=== PATIENT | male | born 1980 | race Caucasian/White ===

== ENCOUNTER 2019-04-12 12:13 | Outpatient (CLI) | payer MEDICARE, MEDICAID, SELFPAY ==
--- NOTE | 2019-04-12 12:32 | ECG_ITS ---
NAME OF STUDY: DOBUTAMINE STRESS ECHOCARDIOGRAM INDICATION: Chest Pain, PROCEDURE: At the baseline, the blood pressure was 123/88 with a heart rate of 100. The electrocardiogram showed normal sinus rhythm with a normal ST-T's. The dobutamine was infused over a period of 14 minutes and 15 seconds. The maximum heart rate obtained was 162 -89 % of the maximum predicted heart rate). The blood pressure at that time was 160/70 mmHg. The patient did not have any chest pain or any significant electrocardiogram changes with the dobutamine infusion. Occasional PVCs were noted with the peak dobutamine infusion. the physical examination remained unchanged. No arrhythmias were seen on the monitor. During the recovery phase, the patient did not have any specific symptoms. The blood pressure at the end of the recovery phase was 127/91 with a heart rate of 113 per minute. The echocardiographic pictures were taken at the baseline, low-dose and peak infusion rate. CONCLUSION: 1. Normal EKG response to dobutamine infusion 2. No dobutamine induced chest pain. Occasional PVCs were noted at the peak infusion 3. Echocardiographic pictures were taken at the baseline, as low dose and peak infusion rate. 4. Please see separate report for the echocardiographic response to dobutamine infusion Electronically Signed On 04-12-2019 19:52:10 HANDBOOK WRITER by Melissa Bansal M.D. [id number]
[2019-04-12 12:33] VITALS: BMI 26.9
--- NOTE | 2019-04-12 12:33 | USCV_ITS ---
Khris Kaba Age: 38 Gender: M : 1980 Exam Date: 04/12/2019 13:00 Ordering Phys: Melissa Bansal MD ([email or web address]) Technologist: Aleksey Villalta Exam Location: [facility] – [place] Indication: Chest pain Rhythm: Sinus Patient History: Depression, Chronic Back pain, Cervical spine fusion, HLD, Family HX CAD, Smokingne Cardiac Medications: none Medications in past 24 hours: none Contrast: Total Dose (mL): Stress Results Protocol: Pharmacologic Peak Dose (???g/kg/min): 40 Duration (min:sec): 14:15 Atropine:(mg) 0.5 Target HR: 155 Double Product: 98284 Resting HR: 99 Resting BP: 123 / 89 Peak HR: 162 Peak BP: 164 / 95 Max Predicted HR: 182 89 % Max Predicted HR Stress Summary: The hemodynamic response to stress was normal. BP Response: Normal Reason for Termination: The patients target heart rate was achieved Cardiac Symptoms: None ECG Analysis Resting EKG: Please see separate report Stress EKG: Please see separate report Arrhythmia: Please see separate report MEASUREMENTS (Male/Female) Normal Values FINDINGS The patient echocardiogram revealed normal LV size but there are no gross wall motion normalities. Normal ejection fraction. Normal aortic root size. No pericardial effusion. With a low and the peak dobutamine fusion, there was no significant wall motion normalities. During the recovery phase, there was no new changes. The study is of suboptimal quality because of the somewhat compromised ultrasonic window CONCLUSIONS Possibly normal echocardiographic response to dobutamine infusion. No dobutamine induced chest pain or cardiac arrhythmia. No significant coronary ischemia, based on the above findings For the EKG response to dobutamine infusion, please see separate report Dr Melissa Bansal MD [facility] (Electronically Signed) Final Date: 12 April 2019 19:18 S
[2019-04-12] MEDS: DOBUTtamine 200 MG in sodium chloride 0.9% 34 ML 13 MG IV (13:25)
[2019-04-12] MEDS: atropine 0.1 mg/mL Syr 10 mL 0.5 MG IVP (13:30)
[2019-04-12 13:57] VITALS: BP 123/85; PULSE 103
[2019-04-12] MEDS: sodium chloride 0.9% 250 mL Bag IV (14:04)
== END 2019-04-12 12:14 | disposition home or self-care (01) ==
PROVIDERS: Family Provider Internal Medicine; PCP Internal Medicine; Visit Provider Internal Medicine Cardiovascular Disease
DX: R07.89 Other chest pain (principal)
CPT/HCPCS: 93017; 93350; J0461; J1250; J7050

== ENCOUNTER 2019-05-12 08:31 | Outpatient (CLI) | payer MEDICARE, MEDICAID, SELFPAY ==
--- NOTE | 2019-05-12 | US_ITS ---
WS: [id number] Gallbladder ultrasound, 05/12/2019 Clinical Data: RUQ ABDOMINAL PAIN Comparison: None. Findings: The gallbladder shows no sludge or stone. The wall measures 1.7 mm with no pericholecystic fluid. The common bile duct is 3.6 mm and there are no intrahepatic ductal abnormalities. Liver shows no cysts, masses or dilated intrahepatic ducts. The liver is enlarged and dense measuring in greatest diameter 19.35 cm. There is fatty infiltration. The pancreas is not obscured by overlying bowel gas and no cyst, pseudocyst, or evidence of pancreati tis is noted. Right kidney measures 10.3 cm and no cyst, masses or hydronephrosis can be seen. The aorta and inferior vena cava show no vascular abnormalities. US/US abdomen limited [id number] Impression: 1. Negative gallbladder. 2. Enlarged liver with fatty infiltration
== END 2019-05-12 08:32 | disposition home or self-care (01) ==
LOC: RADOUTREAD 11:24
PROVIDERS: Family Provider Internal Medicine; PCP Internal Medicine; Visit Provider Internal Medicine
DX: Z76.89 Persons encountering health services in other specified circumstances (principal)

== ENCOUNTER → 2019-11-28 10:49 | Outpatient (BNVA) | payer MEDICARE, MEDICAID, SELFPAY | PROVIDERS: Family Provider Internal Medicine; PCP Internal Medicine; Referring Provider Internal Medicine; Visit Provider Specialist | DX: G60.0 Hereditary motor and sensory neuropathy (principal); F17.210 Nicotine dependence, cigarettes, uncomplicated | CPT/HCPCS: 95908 ==

== ENCOUNTER → 2019-12-23 08:12 | Outpatient (BNVA) | payer MEDICARE, MEDICAID, SELFPAY | PROVIDERS: Family Provider Internal Medicine; PCP Internal Medicine; Referring Provider Internal Medicine; Visit Provider Specialist | DX: G60.0 Hereditary motor and sensory neuropathy (principal); F17.210 Nicotine dependence, cigarettes, uncomplicated | CPT/HCPCS: 95860; 99203 ==

== ENCOUNTER → 2020-04-11 10:36 | Outpatient (BNVA) | payer MEDICARE, MEDICAID, SELFPAY | PROVIDERS: PCP Internal Medicine; Visit Provider Podiatrist Foot & Ankle Surgery | DX: M79.671 Pain in right foot (principal); M79.672 Pain in left foot; M77.52 Other enthesopathy of left foot and ankle | CPT/HCPCS: 73630 ==

== ENCOUNTER 2021-01-29 13:15 | Observation (INO) | payer MEDICARE, MEDICAID, SELFPAY ==
--- NOTE | 2021-01-29 13:18 | ECG_ITS ---
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 Measurements Intervals [place] Rate: 101 P: 5 MO: 358 QRS: 74 QRSD: 90 T: 35 QT: 343 QTc: 445 Interpretive Statements Sinus tachycardia No previous ECG available for comparison Electronically Signed On 01-29-2021 23:24:49 CDT by Javan Adams M.D. [id number]
--- NOTE | 2021-01-29 13:18 | XR_ITS ---
WS: [id number] Exam: XR chest 1V portable [id number] Date/Time of Exam: 01/29/2021 1:28 PM Reason For Exam: dyspnea/cough Comparison 09/29/2018. The lungs are fully inflated and clear. Normal cardiomediastinal silhouette. Neurostimulator electrod es are seen in the mid thoracic spine. Monitoring leads superimpose the chest. Bony structures are in tact. XR/XR chest 1V portable [id number] IMPRESSION: 1. No acute cardiopulmonary finding.
--- NOTE | 2021-01-29 13:26 | ED_ITS ---
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 He states he has had this off and on for a number of years is getting more more intense. It is worse with exertion and improves with rest but sometimes takes several hours he is previously had dobutamine and sestamibi stress test both of which evidently were negative. He was seen by Dr. Mcfadden today who is still concerned about his description of the symptoms and wanted him evaluated further in the emergency room. MD complaint: chest pain and chest heaviness Onset (ago): month(s) Timing of current episode: episodic Prior episodes: Yes Onset: during rest and during exertion Pain location: substernal Pain radiation: left arm Severity: mild Quality: tightness, aching and heaviness Relieving factors: nothing Exacerbating factors: nothing Associated symptoms: Reports diaphoresis, dyspnea, nausea and palpitations; Deny abdominal pain, fever(s), leg edema, sense of impending doom, syncope or vomiting Treatment prior to arrival: none Review of Systems Const: Reports: diaphoresis; Denies: fever(s) ENMT: Denies: throat pain, ear or mastoid pain, nasal discharge or nasal congestion Card: Reports: palpitations; Denies: syncope Resp: Reports: dyspnea GI: Reports: nausea; Denies: abdominal pain or vomiting : Denies: flank pain, dysuria, urinary frequency or urinary urgency Skin/Breast: Denies: rash or pruritus [facility] ED PFSH: Medical History (Updated 02/08/21 @ 13:32 by Srinivasa Zepeda DO) Acquired bilateral foot drop Nobrxjx-Wavjs-Cpwxo atrophy Depression Hyperlipidemia Lumbar radiculopathy Obstructive sleep apnea Precordial chest pain Spinal cord stimulator status Surgical History H/O arthroscopic knee surgery H/O vasectomy Hx of appendectomy Family History Other CAD (coronary artery disease) Cancer Stroke Denies family history of Anesthesia complication Bleeding disorder Social History (Reviewed 02/08/21 @ 13:31 by PEDRO Le Smoking and tobacco status: current every day smoker Alcohol intake: never Physical Exam Const: COMMON NORMALS: average body habitus, patient oriented x3 and alert GENERAL APPEARANCE: cooperative, comfortable, well kempt and well developed NUTRITIONAL APPEARANCE: obese ORIENTATION/CONSCIOUSNESS: Yes awake, Yes oriented to person and Yes oriented to place HENMT: COMMON NORMALS: normocephalic, atraumatic and EAC's normal HEAD & SCALP: normocephalic and atraumatic EXTERNAL AUDITORY CANAL: EAC's normal Neck/C-Spine: COMMON NORMALS: no meningeal signs Resp: COMMON NORMALS: normal respiratory effort, No retractions, No use of accessory muscles and clear to auscultation bilaterally AUSCULTATION: clear to auscultation bilaterally Cardio: COMMON NORMALS: regular rate and regular rhythm RATE: regular rate RHYTHM: regular rhythm HEART SOUNDS: no murmurs GI: COMMON NORMALS: Normal to inspection, nondistended, normoactive bowel sounds present, Soft to palpation and No hepatosplenomegaly present PALPATION: Yes Soft to palpation and Yes No hepatosplenomegaly present : COMMON NORMALS: Yes no CVA tenderness BLADDER/KIDNEY EXAM: Yes no CVA tenderness Back/Pelvis: COMMON NORMALS: no CVA tenderness LUMBAR SPINE/LOWER BACK: Yes normal to inspection Extremity: COMMON NORMALS: no clubbing, cyanosis or edema, no calf tenderness and no pedal edema Neuro: COMMON NORMALS: patient oriented x3 SENSORIUM/ORIENTATION: Yes alert, Yes oriented to person and Yes oriented to place MENINGEAL SIGNS: Yes no meningeal signs Psych: APPEARANCE: Yes well kempt Skin: COMMON NORMALS: no rashes or lesions noted and turgor normal GENERAL SKIN EXAM: no rashes or lesions noted and turgor normal Course Vital Signs: Vital signs: Vital Signs Temperature 99.0 F 01/29/21 13:28 Pulse Rate 71 01/29/21 19:46 Respiratory Rate 18 01/29/21 19:46 Blood Pressure 127/87 01/29/21 19:46 Pulse Oximetry 98 01/29/21 19:46 MDM - Chest Pain MDM Narrative: Medical decision making narrative: 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 He had multiple work-up for this in the past. Cardiology is concerned because of his relatively classic presentation for coronary chest pain. He has not previously had an angiogram. He has had multiple normal stress test Dr. Shepard wishes to go ahead and proceed with angiogram. Patient is amenable to this and will place on observation primary physician will be Dr. Adams orders written. Lab Data: Labs: Lab Results 01/29/21 01/29/21 01/29/21 13:40 13:40 13:40 WBC 9.1 10^3/uL 10^3/ uL (4.0-10.0) RBC 4.91 10^6/uL 10^6 /uL (4.1-5.3) Hgb 15.3 g/dL g/dL (11.7-16.6) Hct 45.7 % % (42.0-52.0) MCV 93.1 fl fl (80-94) MCH 31.2 pg pg (28.0-34.0) MCHC 33.5 g/dL g/dL (30.0-36.0) RDW 12.9 % % (12.1-15.1) Plt Count 319 10^3/cmm 10^3 /cmm (130-400) MPV 9.7 fL fL (7.4-10.4) Neut % (Auto) 61.3 % % Lymph % (Auto) 28.7 % % Sanborn % (Auto) 5.0 % % Eos % (Auto) 3.9 % % Baso % (Auto) 0.7 % % Neut # (Auto) 5.58 10^3/uL 10^3 /uL (1.8-7.7) Lymph # (Auto) 2.6 10^3/uL 10^3/ uL (0.8-4.8) Sanborn # (Auto) 0.5 10^3/uL 10^3/ uL (0.2-0.9) Eos # (Auto) 0.4 10^3/uL 10^3/ uL (0.0-0.8) Baso # (Auto) 0.1 10^3/uL 10^3/ uL (0.0-0.1) Nucleated RBC % (a uto) 0 % % Nucleated RBCs # 0.0 /100WBC /100W BC Sodium 137 mmol/L mmol/L (136-145) Potassium 3.8 mmol/L mmol/L (3.5-5.1) Chloride 99 mmol/L mmol/L (98-107) Carbon Dioxide 27 mmol/L mmol/L (22-29) Anion Gap 14.8 (5-19) BUN 11 mg/dL mg/dL (6-20) Creatinine 0.9 mg/dL mg/dL (0.7-1.2) GFR Calculation 93.5 mL/min mL/mi n (90-130) Glucose 92 mg/dL mg/dL (65-115) Calculated Osmolal ity 283 mOsm/kg L mOs m/kg (285-295) Calcium 9.3 mg/dL mg/dL (8.5-10.5) Total Bilirubin 0.3 mg/dL mg/dL (0.15-1.2) AST 13 U/L U/L (0-40) ALT 18 U/L U/L (0-41) Alkaline Phosphata se 122 IU/L IU/L (40-130) Creatine Kinase 125 U/L U/L (39-308) Troponin T Baselin e 9 ng/L ng/L (0-15) Total Protein 7.2 g/dL g/dL (6.6-8.7) Albumin 4.5 g/dL g/dL (3.5-5.2) Globulin 2.7 g/dL g/dL (1.3-4.6) Urine Color Urine Appearance Urine pH Ur Specific Gravit y Urine Protein Urine Glucose (UA) Urine Ketones Urine Blood Urine Nitrate Urine Bilirubin Urine Urobilinogen Ur Leukocyte Arelis ase 01/29/21 14:09 WBC RBC Hgb Hct MCV MCH MCHC RDW Plt Count MPV Neut % (Auto) Lymph % (Auto) Sanborn % (Auto) Eos % (Auto) Baso % (Auto) Neut # (Auto) Lymph # (Auto) Sanborn # (Auto) Eos # (Auto) Baso # (Auto) Nucleated RBC % (a uto) Nucleated RBCs # Sodium Potassium Chloride Carbon Dioxide Anion Gap BUN Creatinine GFR Calculation Glucose Calculated Osmolal ity Calcium Total Bilirubin AST ALT Alkaline Phosphata se Creatine Kinase Troponin T Baselin e Total Protein Albumin Globulin Urine Color Yellow (Yellow) Urine Appearance Clear (CLEAR) Urine pH 6.5 (5-7) Ur Specific Gravit y 1.010 (1.005-1.030) Urine Protein Neg (Negative) Urine Glucose (UA) Norm (Normal) Urine Ketones Negative (Negative) Urine Blood Neg (Negative) Urine Nitrate Negative (Negative) Urine Bilirubin Neg (Negative) Urine Urobilinogen Norm mg/dL mg/dL (Negative) Ur Leukocyte Arelis ase Negative (Negative) Discharge Plan Discharge Patient Disposition: Admitted As Inpatient Admit Provider: Javan Adams Clinical Impression: Stable angina, Chest pain Coding Level of Care Code ED Photographic Process Worker for Latoya Garland
[2021-01-29 13:28] VITALS: BP 116/90; PULSE 101; RESP 18; TEMP 37.2; O2SAT 97; BMI 22.3
[2021-01-29 13:47] LABS: Basophils # 0.1 10^3/uL (0.0-0.1); Basophils % 0.7 %; Eosinophils # 0.4 10^3/uL (0.0-0.8); Eosinophils % 3.9 %; Hematocrit 45.7 % (42.0-52.0); Hemoglobin 15.3 g/dL (11.7-16.6); Lymphocytes # 2.6 10^3/uL (0.8-4.8); Lymphocytes % 28.7 %; Mean Corpuscular HGB Conc 33.5 g/dL (30.0-36.0); Mean Corpuscular Hemoglobin 31.2 pg (28.0-34.0); Mean Corpuscular Volume 93.1 fl (80-94); Mean Platelet Volume 9.7 fL (7.4-10.4); Monocytes # 0.5 10^3/uL (0.2-0.9); Neutrophils # 5.58 10^3/uL (1.8-7.7); Neutrophils % 61.3 %; Nucleated Red Blood Cells % 0 %; Platelet Count 319 10^3/cmm (130-400); Red Blood Count 4.91 10^6/uL (4.1-5.3); Red Cell Distribution Width 12.9 % (12.1-15.1); White Blood Count 9.1 10^3/uL (4.0-10.0)
--- NOTE | 2021-01-29 13:54 | PC.PHAR ---
pt states he takes care of his own medications-pt states he no longer takes lipitor ext med history shows last filled on 07/19/20 30d/s
[2021-01-29 14:07] LABS: Alanine Aminotransferase 18 U/L (0-41); Albumin Level 4.5 g/dL (3.5-5.2); Alkaline Phosphatase 122 IU/L (40-130); Anion Gap 14.8 (5-19); Aspartate Amino Transferase 13 U/L (0-40); Blood Urea Nitrogen 11 mg/dL (6-20); Calcium 9.3 mg/dL (8.5-10.5); Carbon Dioxide 27 mmol/L (22-29); Chloride 99 mmol/L (98-107); Creatine Phosphokinase 125 U/L (39-308); Globulin 2.7 g/dL (1.3-4.6); Glomerular Filtration Rate 93.5 mL/min (90-130); Glucose 92 mg/dL (65-115); Osmolality Calculated 283 mOsm/kg (285-295); Potassium 3.8 mmol/L (3.5-5.1); Sodium 137 mmol/L (136-145); Total Bilirubin 0.3 mg/dL (0.15-1.2); Total Protein 7.2 g/dL (6.6-8.7)
[2021-01-29 14:09] LABS: Troponin(5th) Baseline 9 ng/L (0-15)
[2021-01-29 14:21] LABS: Add Urine Microscopic? NO; Charge for UA Resulting for Rev
[2021-01-29 14:41] LABS: Bilirubin Urine Neg (Negative); Blood Urine Neg (Negative); Glucose Urine UA Norm (Normal); Ketones Urine Negative (Negative); Leukocyte Esterase Urine Negative (Negative); Nitrate Urine Negative (Negative); Protein Urine Neg (Negative); Urine Appearance Clear (CLEAR); Urine Color Yellow (Yellow); Urobilinogen Urine Norm (Negative); pH Urine 6.5 (5-7)
--- NOTE | 2021-01-29 15:18 | ECG_ITS ---
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 Measurements Intervals [place] Rate: 81 P: -89 IA: 358 QRS: 60 QRSD: 99 T: 53 QT: 404 QTc: 470 Interpretive Statements SINUS rhythm Compared to ECG 01/29/2021 13:20:57 No significant changes Electronically Signed On 01-29-2021 23:28:44 CDT by Javan Adams M.D. [email or web address] community hospitalElements Behavioral Healthgood [email or web address] hospitaljobandtalent/store/OM/[id number]
[2021-01-29 16:42] VITALS: BP 109/79; PULSE 76; RESP 18; O2SAT 95
[2021-01-29 16:54] LABS: Troponin 5 2HR 7.27 ng/L (0-15)
[2021-01-29 17:00] LABS: Troponin 5 2HR Delta -1.73 ABS# (0-10)
[2021-01-29 17:43] VITALS: BP 127/87; PULSE 71; RESP 18; O2SAT 98
--- NOTE | 2021-01-29 18:36 | PC.NURSE ---
Pt expressed that he will not be staying tonight, unless he has the left heart cath done tonight. Dr. Adams spoke with him and told him the procedure wouldn't be able to be done until tomorrow morning. 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 He wished to just go home so he could smoke a joint to relieve his pain. Patient was aware of the risks of leaving against medical advice and excepted those and continued to leave. Pt IV was removed and AMA paperwork was completed.
--- NOTE | 2021-01-29 18:55 | PM.HP ---
Providers/Chief Complaint Admitting Physician: Javan Adams M.D Primary Care Provider: Leighton Bhardwaj DO Chief Complaint: CP History of Present Illness (Please refer to office note from today for H and P). I saw patient in the office today with the diagnosis of unstable angina. His EKG was normal. Initial troponins were negative. Plan was to perform coronary angiogram tomorrow. However patient was upset that why the angiogram is not being done tonight. I explained to him that he is stable and there is no evidence of an RI, we will proceed with angiogram in the morning. However he did not want to stay in the hospital. I had a detailed discussion with him regarding risks of leaving the hospital at this time including possible or RI. He had good understanding of the risks. His was at the bedside as well. I again told patient that if had recurrence of chest pain to come to ER. He does not want to get any further workup as inpatient. He left AGAINST MEDICAL ADVICE. Medications/Allergies Home Medications Medication Instructions Recorded Confirmed Last Taken Type duloxetine 60 mg capsule,delayed 60 mg PO BEDTIME 05/16/19 01/29/21 01/28/21 History release pantoprazole 40 mg tablet,delayed 40 mg PO BEDTIME 05/16/19 01/29/21 01/28/21 History release zolpidem 10 mg tablet 10 mg PO BEDTIME tab 05/16/19 01/29/21 01/28/21 History Articulating AFO #2 ea 04/11/20 01/29/21 Unknown Rx albuterol sulfate 2 puff INHALATION Q4H PRN 01/29/21 01/29/21 Unknown History carisoprodol 350 mg PO TID PRN 01/29/21 01/29/21 Unknown History citalopram 20 mg PO BEDTIME 01/29/21 01/29/21 01/28/21 History duloxetine 30 mg PO BEDTIME 01/29/21 01/29/21 01/28/21 History ibuprofen 600 mg PO Q4H PRN 01/29/21 01/29/21 Unknown History tamsulosin 0.4 mg PO BEDTIME 01/29/21 01/29/21 01/28/21 History Allergies Allergy/AdvReac Type Severity Reaction Status Date / Time No Known Allergies Allergy Verified 01/29/21 13:54 PFSH Acute PFSH: Medical History Acquired bilateral foot drop Spsqayu-Omvdm-Qrbpz atrophy Depression Hyperlipidemia Lumbar radiculopathy Obstructive sleep apnea Precordial chest pain Spinal cord stimulator status Surgical History H/O arthroscopic knee surgery H/O vasectomy Hx of appendectomy Family History Other CAD (coronary artery disease) Cancer Stroke Denies family history of Anesthesia complication Bleeding disorder Social History Smoking and tobacco status: current every day smoker Alcohol intake: never Vitals/I&O/Wt Last Vital Signs Temp 99.0 F 01/29/21 13:28 Pulse 71 01/29/21 17:43 Resp 18 01/29/21 17:43 BP 127/87 01/29/21 17:43 Pulse Ox 98 01/29/21 17:43 Weight last 48 hrs Weight 169 lb Data : 01/29/21 13:40 01/29/21 13:40 Attestations Medical Necessity Statement*: Care not expected to cross 2 midnight. Patient left against medical advice. Coding Level of Care Code Acute Social Service Agency Director for Latoya Garland
[2021-01-29 19:46] VITALS: BP 127/87; PULSE 71; RESP 18; O2SAT 98
--- NOTE | 2021-02-04 14:53 | PC.RESP ---
SMOKING CESSATION INFORMATION SENT TO PATIENT.
== END 2021-01-29 18:36 | disposition home or self-care (01) ==
LOC: ER 13:56 → CSU 16:43
PROVIDERS: Admitting Provider Internal Medicine; Emergency Provider Family Medicine; PCP Internal Medicine; Visit Provider Internal Medicine
DX: R07.9 Chest pain, unspecified (principal); I20.0 Unstable angina; Z53.29 Procedure and treatment not carried out because of patient's decision for other reasons; I10 Essential (primary) hypertension; E78.5 Hyperlipidemia, unspecified; F17.200 Nicotine dependence, unspecified, uncomplicated
CPT/HCPCS: 36415; 71045; 80053; 81003; 82550; 84484; 85025; 93005; 99285; G0378

== ENCOUNTER 2021-01-30 17:13 | Emergency (ER) | payer MEDICARE, MEDICAID, SELFPAY ==
[2021-01-30 17:46] VITALS: BP 136/84; PULSE 139; RESP 18; TEMP 37.4; O2SAT 97; BMI 22.9
--- NOTE | 2021-01-30 18:41 | CTR_ITS ---
PROCEDURE INFORMATION: Exam: CT Head Without Contrast Exam date and time: 01/30/2021 6:41 PM Age: 40 years old Clinical indication: Pain; Other: Nausea; Headache; Additional info: POLK TECHNIQUE: Imaging protocol: Computed tomography of the head without contrast. Sagittal and coronal reformatted images were created and reviewed. Radiation optimization: All CT scans at this facility use at least one of these dose optimization techniques: automated exposure control; mA and/or kV adjustment per patient size (includes targeted exams where dose is matched to clinical indication); or iterative reconstruction. COMPARISON: CT head wo con* [id number] 06/04/2018 8:00 PM RADIATION DOSE METRICS: Total DLP (mGy-cm): 809.9 FINDINGS: Brain: No acute intracranial hemorrhage. No acute infarct. No intra-axial or extra-axial masses. Stein-white matter differentiation is preserved. No cerebral edema. No extra-axial fluid collections. No midline shift. No evidence for Chiari 1 malformation. Cerebral ventricles: No hydrocephalus. Paranasal sinuses: Mild mucoperiosteal thickening in the visualized frontal and ethmoid sinuses. Mastoid air cells: Visualized mastoid air cells are clear. Orbital cavity: No acute abnormality in the visualized orbits. Bones/joints: No acute fracture. Soft tissues: No acute abnormality of the extracranial soft tissues. CT/CT head wo con* [id number] IMPRESSION: 1. No acute abnormality of the brain. 2. Mild mucoperiosteal thickening in the visualized frontal and ethmoid sinuses. Radiation Dose CTDIVOL = (mGy): DLP = 809.9 (mGy-cm)
--- NOTE | 2021-01-30 18:41 | XRR_ITS ---
PROCEDURE INFORMATION: Exam: XR Chest Exam date and time: 01/30/2021 6:41 PM Age: 40 years old Clinical indication: Chest wall pain; Additional info: Cp TECHNIQUE: Imaging protocol: XR of the chest. Views: 1 view. COMPARISON: CR XR chest 1V portable [id number] 01/29/2021 1:31 PM FINDINGS: Tubes, catheters and devices: Spinal cord stimulator is stable in position with the paddle at the T7 and T8 vertebral levels. Lungs: Lungs are clear bilaterally. Pleural spaces: No pleural effusion. No pneumothorax. Heart/Mediastinum: The cardiac silhouette and mediastinal contours are unremarkable. Bones/joints: Unremarkable for age. XR/XR chest 1V portable [id number] IMPRESSION: 1. No acute cardiopulmonary process. 2. Incidental/nonacute findings are listed in the report. Radiation Dose CTDIVOL = (mGy): DLP = (mGy-cm)
--- NOTE | 2021-01-30 18:41 | ECG_ITS ---
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 Measurements Intervals [place] Rate: 94 P: 11 MS: 104 QRS: 60 QRSD: 91 T: 63 QT: 375 QTc: 470 Interpretive Statements SINUS RHYTHM WITH SHORT MS INTERVAL NONSPECIFIC T-WAVE ABNORMALITY Compared to ECG 01/29/2021 17:18:10 Short MS interval now present T-wave abnormality now present Electronically Signed On 01-31-2021 1:25:42 CDT by Melissa Bansal M.D. [email or web address] [email or web address].[email or web address]/store/[id number]
--- NOTE | 2021-01-30 18:53 | W.ED.GENADLT ---
HPI - General Adult General: Chief complaint: General Medical Stated complaint: SWELLING IN R EYE/NUMBNESS Time Seen by Provider: 01/30/21 18:33 Source: patient Mode of arrival: ambulatory Limitations: no limitations History of Present Illness: HPI narrative: 40-year-old male states that he has been having multiple complaints of the last few weeks. States has been having right-sided headache with a felt like swelling in his right eye. Denies any change in vision denies any weakness or any focal deficits. States he has been having some chest pain left side of his chest. He saw service center supervisor Dr. Shepard yesterday he also had a stress test earlier this year. Denies any worsening improving factors. Associated symptoms: Reports chest pain and headache(s); Deny dyspnea, nausea, rash or vomiting Review of Systems Const: Denies: fever(s), chills, body aches or change in appetite Eyes: Denies: blurry vision or eye discomfort ENMT: Denies: throat pain or dental pain Card: Reports: chest pain Resp: Denies: dyspnea GI: Denies: abdominal pain, nausea, vomiting or diarrhea : Denies: dysuria Musc: Denies: neck pain or back pain Skin/Breast: Denies: rash Neuro: Reports: headache(s) Psych: Denies: depression Louie/Lymph: Denies: easy bruising All/Imm: Denies: urticaria PFSH ED PFSH: Medical History (Updated 01/30/21 @ 20:25 by Darlin Tripathi MD) Acquired bilateral foot drop Axmrvdm-Pyppo-Cbope atrophy Depression Hyperlipidemia Lumbar radiculopathy Obstructive sleep apnea Precordial chest pain Spinal cord stimulator status Surgical History H/O arthroscopic knee surgery H/O vasectomy Hx of appendectomy Family History Other CAD (coronary artery disease) Cancer Stroke Denies family history of Anesthesia complication Bleeding disorder Social History Smoking and tobacco status: current every day smoker Alcohol intake: never Physical Exam Const: COMMON NORMALS: no acute distress, patient oriented x3, healthy appearing and alert HENMT: COMMON NORMALS: normocephalic and atraumatic HEAD & SCALP: normocephalic and atraumatic Eye: COMMON NORMALS: Equal, round and reactive pupils present and EOMs intact bilaterally PUPIL: Yes Equal, round and reactive pupils present Neck/C-Spine: COMMON NORMALS: full ROM and supple Chest: COMMONS NORMALS: normal inspection of the chest and normal palpation of entire chest wall Resp: COMMON NORMALS: normal respiratory effort, No retractions, No use of accessory muscles and clear to auscultation bilaterally AUSCULTATION: clear to auscultation bilaterally Cardio: COMMON NORMALS: regular rate, regular rhythm and No murmurs present (Cardio) RATE: regular rate RHYTHM: regular rhythm GI: COMMON NORMALS: Normal to inspection, nondistended, normoactive bowel sounds present, Soft to palpation, non-tender and no masses PALPATION: Yes Soft to palpation Extremity: COMMON NORMALS: normal to inspection and full ROM Neuro: COMMON NORMALS: patient oriented x3, moves all extremities and no focal motor deficits SENSORIUM/ORIENTATION: Yes alert CRANIAL NERVES: Yes CN normal except as noted COORDINATION/BALANCE: [id number] test normal SPEECH: speech normal GAIT: Yes Normal gait present COORDINATION: [id number] test normal Psych: COMMON NORMALS: mental status grossly normal, Normal thought process present and cooperative THOUGHT PROCESS: Normal thought process present Skin: COMMON NORMALS: no rashes or lesions noted and no wounds GENERAL SKIN EXAM: no rashes or lesions noted Course Vital Signs: Vital signs: Vital Signs Temperature 99.4 F 01/30/21 17:46 Pulse Rate 103 H 01/30/21 20:36 Respiratory Rate 18 01/30/21 20:36 Blood Pressure 111/71 01/30/21 20:36 Pulse Oximetry 97 01/30/21 20:36 MDM - General Adult MDM Narrative: Medical decision making narrative: Patient presents for chest pains atypical in nature. Patient has had pain for weeks and his troponin here is negative EKG is normal. Is a headache that since resolved as well as head CT here is normal. He is stable for discharge he is to follow-up with PCP and return if worsening he understands agrees to plan. He has no signs of acute coronary syndrome or pulmonary embolism. Lab Data: Labs: Lab Results 01/30/21 01/30/21 01/30/21 18:50 18:50 18:50 WBC 11.1 10^3/uL H 10 ^3/uL (4.0-10.0) RBC 5.09 10^6/uL 10^6 /uL (4.1-5.3) Hgb 16.2 g/dL g/dL (11.7-16.6) Hct 46.4 % % (42.0-52.0) MCV 91.2 fl fl (80-94) MCH 31.8 pg pg (28.0-34.0) MCHC 34.9 g/dL g/dL (30.0-36.0) RDW 12.7 % % (12.1-15.1) Plt Count 347 10^3/cmm 10^3 /cmm (130-400) MPV 9.7 fL fL (7.4-10.4) Neut % (Auto) 65.4 % % Lymph % (Auto) 26.0 % % [place] % (Auto) 5.2 % % Eos % (Auto) 2.5 % % Baso % (Auto) 0.5 % % Neut # (Auto) 7.24 10^3/uL 10^3 /uL (1.8-7.7) Lymph # (Auto) 2.9 10^3/uL 10^3/ uL (0.8-4.8) [place] # (Auto) 0.6 10^3/uL 10^3/ uL (0.2-0.9) Eos # (Auto) 0.3 10^3/uL 10^3/ uL (0.0-0.8) Baso # (Auto) 0.1 10^3/uL 10^3/ uL (0.0-0.1) Nucleated RBC % (a uto) 0 % % Nucleated RBCs # 0.0 /100WBC /100W BC Sodium 133 mmol/L L mmol /L (136-145) Potassium 3.7 mmol/L mmol/L (3.5-5.1) Chloride 95 mmol/L L mmol/ L (98-107) Carbon Dioxide 25 mmol/L mmol/L (22-29) Anion Gap 16.7 (5-19) BUN 11 mg/dL mg/dL (6-20) Creatinine 0.8 mg/dL mg/dL (0.7-1.2) GFR Calculation 107.1 mL/min mL/m in (90-130) Glucose 97 mg/dL mg/dL (65-115) Calculated Osmolal ity 275 mOsm/kg L mOs m/kg (285-295) Calcium 9.4 mg/dL mg/dL (8.5-10.5) Total Bilirubin 0.3 mg/dL mg/dL (0.15-1.2) AST 12 U/L U/L (0-40) ALT 17 U/L U/L (0-41) Alkaline Phosphata se 127 IU/L IU/L (40-130) Troponin T Baselin e 9 ng/L ng/L (0-15) Total Protein 7.7 g/dL g/dL (6.6-8.7) Albumin 4.4 g/dL g/dL (3.5-5.2) Globulin 3.3 g/dL g/dL (1.3-4.6) Imaging Data^: CT Head: Attestation: I personally reviewed and interpreted this imaging study as follows: Radiologist's impression: [id number] [address] [address] Scan Report Signed Patient: Khris Kaba Unit #: [id number] : 1980 Age/Sex: 40 / M ADM Date: 01/30/21 Loc: ER Room/Bed: Attending Dr: Ordering Provider/Ordering MD: Darlin Tripathi MD Date of Service: 01/30/21 Procedure(s): CT head wo con* [id number] Accession Number(s): [id number] Report Number: [id number] PROCEDURE INFORMATION: Exam: CT Head Without Contrast Exam date and time: 01/30/2021 6:41 PM Age: 40 years old Clinical indication: Pain; Other: Nausea; Headache; Additional info: POLK TECHNIQUE: Imaging protocol: Computed tomography of the head without contrast. Sagittal and coronal reformatted images were created and reviewed. Radiation optimization: All CT scans at this facility use at least one of these dose optimization techniques: automated exposure control; mA and/or kV adjustment per patient size (includes targeted exams where dose is matched to clinical indication); or iterative reconstruction. COMPARISON: CT head wo con* [id number] 06/04/2018 8:00 PM RADIATION DOSE METRICS: Total DLP (mGy-cm): 809.9 FINDINGS: Brain: No acute intracranial hemorrhage. No acute infarct. No intra-axial or extra-axial masses. Stein-white matter differentiation is preserved. No cerebral edema. No extra-axial fluid collections. No midline shift. No evidence for Chiari 1 malformation. Cerebral ventricles: No hydrocephalus. Paranasal sinuses: Mild mucoperiosteal thickening in the visualized frontal and ethmoid sinuses. Mastoid air cells: Visualized mastoid air cells are clear. Orbital cavity: No acute abnormality in the visualized orbits. Bones/joints: No acute fracture. Soft tissues: No acute abnormality of the extracranial soft tissues. CT/CT head wo con* [id number] IMPRESSION: 1. No acute abnormality of the brain. 2. Mild mucoperiosteal thickening in the visualized frontal and ethmoid sinuses. Radiation Dose CTDIVOL = (mGy): DLP = 809.9 (mGy-cm) Dictated By: Melanie Corona MD Signed By: Melanie Corona MD Signed Date/Time: 01/30/211923 DD/ 40 CXR: Attestation: I personally reviewed and interpreted this imaging study as follows: My impression: no acute abnormality EKG Data^: EKG 1: Attestation: I personally reviewed and interpreted this EKG as follows: EKG interpretation date: 01/30/21 EKG interpretation time: 19:48 Interpretation: nsr hr [address] or t wave abnormalities qrs 91 qtc 427 Computer generated interpretation: Chest X-Ray 01/30/21 18:41 IMPRESSION: 1. No acute cardiopulmonary process. 2. Incidental/nonacute findings are listed in the report. Radiation Dose CTDIVOL = (mGy): DLP = (mGy-cm) Head CT 01/30/21 18:41 IMPRESSION: 1. No acute abnormality of the brain. 2. Mild mucoperiosteal thickening in the visualized frontal and ethmoid sinuses. Radiation Dose CTDIVOL = (mGy): DLP = 809.9 (mGy-cm) Discharge Plan Discharge Patient Disposition: Home Clinical Impression: Chest pain, Headache Condition: Stable Prescriptions: No Action zolpidem 10 mg tablet 10 mg PO BEDTIME RF: 0 pantoprazole 40 mg tablet,delayed release (DR/EC) 40 mg PO BEDTIME RF: 0 duloxetine [Cymbalta] 60 mg capsule,delayed release(DR/EC) 60 mg PO BEDTIME RF: 0 (DME) Articulating AFO See Rx Instructions .ROUTE .MEDSUPPLY Qty: 2 RF: 0 carisoprodol 350 mg tablet 350 mg PO TID PRN (Reason: Muscle Spasm) RF: 0 citalopram 20 mg tablet 20 mg PO BEDTIME RF: 0 tamsulosin 0.4 mg capsule 0.4 mg PO BEDTIME RF: 0 ibuprofen 200 mg Tablet 600 mg PO Q4H PRN (Reason: Pain) RF: 0 albuterol sulfate 90 mcg/actuation Hfa Aerosol Inhaler 2 puff INHALATION Q4H PRN (Reason: Shortness Of Breath) RF: 0 duloxetine 30 mg capsule,delayed release(DR/EC) 30 mg PO BEDTIME RF: 0 Discharge Orders: Discharge ED (Routine); Ordered 01/30/21 Ordered By: Darlin Tripathi Referrals: Leighton Bhardwaj DO [Primary Care Provider] - 1-3 days Discharge Diet: Advance as tolerated Discharge Activity: Resume usual activity Patient Instructions: Chest Pain (ED) Coding Level of Care Code ED [employer] 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
[2021-01-30 18:56] LABS: Basophils # 0.1 10^3/uL (0.0-0.1); Basophils % 0.5 %; Eosinophils # 0.3 10^3/uL (0.0-0.8); Eosinophils % 2.5 %; Hematocrit 46.4 % (42.0-52.0); Hemoglobin 16.2 g/dL (11.7-16.6); Lymphocytes # 2.9 10^3/uL (0.8-4.8); Mean Corpuscular HGB Conc 34.9 g/dL (30.0-36.0); Mean Corpuscular Hemoglobin 31.8 pg (28.0-34.0); Mean Corpuscular Volume 91.2 fl (80-94); Mean Platelet Volume 9.7 fL (7.4-10.4); Monocytes # 0.6 10^3/uL (0.2-0.9); Monocytes % 5.2 %; Neutrophils # 7.24 10^3/uL (1.8-7.7); Neutrophils % 65.4 %; Nucleated Red Blood Cells % 0 %; Platelet Count 347 10^3/cmm (130-400); Red Blood Count 5.09 10^6/uL (4.1-5.3); Red Cell Distribution Width 12.7 % (12.1-15.1); White Blood Count 11.1 10^3/uL (4.0-10.0)
[2021-01-30 19:18] LABS: Troponin(5th) Baseline 9 ng/L (0-15)
[2021-01-30] MEDS: diphenhydrAMINE 50 mg/mL SDV 1mL IVP (19:20)
[2021-01-30] MEDS: sodium chloride 0.9% 1,000 ML 999 ML IV (19:20)
[2021-01-30] MEDS: metoclopramide 5 mg/mL SDV 2 mL 10 MG IVP (19:22)
[2021-01-30 19:30] VITALS: BP 111/82; PULSE 96; RESP 18; O2SAT 95
[2021-01-30 20:06] LABS: Alanine Aminotransferase 17 U/L (0-41); Albumin Level 4.4 g/dL (3.5-5.2); Alkaline Phosphatase 127 IU/L (40-130); Anion Gap 16.7 (5-19); Aspartate Amino Transferase 12 U/L (0-40); Blood Urea Nitrogen 11 mg/dL (6-20); Calcium 9.4 mg/dL (8.5-10.5); Carbon Dioxide 25 mmol/L (22-29); Chloride 95 mmol/L (98-107); Globulin 3.3 g/dL (1.3-4.6); Glomerular Filtration Rate 107.1 mL/min (90-130); Glucose 97 mg/dL (65-115); Osmolality Calculated 275 mOsm/kg (285-295); Potassium 3.7 mmol/L (3.5-5.1); Sodium 133 mmol/L (136-145); Total Bilirubin 0.3 mg/dL (0.15-1.2); Total Protein 7.7 g/dL (6.6-8.7)
[2021-01-30 20:36] VITALS: BP 111/71; PULSE 103; RESP 18; O2SAT 97
== END 2021-01-30 20:36 | disposition home or self-care (01) ==
PROVIDERS: Emergency Provider Emergency Medicine; PCP Internal Medicine
DX: R07.89 Other chest pain (principal); R51.9 Headache, unspecified; E78.5 Hyperlipidemia, unspecified
CPT/HCPCS: 70450; 71045; 80053; 84484; 85025; 93005; 96361; 96374; 96375; 99284; J1200; J2765; J7030

== ENCOUNTER → 2021-02-13 10:00 | Outpatient (BNVA) | payer MEDICARE, MEDICAID, SELFPAY | PROVIDERS: PCP Internal Medicine; Referring Provider Internal Medicine; Visit Provider Internal Medicine | DX: Z01.818 Encounter for other preprocedural examination (principal); R07.9 Chest pain, unspecified; Z20.822 Contact with and (suspected) exposure to COVID-19 | CPT/HCPCS: 80048; 85025; 85610; 87635 ==

== ENCOUNTER 2021-02-19 05:42 | Outpatient (CLI) | payer MEDICARE, MEDICAID, SELFPAY ==
[2021-02-19] VITALS (13 sets, daily range): BP systolic 99–113; BP diastolic 66–79; PULSE 66–89; RESP 13–17; TEMP 36.3; O2SAT 92–97; BMI 22.9
--- NOTE | 2021-02-19 06:00 | XACV_ITS ---
Ht: 183 cm Wt: 77 kg BSA: 1.97 m2 Gender: Male : 1980 Any Known Allergies: No known allergies Exam Priority: Routine Procedure(s): Procedure Description: Diagnostic procedure Procedure Description: Left Heart Catheterization Procedure Description: Left ventriculography Procedure Description: Coronary Angiography Diagnostic Cath Status: Elective Diagnostic Findings * Circumflex has mild luminal irregularities. It gives rise to a large sized OM branch that is free of significant disease. * Left Main: luminal irregularities, ostially has 20% stenosis, KRISTAL: 3 flow. * Mid Left Anterior Descending: mild 40% stenosis, KRISTAL: 3 flow. 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 It gives rise to a medium sized diagonal artery that has diffuse disease in it. * Right Coronary Artery has no disease. * Coronary angiography shows right dominance. Conclusions 1. Non obstructive coronary artery disease. 2. Normal left ventricular systolic function. Ejection fraction of 60%. Recommendations * Aggressive risk factor modification. * Outpatient cardiology follow up in 4 weeks. Diagnostic RX Recommendation: medical therapy and/or counseling Anticoagulation: Heparin Ventriculography Ejection Fraction: 60.0 % Pressures Phase:Rest AO : 114 / 77 ( 93 ) @ 6:01:00 AM 115 / 77 ( 92 ) @ 6:01:00 AM LV : 126 / -10 / 14 @ 6:00:00 AM 130 / -1 / 22 @ 6:01:00 AM 129 / -1 / 22 @ 6:01:00 AM Valves Phase:DefaultPhase AV : 14.0 @ 8:05:53 AM AV Mean Gradient: 20.0 @ 8:05:53 AM Clinical Evaluation EBL: 5mL-10mL Procedural Details Procedure Consent Obtained. Pre-Procedure Time Out. Identified patient by full name and date of as verbalized by the patient/guarantor. Does the consent match the physician's order: Yes. Accurate & Complete Informed Consent: Yes. Inpatient/Outpatient History & Physical on Chart: Yes. If H&P is completed, is and addenduem needed: No; If yes, is the addendum complete: N/A. Visualize and Verify Site with Patient/Guarantor: N/A. Relevant Radiology Images available: Yes. Pre-op teaching completed and patient verbalized understanding. The risks, benefits, and alternatives of sedation and/or procedure were discussed by physician. The patient agrees to continue. Procedure started. [facility] Clinical Fraility Score: 3: Managing Well. Orientation And Mobility Instructor Indications: Worsening Angina. Chest Pain Symptom Assessment: Typical Angina Symptoms. Correct patient, site and procedure confirmed by cath team. Current diagnosis: Chest Pain. PERRLA. Strong, equal hand tariff clerk bilaterally. Lungs clear x 5 lobes. IV Site on Arrival: 20 gauge in the left anticubital. IV Fluids: 0.9% NaCl at KVO. 0 mL infused prior to laboratory phlebotomist. Pre Procedural Pulses: bilateral dorsalis pedis was Doppled. Pre Procedural Pulses: right posterior tibial was Doppled. Pre Procedural Pulses: left posterior tibial was 2+. Pre Procedural Pulses: bilateral radial was 2+. Oxygen started at 2liters/min via nasal canula. right groin was prepped with chloroprep then draped in the usual sterile fashion. right radial was prepped with chloroprep then draped in the usual sterile fashion. Physician notified. Baseline sample Acquired. HR: 63 BPM. Physician arrived. Physician scrubbed in. Immediate Pre-Procedure Time Out. Correct Patient: Yes; Correct Procedure: Yes; Correct Site: Yes; Correct Patient Position: Yes; Correct Supplies: Yes; Dried Flammable Prep: Yes; Blood Products Available: N/A;. Lidocaine 1% infiltrated to the right radial. Arterial access obtained. A 5 bolivian TIG catheter in over wire. Multiple views taken of left coronary artery. Catheter redirected to the RCA. Multiple views taken of right coronary artery. Catheter removed over the exchange wire. EDP Sample taken: LV 126/-11,14; HR: 79 BPM; SpO2: 97%. LV gram performed in GARCIA @ 10 mL/second for a total of 30 mL. EDP Sample taken: LV 130/-2,22; HR: 75 BPM; SpO2: 97%. Pullback taken: LV 129/-2,22; AO 114/77(93); Mean: 20mmHg, Peak to Peak: 14mmHg, SEP: 7sec/min; HR: 76 BPM; SpO2: 97%. Catheter removed over the exchange wire. A TR Band was successful obtaining hemostatsis at the Right Radial artery insertion site. Post Procedure: Pulses reassessed and unchanged. PERRLA. Strong, equal hand tariff clerk bilaterally. No VTE prophylaxis required. Medication's Wasted: Other = Versed 1 mg. Medication's Wasted: Other = Fentanyl 50 mg. Medication's Wasted: Heparin = 1000 units. Medication's Wasted: Lidocaine 1% = 18 mL. Medication's Wasted: Nitro = 49.8 mcg. Total IV fluids: 167 mL. Contrast type used: Visipaque 320 mgI/mL, 500 mL bottle. Complications: None. Estimated blood loss: 5mL-10mL. Procedure completed. Patient transferred by stretcher to CPRU. Vital chart was stopped. Access Site Site: Right Radial artery Sheath Size: 6 Fr Hemostasis Method: TR Band Hemostasis Success: Successful Procedure Medications Start: 7:40 AM Stop: 7:40 AM Medication: Versed Amount: 1 mg Route: I.V. Start: 7:40 AM Stop: 7:40 AM Medication: Fentanyl Amount: 50 mcg Route: I.V. Start: 7:45 AM Stop: 7:45 AM Medication: Versed Amount: 1 mg Route: I.V. Start: 7:45 AM Stop: 7:45 AM Medication: Fentanyl Amount: 50 mcg Route: I.V. Start: 7:49 AM Stop: 7:49 AM Medication: Nitrogylcerin Amount: 200 mcg Route: I.A. Start: 7:49 AM Stop: 7:49 AM Medication: Versed Amount: 1 mg Route: I.V. Start: 7:49 AM Stop: 7:49 AM Medication: Fentanyl Amount: 50 mcg Route: I.V. Start: 7:51 AM Stop: 7:51 AM Medication: Heparin Amount: 5000 units Route: I.V. Start: 7:55 AM Stop: 7:55 AM Medication: 0.9% Saline Amount: 250 ml Route: I.V. bolus I, the attending physician, have reviewed and verified all procedure medications. Yes, all medications given per verbal order History/Risk Factors Hypertension: Yes Dyslipidemia: Yes Peripheral Arterial Disease (PAD): No Myocardial Infarction (OR): No Obesity: No Renal Disease: No Prior Interventions PCI: No CABG: No Valve Surgery: No Report Signatures Finalized by Javan Adams MD on 02/19/2021 08:22 AM
[2021-02-19] MEDS: diphenhydrAMINE 50 mg Capsule PO (06:50)
--- NOTE | 2021-02-19 07:40 | W.PM.OPSUD ---
Surgery/Procedure H&P Update DATE OF PROCEDURE: February 19, 2021 DATE H&P PERFORMED: 01/29/21 H&P UPDATE INFORMATION: I have reviewed H&P completed within last 30 days, I have examined patient prior to procedure and No changes to prior documentation PREOP DIAGNOSIS: Worsening angina PRIMARY INDICATION FOR PROCEDURE: Worsening angina PLANNED PROCEDURE: Operation Date: 02/19/21 07:00 Proposed Procedures p Cardiac Catheterization(Left) - Javan Adams M.D Possible percutaneous coronary intervention PATIENT REASSESSED PRIOR TO SEDATION, WITH NO CHANGE NOTED: Yes PHYSICAL EXAM: alert, oriented x 3 and clear to auscultation bilaterally AIRWAY EVAL/ANESTHESIA PLAN: ASA III, Monitored Anesthesia, Local Anesthesia, Risks, benefits & alternatives of sedation and/or procedure discussed and Patient agrees to continue as planned
--- NOTE | 2021-02-19 08:34 | PC.NURSE ---
recovery received pt from clinical laboratory director post diagnostic heart cath. pt has tr band on right wrist with palpable pulse distal present. pt alert and oriented x3 but drowsy. pt educated on restrictions of right wrist and will be educated throughout recovery. pt placed on monitor for vitals and will be monitored per protocol. plan to dc after 3 hrs recovery.
== END 2021-02-19 11:00 | disposition home or self-care (01) ==
PROVIDERS: PCP Internal Medicine; Visit Provider Internal Medicine
DX: I25.10 Atherosclerotic heart disease of native coronary artery without angina pectoris (principal); I10 Essential (primary) hypertension; G47.33 Obstructive sleep apnea (adult) (pediatric); E78.2 Mixed hyperlipidemia
CPT/HCPCS: 93452; C1769; C1887; C1894; J1644; J2250; J3010; J3490; J7030; Q0163; Q9967

== ENCOUNTER → 2021-02-26 09:10 | Outpatient (BNVA) | payer MEDICARE, MEDICAID, SELFPAY | PROVIDERS: PCP Internal Medicine; Visit Provider Nurse Practitioner Family | DX: I25.118 Atherosclerotic heart disease of native coronary artery with other forms of angina pectoris (principal) | CPT/HCPCS: 80048 ==

== ENCOUNTER 2021-05-07 09:31 | Emergency (ER) | payer MEDICARE, MEDICAID, SELFPAY ==
[2021-05-07 09:52] VITALS: BP 107/71; PULSE 107; RESP 15; TEMP 36.5; O2SAT 100; BMI 22.4
[2021-05-07 09:57] VITALS: BP 124/71; PULSE 91; RESP 16; O2SAT 94
--- NOTE | 2021-05-07 10:15 | CT_ITS ---
WS: [id number] CT CERVICAL TRAUMA TECHNIQUE: Noncontrast CT of the cervical spine with coronal and sagittal reformatted images. CLINICAL INFORMATION: fall trauma COMPARISON: DLP: 637.[address] scans at [facility] use at least one of these dose optimization techniques: automated e xposure control; mA and/or kV adjustment per patient size (includes targeted exams where dose is matc hed to clinical indication); or iterative reconstruction. FINDINGS: Straightening of the normal cervical lordosis. Prior postoperative changes ACDF C5-6 with subsidence along the interbody fusion graft. Interbody bony fusion C6-7. Normal craniocervical junction. Normal C1-C2 articulation. Dens is normal in appearance. Normal occip ital condyles. Normal C1 ring. No evidence of acute fracture or dislocation. Normal prevertebral soft tissues. Mastoids air cells are well aerated. CT/CT cervical spin wo con* [id number] IMPRESSION: 1. No evidence of acute fracture or dislocation. 2. Prior postoperative changes are stable in appearance since October 20, 2018
--- NOTE | 2021-05-07 10:15 | ED_ITS ---
HPI - Fall General: Chief Complaint: Fall Stated Complaint: Falling alot, hit head and shoulder Time Seen by Provider: 05/07/21 10:02 History of Present Illness: 40-year-old male presents to the emergency room with complaints of falls. 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 He has no over the last several months he is having significant increase in falls he also has difficulty holding onto objects he is dropped classes cups pitchers etc. He has AFOs for his lower extremities that he wears occasionally does notice he has less trouble when he wears them. When he fell today he hit his left shoulder and his head is a question of loss of con sciousness. He is not on any anticoagulants. He previously has had a cervical fixation. He had seen neurosurgeon here locally we had talked about repeating another procedure for stenosis but it was never completed. 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) Location of injury - extremities: Left: shoulder Severity: mild Quality: aching Associated symptoms-after fall: Reports difficulty walking (Secondary to chronic medical issue) and weakness; Denies abdominal pain, chest pain, confusion, headache(s), hematuria, lightheadedness, neck pain, numbness, short of breath or vertigo Review of Systems Const: Denies: fever(s), chills, body aches, change in appetite, fatigue or malaise ENMT: Denies: throat pain, ear or mastoid pain, nasal discharge or nasal congestion Card: Denies: chest pain or lightheadedness Resp: Denies: dyspnea, productive cough or non-productive cough GI: Denies: abdominal pain : Denies: hematuria Musc: Denies: neck pain Skin/Breast: Denies: rash or pruritus Neuro: Reports: difficulty walking (Secondary to chronic medical issue); Denies: headache(s), vertigo or confusion [facility] ED PFSH: Medical History Acquired bilateral foot drop Atherosclerosis of coronary artery Zikrlcl-Kwooh-Ktqda atrophy Coronary-myocardial bridge Depression Hyperlipidemia Lumbar radiculopathy Obstructive sleep apnea Precordial chest pain Spinal cord stimulator status Surgical History H/O arthroscopic knee surgery H/O vasectomy Hx of appendectomy Family History Other CAD (coronary artery disease) Cancer Stroke Denies family history of Anesthesia complication Bleeding disorder Social History Alcohol intake: never Physical Exam Const: COMMON NORMALS: no acute distress GENERAL APPEARANCE: cooperative and comfortable ORIENTATION/CONSCIOUSNESS: Yes awake, Yes oriented to person, Yes oriented to place and Yes oriented to time HENMT: COMMON NORMALS: normocephalic, atraumatic and hearing grossly normal bilaterally HEAD & SCALP: normocephalic and atraumatic Neck/C-Spine: COMMON NORMALS: no JVD Resp: COMMON NORMALS: normal respiratory effort, No retractions, No use of accessory muscles and clear to auscultation bilaterally AUSCULTATION: clear to auscultation bilaterally Cardio: COMMON NORMALS: no JVD, regular rate, regular rhythm and No murmurs present (Cardio) RATE: regular rate RHYTHM: regular rhythm GI: COMMON NORMALS: Soft to palpation and No hepatosplenomegaly present AUSCULTATION: Yes normoactive bowel sounds PALPATION: Yes Soft to palpation, No Tenderness to palpation present (GI), No Guarding due to palpation present (GI) and Yes No hepatosplenomegaly present Extremity: COMMON NORMALS: normal to inspection, capillary refill normal, no clubbing, cyanosis or edema, no calf tenderness and no pedal edema OTHER: Contractures of the upper extremities bilaterally with muscle atrophy in the forearms. Similar in the lower extremities lower legs bilaterally have significant muscle atrophy. This is all chronic related to his CMT Neuro: SENSORIUM/ORIENTATION: Yes oriented to person, Yes oriented to place and Yes oriented to time Skin: COMMON NORMALS: no rashes or lesions noted GENERAL SKIN EXAM: no elisha hes or lesions noted Course Vital Signs: Vital signs: Vital Signs Temperature 97.9 F 05/07/21 12:37 Pulse Rate 92 05/07/21 12:37 Respiratory Rate 16 05/07/21 12:37 Blood Pressure 115/80 02/01/22 12:37 Pulse Oximetry 97 05/07/21 12:37 MDM - Fall Medical Decision Making Patient's issues are chronic. Unfortunately they seem to be progressing. CT of his head and neck is unremarkable x-ray of the shoulder is negative. Think we can go ahead and discharge the patient home we will going to have him follow-up with Dr. Rich for further evaluation. Because of his pain stimulator MRI is not an immediate option. I did briefly discuss with Dr. Rich they may need to remove the pain stimulator but he is willing to see the patient initially to see if there is anything he can do to help improve. Advised patient to return as needed. Medical Records I reviewed the patient's medical records. Lab Data I reviewed the patient's lab results. : 05/07/21 10:50 05/07/21 10:50 Radiology Impressions Cervical Spine CT 05/07/21 10:15 IMPRESSION: 1. No evidence of acute fracture or dislocation. 2. Prior postoperative changes are stable in appearance since October 20, [address] 05/07/21 10:16 IMPRESSION: 1. No evidence of intracranial hemorrhage or mass effect. 2. Mild paranasal sinusitis. 3. No acute intracranial findings. Ribs w/Chest X-Ray 05/07/21 10:29 IMPRESSION: No focal left rib abnormality identified. Shoulder X-Ray 05/07/21 10:29 IMPRESSION: No acute abnormality. Laboratory Results WBC 8.6 10^3/uL (4.0-10.0) 05/07/21 10:50 RBC 4.44 10^6/uL (4.1-5.3) 05/07/21 10:50 Hgb 13.8 g/dL (11.7-16.6) 05/07/21 10:50 Hct 41.2 % (42.0-52.0) L 05/07/21 10:50 MCV 92.8 fl (80-94) 05/07/21 10:50 MCH 31.1 pg (28.0-34.0) 05/07/21 10:50 MCHC 33.5 g/dL (30.0-36.0) 05/07/21 10:50 RDW 13.2 % (12.1-15.1) 05/07/21 10:50 Plt Count 274 10^3/cmm (130-400) 05/07/21 10:50 MPV 10.5 fL (7.4-10.4) H 05/07/21 10:50 Neut % (Auto) 61.8 % 05/07/21 10:50 Lymph % (Auto) 30.1 % 05/07/21 10:50 [place] % (Auto) 5.3 % 05/07/21 10:50 Eos % (Auto) 2.2 % 05/07/21 10:50 Baso % (Auto) 0.4 % 05/07/21 10:50 Neut # (Auto) 5.29 10^3/uL (1.8-7.7) 05/07/21 10:50 Lymph # (Auto) 2.6 10^3/uL (0.8-4.8) 05/07/21 10:50 [place] # (Auto) 0.5 10^3/uL (0.2-0.9) 05/07/21 10:50 Eos # (Auto) 0.2 10^3/uL (0.0-0.8) 05/07/21 10:50 Baso # (Auto) 0.0 10^3/uL (0.0-0.1) 05/07/21 10:50 Nucleated RBC % (auto) 0 % 05/07/21 10:50 Nucleated RBCs # 0.0 /100WBC 05/07/21 10:50 Sodium 140 mmol/L (136-145) 05/07/21 10:50 Potassium 3.9 mmol/L (3.5-5.1) 05/07/21 10:50 Chloride 102 mmol/L (98-107) 05/07/21 10:50 Carbon Dioxide 24 mmol/L (22-29) 05/07/21 10:50 Anion Gap 17.9 (5-19) 05/07/21 10:50 BUN 5 mg/dL (6-20) L 05/07/21 10:50 Creatinine 0.7 mg/dL (0.7-1.2) 05/07/21 10:50 GFR Calculation 124.9 mL/min (90-130) 05/07/21 10:50 Glucose 84 mg/dL (65-115) 05/07/21 10:50 Calculated Osmolality 286 mOsm/kg (285-295) 05/07/21 10:50 Calcium 9.3 mg/dL (8.5-10.5) 05/07/21 10:50 Total Bilirubin 0.2 mg/dL (0.15-1.2) 05/07/21 10:50 AST 12 U/L (0-40) 05/07/21 10:50 ALT 9 U/L (0-41) 05/07/21 10:50 Alkaline Phosphatase 102 IU/L (40-130) 05/07/21 10:50 Total Protein 6.5 g/dL (6.6-8.7) L 05/07/21 10:50 Albumin 3.9 g/dL (3.5-5.2) 05/07/21 10:50 Globulin 2.6 g/dL (1.3-4.6) 05/07/21 10:50 Other Data I personally reviewed and interpreted the following: Discharge Plan Discharge Patient Disposition: Home Clinical Impression: Fall, Charcot Amrita Tooth muscular atrophy Condition: Stable Prescriptions: No Action zolpidem 10 mg tablet 10 mg PO BEDTIME 0RF pantoprazole 40 mg tablet,delayed release (DR/EC) 40 mg PO BEDTIME 0RF duloxetine [Cymbalta] 60 mg capsule,delayed release(DR/EC) 60 mg PO BEDTIME 0RF Rx Instructions: takes with 30mgto =90mg (DME) Articulating AFO See Rx Instructions .ROUTE .MEDSUPPLY Qty: 2 0RF Rx Instructions: As directed metoprolol tartrate 25 mg tablet 12.5 mg PO BID Qty: 30 1RF carisoprodol 350 mg tablet 350 mg PO TID PRN (Reason: Muscle Spasm) 0RF citalopram 20 mg tablet 20 mg PO BEDTIME 0RF tamsulosin 0.4 mg capsule 0.4 mg PO BEDTIME 0RF ibuprofen 200 mg Tablet 600 mg PO Q4H PRN (Reason: Pain) 0RF albuterol sulfate 90 mcg/actuation Hfa Aerosol Inhaler 2 puff INHALATION Q4H PRN (Reason: Shortness Of Breath) 0RF duloxetine 30 mg capsule,delayed release(DR/EC) 30 mg PO BEDTIME 0RF Rx Instructions: takes with 60mg to =90mg Discharge Orders: Discharge ED (Routine); Ordered 05/07/21 Ordered By: Srinivasa Zepeda Referrals: Leighton Bhardwaj DO [Primary Care Provider] - Discharge Diet: Usual diet Discharge Activity: Limit activity as instructed Patient Instructions: Opioid Safety Activity Restrictions/Additional Instructions: Up with your primary care doctor within the next 1 to 2 weeks. manager field will make arrangements for you to see Dr. Rich. Coding Level of Care Code ED Inventory Control Analyst for Latoya Garland
--- NOTE | 2021-05-07 10:16 | CT_ITS ---
WS: [id number] CT HEAD TECHNIQUE: Noncontrast CT of the head obtained from the skullbase to the vertex. CLINICAL INFORMATION: fall LOC COMPARISON: January 30, 2021 DLP: 834.[address] scans at [facility] use at least one of these dose optimization techniques: automated e xposure control; mA and/or kV adjustment per patient size (includes targeted exams where dose is matc hed to clinical indication); or iterative reconstruction. FINDINGS: No evidence of intracranial hemorrhage or mass effect. Ventricular system and basal cisterns are anderson nt. No extra-axial fluid collections. No evidence of mass or mass effect. Normal schaffer-white different iation. Partial opacification paranasal sinuses with fluid and mucosal thickening compatible with sinusitis.F rontal sinuses and ethmoid air cells. Mastoid air cells are well aerated. CT/CT head wo con* [id number] IMPRESSION: 1. No evidence of intracranial hemorrhage or mass effect. 2. Mild paranasal sinusitis. 3. No acute intracranial findings.
--- NOTE | 2021-05-07 10:29 | XR_ITS ---
WS: [id number] XR ribs BI mn 4V w CXR1V [id number] REASON FOR EXAM: pain FINDINGS: No fracture or focal bone lesion of the left ribs. No abnormality of the left lung or pleura. No soft tissue abnormality. Dorsal: Stimulator present in the midline at T9. XR/XR ribs BI mn 4V w CXR1V [id number] IMPRESSION: No focal left rib abnormality identified.
--- NOTE | 2021-05-07 10:29 | XR_ITS ---
WS: [id number] XR shoulder LT min 2V* [id number] REASON FOR EXAM: pain FINDINGS: There is mild narrowing of the acromioclavicular joint space with marginal osteophytes and some defor mity of the articular acromion suggesting previous injury. No definite acute fracture or dislocation. Glenohumeral joint is intact. No fracture or dislocation. Left shoulder appears unchanged compared to 04/03/2020. XR/XR shoulder LT min 2V* [id number] IMPRESSION: No acute abnormality.
[2021-05-07 11:11] LABS: Basophils % 0.4 %; Eosinophils # 0.2 10^3/uL (0.0-0.8); Eosinophils % 2.2 %; Hematocrit 41.2 % (42.0-52.0); Hemoglobin 13.8 g/dL (11.7-16.6); Lymphocytes # 2.6 10^3/uL (0.8-4.8); Lymphocytes % 30.1 %; Mean Corpuscular HGB Conc 33.5 g/dL (30.0-36.0); Mean Corpuscular Hemoglobin 31.1 pg (28.0-34.0); Mean Corpuscular Volume 92.8 fl (80-94); Mean Platelet Volume 10.5 fL (7.4-10.4); Monocytes # 0.5 10^3/uL (0.2-0.9); Monocytes % 5.3 %; Neutrophils # 5.29 10^3/uL (1.8-7.7); Neutrophils % 61.8 %; Nucleated Red Blood Cells % 0 %; Platelet Count 274 10^3/cmm (130-400); Red Blood Count 4.44 10^6/uL (4.1-5.3); Red Cell Distribution Width 13.2 % (12.1-15.1); White Blood Count 8.6 10^3/uL (4.0-10.0)
[2021-05-07 11:35] LABS: Alanine Aminotransferase 9 U/L (0-41); Albumin Level 3.9 g/dL (3.5-5.2); Alkaline Phosphatase 102 IU/L (40-130); Blood Urea Nitrogen 5 mg/dL (6-20); Calcium 9.3 mg/dL (8.5-10.5); Carbon Dioxide 24 mmol/L (22-29); Chloride 102 mmol/L (98-107); Creatinine Clr Calc Pharmacy 151.7802; Globulin 2.6 g/dL (1.3-4.6); Glomerular Filtration Rate 124.9 mL/min (90-130); Glucose 84 mg/dL (65-115); Osmolality Calculated 286 mOsm/kg (285-295); Sodium 140 mmol/L (136-145); Total Bilirubin 0.2 mg/dL (0.15-1.2); Total Protein 6.5 g/dL (6.6-8.7)
[2021-05-07 11:36] LABS: Anion Gap 17.9 (5-19); Aspartate Amino Transferase 12 U/L (0-40); Potassium 3.9 mmol/L (3.5-5.1)
[2021-05-07 12:37] VITALS: BP 115/80; PULSE 92; RESP 16; TEMP 36.6; O2SAT 97
--- NOTE | 2021-05-08 08:56 | DCPLANNER ---
Addendum entered by Devi Bullard 05/31/21 11:20: Patient had a follow up appointment scheduled for 05.14.21 with ortho - patient did attend appointment. Addendum entered by Devi Bullard 05/10/21 12:29: Patient had a follow up appointment scheduled for Friday, May 14, 2021 at 2:[address] Rich. Clinic will call patient with appointment information. Original Note: regional manager had message to schedule a follow up appointment for patient with ortho. regional manager called the ortho clinic, spoke with Qian, gave clinic patients information. regional manager was told that patients information would be printed and reviewed. Clinic will call patient with appointment information.
== END 2021-05-07 12:49 | disposition home or self-care (01) ==
PROVIDERS: Emergency Provider Family Medicine; PCP Internal Medicine
DX: G60.0 Hereditary motor and sensory neuropathy (principal); W19.XXXA Unspecified fall, initial encounter; I25.10 Atherosclerotic heart disease of native coronary artery without angina pectoris; E78.5 Hyperlipidemia, unspecified
CPT/HCPCS: 70450; 71111; 72125; 73030; 80053; 85025; 99283

== ENCOUNTER → 2021-05-14 14:46 | Outpatient (BNVA) | payer MEDICARE, MEDICAID, SELFPAY | PROVIDERS: PCP Internal Medicine; Visit Provider Orthopaedic Surgery | DX: G60.0 Hereditary motor and sensory neuropathy (principal); M47.897 Other spondylosis, lumbosacral region | CPT/HCPCS: 72050; 72072; 72110 ==

== ENCOUNTER 2021-06-05 12:09 | Emergency (ER) | payer MEDICARE, MEDICAID, SELFPAY ==
[2021-06-05 12:10] VITALS: BP 137/95; PULSE 109; RESP 18; O2SAT 93
--- NOTE | 2021-06-05 12:20 | ED_ITS ---
Documented by User: SANDY Dunham 06/05/21 14:21 HPI - Fall General: Chief Complaint: Fall Stated Complaint: fall/ neck/back pain Time Seen by Provider: 06/05/21 12:13 Source: patient and family Mode of arrival: wheelchair Limitations: no limitations History of Present Illness: Patient is a 40-year-old male with a history of Xuxlqqk-Oblaq-Kmzzq here for evaluation following a fall. Patient tells me he slipped and fell getting out of the shower/bathtub earlier today. Patient states following the fall he is having neck and back pain. Patient reports falls seem to be becoming more and more frequently. He states he does have a cane, walker, and AFOs that he uses for ambulation. Patient was recently seen here in the ED approximately a month ago and referred to Dr. Rich. Patient has a history of a cervical ACDF. Patient states Dr. Rich has ordered CT cervical and lumbar myelograms but patient states he has not heard from scheduling to get these exams completed. MD complaint: fall Onset (ago): hour(s) Fall from: standing Fall witnessed: no Place fall occurred: home Loss of consciousness: None Prolonged down time: no Symptoms prior to fall: none Associated symptoms-after fall: Reports difficulty walking (chronic) and neck pain (acute on chronic); Denies abdominal pain, chest pain or headache(s) Review of Systems Const: Denies: fever(s), chills, body aches, fatigue or malaise Card: Denies: chest pain Resp: Denies: dyspnea GI: Denies: abdominal pain Musc: Reports: neck pain (acute on chronic) and back pain (acute on chronic ); Denies: joint swelling or joint redness Neuro: Reports: weakness in extremities (chronic), sensory changes (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), difficulty walking (chronic) and frequent falls; Denies: headache(s) PFS ED PFSH: Medical History Acquired bilateral foot drop Atherosclerosis of coronary artery Edusbqu-Amxsk-Hircl atrophy Coronary-myocardial bridge Depression Hyperlipidemia Lumbar radiculopathy Obstructive sleep apnea Precordial chest pain Spinal cord stimulator status Surgical History H/O arthroscopic knee surgery H/O vasectomy Hx of appendectomy Family History Other CAD (coronary artery disease) Cancer Stroke Denies family history of Anesthesia complication Bleeding disorder Social History Smoking and tobacco status: current every day smoker (1 pk per day ) Alcohol intake: never Physical Exam Const: COMMON NORMALS: no acute distress, patient oriented x3, no limitations and alert ORIENTATION/CONSCIOUSNESS: Yes awake, Yes oriented to person, Yes oriented to place and Yes oriented to time HENMT: COMMON NORMALS: normocephalic and atraumatic HEAD & SCALP: normal to inspection, normocephalic and atraumatic FACE & SINUS: normal facial exam TEETH & GINGIVA: Yes edentulous Neck/C-Spine: CERVICAL SPINE: Yes Cervical spine tenderness (mid c spine) and No step off deformity OTHER: pt in c collar during my exam; ROM not tested Chest: COMMONS NORMALS: normal inspection of the chest and normal palpation of entire chest wall Resp: COMMON NORMALS: normal respiratory effort and clear to auscultation bilaterally AUSCULTATION: clear to auscultation bilaterally Cardio: COMMON NORMALS: regular rate and regular rhythm RATE: regular rate RHYTHM: regular rhythm Back/Pelvis: THORACIC SPINE/UPPER BACK: Yes thoracic spinal tenderness (mild mid to lower T spine tenderness) and No paraspinal muscle spasm LUMBAR SPINE/LOWER BACK: Yes lumbar spinal tenderness (lower L spine into sa edilma/coccyx; spinal stimulator to L lateral) and No paraspinal muscle spasm PELVIS: Yes buttocks normal Extremity: NARRATIVE EXTREMITY EXAM: pt has chronic contractures and significant atrophy to bilateral UE/LEs GENERAL: Yes normal exam except as noted Neuro: COMMON NORMALS: patient oriented x3, moves all extremities and no focal motor deficits SENSORIUM/ORIENTATION: Yes alert, Yes oriented to person, Yes oriented to place and Yes oriented to time OTHER: chronic bilateral LE neuropathy Skin: COMMON NORMALS: no rashes or lesions noted GENERAL SKIN EXAM: no rashes or lesions noted TRAUMA: no lacerations or abrasions Course Vital Signs: Vital signs: Vital Signs Pulse Rate 109 H 06/05/21 12:10 Respiratory Rate 18 06/05/21 12:10 Blood Pressure 137/95 06/05/21 12:10 Pulse Oximetry 93 06/05/21 12:10 MDM - Fall Medical Decision Making I was able to talk to Jennifer from case management as well as have our laborer ammunition assembly speak to Dr. Rich's office. It seems the CT scans have been ordered but are currently pending from patient's insurance. His insurance company stated they are currently peer reviewing the order as they question the medical necessity of it. Patient is not a candidate for MRI as he currently has a spinal stimulator. At this time I do not see any indication for emergent imaging/obtaining the myelograms from an ED standpoint. He has no new focal neurologic complaints or concern for cord compression. I was able to order CT cervical imaging as well as XRs of his thoracic, lumbar, sacrum/coccyx to rule out acute injury in regards to his recent fall earlier today. A lot of patient's progressive weakness certainly could be secondary to his CMT. He seems convinced that surgeries to his cervical and lumbar spine are going to fix all of his issues. I have offered to send patient home with a wheelchair to help with getting around his home however patient tells me his home is not very wheelchair accessible. I recommended he uses walker and AFOs at all time to have his assist him with transferring and ambulation. Patient seems very frustrated that these images are not getting completed in the ED today and that he is not getting emergent surgery. Patient ultimately decides he wants to go home stating he will go to a different hospital and get these done today. Lab Data Radiology Impressions Cervical Spine CT 06/05/21 12:21 IMPRESSION: No evidence of acute fracture or dislocation. Lumbar Spine X-Ray 06/05/21 12:21 Impression: 1. Degenerative disc narrowing at L4-L5 and L5-S1 with anterior osteophytes. 2. 0.3 cm subluxation of L4 on L5. Sacrum and Coccyx X-Ray 06/05/21 12:21 Impression: Negative sacrum and coccyx. Thoracic Spine X-Ray 06/05/21 12:21 Impression: Negative for thoracic spine compression fracture. Discharge Plan Discharge Patient Disposition: Home Clinical Impression: Uatehwl-Dqjcf-Agwfm atrophy, Fall Condition: Stable Prescriptions: No Action zolpidem 10 mg tablet 10 mg PO BEDTIME 0RF pantoprazole 40 mg tablet,delayed release (DR/EC) 40 mg PO BEDTIME 0RF duloxetine [Cymbalta] 60 mg capsule,delayed release(DR/EC) 60 mg PO BEDTIME 0RF Rx Instructions: takes with 30mgto =90mg (DME) Articulating AFO See Rx Instructions .ROUTE .MEDSUPPLY Qty: 2 0RF Rx Instructions: As directed carisoprodol 350 mg tablet 350 mg PO TID PRN (Reason: Muscle Spasm) 0RF citalopram 20 mg tablet 20 mg PO BEDTIME 0RF tamsulosin 0.4 mg capsule 0.4 mg PO BEDTIME 0RF ibuprofen 200 mg Tablet 600 mg PO Q4H PRN (Reason: Pain) 0RF albuterol sulfate 90 mcg/actuation Hfa Aerosol Inhaler 2 puff INHALATION Q4H PRN (Reason: Shortness Of Breath) 0RF duloxetine 30 mg capsule,delayed release(DR/EC) 30 mg PO BEDTIME 0RF Rx Instructions: takes with 60mg to =90mg Discharge Orders: Discharge ED (Routine); Ordered 06/05/21 Ordered By: Shadia Franz Referrals: Leighton Bhardwaj DO [Primary Care Provider] - Coding Level of Care Code ED Staff Nurse Midwife for Chg Fwd Exam Comprehensive Documented by User: Amari Drummond MD 06/15/21 21:33 HPI - Fall General: Chief Complaint: Fall Stated Complaint: fall/ neck/back pain Time Seen by Provider: 06/05/21 12:13 PFSH ED PFSH: Medical History Acquired bilateral foot drop Atherosclerosis of coronary artery Ggeryin-Tbtbh-Iwaev atrophy Coronary-myocardial bridge Depression Hyperlipidemia Lumbar radiculopathy Obstructive sleep apnea Precordial chest pain Spinal cord stimulator status Surgical History H/O arthroscopic knee surgery H/O vasectomy Hx of appendectomy Family History Other CAD (coronary artery disease) Cancer Stroke Denies family history of Anesthesia complication Bleeding disorder Social History Smoking and tobacco status: current every day smoker (1 pk per day ) Alcohol intake: never Course Vital Signs: Vital signs: Vital Signs Pulse Rate 109 H 06/05/21 12:10 Respiratory Rate 18 06/05/21 12:10 Blood Pressure 137/95 06/05/21 12:10 Pulse Oximetry 93 06/05/21 12:10 MDM - Fall Medical Decision Making I was able to talk to Jennifer from case management as well as have our laborer ammunition assembly speak to Dr. Rich's office. It seems the CT scans have been ordered but are currently pending from patient's insurance. His insurance company stated they are currently peer reviewing the order as they question the medical necessity of it. Patient is not a candidate for MRI as he currently has a spinal stimulator. At this time I do not see any indication for emergent imaging/obtaining the myelograms from an ED standpoint. He has no new focal neurologic complaints or concern for cord compression. I was able to order CT cervical imaging as well as XRs of his thoracic, lumbar, sacrum/coccyx to rule out acute injury in regards to his recent fall earlier today. A lot of patient's progressive weakness certainly could be secondary to his CMT. He seems convinced that surgeries to his cervical and lumbar spine are going to fix all of his issues. I have offered to send patient home with a wheelchair to help with getting around his home however patient tells me his home is not very wheelchair accessible. I recommended he uses walker and AFOs at all time to have his assist him with transferring and ambulation. Patient seems very frustrated that these images are not getting completed in the ED today and that he is not getting emergent surgery. Patient ultimately decides he wants to go home stating he will go to a different hospital and get these done today. I have reviewed this documentation by SANDY Dunham. I did discuss the patient at time of care. Very challenging situation however based on discussion and description of symptoms I do not feel that CT myelogram while in the emergency department is warranted. He certainly does require further imaging as ordered by Dr. Rich in the outpatient setting. Amari Drummond MD Emergency Medicine Lab Data Radiology Impressions Cervical Spine CT 06/05/21 12:21 IMPRESSION: No evidence of acute fracture or dislocation. Lumbar Spine X-Ray 06/05/21 12:21 Impression: 1. Degenerative disc narrowing at L4-L5 and L5-S1 with anterior osteophytes. 2. 0.3 cm subluxation of L4 on L5. Sacrum and Coccyx X-Ray 06/05/21 12:21 Impression: Negative sacrum and coccyx. Thoracic Spine X-Ray 06/05/21 12:21 Impression: Negative for thoracic spine compression fracture. Discharge Plan Discharge Patient Disposition: Home Clinical Impression: Ddcgcld-Jpjuq-Sjzuk atrophy, Fall Condition: Stable Prescriptions: No Action zolpidem 10 mg tablet 10 mg PO BEDTIME 0RF pantoprazole 40 mg tablet,delayed release (DR/EC) 40 mg PO BEDTIME 0RF duloxetine [Cymbalta] 60 mg capsule,delayed release(DR/EC) 60 mg PO BEDTIME 0RF Rx Instructions: takes with 30mgto =90mg (DME) Articulating AFO See Rx Instructions .ROUTE .MEDSUPPLY Qty: 2 0RF Rx Instructions: As directed carisoprodol 350 mg tablet 350 mg PO TID PRN (Reason: Muscle Spasm) 0RF citalopram 20 mg tablet 20 mg PO BEDTIME 0RF tamsulosin 0.4 mg capsule 0.4 mg PO BEDTIME 0RF ibuprofen 200 mg Tablet 600 mg PO Q4H PRN (Reason: Pain) 0RF albuterol sulfate 90 mcg/actuation Hfa Aerosol Inhaler 2 puff INHALATION Q4H PRN (Reason: Shortness Of Breath) 0RF duloxetine 30 mg capsule,delayed release(DR/EC) 30 mg PO BEDTIME 0RF Rx Instructions: takes with 60mg to =90mg Discharge Orders: Discharge ED (Routine); Ordered 06/05/21 Ordered By: Shadia Franz Referrals: Leighton Bhardwaj DO [Primary Care Provider] - Coding Level of Care Code ED Staff Nurse Midwife for Chg Fwd Exam Comprehensive
--- NOTE | 2021-06-05 12:21 | XR_ITS ---
WS: [id number] Thoracic spine, 3 views, 06/05/2021 Clinical Data: fall, trauma Comparison: Thoracic spine, 05/14/2021. Findings: No compression fractures are seen. The disc heights are normal. There are epidural stimulator leads which end at T7-T8 level. There is an anterior cervical disc fusi on. Minimal anterior osteophytes are present from T7 through T12. XR/XR thoracic spine 3V* 12500 Impression: Negative for thoracic spine compression fracture.
--- NOTE | 2021-06-05 12:21 | XR_ITS ---
WS: [id number] Lumbar spine, 3 views, 06/05/2021 Clinical Data: fall, trauma Comparison: Lumbar spine, 05/14/2021. Findings: No compression fractures are seen. There is degenerative disc narrowing at L4-L5 and L5-S1 with minim al anterior osteophytes. There is a 0.3 cm subluxation of L4 on L5.. The transverse processes and SI joints are normal. A pacemaker generator is seen in the subcutaneous tissue of the back. XR/XR lumbar spine 2-3V* [id number] Impression: 1. Degenerative disc narrowing at L4-L5 and L5-S1 with anterior osteophytes. 2. 0.3 cm subluxation of L4 on L5.
--- NOTE | 2021-06-05 12:21 | CT_ITS ---
WS: [id number] CT CERVICAL TRAUMA TECHNIQUE: Noncontrast CT of the cervical spine with coronal and sagittal reformatted images. CLINICAL INFORMATION: fall, injury COMPARISON: May 07, 2021 DLP: 643.[address] scans at [facility] use at least one of these dose optimization techniques: automated e xposure control; mA and/or kV adjustment per patient size (includes targeted exams where dose is matc hed to clinical indication); or iterative reconstruction. FINDINGS: Straightening of the normal cervical lordosis. Prior postoperative changes ACDF C5-C6 with prior inte rbody bony fusion C6-C7. Hardware appears intact. Mild subsidence along the C5-C6 interbody fusion gr aft. Solid appearing interbody bony fusion at C6-C7. Normal craniocervical junction. Normal C1-C2 art iculation. Dens is normal in appearance. Normal occipital condyles. No high-grade spinal canal narrow ing. Normal C1 ring. No evidence of acute fracture or dislocation. Mastoid air cells are well aerated. Normal posterior nasopharynx. Normal parapharyngeal fat. CT/CT cervical spin wo con* [id number] IMPRESSION: No evidence of acute fracture or dislocation.
--- NOTE | 2021-06-05 12:21 | XR_ITS ---
WS: [id number] Sacrum and coccyx, 3 views, 06/05/2021 Clinical Data: fall, trauma Comparison: None. Findings: No fractures or dislocations are seen. The SI joints and pubic symphysis are unremarkable. No bone de struction or erosion is seen. A pacemaker generator is overlying the left side of the back. XR/XR sacrum coccyx min 2V [id number] Impression: Negative sacrum and coccyx.
== END 2021-06-05 14:01 | disposition home or self-care (01) ==
PROVIDERS: Emergency Provider Physician Assistant; PCP Internal Medicine
DX: G60.0 Hereditary motor and sensory neuropathy (principal); I25.10 Atherosclerotic heart disease of native coronary artery without angina pectoris; E78.5 Hyperlipidemia, unspecified; F17.210 Nicotine dependence, cigarettes, uncomplicated; W18.2XXA Fall in (into) shower or empty bathtub, initial encounter
CPT/HCPCS: 72072; 72100; 72125; 72220; 99282

== ENCOUNTER 2022-01-05 11:08 | Emergency (ER) | payer MEDICARE, MEDICAID, SELFPAY ==
[2022-01-05 11:19] VITALS: BP 111/74; PULSE 121; RESP 21; TEMP 36.7; O2SAT 96; BMI 23.0
--- NOTE | 2022-01-05 11:22 | XRR_ITS ---
PROCEDURE INFORMATION: Exam: XR Chest Exam date and time: 01/05/2022 11:51 AM Age: 41 years old Clinical indication: Cough TECHNIQUE: Imaging protocol: Radiologic exam of the chest. Views: 1 view. COMPARISON: CR XR ribs BI mn 4V w CXR1V [id number] 05/07/2021 11:00 AM FINDINGS: Tubes, catheters and devices: There are stimulator leads and electrodes along the thoracic spine similar to the prior study. Lungs: Unremarkable. No consolidation. Pleural spaces: Unremarkable. No pleural effusion. No pneumothorax. Heart/Mediastinum: Unremarkable. No cardiomegaly. Bones/joints: Unremarkable. XR/XR chest 1V portable [id number] IMPRESSION: No evidence for acute cardiopulmonary disease.
--- NOTE | 2022-01-05 11:28 | W.ED.GENADLT ---
HPI - General Adult General: Chief complaint: General Medical Stated complaint: SOB, congestion Time Seen by Provider: 01/05/22 11:17 Source: patient Mode of arrival: ambulatory Limitations: no limitations History of Present Illness: 41-year-old male who states that over the last week he has had nasal congestion, sinus pressure fevers and slight cough. He states he is having a lot of sinus pain and nasal discharge he denies any dyspnea he is in no distress here. He is afebrile here denies any vomiting or diarrhea. Associated symptoms: Deny chest pain, dyspnea, headache(s), nausea, rash or vomiting Review of Systems Const: Reports: fever(s) and chills Eyes: Denies: blurry vision or eye discomfort ENMT: Reports: nasal discharge and nasal congestion Card: Denies: chest pain Resp: Denies: dyspnea GI: Denies: abdominal pain, nausea, vomiting or diarrhea : Denies: dysuria Musc: Denies: neck pain or back pain Skin/Breast: Denies: rash Neuro: Denies: headache(s) Psych: Denies: depression Louie/Lymph: Denies: easy bruising All/Imm: Denies: urticaria PFSH ED PFSH: Medical History Acquired bilateral foot drop Atherosclerosis of coronary artery Fkysjul-Dgmur-Auvxk atrophy Coronary-myocardial bridge Depression Hyperlipidemia Lumbar radiculopathy Obstructive sleep apnea Precordial chest pain Spinal cord stimulator status Surgical History H/O arthroscopic knee surgery H/O vasectomy Hx of appendectomy Family History Other CAD (coronary artery disease) Cancer Stroke Denies family history of Anesthesia complication Bleeding disorder Social History Smoking and tobacco status: current every day smoker (1 pk per day ) Alcohol intake: never Physical Exam Const: COMMON NORMALS: no acute distress, patient oriented x3 and healthy appearing HENMT: COMMON NORMALS: normocephalic and atraumatic HEAD & SCALP: normocephalic and atraumatic Eye: COMMON NORMALS: Equal, round and reactive pupils present and EOMs intact bilaterally PUPIL: Yes Equal, round and reactive pupils present Neck/C-Spine: COMMON NORMALS: full ROM and supple Chest: COMMONS NORMALS: normal inspection of the chest and normal palpation of entire chest wall Resp: COMMON NORMALS: normal respiratory effort, No retractions, No use of accessory muscles and clear to auscultation bilaterally AUSCULTATION: clear to auscultation bilaterally Cardio: COMMON NORMALS: regular rate, regular rhythm and No murmurs present (Cardio) RATE: regular rate RHYTHM: regular rhythm GI: COMMON NORMALS: Normal to inspection, nondistended, normoactive bowel sounds present, Soft to palpation, non-tender and no masses PALPATION: Yes Soft to palpation Extremity: COMMON NORMALS: normal to inspection and full ROM Neuro: COMMON NORMALS: patient oriented x3, moves all extremities and no focal motor deficits Psych: COMMON NORMALS: mental status grossly normal, Normal thought process present and cooperative THOUGHT PROCESS: Normal thought process present Skin: COMMON NORMALS: no rashes or lesions noted and no wounds GENERAL SKIN EXAM: no rashes or lesions noted Course Vital Signs: Vital signs: Vital Signs Temperature 97.6 F 01/05/22 12:08 Pulse Rate 103 H 01/05/22 12:08 Respiratory Rate 15 01/05/22 12:08 Blood Pressure 137/79 01/05/22 12:08 Pulse Oximetry 95 01/05/22 12:08 Oxygen Delivery Me thod 01/05/22 12:[address] [facility] - General Adult Medical Decision Making Patient presents here with sinus pain congestion along with discharge likely sinusitis he is otherwise well-appearing here his heart rates improved after IV fluids no signs of pneumonia or pulmonary embolism we will start him on Augmentin he is to follow-up with PCP and return if worsening he understands agrees to plan Lab Data : 01/05/22 10:12 01/05/22 10:12 Radiology Impressions Chest X-Ray 01/05/22 11:22 IMPRESSION: No evidence for acute cardiopulmonary disease. Laboratory Results WBC 11.0 10^3/uL (4.0-10.0) H 01/05/22 10:12 RBC 4.95 10^6/uL (4.1-5.3) 01/05/22 10:12 Hgb 15.7 g/dL (11.7-16.6) 01/05/22 10:12 Hct 45.4 % (42.0-52.0) 01/05/22 10:12 MCV 91.7 fl (80-94) 01/05/22 10:12 MCH 31.7 pg (28.0-34.0) 01/05/22 10:12 MCHC 34.6 g/dL (30.0-36.0) 01/05/22 10:12 RDW 12.9 % (12.1-15.1) 01/05/22 10:12 Plt Count 281 10^3/cmm (130-400) 01/05/22 10:12 MPV 10.0 fL (7.4-10.4) 01/05/22 10:12 Neut % (Auto) 80.2 % 01/05/22 10:12 Lymph % (Auto) 13.4 % 01/05/22 10:12 [place] % (Auto) 5.7 % 01/05/22 10:12 Eos % (Auto) 0.1 % 01/05/22 10:12 Baso % (Auto) 0.3 % 01/05/22 10:12 Neut # (Auto) 8.82 10^3/uL (1.8-7.7) H 01/05/22 10:12 Lymph # (Auto) 1.5 10^3/uL (0.8-4.8) 01/05/22 10:12 [place] # (Auto) 0.6 10^3/uL (0.2-0.9) 01/05/22 10:12 Eos # (Auto) 0.0 10^3/uL (0.0-0.8) 01/05/22 10:12 Baso # (Auto) 0.0 10^3/uL (0.0-0.1) 01/05/22 10:12 Nucleated RBC % (auto) 0 % 01/05/22 10:12 Nucleated RBCs # 0.0 /100WBC 01/05/22 10:12 Sodium 133 mmol/L (136-145) L 01/05/22 10:12 Potassium 3.5 mmol/L (3.5-5.1) 01/05/22 10:12 Chloride 93 mmol/L (98-107) L 01/05/22 10:12 Carbon Dioxide 24 mmol/L (22-29) 01/05/22 10:12 Anion Gap 19.5 (5-19) H 01/05/22 10:12 BUN 7 mg/dL (6-20) 01/05/22 10:12 Creatinine 1.1 mg/dL (0.7-1.2) 01/05/22 10:12 GFR Calculation 73.8 mL/min (90-130) L 01/05/22 10:12 Glucose 91 mg/dL (65-115) 01/05/22 10:12 Calculated Osmolality 274 mOsm/kg (285-295) L 01/05/22 10:12 Calcium 9.5 mg/dL (8.5-10.5) 01/05/22 10:12 Total Bilirubin 0.5 mg/dL (0.15-1.2) 01/05/22 10:12 AST 14 U/L (0-40) 01/05/22 10:12 ALT 14 U/L (0-41) 01/05/22 10:12 Alkaline Phosphatase 103 U/L (40-130) 01/05/22 10:12 Total Protein 7.7 g/dL (6.6-8.7) 01/05/22 10:12 Albumin 4.2 g/dL (3.5-5.2) 01/05/22 10:12 Globulin 3.5 g/dL (1.3-4.6) 01/05/22 10:12 SARS-CoV-2 Ag (Rapid) Negative (Negative) 01/05/22 11:30 Discharge Plan Discharge Patient Disposition: Home Clinical Impression: Sinusitis Condition: Stable Prescriptions: New Augmentin 500-125 mg tablet 1 tab PO BID Qty: 14 0RF No Action zolpidem 10 mg tablet 10 mg PO BEDTIME pantoprazole 40 mg tablet,delayed release (DR/EC) 40 mg PO BEDTIME duloxetine [Cymbalta] 60 mg capsule,delayed release(DR/EC) 60 mg PO BEDTIME Rx Instructions: takes with 30mgto =90mg (DME) Articulating AFO See Rx Instructions .ROUTE .MEDSUPPLY Qty: 2 0RF Rx Instructions: As directed carisoprodol 350 mg tablet 350 mg PO TID PRN (Reason: Muscle Spasm) citalopram 20 mg tablet 20 mg PO BEDTIME tamsulosin 0.4 mg capsule 0.4 mg PO BEDTIME ibuprofen 200 mg Tablet 600 mg PO Q4H PRN (Reason: Pain) albuterol sulfate 90 mcg/actuation Hfa Aerosol Inhaler 2 puff INHALATION Q4H PRN (Reason: Shortness Of Breath) duloxetine 30 mg capsule,delayed release(DR/EC) 30 mg PO BEDTIME Rx Instructions: takes with 60mg to =90mg Discharge Orders: Discharge ED (Routine); Ordered 01/05/22 Ordered By: Darlin Tripathi Referrals: Leighton Bhardwaj DO [Primary Care Provider] - 1-3 days Discharge Diet: Advance as tolerated Discharge Activity: Resume usual activity Patient Instructions: Sinusitis (ED) Coding Level of Care Code ED Automotive Sales Associate for Latoya Fwd Exam Comprehensive
--- NOTE | 2022-01-05 11:53 | ECG_ITS ---
[facility] Test Date: 2022-01-05 Pat Name: Khris Kaba Department: Room: Gender: Male Federal Law Clerk: : 1980 Requested By: Darlin Tripathi Order Number: [id number] Muriel MD: Javan Adams M.D. Measurements Intervals [place] Rate: 120 P: 34 NH: 125 QRS: 74 QRSD: 89 T: 67 QT: 312 QTc: 442 Interpretive Statements SINUS TACHYCARDIA Compared to ECG 01/30/2021 19:48:48 Sinus rhythm no longer present Short NH interval no longer present T-wave abnormality no longer present Electronically Signed On 01-05-2022 22:00:32 CDT by Javan Adams M.D. [id number]
[2022-01-05 11:54] LABS: SARS Covid-2 Antigen Negative (Negative)
[2022-01-05] MEDS: lactated ringers 1,000 ML 999 ML IV (12:07)
[2022-01-05 12:08] VITALS: BP 137/79; PULSE 103; RESP 15; TEMP 36.4; O2SAT 95
[2022-01-05 12:14] LABS: Basophils % 0.3 %; Eosinophils % 0.1 %; Hematocrit 45.4 % (42.0-52.0); Hemoglobin 15.7 g/dL (11.7-16.6); Lymphocytes # 1.5 10^3/uL (0.8-4.8); Lymphocytes % 13.4 %; Mean Corpuscular HGB Conc 34.6 g/dL (30.0-36.0); Mean Corpuscular Hemoglobin 31.7 pg (28.0-34.0); Mean Corpuscular Volume 91.7 fl (80-94); Monocytes # 0.6 10^3/uL (0.2-0.9); Monocytes % 5.7 %; Neutrophils # 8.82 10^3/uL (1.8-7.7); Neutrophils % 80.2 %; Nucleated Red Blood Cells % 0 %; Platelet Count 281 10^3/cmm (130-400); Red Blood Count 4.95 10^6/uL (4.1-5.3); Red Cell Distribution Width 12.9 % (12.1-15.1)
[2022-01-05 12:34] LABS: Alanine Aminotransferase 14 U/L (0-41); Albumin Level 4.2 g/dL (3.5-5.2); Alkaline Phosphatase 103 U/L (40-130); Blood Urea Nitrogen 7 mg/dL (6-20); Calcium 9.5 mg/dL (8.5-10.5); Carbon Dioxide 24 mmol/L (22-29); Chloride 93 mmol/L (98-107); Creatinine Clr Calc Pharmacy 96.7555; Globulin 3.5 g/dL (1.3-4.6); Glomerular Filtration Rate 73.8 mL/min (90-130); Glucose 91 mg/dL (65-115); Osmolality Calculated 274 mOsm/kg (285-295); Sodium 133 mmol/L (136-145); Total Bilirubin 0.5 mg/dL (0.15-1.2); Total Protein 7.7 g/dL (6.6-8.7)
[2022-01-05 12:35] LABS: Anion Gap 19.5 (5-19); Aspartate Amino Transferase 14 U/L (0-40); Potassium 3.5 mmol/L (3.5-5.1)
== END 2022-01-05 12:49 | disposition home or self-care (01) ==
PROVIDERS: Emergency Provider Emergency Medicine; PCP Internal Medicine
DX: J32.9 Chronic sinusitis, unspecified (principal); Z20.822 Contact with and (suspected) exposure to COVID-19; F17.210 Nicotine dependence, cigarettes, uncomplicated; I25.10 Atherosclerotic heart disease of native coronary artery without angina pectoris; E78.5 Hyperlipidemia, unspecified
CPT/HCPCS: 71045; 80053; 85025; 87426; 93005; 96360; 99285

== ENCOUNTER 2022-01-07 11:31 | Emergency (ER) | payer MEDICARE, MEDICAID, SELFPAY ==
[2022-01-07 11:51] VITALS: BP 109/78; PULSE 115; RESP 16; TEMP 36.1; O2SAT 94
[2022-01-07 12:28] LABS: Basophils % 0.6 %; Eosinophils # 0.1 10^3/uL (0.0-0.8); Eosinophils % 1.1 %; Hematocrit 49.7 % (42.0-52.0); Hemoglobin 17.5 g/dL (11.7-16.6); Lymphocytes # 1.2 10^3/uL (0.8-4.8); Lymphocytes % 18.3 %; Mean Corpuscular HGB Conc 35.2 g/dL (30.0-36.0); Mean Corpuscular Hemoglobin 31.3 pg (28.0-34.0); Mean Corpuscular Volume 88.8 fl (80-94); Mean Platelet Volume 10.1 fL (7.4-10.4); Monocytes # 0.6 10^3/uL (0.2-0.9); Monocytes % 8.6 %; Neutrophils # 4.72 10^3/uL (1.8-7.7); Neutrophils % 70.9 %; Nucleated Red Blood Cells % 0 %; Platelet Count 290 10^3/cmm (130-400); Red Cell Distribution Width 12.6 % (12.1-15.1); White Blood Count 6.7 10^3/uL (4.0-10.0)
--- NOTE | 2022-01-07 12:28 | XRR_ITS ---
PROCEDURE INFORMATION: Exam: XR Chest Exam date and time: 01/07/2022 12:34 PM Age: 41 years old Clinical indication: Cough and fever; Additional info: Cough and fevers TECHNIQUE: Imaging protocol: Radiologic exam of the chest. Views: 1 view. COMPARISON: CR (CHEST, ) 01/05/2022 11:51 AM FINDINGS: Tubes, catheters and devices: Neurostimulator wires project on the thoracic canal. Lungs: There is mild fibrosis in the left base. Otherwise the lungs are clear. Pleural spaces: Unremarkable. No pleural effusion. No pneumothorax. Heart/Mediastinum: Unremarkable. No cardiomegaly. Bones/joints: Unremarkable. XR/XR chest 1V portable [id number] IMPRESSION: No acute abnormality.
[2022-01-07] MEDS: ondansetron 2 mg/ML SDV 2 mL 4 MG IVP (12:37)
[2022-01-07] MEDS: sodium chloride 0.9% 1,000 ML 999 ML IV (12:37)
--- NOTE | 2022-01-07 12:37 | ED_ITS ---
HPI - Nausea/Vomiting/Diarrhea General: Chief complaint: Abdominal Pain Stated complaint: n/v Time Seen by Provider: 01/07/22 11:57 History of Present Illness: Patient is a 41-year-old male comes to the ED with nausea and diarrhea. Patient was seen here in the ED for similar symptoms back on January 05 and he was diagnosed with sinusitis and discharged home on amoxicillin. He states that all of his symptoms started approximately 7 days ago. he has continued to have a lot of diarrhea and states his stool is watery and he has a BM once every hour. He endorses nausea but denies any episodes of emesis. He has been able to keep p.o. fluids and Gatorade down. He describes feeling very weak and fatigued. Endorses fevers, cough, nasal drainage and congestion and body aches. He had a negative COVID test on January 05. Denies any abdominal pain. Associated nausea: Yes Associated symtoms: Reports fatigue and nausea; Denies change in vision, chest pain, dysuria, headache(s) or palpitations Review of Systems Const: Reports: fever(s), chills, body aches and fatigue Eyes: Denies: change in vision or eye discomfort ENMT: Reports: nasal discharge and nasal congestion; Denies: throat pain or odynophagia Card: Denies: chest pain, palpitations, edema, swelling of feet/ankles, dyspnea on exertion or orthopnea Resp: Reports: non-productive cough; Denies: dyspnea or productive cough GI: Reports: nausea, diarrhea and GI cramping (Abdominal cramping before bowel movement); Denies: abdominal pain, vomiting, constipation or hematochezia : Denies: flank pain, difficulty urinating, dysuria or hematuria Musc: Denies: neck pain, back pain or extremity swelling Skin/Breast: Denies: rash or new lesions Neuro: Denies: headache(s), numbness in extremities or weakness in extremities PFSH ED PFSH: Medical History Acquired bilateral foot drop Atherosclerosis of coronary artery Zjzcfyb-Plxii-Kjwxk atrophy Coronary-myocardial bridge Depression Hyperlipidemia Lumbar radiculopathy Obstructive sleep apnea Precordial chest pain Spinal cord stimulator status Surgical History H/O arthroscopic knee surgery H/O vasectomy Hx of appendectomy Family History Other CAD (coronary artery disease) Cancer Stroke Denies family history of Anesthesia complication Bleeding disorder Social History Smoking and tobacco status: current every day smoker (1 pk per day ) Alcohol intake: never Physical Exam Const: COMMON NORMALS: no acute distress, patient oriented x3 and alert GENERAL APPEARANCE: cooperative and comfortable HENMT: COMMON NORMALS: normocephalic HEAD & SCALP: normocephalic MOUTH: Normal oral and palatal mucosa present THROAT: posterior oropharynx normal and uvula midline Neck/C-Spine: COMMON NORMALS: supple GENERAL: Yes normal visual inspection Resp: COMMON NORMALS: normal respiratory effort, No retractions, No use of accessory muscles and clear to auscultation bilaterally AUSCULTATION: clear to auscultation bilaterally Cardio: COMMON NORMALS: regular rate, regular rhythm, S1 normal heart sound present, S2 normal heart sound present, No gallops present (Cardio), No clicks present (Cardio), No murmurs present (Cardio) and Peripheral pulses 2+ th roughout RATE: regular rate RHYTHM: regular rhythm HEART SOUNDS: S1 normal heart sound present and S2 normal heart sound present PERIPHERAL PULSES: Peripheral pulses 2+ throughout GI: COMMON NORMALS: Normal to inspection, nondistended, normoactive bowel sounds present, Soft to palpation, non-tender and no masses PALPATION: Yes Soft to palpation : COMMON NORMALS: Yes no CVA tenderness BLADDER/KIDNEY EXAM: Yes no CVA tenderness Back/Pelvis: COMMON NORMALS: no CVA tenderness Extremity: COMMON NORMALS: normal to inspection Neuro: COMMON NORMALS: patient oriented x3 SENSORIUM/ORIENTATION: Yes alert GAIT: Yes Normal gait present Skin: GENERAL SKIN EXAM: dry skin Course Vital Signs: Vital signs: Vital Signs Temperature 97.0 F L 01/07/22 11:51 Pulse Rate 115 H 01/07/22 11:51 Respiratory Rate 16 01/07/22 11:51 Blood Pressure 109/78 01/07/22 11:51 Pulse Oximetry 94 01/07/22 11:51 Oxygen Delivery Me thod 01/07/22 11:51 MDM - Nausea/Vomiting/Diarrhea Medical Decision Making Patient is a 41-year-old male comes to the ED with nausea and diarrhea. Patient was seen here in the ED for similar symptoms back on January 05 and he was diagnosed with sinusitis and discharged home on amoxicillin. He states that all of his symptoms started approximately 7 days ago. he has continued to have a lot of diarrhea and states his stool is watery and he has a BM once every hour. He endorses nausea but denies any episodes of emesis and abdominal pain. Endorses having some fatigue. Vitals are stable. Exam is benign and patient appears nontoxic and in no acute distress. CBC is unremarkable. His potassium is 3.1 but the rest of his CMP were unremarkable. Chest x-ray shows no acute abno rmality. UA was unremarkable. Patient was given 1 L of IV fluids, nausea meds and p.o. potassium. His symptoms improved and he was stable for discharge home. He was diagnosed with viral syndrome and hypokalemia. Told to follow-up with his PCP within the next couple days for reevaluation and to have his potassium levels rechecked. Return to ED precautions given. Patient understood and agree d with plan. Lab Data I reviewed the patient's lab results. : 01/07/22 12:20 01/07/22 12:20 Radiology Impressions Chest X-Ray 01/07/22 12:28 IMPRESSION: No acute abnormality. Laboratory Results WBC 6.7 10^3/uL (4.0-10.0) 01/07/22 12:20 RBC 5.60 10^6/uL (4.1-5.3) H 01/07/22 12:20 Hgb 17.5 g/dL (11.7-16.6) H 01/07/22 12:20 Hct 49.7 % (42.0-52.0) 01/07/22 12:20 MCV 88.8 fl (80-94) 01/07/22 12:20 MCH 31.3 pg (28.0-34.0) 01/07/22 12:20 MCHC 35.2 g/dL (30.0-36.0) 01/07/22 12:20 RDW 12.6 % (12.1-15.1) 01/07/22 12:20 Plt Count 290 10^3/cmm (130-400) 01/07/22 12:20 MPV 10.1 fL (7.4-10.4) 01/07/22 12:20 Neut % (Auto) 70.9 % 01/07/22 12:20 Lymph % (Auto) 18.3 % 01/07/22 12:20 [place] % (Auto) 8.6 % 01/07/22 12:20 Eos % (Auto) 1.1 % 01/07/22 12:20 Baso % (Auto) 0.6 % 01/07/22 12:20 Neut # (Auto) 4.72 10^3/uL (1.8-7.7) 01/07/22 12:20 Lymph # (Auto) 1.2 10^3/uL (0.8-4.8) 01/07/22 12:20 [place] # (Auto) 0.6 10^3/uL (0.2-0.9) 01/07/22 12:20 Eos # (Auto) 0.1 10^3/uL (0.0-0.8) 01/07/22 12:20 Baso # (Auto) 0.0 10^3/uL (0.0-0.1) 01/07/22 12:20 Nucleated RBC % (auto) 0 % 01/07/22 12: Nucleated RBCs # 0.0 /100WBC 01/07/22 12:20 Sodium 132 mmol/L (136-145) L 01/07/22 12:20 Potassium 3.1 mmol/L (3.5-5.1) L 01/07/22 12:20 Chloride 88 mmol/L (98-107) L 01/07/22 12:20 Carbon Dioxide 29 mmol/L (22-29) 01/07/22 12:20 Anion Gap 18.1 (5-19) 01/07/22 12:20 BUN 8 mg/dL (6-20) 01/07/22 12:20 Creatinine 1.1 mg/dL (0.7-1.2) 01/07/22 12:20 GFR Calculation Not Reportable 01/07/22 12:20 Glucose 182 mg/dL (65-115) H 01/07/22 12:20 Calculated Osmolality 277 mOsm/kg (285-295) L 01/07/22 12:20 Calcium 9.7 mg/dL (8.5-10.5) 01/07/22 12:20 Total Bilirubin 0.5 mg/dL (0.15-1.2) 01/07/22 12:20 AST 24 U/L (0-40) 01/07/22 12:20 ALT 13 U/L (0-41) 01/07/22 12:20 Alkaline Phosphatase 219 U/L (40-130) H 01/07/22 12:20 Total Protein 9.2 g/dL (6.6-8.7) H 01/07/22 12:20 Albumin 4.4 g/dL (3.5-5.2) 01/07/22 12:20 Globulin 4.8 g/dL (1.3-4.6) H 01/07/22 12:20 Lipase 24 U/L (13-60) 01/07/22 12:20 Urine Color Yellow (Yellow) 01/07/22 12:10 Urine Appearance Hazy (CLEAR) A 01/07/22 12:10 Urine pH 6 (5-7) 01/07/22 12:10 Ur Specific [place] 1.010 (1.005-1.030) 01/07/22 12:10 Urine Protein 1+ (Negative) H 01/07/22 12:10 Urine Glucose (UA) Norm (Normal) 01/07/22 12:10 Urine Ketones Negative (Negative) 01/07/22 12:10 Urine Blood 2+ (Negative) H 01/07/22 12:10 Urine Nitrate Negative (Negative) 01/07/22 12:10 Urine Bilirubin Neg (Negative) 01/07/22 12:10 Urine Urobilinogen 1 mg/dL (Negative) H 01/07/22 12:10 Ur Leukocyte Esterase Trace (Negative) H 01/07/22 12:10 Urine RBC 0-4 /hpf (0-2) H 01/07/22 12:10 Urine WBC 5-10 /hpf (0-5) H 01/07/22 12:10 Ur Squamous Epith Cells 0-4 /hpf (0-5) H 01/07/22 12:10 Amorphous Sediment Not Reportable 01/07/22 12:10 Urine Bacteria None /hpf (NONE) 01/07/22 12:10 Hyaline Casts 10-15 /lpf H 01/07/22 12:10 Discharge Plan Discharge Patient Disposition: Home Clinical Impression: Viral syndrome, Hypokalemia Condition: Stable Prescriptions: New ondansetron 4 mg tablet,disintegrating 4 mg PO Q8H PRN (Reason: nausea and vomiting) Qty: 20 0RF No Action zolpidem 10 mg tablet 10 mg PO BEDTIME pantoprazole 40 mg tablet,delayed release (DR/EC) 40 mg PO BEDTIME duloxetine [Cymbalta] 60 mg capsule,delayed release(DR/EC) 60 mg PO BEDTIME Rx Instructions: takes with 30mgto =90mg (DME) Articulating AFO See Rx Instructions .ROUTE .MEDSUPPLY Qty: 2 0RF Rx Instructions: As directed carisoprodol 350 mg tablet 350 mg PO TID PRN (Reason: Muscle Spasm) citalopram 20 mg tablet 20 mg PO BEDTIME tamsulosin 0.4 mg capsule 0.4 mg PO BEDTIME ibuprofen 200 mg Tablet 600 mg PO Q4H PRN (Reason: Pain) albuterol sulfate 90 mcg/actuation Hfa Aerosol Inhaler 2 puff INHALATION Q4H PRN (Reason: Shortness Of Breath) duloxetine 30 mg capsule,delayed release(DR/EC) 30 mg PO BEDTIME Rx Instructions: takes with 60mg to =90mg Augmentin 500-125 mg tablet 1 tab PO BID Qty: 14 0RF Discharge Orders: Discharge ED (Routine); Ordered 01/07/22 Ordered By: Keyur Lainez Referrals: Leighton Bhardwaj, [Primary Care Provider] - Discharge Diet: Regular Discharge Activity: Increase activity as tolerated Patient Instructions: Hypokalemia (ED), Viral Syndrome (ED) Activity Restrictions/Additional Instructions: Follow-up with medical provider as directed in the next 3 to 5 days for reevaluation and you can recheck potassium lab. Make sure to stay hydrated and drink plenty of fluids including fluids with electrolytes. Take medications as prescribed. Return to the ER or your medical provider if condition worsens. Please read and understand discharge instructions. Thank you for choosing [facility] for your healthcare needs today. Please realize this is an emergency room and that we are providing you with a medical screening exam and this may not be complete and all inclusive of all the testing and or work up that you may need to determine your ailment or severity of your illness. It is very important that you follow up as instructed or that you return to the Emergency Department should you have concerns or if your condition changes or worsens in any way. Coding Level of Care Code ED Tape Sewing Machine Operator for Latoya Garland Exam Comprehensive
[2022-01-07 12:51] LABS: Bilirubin Urine Neg (Negative); Blood Urine 2+ (Negative); Glucose Urine UA Norm (Normal); Ketones Urine Negative (Negative); Leukocyte Esterase Urine Trace (Negative); Nitrate Urine Negative (Negative); Protein Urine 1+ (Negative); Urine Appearance Hazy (CLEAR); Urine Color Yellow (Yellow); Urobilinogen Urine 1 mg/dL (Negative); pH Urine 6 (5-7)
[2022-01-07 12:52] LABS: Add Urine Culture? No; Add Urine Microscopic? YES; RBC Urine 0-4 /hpf (0-2); Squamous Epithelial Cell Urine 0-4 /hpf (0-5)
[2022-01-07 13:00] LABS: Albumin Level 4.4 g/dL (3.5-5.2); Anion Gap 18.1 (5-19); Aspartate Amino Transferase 24 U/L (0-40); Blood Urea Nitrogen 8 mg/dL (6-20); Calcium 9.7 mg/dL (8.5-10.5); Carbon Dioxide 29 mmol/L (22-29); Lipase 24 U/L (13-60); Total Bilirubin 0.5 mg/dL (0.15-1.2)
[2022-01-07 13:11] LABS: Alanine Aminotransferase 13 U/L (0-41)
[2022-01-07 13:18] LABS: Alkaline Phosphatase 219 U/L (40-130); Chloride 88 mmol/L (98-107); Globulin 4.8 g/dL (1.3-4.6); Glucose 182 mg/dL (65-115); Osmolality Calculated 277 mOsm/kg (285-295); Potassium 3.1 mmol/L (3.5-5.1); Sodium 132 mmol/L (136-145); Total Protein 9.2 g/dL (6.6-8.7)
[2022-01-07 13:31] LABS: Slide Review Slide Review Perform
[2022-01-07] MEDS: potassium chloride ER 20 mEq Tablet PO (13:54)
== END 2022-01-07 14:33 | disposition home or self-care (01) ==
PROVIDERS: Emergency Provider Physician Assistant; PCP Internal Medicine
DX: B34.9 Viral infection, unspecified (principal); E87.6 Hypokalemia; E78.5 Hyperlipidemia, unspecified; G47.33 Obstructive sleep apnea (adult) (pediatric); I25.10 Atherosclerotic heart disease of native coronary artery without angina pectoris; F17.200 Nicotine dependence, unspecified, uncomplicated
CPT/HCPCS: 71045; 80053; 81001; 83690; 85025; 96361; 96374; 99284; J2405; J7030

== ENCOUNTER 2022-04-08 14:00 | Outpatient (CLI) | payer MEDICARE, MEDICAID, SELFPAY | END 2022-04-08 14:01 | disposition home or self-care (01) | LOC: SLEEP 04-09 08:59 | PROVIDERS: PCP Internal Medicine; Visit Provider Internal Medicine | DX: G47.33 Obstructive sleep apnea (adult) (pediatric) (principal) | CPT/HCPCS: G0399 ==

== ENCOUNTER → 2022-07-30 08:26 | Outpatient (BNVA) | payer MEDICARE, MEDICAID, SELFPAY | PROVIDERS: PCP Internal Medicine; Visit Provider Podiatrist Foot & Ankle Surgery | DX: G60.0 Hereditary motor and sensory neuropathy (principal); M21.371 Foot drop, right foot; M21.372 Foot drop, left foot; M62.561 Muscle wasting and atrophy, not elsewhere classified, right lower leg; M62.562 Muscle wasting and atrophy, not elsewhere classified, left lower leg; M20.31 Hallux varus (acquired), right foot; M20.32 Hallux varus (acquired), left foot; M20.41 Other hammer toe(s) (acquired), right foot; M20.42 Other hammer toe(s) (acquired), left foot | CPT/HCPCS: 99213 ==

== ENCOUNTER 2025-02-07 12:37 | Emergency (ER) | payer MEDICARE, MEDICAID, SELFPAY ==
--- OUTSIDE RECORDS SUMMARY | 2025-02-07 12:55 | XMS_ITS | Patient Health Record ---
Author Organization [employer] Address [address] [place] [address] Care Team Providers Care Shoemaking Cutter Name Role Phone Leighton Bhardwaj Primary Care Provider LANDON Linda Unavailable [phone] Reason For Referral No Information Medications Medication SIG (Take, Route, Frequency, Duration) Notes Start Date End Date Status Ibuprofen 800 MG 1 tab(s) po q 8 hrs prn Oral; Duration: 30 Ibuprofen 800mg Tablet 1 tab(s) po q 8 hrs prn 02/06/2012 Active Problems Problem Type SNOMED Code ICD Code Onset Dates Problem Status W/U Status Risk Notes Problem Frequency of micturition (074510795) Frequency of micturition (R35.0) Active confirmed Problem Low back pain (115875473) Low back pain (724.2) 08/14/19 10 Active confirmed [id number]- Problem Wheezing (68740369) Wheezing (786.07) 07/08/19 09 Problem resolved confirmed [id number] 11- Problem Heartburn (47873889) Heartburn (787.1) 04/16/19 12 Problem resolved confirmed [id number] 11- Problem Dysphagia (93711455) Other dysphagia (787.29) 08/14/19 10 Problem resolved confirmed [id number] 11- Problem Urinary frequency (779461318) Urinary frequency (788.41) 10/29/19 12 Problem resolved confirmed [id number] 11- Problem Ear ache (205929671) Ear ache (388.71) 06/18/19 11 Problem resolved confirmed [id number] 11- Problem Tobacco dependence (28177231) Tobacco dependence (305.1) 12/18/19 10 Problem resolved confirmed [id number] 11- Problem Tobacco abuse (4877906447) Tobacco abuse (305.1) 09/15/19 09 Problem resolved confirmed [id number] 11- Problem Insomnia (904225246) Insomnia (307.41) 08/10/19 09 Problem resolved confirmed [id number] 11- Problem Shoulder pain (72881082) Shoulder pain (719.41) 04/03/20 10 Problem resolved confirmed [id number] 11- Problem Administration of vaccine product containing only Streptococcus pneumoniae antigen (procedure) (20535067) Vaccination against pneumococcal pneumonia (V03.82) 02/06/20 12 Problem resolved confirmed [id number] 11- Problem 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) Other abnormal laboratory result on blood (790.99) 07/20/19 09 Problem resolved confirmed [id number] 11- Problem 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) Bxqlwkl-Gzilg-G ooth disease (356.1) 01/09/20 11 Problem resolved confirmed [id number] 11- Problem Acute upper respiratory infection (85450306) Acute upper respiratory infection (465.8) 07/19/19 10 Problem resolved confirmed [id number] 11- Problem Muscle weakness (15329378) Muscle weakness (729.89) 09/15/19 09 Problem resolved confirmed [id number] 11- Problem Genital warts (122614356) Genital warts (078.11) 07/19/19 10 Problem resolved confirmed [id number] 11- Problem Acute otitis media (0310375) Acute otitis media (382.00) 05/30/19 12 Problem resolved confirmed [id number] 11- Problem Sore throat (404232515) Sore Throat (462) 10/12/19 10 Problem resolved confirmed [id number] 11- Problem Ankle pain (366829949) Ankle pain (719.47) 11/07/19 11 Problem resolved confirmed [id number] 11- Problem Chest pain (06985840) Chest pain (786.59) 04/30/19 12 Problem resolved confirmed [id number] 11- Problem Erectile dysfunction (701339319) Erectile dysfunction (302.72) 07/16/19 12 Problem resolved confirmed [id number] 11- Problem Acute sinusitis (24585481) Acute sinusitis (461.8) 09/09/19 09 Problem resolved confirmed [id number] 11- Problem Neck pain (39514703) Neck pain (723.1) 07/19/19 10 Problem resolved confirmed [id number] 11- Problem Vitamin D deficiency (44676316) Vitamin D deficiency (268.9) 07/20/19 09 Problem resolved confirmed [id number] 11- Problem Generalized anxiety disorder (32892224) Anxiety, generalized (300.02) 09/09/19 09 Problem resolved confirmed [id number] 11- Plan Of Treatment No Information Insurance Providers Payer Name Payer Address Payer Phone Subscriber Number Group Number Insured Name Patient Relationship to Insured Coverage Start Date Coverage End Date [employer] [place] [address] [place], [place] [id number] Khris Kaba Self - patient is the insured Medical (General) History Surgical History Surgery Date(Month/Year) NONE
--- OUTSIDE RECORDS SUMMARY | 2025-02-07 12:56 | XMS_ITS | Encounter Summary ---
Author Organization [facility] Address [address] [place] [address] Care Team Providers Care Dip Brazier Name Role Phone Patricio Rojas MD Primary Care Provider Ghada vailable Encounter Details Date Type Department Care Team (Latest Contact Info) Description 05/13/2002 Outpatient Historical [facility] [address] 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
--- OUTSIDE RECORDS SUMMARY | 2025-02-07 12:56 | XMS_ITS | Patient Health Record ---
Author Organization [facility] Address [address] [place] [address] Care Team Providers Care Tag Writer Name Role Phone Bhardwaj Leighton AMADOR Primary Care Provider UnavailShadia Collins Unavailable [phone] Reason For Referral No Information Medications Medication SIG (Take, Route, Frequency, Duration) Notes Start Date End Date Status Ibuprofen 800 MG Tablet 1 tab(s) po q 8 hrs prn Oral; Duration: 30 Ibuprofen 800mg Tablet 1 tab(s) po q 8 hrs prn 02/06/2012 Active Social History Social History Additional Details Category Social Info Options Details zzMigrated Social History Migrated Social History Advance Directive: Current and Verified Signed on 04/16/2011, withhold IV and tube nutrition, withhold surgery, withhold antibiotics, withhold mechanical ventilator, withhold radiation therapy, withhold dialysis, withhold chemotherapy, withhold CPR Organ Donation: Patient refuses Organ Donation Accepted Portal User: User Name: [email or web address] Initial Password [email or web address] Occupation:Disabled Problems Problem Type SNOMED Code ICD Code Onset Dates Problem Status W/U Status Risk Notes Problem Wheezing (87827312) Wheezing (786.07) 07/08/19 09 Problem resolved confirmed [id number] 11- Problem Heartburn (09035121) Heartburn (787.1) 04/16/19 12 Problem resolved confirmed [id number] 11- Problem Dysphagia (49859344) Other dysphagia (787.29) 08/14/19 10 Problem resolved confirmed [id number] 11- Problem Urinary frequency (732068831) Urinary frequency (788.41) 10/29/19 12 Problem resolved confirmed [id number] 11- Problem Frequency of micturition (041491472) Frequency of micturition (R35.0) Active confirmed Problem Generalized anxiety disorder (74187201) Anxiety, generalized (300.02) 09/09/19 09 Problem resolved confirmed [id number] 11- Problem Low back pain (971639312) Low back pain (724.2) 08/14/19 10 Active confirmed [id number] 11- Problem Neck pain (78913385) Neck pain (723.1) 07/19/19 10 Problem resolved confirmed [id number] 11- Problem Vitamin D deficiency (40129279) Vitamin D deficiency (268.9) 07/20/19 09 Problem resolved confirmed [id number] 11- Problem Muscle weakness (34244334) Muscle weakness (729.89) 09/15/19 09 Problem resolved confirmed [id number] 11- Problem Shoulder pain (37066324) Shoulder pain (719.41) 04/03/20 10 Problem resolved confirmed [id number] 11- Problem 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) Vckfeyj-Gnhkh-F ooth disease (356.1) 01/09/20 11 Problem resolved confirmed [id number] 11- Problem Disorder of hematopoietic system (98664857) Other abnormal laboratory result on blood (790.99) 07/20/19 09 Problem resolved confirmed [id number] 11- Problem Sore throat (141956837) Sore Throat (462) 10/12/19 10 Problem resolved confirmed [id number] 11- Problem Tobacco abuse (0902057877) Tobacco abuse (305.1) 09/15/19 09 Problem resolved confirmed [id number] 11- Problem Tobacco dependence (07576870) Tobacco dependence (305.1) 12/18/19 10 Problem resolved confirmed [id number] 11- Problem Ear ache (512090052) Ear ache (388.71) 06/18/19 11 Problem resolved confirmed [id number] 11- Problem Insomnia (305402705) Insomnia (307.41) 08/10/19 09 Problem resolved confirmed [id number] 11- Problem Acute upper respiratory infection (20370032) Acute upper respiratory infection (465.8) 07/19/19 10 Problem resolved confirmed [id number] 11- Problem Acute otitis media (5983125) Acute otitis media (382.00) 05/30/19 12 Problem resolved confirmed [id number] 11- Problem Acute sinusitis (33488102) Acute sinusitis (461.8) 09/09/19 09 Problem resolved confirmed [id number] 11- Problem Ankle pain (075630126) Ankle pain (719.47) 11/07/19 11 Problem resolved confirmed [id number] 11- Problem Chest pain (08650971) Chest pain (786.59) 04/30/19 12 Problem resolved confirmed [id number] 11- Problem Erectile dysfunction (732720096) Erectile dysfunction (302.72) 07/16/19 12 Problem resolved confirmed [id number] 11- Problem Administration of vaccine product containing only Streptococcus pneumoniae antigen (procedure) (69776840) Vaccination against pneumococcal pneumonia (V03.82) 02/06/20 12 Problem resolved confirmed [id number] 11- Problem Genital warts (514586042) Genital warts (078.11) 07/19/19 10 Problem resolved confirmed [id number] 11- Plan Of Treatment No Information Insurance Providers Payer Name Payer Address Payer Phone Subscriber Number Group Number Insured Name Patient Relationship to Insured Coverage Start Date Coverage End Date [employer] [address] [place] [address] [phone] [id number] Khris Kaba Self - patient is the insured Medical (General) History Surgical History Surgery Date(Month/Year) NONE
--- OUTSIDE RECORDS SUMMARY | 2025-02-07 12:56 | XMS_ITS | Encounter Summary ---
Author Organization 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
--- OUTSIDE RECORDS SUMMARY | 2025-02-07 12:56 | XMS_ITS | Encounter Summary ---
Author Organization [facility] Address [address] 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
--- OUTSIDE RECORDS SUMMARY | 2025-02-07 12:56 | XMS_ITS | Encounter Summary ---
Author Organization [facility] Address [address] 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
--- OUTSIDE RECORDS SUMMARY | 2025-02-07 12:56 | XMS_ITS | Encounter Summary ---
Author Organization [facility] Address [address] [place] [address] Care Team Providers Care Sulfuric Acid Plant Operator Name Role Phone Patricio Rojas MD Primary Care Provider Ghada vailable Encounter Details Date Type Department Care Team (Latest Contact Info) Description 06/04/2001 Outpatient Historical [facility] Thanh Candelaria MD [address] [place] [address] OTHER BACK SYMPTOMS (Primary Dx); Lumbosacral spondylosis; BACKACHE NOS Social History Tobacco Use Types Packs/Day Years Used Date Smoking Tobacco: Never Assessed Sex and Gender Information Value Date Recorded Sex Assigned at Not on file 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
--- OUTSIDE RECORDS SUMMARY | 2025-02-07 12:56 | XMS_ITS | Encounter Summary ---
Author Organization [facility] Address [address] [place] [address] Care Team Providers Care Choke Reamer Name Role Phone Patricio Rojas MD Primary Care Provider Ghada vailable Encounter Details Date Type Department Care Team (Latest Contact Info) Description 04/23/2001 Outpatient Historical [facility] Thanh Candelaria MD [address] [place] [address] Lumbosacral spondylosis (Primary Dx); BACKACHE NOS Social History Tobacco Use Types Packs/Day Years Used Date Smoking Tobacco: Never Assessed Sex and Gender Information Value Date Recorded Sex Assigned at Not on file 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
--- OUTSIDE RECORDS SUMMARY | 2025-02-07 12:56 | XMS_ITS | Encounter Summary ---
Author Organization [facility] Address [address] [place] [address] Care Team Providers Care Digital Content Producer Name Role Phone Patricio Rojas MD Primary Care Provider Ghada vailable Encounter Details Date Type Department Care Team (Latest Contact Info) Description 02/11/2002 Outpatient [facility] [address] 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
--- OUTSIDE RECORDS SUMMARY | 2025-02-07 12:56 | XMS_ITS | Encounter Summary ---
Author Organization [facility] Address [address] [place] [address] Care Team Providers Care Floral Department Specialist Name Role Phone Patricio Rojas MD Primary Care Provider Ghada vailable Encounter Details Date Type Department Care Team (Latest Contact Info) Description 02/11/2002 Outpatient Historical [facility] Chronic Pain [address] [place] [address] Shirley Mccauley, LESLIE [address] [facility] [address] [place] [address] Patricio Rojas MD NO ADDRESS ON FILE MYALGIA AND MYOSITIS NOS (Primary Dx) Social History Tobacco Use Types Packs/Day Years Used Date Smoking Tobacco: Never Assessed Sex and Gender Information Value Date Recorded Sex Assigned at Not on file 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
--- OUTSIDE RECORDS SUMMARY | 2025-02-07 12:56 | XMS_ITS | Encounter Summary ---
Author Organization [facility] Address [address] [place] [address] Care Team Providers Care Bias Binding Cutter Name Role Phone Patricio Rojas MD Primary Care Provider Ghada vailable Encounter Details Date Type Department Care Team (Latest Contact Info) Description 01/06/2002 Outpatient Historical [facility] [address] 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
--- OUTSIDE RECORDS SUMMARY | 2025-02-07 12:56 | XMS_ITS | Encounter Summary ---
Author Organization [facility] Address [address] [place] [address] Care Team Providers Care Automatic Print Developer Name Role Phone Patricio Rojas MD Primary Care Provider Ghada vailable Encounter Details Date Type Department Care Team (Latest Contact Info) Description 07/01/[address] 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
--- OUTSIDE RECORDS SUMMARY | 2025-02-07 12:56 | XMS_ITS | Encounter Summary ---
Author Organization [facility] Address [address] [place] [address] Care Team Providers Care Communications Consultant Name Role Phone Patricio Rojas MD Primary Care Provider Ghada vailable Encounter Details Date Type Department Care Team (Latest Contact Info) Description 07/01/2002 Outpatient Historical [facility] Pain [facility] [address] 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
--- OUTSIDE RECORDS SUMMARY | 2025-02-07 12:56 | XMS_ITS | Encounter Summary ---
Author Organization [facility] Address [address] [place] [address] Care Team Providers Care Equipment Services Associate Name Role Phone Patricio Rojas MD Primary Care Provider Ghada vailable Encounter Details Date Type Department Care Team (Latest Contact Info) Description 05/13/2002 Outpatient Historical [facility] Chronic Pain [address] [place] [address] Shirley Mccauley, LESLIE [address] [facility] [address] [place] [phone] LUMBAGO (Primary Dx) Social History Tobacco Use Types Packs/Day Years Used Date Smoking Tobacco: Never Assessed Sex and Gender Information Value Date Recorded Sex Assigned at Not on file 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
--- OUTSIDE RECORDS SUMMARY | 2025-02-07 12:57 | XMS_ITS | Clinical Summary ---
Author Organization [facility] Address [address] Attn: Epic Prelude ADT [place] [address] Care Team Providers Care Snow Shoveler Name Role Phone Patricio Rojas MD Primary Care Provider Ghada vailable Allergies No known active allergies Medications albuterol HFA 90 mcg inhalerIndicati ons:Shortness of breath Take 2 Puffs by inhalation every 6 hours as needed for Shortness of Breath. 8.5 Gram 5 9 Active DULoxetine (CYMBALTA) 60 mg Capsule, Delayed Release(E.C.) TAKE ONE CAPSULE BY MOUTH DAILY 3 9 Active TOPIRAMATE ORAL Take by mouth. Active tamsulosin (FLOMAX) 0.4 mg capsule Take 0.4 mg by mouth daily. 1 Active ibuprofen-aceta minophen 125-250 mg Tablet Take 1 Tablet by mouth 1 time daily as needed. 1 Active DULoxetine 20 mg capsule, delayed rel sprinkle Take 1 Tablet by mouth daily. 1 Active citalopram (CeleXA) 5 mg Tablet Take 5 mg by mouth daily. 1 Active albuterol sulfate HFA 90 mcg/actuation aerosol inhaler Take 2 Puffs by inhalation every 6 hours as needed. 3 Active omeprazole (PriLOSEC) 20 mg Capsule, Delayed Release(E.C.) Take 20 mg by mouth daily. 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 Immunizations Immunization Administration Dates Next Due Hepatitis A Vaccine 06/19/1998,01/25/1998,1997 Hepatitis B Vaccine 06/19/1998,01/25/1998,1997 Family History Medical History Relation Name Comments Respiratory Disease Maternal Grandmother Cancer Paternal Grandfather Heart Disease Paternal Grandfather Relation Name Status Comments Maternal Grandmother Paternal Grandfather Social History Tobacco Use Types Packs/Day Years Used Date Smoking Tobacco: Every Day Cigarettes Smokeless Tobacco: Never Tobacco Cessation:Ready to Q uit: Not Asked; Counseling Given: Not Answered Alcohol Use Standard Drinks/Week Comments Not Currently 0 (1 standard drink = 0.6 oz pur e alcohol) Sex and Gender Information Value Date Recorded Sex Assigned at Not on file 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 Gender Identity Not on file Sexual Orientation Not on file Last Filed Vital Signs Vital Sign Reading Time Taken Comments Blood Pressure 122/86 08/04/2023 10:04 AM CDT Pulse 101 08/04/2023 10:04 AM CDT Temperature - - Respiratory Rate 18 12/22/2018 9:19 AM CDT Oxygen Saturation 96% 08/04/2023 10:04 AM CDT Inhaled Oxygen Concentration - - Weight 76.2 kg (168 lb) 08/04/2023 10:04 AM CDT Height 182.9 cm (6') 08/04/2023 10:04 AM CDT Body Mass Index 22.78 08/04/2023 10:04 AM CDT Plan of Treatment Health Maintenance Due Date Last Done Comments DTAP/TDAP/TD VACCINES (1 - Tdap) 06/16/1999 HPV VACCINES (1 - 3-dose SCD M series) 06/16/2007 INFLUENZA VACCINE (#1) 2024 HEPATITIS B VACCINES Completed 06/19/1998, 01/25/1998, 12/07/1997 Insurance [place]ICAID [place] Member Subscriber Plan / Payer (Ef fective 2023-Present) Name:Khris Kaba Relation to Subscriber:Self Name:Khris Kaba Payer ID:Not on file Group ID:Not on file Type:Medicaid Address: [address] MEDICARE HMO Care Teams Snow Shoveler Relationship Specialty Start Date End Date Patricio Rojas MD PCP - General 02/11/02
--- OUTSIDE RECORDS SUMMARY | 2025-02-07 12:57 | XMS_ITS | Encounter Summary ---
Author Organization [facility] Address [address] [place] [address] Care Team Providers Care French Folding Machine Operator Name Role Phone Patricio Rojas MD Primary Care Provider Ghada vailable Encounter Details Date Type Department Care Team (Latest Contact Info) Description 02/19/2001 Outpatient Historical [facility] Thanh Candelaria MD [address] [place] [address] Lumbosacral spondylosis (Primary Dx); BACKACHE NOS; Sprain lumbar region Social History Tobacco Use Types Packs/Day Years Used Date Smoking Tobacco: Never Assessed Sex and Gender Information Value Date Recorded Sex Assigned at Not on file 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
--- OUTSIDE RECORDS SUMMARY | 2025-02-07 12:57 | XMS_ITS | Encounter Summary ---
Author Organization [facility] Address [address] 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
--- OUTSIDE RECORDS SUMMARY | 2025-02-07 12:57 | XMS_ITS | Encounter Summary ---
Author Organization [facility] Address [address] [place] [address] Care Team Providers Care Medical Illustrator Name Role Phone Patricio Rojas MD Primary Care Provider Ghada vailable Encounter Details Date Type Department Care Team (Late st Contact Info) Description 09/24/2001 Outpatient [facility] [address] 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
--- OUTSIDE RECORDS SUMMARY | 2025-02-07 12:57 | XMS_ITS | Encounter Summary ---
Author Organization [facility] Address [address] 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
--- OUTSIDE RECORDS SUMMARY | 2025-02-07 12:57 | XMS_ITS | Encounter Summary ---
Author Organization [facility] Address [address] [place] [address] Care Team Providers Care Forensic Investigator Name Role Phone Patricio Rojas MD Primary Care Provider Ghada vailable Encounter Details Date Type Department Care Team (Late st Contact Info) Description 10/18/2001 Outpatient [facility] [address] 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
--- OUTSIDE RECORDS SUMMARY | 2025-02-07 12:57 | XMS_ITS | Clinical Summary ---
Author Organization [facility] Address [address] [place] [address] Care Team Providers Care Furniture Polisher Name Role Phone Patricio Rojas MD Primary Care Provider Ghada vailable Allergies No known active allergies Medications zolpidem (AMBIEN) 10 mg tablet TAKE 1 TABLET BY MOUTH EVERYDAY AT BEDTIME 5 9 Active citalopram (CeleXA) 20 mg tablet 9 Active DULoxetine (CYMBALTA) 60 mg Capsule, Delayed Release(E.C.) TAKE ONE CAPSULE BY MOUTH DAILY 3 9 Active carisoprodol (SOMA) 350 mg tablet TAKE 1/2-1 TABLET BY MOUTH TWICE DAILY NEEDED FOR SPASM 1 9 Active albuterol HFA 90 mcg inhalerIndicati ons:Shortness of breath Take 2 Puffs by inhalation every 6 hours as needed for Shortness of Breath. 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 Shortness of breath 11/09/2018 Immunizations Immunization Administration Dates Next Due Hepatitis A Vaccine 06/19/1998,01/25/1998,1997 Hepatitis B Vaccine 06/19/1998,01/25/1998,1997 Family History Medical History Relation Name Comments Respiratory Disease Maternal Grandmother Cancer Paternal Grandfather Heart Disease Paternal Grandfather Relation Name Status Comments Maternal Grandmother Paternal Grandfather Social History Tobacco Use Types Packs/Day Years Used Date Smoking Tobacco: Every Day Cigarettes 0.5 25 Smokeless Tobacco: Never Tobacco Cessation:Counseling Given: Yes Alcohol Use Standard Drinks/Week Comments Not Currently 0 (1 standard drink = 0.6 oz pur e alcohol) Sex and Gender Information Value Date Recorded Sex Assigned at Not on file Legal Sex Male 4:28 AM OFFSET PLATEMAKER Gender Identity Not on file Sexual Orientation Not on file Last Filed Vital Signs Vital Sign Reading Time Taken Comments Blood Pressure 132/83 03/05/2020 10:11 AM OFFSET PLATEMAKER Pulse 85 03/05/2020 10:11 AM OFFSET PLATEMAKER Temperature - - Respiratory Rate 18 12/22/2018 9:19 AM CDT Oxygen Saturation 98% 01/25/2019 9:31 AM CDT Inhaled Oxygen Concentration - - Weight 88 kg (194 lb) 03/05/2020 10:11 AM OFFSET PLATEMAKER Height 182.9 cm (6') 03/05/2020 10:11 AM OFFSET PLATEMAKER Body Mass Index 26.31 03/05/2020 10:11 AM OFFSET PLATEMAKER Plan of Treatment Health Maintenance Due Date Last Done Comments DTAP/TDAP/TD VACCINES (1 - Tdap) 06/16/1999 HPV VACCINES (1 - 3-dose SCD M series) 06/16/2007 INFLUENZA VACCINE (#1) 2024 HEPATITIS B VACCINES Completed 06/19/1998, 01/25/1998, 12/07/1997 Insurance [employer]UE [employer] AND [employer] MEDICAID [address] [phone] Care Teams Furniture Polisher Relationship Specialty Start Date End Date Patricio Rojas MD NO ADDRESS ON FILE PCP - General 02/11/02
--- OUTSIDE RECORDS SUMMARY | 2025-02-07 12:57 | XMS_ITS | Encounter Summary ---
Author Organization [facility] Address [address] [place] [address] Care Team Providers Care Field Map Technician Name Role Phone Patricio Rojas MD Primary Care Provider Ghada vailable Encounter Details Date Type Department Care Team (Latest Contact Info) Description 01/12/2001 Outpatient Historical [facility] Thanh Candelaria MD [address] [place] [address] Sprain lumbar region (Primary Dx); Backache, unspecified; Lumbosacral spondylosis; Peroneal muscle atrophy Social History Tobacco Use Types Packs/Day Years Used Date Smoking Tobacco: Never Assessed Sex and Gender Information Value Date Recorded Sex Assigned at Not on file 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
[2025-02-07 12:59] VITALS: BP 114/65; PULSE 77; RESP 17; TEMP 36.9; O2SAT 95; BMI 21.7
--- NOTE | 2025-02-07 13:22 | W.ED.WOUNDLC ---
HPI - Wound/Laceration General: Chief Complaint: Wound/Laceration Stated Complaint: R forearm lac Time Seen by Provider: 02/07/25 12:43 Source: patient Mode of arrival: ambulatory Limitations: no limitations History of Present Illness: Patient is a 44-year-old male presents emergency department with laceration right forearm. States that this occurred while he was working on sheet rock he placed his arm in a wall and thinks that he sliced a piece of metal. No active bleeding at this time he has small 1.5 cm laceration to right forearm. His tetanus is not up-to-date. No other symptoms at this time. This is not a work-related injury. Onset (ago): minute(s) Extremity Location: Right: forearm Patient tetanus UTD: No Context: accidental Associated symptoms: Denies chills, fever(s), nausea or vomiting Related Data Home Medications ?Medication ?Instructions ?Recorded ?Confirmed duloxetine 60 mg capsule,delayed 60 mg PO BEDTIME 05/16/19 07/30/22 release (Cymbalta) pantoprazole 40 mg tablet,delayed 40 mg PO BEDTIME 05/16/19 07/30/22 release zolpidem 10 mg tablet 10 mg PO BEDTIME 05/16/19 07/30/22 albuterol sulfate 90 mcg/actuation 2 puff inhalation Q4H PRN 01/29/21 07/30/22 aerosol inhaler Shortness Of Breath carisoprodol 350 mg tablet 350 mg PO TID PRN Muscle Spasm 01/29/21 07/30/22 citalopram 20 mg tablet 20 mg PO BEDTIME 01/29/21 07/30/22 duloxetine 30 mg capsule,delayed 30 mg PO BEDTIME 01/29/21 07/30/22 release ibuprofen 200 mg tablet 600 mg PO Q4H PRN Pain 01/29/21 07/30/22 tamsulosin 0.4 mg capsule 0.4 mg PO BEDTIME 01/29/21 07/30/22 Previous Rx's ?Medication ?Instructions ?Recorded Articulating AFO #2 ea 04/11/20 amoxicillin 500 mg-potassium 1 tab PO BID #14 tabs 01/05/22 clavulanate 125 mg tablet (Augmentin) ondansetron 4 mg disintegrating 4 mg PO Q8H PRN nausea and 10/04/22 tablet vomiting #20 tabs AFO bilaterally with shoes to fit #1 ea 07/30/22 Allergies Allergy/AdvReac Type Severity Reaction Status Date / Time No Known Allergies Allergy Verified 07/30/22 08:31 Review of Systems General: Reports: 10 or more systems reviewed and unremarkable except in HPI and below Const: Denies: fever(s) or chills Card: Denies: chest pain Resp: Denies: dyspnea GI: Denies: abdominal pain, nausea, vomiting or diarrhea Musc: Denies: extremity pain or joint pain Skin/Breast: Reports: new lesions (laceration rt forearm); Denies: rash, skin pain or skin tenderness Neuro: Denies: headache(s) PFSH ED PFSH: Medical History Atherosclerosis of coronary artery Coronary-myocardial bridge Obstructive sleep apnea Precordial chest pain Spinal cord stimulator status Depression Lumbar radiculopathy Hyperlipidemia Acquired bilateral foot drop Trcrpgm-Nqdin-Hxvsv atrophy Surgical History H/O vasectomy Hx of appendectomy H/O arthroscopic knee surgery Family History Other CAD (coronary artery disease) Cancer Stroke Denies family history of Anesthesia complication Bleeding disorder Social History Smoking and tobacco/nicotine status: current every day tobacco/nicotine user (1 pk per day ) Alcohol intake: never Substance/Drug Use: current Physical Exam Const: COMMON NORMALS: no acute distress, average body habitus, patient oriented x3, no limitations, healthy appearing, alert and well nourished HENMT: COMMON NORMALS: normocephalic and atraumatic HEAD & SCALP: normocephalic and atraumatic Extremity: COMMON NORMALS: full ROM and capillary refill normal Neuro: COMMON NORMALS: patient oriented x3 SENSORIUM/ORIENTATION: Yes alert Skin: COMMON NORMALS: turgor normal NARRATIVE SKIN EXAM: Small 1.5 cm linear laceration to right forearm with no active bleeding. No foreign body or contamination. GENERAL SKIN EXAM: turgor normal Procedures Laceration Laceration 1: Site: upper extremity Side (If applicable): right Size (cm): 1.5 Description: linear and clean Depth: simple, single layer Local Anesthetic: lidocaine 2% and with epi Amount of anesthesia used (mL): 1 Pre-repair: wound explored Skin layer closed with: other (prolene) Size (cm): 4-0 Number of sutures: 3 Technique: simple, interrupted Course Vital Signs: Vital signs: Vital Signs Temperature 98.4 F 02/07/25 12:59 Pulse Rate 77 02/07/25 12:59 Respiratory Rate 17 02/07/25 12:59 Blood Pressure 114/65 02/07/25 12:59 Pulse Oximetry 95 02/07/25 12:59 Oxygen Delivery Me thod Room Air 02/07/25 12:59 MDM - Wound/Laceration Medical Decision Making Patient presenting with small laceration to right forearm, cutting a piece of metal while working on building house. This was not a work-related injury however. Tetanus up-to-date, it was updated here in the emergency department. Laceration was repaired and he is told to have the sutures removed in 7 to 10 days. No need for antibiotics due to the clean superficial nature of the wound, and sutures utilized to approximate a tattoo. Discharged in stable condition, signs and symptoms of infection instructed to watch for. No radiology studies performed this visit Discharge Plan Discharge Condition: Stable Prescriptions: No Action zolpidem 10 mg tablet 10 mg PO BEDTIME pantoprazole 40 mg tablet,delayed release (DR/EC) 40 mg PO BEDTIME duloxetine [Cymbalta] 60 mg capsule,delayed release(DR/EC) 60 mg PO BEDTIME Rx Instructions: takes with 30mgto =90mg (DME) Articulating AFO See Rx Instructions .ROUTE .MEDSUPPLY Qty: 2 0RF Rx Instructions: As directed (DME) AFO bilaterally with shoes to fit See Rx Instructions .Route .MEDSUPPLY Qty: 1 0RF Rx Instructions: As directed carisoprodol 350 mg tablet 350 mg PO TID PRN (Reason: Muscle Spasm) citalopram 20 mg tablet 20 mg PO BEDTIME tamsulosin 0.4 mg capsule 0.4 mg PO BEDTIME ibuprofen 200 mg Tablet 600 mg PO Q4H PRN (Reason: Pain) albuterol sulfate 90 mcg/actuation Hfa Aerosol Inhaler 2 puff INHALATION Q4H PRN (Reason: Shortness Of Breath) duloxetine 30 mg capsule,delayed release(DR/EC) 30 mg PO BEDTIME Rx Instructions: takes with 60mg to =90mg Augmentin 500-125 mg tablet 1 tab PO BID Qty: 14 0RF ondansetron 4 mg tablet,disintegrating 4 mg PO Q8H PRN (Reason: nausea and vomiting) Qty: 20 0RF Referrals: Jana Zaman PA [Primary Care Provider, [facility]] Print Language: Upper Sorbian Coding Level of Care Code ED Personal Lines Sales Executive for Latoya Garland
[2025-02-07] MEDS: tetanus-dipt-pertussis 0.5 mL SDV IM (13:41)
[2025-02-07 13:44] VITALS: BP 117/70; PULSE 91; O2SAT 94
== END 2025-02-07 13:47 | disposition home or self-care (01) ==
PROVIDERS: Emergency Provider Physician Assistant; PCP Physician Assistant
DX: S51.811A Laceration without foreign body of right forearm, initial encounter (principal); F17.210 Nicotine dependence, cigarettes, uncomplicated; E78.5 Hyperlipidemia, unspecified; I25.10 Atherosclerotic heart disease of native coronary artery without angina pectoris; W26.8XXA Contact with other sharp object(s), not elsewhere classified, initial encounter
CPT/HCPCS: 12001; 90471; 90715; 99283

== ENCOUNTER 2025-02-11 18:54 | Emergency (ER) | payer MEDICARE, MEDICAID, SELFPAY ==
[2025-02-11 18:59] VITALS: BP 112/57; PULSE 107; RESP 17; TEMP 36.9; O2SAT 97; BMI 21.1
--- OUTSIDE RECORDS SUMMARY | 2025-02-11 18:59 | XMS_ITS | Data Portability ---
Author Organization [facility], J CarlosLJ CarlosJ Carlos, [facility] Address [address] [address] Care Team Providers Care Dry Folder Cloth Name Role Phone JANA PRO Primary Care Provider Assessment No assessment recorded. Plan of Treatment Reminders Order Date Submit Date Provider Last Modified By Organization Details Last Modified Time Details Appointments OFFICE VISIT 20 2024 11:00A M JANA PRO PA-C Not available Not available Not available Lab streptoco ccus group A Ag screen 2024 025 [facility] ([facility]), [address] [place], [address], 02/10/2025 15:35:[address] referral 2023 024 [email or web address] Not available 01/13/2024 12:12:02 Procedures None recorded. Surgeries None recorded. Imaging None recorded. Medication Orders fluticaso ne propionat e 50 mcg/actua tion nasal spray,moises pension 2024 025 [facility]/Pharmacy #[id number], [address] [facility], [facility] [address], [place], [address], 02/10/2025 15:40:25 cetirizin e 10 mg tablet 2024 025 [facility]/Pharmacy #[id number], [address], [facility] [address], [place], [address], 02/10/2025 15:40:26 omeprazol e 20 mg capsule,d elayed release [address]24 [id number], [address], [address], [place], [address], 10/06/2024 15:37:32 oxybutyni n chloride ER 5 mg tablet,ex tended release [address] [id number], [address], [address], [place], [address], 10/06/2024 15:36:42 duloxetin e 30 mg capsule,d elayed release [address] [id number], [address], [address], [place], [address], 06/09/2024 12:56:33 duloxetin e 60 mg capsule,d elayed release [address] [id number], [address], [address], [place], [address], 06/09/2024 12:56:32 Patient TargetsNo targets recorded. 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 Interested in seeing specialist. 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 [email or web address] [facility] [address] [place], [address], 10/11/2024 09:01:35 Result Notes None recorded. Problems Name Problem SNOMED Code Status Onset Date Resolution Date Notes Provider Name and Address Organization Details Recorded Time Anxiety state 656122725 Active 2022 ANXIETY AND DEPRESSION ; Recorded 04/23/2022 8:59AM by Delphine Schmitz RN, Office Visit; Promoted; acuity set as *; ANXIETY AND DEPRESSION ; Recorded 04/03/2020 8:13AM by Jordyn Wallace LPN, Annotation /Addendum; Promoted; acuity set as *; ; Start Date : 04/03/2020 JORDYN mariscal [facility] 5 08:30:22 Gastroesop hageal reflux disease 494716396 Active 2022 GERD (GASTROESO PHAGEAL REFLUX DISEASE); Recorded 04/23/2022 8:59AM by Delphine Schmitz RN, Office Visit; Promoted; acuity set as *; JORDYN mariscal [facility] 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 5 08:30:47 Hyperlipid emia 64163881 Active 2022 HYPERLIPID EMIA; Recorded 04/23/2022 8:59AM by Delphine Schmitz RN, Office Visit; Promoted; acuity set as *; [facility]YN [facility] Carlos 5 08:30:50 Depressive disorder 77845748 Active 2022 DEPRESSION ; Recorded 04/23/2022 8:59AM by Delphine Schmitz RN, Office Visit; Promoted; acuity set as *; [facility] 5 08:30:25 Genuine stress incontinen ce 75457322 Active 2022 URINARY INCONTINEN CE, MALE, STRESS; Recorded 04/23/2022 8:59AM by Delphine Schmitz RN, Office Visit; Promoted; acuity set as *; [facility], OraliaLJ CarlosCJ Carlos 5 08:30:44 Insomnia 351237594 Active 2022 INSOMNIA; Recorded 04/23/2022 8:59AM by Delphine Schmitz RN, Office Visit; Promoted; acuity set as *; INSOMNIA, UNCONTROLL ED; Recorded 04/03/2020 8:13AM by Jordyn Wallace LPN, Annotation /Addendum; Promoted; acuity set as *; ; Start Date : 04/03/2020 [facility] 5 08:30:55 Erectile dysfunctio n 690326710 Active 2022 ERECTILE DYSFUNCTIO N; Recorded 04/23/2022 8:59AM by Delphine Schmitz RN, Office Visit; Promoted; acuity set as *; JORDYN WALLACE [facility] Carlos 5 08:30:29 Problem Notes None recorded. Medical Equipment None Reported. Allergies No known drug allergies Medications Name Sig Start Date Stop Date Status Note LastModified by Organization Details LastModified Time oxcarbaze pine 150 mg tablet TAKE 1 TABLET BY MOUTH TWICE A DAY 10/06 completed Not Available Not Available Not Available albuterol sulfate 2.5 mg/3 mL (0.083 %) solution for nebulizat ion four times daily, as needed 02/10 completed Recorded 04/23/19 23 9:25AM by Leighton Bhardwaj DO, Office Visit; Refill Quantity : 90; Applicat or; Not Available Not Available Not Available cetirizin e 10 mg tablet Take 1 tablet every day by oral route at bedtime. 2024 active Not Available Not Available Not Avai lable citalopra m 20 mg tablet TAKE 1 TABLET BY MOUTH EVERY DAY 06/02 completed Not Available Not Available Not Available tamsulosi n 0.4 mg capsule TAKE 1 CAPSULE BY MOUTH EVERY DAY 06/09 completed Not Available Not Available Not Available pantopraz ole 40 mg tablet,de layed release TAKE 1 TABLET BY MOUTH EVERY DAY 06/09 completed Not Available Not Available Not Available oxybutyni n chloride ER 5 mg tablet,ex tended release 24 hr TAKE 1 TABLET BY MOUTH EVERY DAY FOR 30 DAYS 10/06 completed Not Available Not Available Not Available omeprazol e 20 mg capsule,d elayed release TAKE 1 CAPSULE BY MOUTH EVERY DAY FOR 90 DAYS active Not Available Not Available No t Available zolpidem 10 mg tablet at bedtime 06/02 completed Recorded 02/06/20 22 1:05PM by Leighton Bhardwaj DO, Refill Request; Refill Quantity : 30; Tablet; Not Available Not Available Not Available albuterol sulfate HFA 90 mcg/actua tion aerosol inhaler INHALE 1 PUFF BY MOUTH EVERY 4 HOURS NEEDED FOR COUGH, WHEEZING , OR SHORTNES S OF BREATH 2024 active Not Available Not Available Not Avai lable ondansetr on 4 mg disintegr ating tablet TAKE 1 TABLET BY MOUTH EVERY 8 HOURS NEEDED FOR NAUSEA AND VOMITING 06/02 completed Not Available Not Available Not Available fluticaso ne propionat e 50 mcg/actua tion nasal spray,moises pension [place] 2 sprays every day by intranas al route. 2024 active Not Available Not Available Not Avai lable amoxicill in 500 mg-potass ium clavulana te 125 mg tablet TAKE 1 TABLET BY MOUTH TWICE A DAY 10/20 completed Not Available Not Available Not Available Soma-350 350 mg tablet three times daily, as needed 06/02 completed Recorded 07/04/19 22 9:47AM by Julianne Bryant, Office Visit; Refill Quantity : 90; Tablet; Not Available Not Available Not Available metoprolo l tartrate 25 mg tablet TAKE 1/2 TABLET BY MOUTH TWICE DAILY 06/09 completed Not Available Not Available Not Available duloxetin e 30 mg capsule,d elayed release TAKE 1 CAPSULE BY MOUTH EVERY DAY active Not Available Not Available No t Available duloxetin e 60 mg capsule,d elayed release TAKE 1 CAPSULE BY MOUTH EVERY DAY WITH THE 30MG active Not Available Not Available No t Available solifenac in 5 mg tablet TAKE 1 TABLET BY MOUTH EVERYDAY AT BEDTIME 06/02 completed Not Available Not Available Not Available solifenac in 10 mg tablet 1 TAB BY MOUTH AT BEDTIME, X90 DAYS 06/02 completed Not Available Not Available Not Available sildenafi l as needed 06/02 completed Recorded 03/21/20 20 7:59AM by Dina Neely, Office Visit; Refill Quantity : 60; Tablet; Not Available Not Available Not Available Vitals Date Recorded Body height Body mass index (BMI) Body weight Oxygen saturation Oxygen saturation in Arterial blood by Pulse oximetry Heart rate Respiratory rate Body temperature Systolic And Diastolic Provider Name and Address Organization Details Last Updated DateTime 5 182.88 cm 21.8 kg/m2 81666.3 7 g 97 % 97 % 88 /min 18 /min 97 [degF] 136/70 mm[Hg] JORDYN WALLACE [facility] Carlos 5 12:16:04 Date Recorded Body height Body mass index (BMI) Body weight Body temperature Heart rate Oxygen saturation Oxygen saturation in Arterial blood by Pulse oximetry Systolic And Diastolic Provider Name and Address Organization Details Last Updated DateTime 5 182.88 cm 21.4 kg/m2 04001.5 9 g 97.4 [degF] 78 /min 97 % 97 % 124/78 mm[Hg] Jen Marquez [facility] Carlos 5 15:31:44 Date Recorded Body weight Respiratory rate Heart rate Oxygen saturation Oxygen saturation in Arterial blood by Pulse oximetry Systolic And Diastolic Provider Name and Address Organization Details Last Updated DateTime 4 13564.9 3 g 20 /min 93 /min 97 % 97 % 130/70 mm[Hg] DELPHINE SCHMITZ [facility] 4 11:08:54 Date Recorded Body height Body mass index (BMI) Body weight Body temperature Respiratory rate Oxygen saturation Oxygen saturation in Arterial blood by Pulse oximetry Heart rate Systolic And Diastolic Provider Name and Address Organization Details Last Updated DateTime 5 182.88 cm 22 kg/m2 54830.9 6 g 97.8 [degF] 18 /min 97 % 97 % 76 /min 118/82 mm[Hg] JORDYN RODRIGO [facility] 5 13:47:46 Date Recorded Body height Body mass index (BMI) Body weight Body temperature Oxygen saturation Oxygen saturation in Arterial blood by Pulse oximetry Heart rate Systolic And Diastolic Provider Name and Address Organization Details Last Updated DateTime 5 182.88 cm 22.1 kg/m2 27230.2 6 g 98 [degF] 97 % 97 % 128 /min 132/68 mm[Hg] Yuridia Pisano [facility] 5 15:29:40 Social History Question Answer Notes LastModified by Organizat ion Details LastModified Time Tobacco Smoking Status Former Smoker Jen Jimmy [facility] 10/06/2024 15:38:29 Are You Blind Or Do You Have Difficulty Seeing? No [email or web address] Information not available 06/30/2022 What Is Your Level Of Caffeine Consumption? Occasional [email or web address] Information not available 10/06/2024 Are You Deaf Or Do You Have Serious Difficulty Hearing? No [email or web address] Information not available 06/30/2022 Which Illicit Or Recreational Drugs Have You Used? Marijuana [email or web address] Information not available 10/06/2024 Have You Had Direct Contact, Or Contact During Intimacy, With Monkeypox Rash, Scabs, Or Body Fluids From A Person With Monkeypox? No [email or web address] Information not available 09/10/2022 What Was The Date Of Your Most Recent Tobacco Screening? 02/10/2025 [email or web address] Information not available 02/10/2025 What Is Your Current Pack Years? [email or web address] Information not available 06/09/2024 What Is Your Relationship Status? Unknown [email or web address] Information not available 06/30/2022 At What Age Did You Start Smoking Tobacco? 20 [email or web address] Information not available 06/09/2024 How Much Tobacco Do You Smoke? No [email or web address] Information not available 10/06/2024 Has Tobacco Cessation Counseling Been Provided? No [email or web address] Information not available 06/09/2024 How Many Years Have You Smoked Tobacco? 20 Information not available 06/09/2024 Have You Recently Traveled Abroad? No [email or web address] Information not available 09/10/2022 Do You Have Difficulty Walking Or Climbing Stairs? No [email or web address] Information not available 06/30/2022 Sex: Unknown Functional Status Question Answer Note LastModified by Organizat ion Details LastModified Time Do you use any illicit or recreational drugs? Yes [email or web address] Information not available 10/06/2024 Do you or have you ever used any other forms of tobacco or nicotine? No Information not available 06/09/2024 What is your level of alcohol consumption? None [email or web address] Information not available 06/09/2024 Are you able to walk independently without assistance or assistive devices? YESWOREST [email or web address] Information not available 06/30/2022 Do you have difficulty doing errands alone? No Information not available 06/30/2022 Are you able to care for yourself independently? Yes [email or web address] Information not available 06/30/2022 Do you have difficulty dressing, bathing, grooming, or toileting? No [email or web address] Information not available 06/30/2022 Do you or have you ever used any nicotine-free cigarettes, vape, or chewing tobacco? No Information not available 06/09/2024 Mental Status Question Answer Note LastModified by Organization D etails LastModified Time Do you have difficulty concentrating, remembering or making decisions? No [email or web address] Information no t available 06/30/2022 Family History Nothing Reported. Medical History No medical history recorded. Immunizations Vaccine Type Date Status Note Provider Nam e and Address Organization Details Recorded Time Hep B, adolescent/high risk 8 completed Not Available [facility] 02/10/2025 15:20:59 Hep A, ped/adol, 2 dose 8 completed Not Available [facility] 02/10/2025 15:20:59 Hep A, ped/adol, 2 dose 8 completed Not Available [facility] 02/10/2025 15:20:59 Hep B, unspecified formulation 8 completed Not Available [facility] 02/10/2025 15:20:59 Hep B, unspecified formulation 9 completed Not Available [facility] 02/10/2025 15:20:59 Hep A, ped/adol, 2 dose 9 completed Not Available [facility] 02/10/2025 15:20:59 Tdap 5 completed Not Available [facility] 02/10/2025 15:20:59 Past Encounters Encounter ID Performer Location Encounter Start Date Encounter Closed Date Diagnosis/Indication Diagnosis SNOMED-CT Code Diagnosis ICD10 Code Diagnosis IMO Codes Diagnosis Note [id number] Leighton Bhardwaj DO [facility]) [address] [place], [place] [address] 06/30/2022 14:35:06 06/30/2022 15:16:59 Hearing loss 33904657 H91.93 Increased frequency of urination 557316232 R35.0 [id number] Leighton Bhardwaj DO [facility]) [address] [place] [address] 09/10/2022 11:25:15 09/10/2022 14:52:53 Mclezpa-Dqygb-Gosjm disease, 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 Weight loss 52213719 R63 .4 Hyperglycemia 09907574 R 73.9 [id number] Leighton Bhardwaj DO [facility] ([facility]) [address] [place] [address] 10/21/2023 11:01:10 10/21/2023 12:10:27 Anxiety state 417453424 F41.9 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 being worked up by David berger. Neuropathy 885569719 G62 .9 Mixed anxi ety and depressive disorder 876502534 F41.8 CCA form filled out during today's office visit Gastroesop hageal reflux disease 075965332 K21.9 Hyperlipidemia 13133111 E78.5 Chronic ob structive pulmonary disease 94514037 J44.9 CCA form filled out during today's office visit Adult heal th examination 919936568 Z00.00 [id number] JANA PRO PA-C [facility] ([facility]) [address] [place] [address] 5 10/06/2024 14:41:34 11/01/2024 14:34:59 Pain of elbow region 55224065 M25.521 [id number] xray reviewed. and no fx seen some calcificat ion on the tricep tendonice. rest. stretches. [id number] JANA PRO PA-C [facility] ([facility]) [address] [place], [place] [address] 12/13/2024 13:27:05 01/06/2025 17:52:38 Pain of left shoulder joint 2859023081 5823588 M25.512 563788 good rom. encouraged stretching and strengthen ing. heat. prn tyelonol/i buprofen [id number] LESLIE PINEDA [facility] ([facility]) [address] [place] [address] 5 02/10/2025 15:20:02 02/10/2025 15:47:57 Sore throat 306253188 J02.9 81098 Viral resp iratory infection 218526801 J98.8 B97.89 4511242 May use meds like zyrtec and fluticason e nasal spray as needed for symptoms. Return to clinic with any new or worsening symptoms. Health Concerns Section Related Observation LastModified by Organization Detai ls LastModified Time None Recorded Concern Status LastModified by Organization Details LastModified Time None Recorded Advance Directives Directive None Recorded Payers Insurance Date Sequence Insurance Name Policy Number Policy Waters Covered Member ID Waters Member ID Guarantor Name 02/10/2025 1 [place] - [place]PO) [id number] Khris Kaba [id number] Khris Kaba 02/10/2025 2 [place] Khris Kaba [id number] Khris Kaba 02/10/2025 [place] [facility] Khris Kaba [id number] Khris Kaba Notes Date Note Type Note Provider Name and Address Organization Details Recorded Time 10/21/19 24 text/htm l Care Management - GeneralReported by PatientHPIFor context, patient reportscurrent smoker. For lifestyle changes, patient reportsnot motivated to continue lifestyle changes. For nutrition/dietary compliance, patient reportsnot ready for diet changes. For medication therapy, patient reportscompliant with follow-up visitsandcompliance with oral medication is good.ROS as noted in the HPI Leighton Bhardwaj, DO [address] [place] [address], [phone], [facility], [place] 10/21/2023 11:32:24 06/10/19 25 text/htm l jr heartburn GERD reflux hpiReported by PatientHPIFor quality, patient reportspressurebut reportssqueezing. For severity, patient reportsmoderate. For duration, patient reportspresent 5 or more years. For onset/timing, patient reportsgradual onsetanddaily. For context, patient reportsnon-smoker,no drug/alcohol abuse,no drug alcohol withdrawal, andnot related to food/drink. For alleviating factors, patient reportsproton pump inhibitors. For associated symptoms, patient reportsno frequent coughing,no globus sensation,no hoarseness,no belching/burping,no nausea,no vomiting,no hematemesis,no regurgitation,no shortness of breath,no chest pain,no difficulty swallowing,no pain when swallowing,no black/tarry stools, andno fatigue. IncontinenceReported by PatientHPIFor associated symptoms, patient reportsfrequency,nocturia,stre ss incontinence, andurgencybut reportsno abdominal pain,no back pain,no pelvic pain,no groin pain,no constipation,no diarrhea, andno dysuria. For quality, patient reportsfunctional incontinence,stress incontinence,urgency incontinence, andoverflow incontinence. For severity, patient reportsmoderate. For duration, patient reportsconstant. For timing, patient reportschronic. For aggravating factors, patient reportsexerciseandcoughing or sneezing. establish with Jana/ i Need refills on meds/ I dont think the Tamsulosin works I have to get up several times at night. I go to [facility] to see a muscle dr for my charcot amrita dz. havent seen him yet due to snow JANA PRO PA-C [address] [place], [address], [facility] 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 He would like to discuss getting an injection today. 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 10/30/2024 19:51:18 12/14/19 25 text/htm l Musculoskeletal PainReported by PatientHPIFor quality, patient reportssharp,tingling, anddull. For severity, patient reportsworsening,interferes with sleep, andinterferes with work/school. For associated symptoms, patient reportsweak limbsbut reportsno fever,no tingling, andno incontinence. For location, patient reportsleft shoulder. For duration, patient reportspresent for 1-6 months. For timing, patient reportsconstant,pain at night, andgradual. For alleviating factors, patient reportsrestandchanging position. For aggravating factors, patient reportsmovement/positioningand bending over. For adls affected, patient reportssweeping,mopping,bathin g, anddressing. I have been on the duloxetine a long time and find myself getting more irritable does it need to be changed. JANA PRO PA-C [address] [place], [address], [facility] 01/06/2025 17:32:45 02/11/20 25 text/htm komal DONAHUE as noted in the HPI walk in ptPT has a sore throat for 3 days. Patient also states that he has some postnasal drip, fatigue, chills but no fever. Patient denies any known exposure to illness. LESLIE PINEDA [address] [place], [address], [facility] 02/10/2025 15:41:00
--- OUTSIDE RECORDS SUMMARY | 2025-02-11 19:00 | XMS_ITS | Clinical Summary ---
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
--- OUTSIDE RECORDS SUMMARY | 2025-02-11 19:00 | XMS_ITS | Encounter Summary ---
Author Organization [facility] Address [address] [place] [address] Care Team Providers Care Pricing Strategist Name Role Phone Patricio Rojas MD Primary Care Provider Ghada vailable Encounter Details Date Type Department Care Team (Latest Contact Info) Description 01/12/2001 Outpatient Historical [facility] Thanh Candelaria MD [address] [place] [address] Sprain lumbar region (Primary Dx); Backache, unspecified; Lumbosacral spondylosis; Peroneal muscle atrophy Social History Tobacco Use Types Packs/Day Years Used Date Smoking Tobacco: Never Assessed Sex and Gender Information Value Date Recorded Sex Assigned at Not on file 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
--- OUTSIDE RECORDS SUMMARY | 2025-02-11 19:00 | XMS_ITS | Encounter Summary ---
Author Organization [facility] Address [address] 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
--- OUTSIDE RECORDS SUMMARY | 2025-02-11 19:00 | XMS_ITS | Encounter Summary ---
Author Organization [facility] Address [address] 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
--- OUTSIDE RECORDS SUMMARY | 2025-02-11 19:00 | XMS_ITS | Encounter Summary ---
Author Organization [facility] Address [address] [place] [address] Care Team Providers Care Bee Robber Name Role Phone Patricio Rojas MD Primary Care Provider Ghada vailable Encounter Details Date Type Department Care Team (Latest Contact Info) Description 05/13/2002 Outpatient Historical [facility] Chronic Pain [address] [place] [address] Shirley Mccauley, LESLIE [address] [facility] [address] [place] [phone] LUMBAGO (Primary Dx) Social History Tobacco Use Types Packs/Day Years Used Date Smoking Tobacco: Never Assessed Sex and Gender Information Value Date Recorded Sex Assigned at Not on file Legal Sex Male 4:28 AM ORDERLY Gender Identity Not on file Sexual Orientation Not on file documented as of this encounter Plan of Treatment Not on file documented as of this encounter Visit Diagnoses Diagnosis Lumbago- Primary documented in this encounter Care Teams Bee Robber Relationship Specialty Start Date End Date Patricio Rojas MD NO ADDRESS ON FILE PCP - General 02/11/02 documented as of this encounter
--- OUTSIDE RECORDS SUMMARY | 2025-02-11 19:00 | XMS_ITS | Encounter Summary ---
Author Organization [facility] Address [address] [place] [address] Care Team Providers Care Top Cutter Name Role Phone Patricio Rojas MD Primary Care Provider Ghada vailable Encounter Details Date Type Department Care Team (Latest Contact Info) Description 02/11/2002 Outpatient Historical [facility] Chronic Pain [address] [place] [address] Shirley Mccauley, LESLIE [address] [facility] [address] [place] [address] Patricio Rojas MD NO ADDRESS ON FILE MYALGIA AND MYOSITIS NOS (Primary Dx) Social History Tobacco Use Types Packs/Day Years Used Date Smoking Tobacco: Never Assessed Sex and Gender Information Value Date Recorded Sex Assigned at Not on file 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
--- OUTSIDE RECORDS SUMMARY | 2025-02-11 19:00 | XMS_ITS | Encounter Summary ---
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
--- OUTSIDE RECORDS SUMMARY | 2025-02-11 19:00 | XMS_ITS | Encounter Summary ---
Author Organization [facility] Address [address] [place] [address] Care Team Providers Care Real Estate Director Name Role Phone Patricio Rojas MD Primary Care Provider Ghada vailable Encounter Details Date Type Department Care Team (Latest Contact Info) Description 07/01/2002 Outpatient Historical [facility] [address] 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
--- OUTSIDE RECORDS SUMMARY | 2025-02-11 19:00 | XMS_ITS | Encounter Summary ---
Author Organization [facility] Address [address] [place] [address] Care Team Providers Care Credit Union Examiner Name Role Phone Patricio Rojas MD Primary Care Provider Ghada vailable Encounter Details Date Type Department Care Team (Latest Contact Info) Description 07/01/2002 Outpatient Historical [facility] Chronic Pain [address] [place] [address] Shirley Mccauley, LESLIE [address] [facility] [address] [place] [phone] MYALGIA AND MYOSITIS NOS (Primary Dx) Social History Tobacco Use Types Packs/Day Years Used Date Smoking Tobacco: Never Assessed Sex and Gender Information Value Date Recorded Sex Assigned at Not on file 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
--- OUTSIDE RECORDS SUMMARY | 2025-02-11 19:00 | XMS_ITS | Encounter Summary ---
Author Organization [facility] Address [address] [place] [address] Care Team Providers Care Flowers Salesperson Name Role Phone Patricio Rojas MD Primary Care Provider Ghada vailable Encounter Details Date Type Department Care Team (Latest Contact Info) Description 02/11/2002 Outpatient [facility] [address] 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
--- OUTSIDE RECORDS SUMMARY | 2025-02-11 19:00 | XMS_ITS | Encounter Summary ---
Author Organization [facility] Address [address] [place] [address] Care Team Providers Care Supervisor Engine Repair Name Role Phone Patricio Rojas MD Primary Care Provider Ghada vailable Encounter Details Date Type Department Care Team (Latest Contact Info) Description 02/19/2001 Outpatient Historical [facility] Thanh Candelaria MD [address] [place] [address] Lumbosacral spondylosis (Primary Dx); BACKACHE NOS; Sprain lumbar region Social History Tobacco Use Types Packs/Day Years Used Date Smoking Tobacco: Never Assessed Sex and Gender Information Value Date Recorded Sex Assigned at Not on file 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
--- OUTSIDE RECORDS SUMMARY | 2025-02-11 19:00 | XMS_ITS | Encounter Summary ---
Author Organization [facility] Address [address] [place] [address] Care Team Providers Care Access Assoc Name Role Phone Patricio Rojas MD Primary Care Provider Ghada vailable Encounter Details Date Type Department Care Team (Latest Contact Info) Description 06/04/2001 Outpatient Historical [facility] Thanh Candelaria MD [address] [place] [address] OTHER BACK SYMPTOMS (Primary Dx); Lumbosacral spondylosis; BACKACHE NOS Social History Tobacco Use Types Packs/Day Years Used Date Smoking Tobacco: Never Assessed Sex and Gender Information Value Date Recorded Sex Assigned at Not on file Legal Sex Male 4:28 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
--- OUTSIDE RECORDS SUMMARY | 2025-02-11 19:00 | XMS_ITS | Clinical Summary ---
Author Organization [facility] Address [address] [place] [address] Care Team Providers Care Aircraft Design Engineer Name Role Phone Patricio Rojas MD [...] on file Legal Sex Male 4:28 AM ICT MANAGERS Gender Identity Not on file Sexual Orientation Not on file Last Filed Vital Signs Vital Sign Reading Time Taken Comments Blood Pressure 132/83 03/05/2020 10:11 AM ICT MANAGERS Pulse 85 03/05/2020 10:11 AM ICT MANAGERS Temperature - - Respiratory Rate 18 12/22/2018 9:19 AM CDT Oxygen Saturation 98% 01/25/2019 9:31 AM CDT Inhaled Oxygen Concentration - - Weight 88 kg (194 lb) 03/05/2020 10:11 AM ICT MANAGERS Height 182.9 cm (6') 03/05/2020 10:11 AM ICT MANAGERS Body Mass Index 26.31 03/05/2020 10:11 AM ICT MANAGERS Plan of Treatment Health Maintenance Due Date Last Done Comments DTAP/TDAP/TD VACCINES (1 - Tdap) 06/16/1999 HPV VACCINES (1 - 3-dose SCD M series) 06/16/2007 INFLUENZA VACCINE (#1) 2024 HEPATITIS B VACCINES Completed 06/19/1998, 01/25/1998, 12/07/1997 Insurance BLUE CROSS AND BLUE [facility] [place]ICAID [place] Care Teams Aircraft Design Engineer Relationship Specialty Start Date End Date Patricio Rojas MD NO ADDRESS ON FILE PCP - General 02/11/02
--- OUTSIDE RECORDS SUMMARY | 2025-02-11 19:00 | XMS_ITS | Encounter Summary ---
Author Organization [facility] Address [address] [place] [address] Care Team Providers Care Health Safety Instructor Name Role Phone Patricio Rojas MD Primary Care Provider Ghada vailable Encounter Details Date Type Department Care Team (Late st Contact Info) Description 09/24/2001 Outpatient [facility] [address] 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
--- OUTSIDE RECORDS SUMMARY | 2025-02-11 19:00 | XMS_ITS | Encounter Summary ---
Author Organization [facility] Address [address] [place] [address] Care Team Providers Care Rn Mds Name Role Phone Patricio Rojas MD Primary Care Provider Ghada vailable Encounter Details Date Type Department Care Team (Latest Contact Info) Description 04/23/2001 Outpatient Historical [facility] Thanh Candelaria MD [address] [place] [address] Lumbosacral spondylosis (Primary Dx); BACKACHE NOS Social History Tobacco Use Types Packs/Day Years Used Date Smoking Tobacco: Never Assessed Sex and Gender Information Value Date Recorded Sex Assigned at Not on file 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
--- OUTSIDE RECORDS SUMMARY | 2025-02-11 19:00 | XMS_ITS | Patient Health Record ---
Author Organization [facility] Address [address] [place] [address] Care Team Providers Care Automotive Service Advisor Name Role Phone Bhardwaj Leighton AMADOR Primary Care Provider UnavailShadia Collins Unavailable [phone] Reason For Referral No Information Medications Medication [...] Status Risk Notes Problem Frequency of micturition (188890842) Frequency of micturition (R35.0) Active confirmed Problem Low back pain (121343259) Low back pain (724.2) 08/14/19 10 Active confirmed [id number]- Problem Wheezing (98404295) Wheezing (786.07) 07/08/19 09 Problem resolved confirmed [id number]- Problem Heartburn (53720198) Heartburn (787.1) 04/16/19 12 Problem resolved confirmed [id number]- Problem Dysphagia (30739761) Other dysphagia (787.29) 08/14/19 10 Problem resolved confirmed [id number]- Problem Urinary frequency (691783639) Urinary frequency (788.41) 10/29/19 12 Problem resolved confirmed [id number]- Problem Generalized anxiety disorder (21674068) Anxiety, generalized (300.02) 09/09/19 09 Problem resolved confirmed [id number]- Problem Neck pain (13951584) Neck pain (723.1) 07/19/19 10 Problem resolved confirmed [id number] 11- Problem Vitamin D deficiency (56023993) Vitamin D deficiency (268.9) 07/20/19 09 Problem resolved confirmed [id number] 11- Problem Muscle weakness (36199298) Muscle weakness (729.89) 09/15/19 09 Problem resolved confirmed [id number]- Problem Shoulder pain (60073562) Shoulder pain (719.41) 04/03/20 10 Problem resolved confirmed [id number] 11- Problem 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) 01/09/20 11 Problem resolved confirmed [id number] 11- Problem 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) Other abnormal laboratory result on blood (790.99) 07/20/19 09 Problem resolved confirmed [id number] 11- Problem Sore throat (648374511) Sore Throat (462) 10/12/19 10 Problem resolved confirmed [id number] 11- Problem Tobacco abuse (3919149191) Tobacco abuse (305.1) 09/15/19 09 Problem resolved confirmed [id number] 11- Problem Tobacco dependence (82095522) Tobacco dependence (305.1) 12/18/19 10 Problem resolved confirmed [id number] 11- Problem Ear ache (138483230) Ear ache (388.71) 06/18/19 11 Problem resolved confirmed [id number] 11- Problem Insomnia (929474793) Insomnia (307.41) 08/10/19 09 Problem resolved confirmed [id number] 11- Problem Acute upper respiratory infection (35697226) Acute upper respiratory infection (465.8) 07/19/19 10 Problem resolved confirmed [id number] 11- Problem Acute otitis media (9929348) Acute otitis media (382.00) 05/30/19 12 Problem resolved confirmed [id number] 11- Problem Acute sinusitis (32579697) Acute sinusitis (461.8) 09/09/19 09 Problem resolved confirmed [id number] 11- Problem Ankle pain (528118570) Ankle pain (719.47) 11/07/19 11 Problem resolved confirmed [id number] 11- Problem Chest pain (22700124) Chest pain (786.59) 04/30/19 12 Problem resolved confirmed [id number] 11- Problem Erectile dysfunction (862422148) Erectile dysfunction (302.72) 07/16/19 12 Problem resolved confirmed [id number] 11- Problem Administration of vaccine product containing only Streptococcus pneumoniae antigen (procedure) (14808936) Vaccination against pneumococcal pneumonia (V03.82) 02/06/20 12 Problem resolved confirmed [id number]- Problem Genital warts (910860650) Genital warts (078.11) 07/19/19 10 Problem resolved confirmed [id number] 11- Plan Of Treatment No Information Insurance Providers Payer Name Payer Address Payer Phone Subscriber Number Group Number Insured Name Patient Relationship to Insured Coverage Start Date Coverage End Date [employer] [place] [address] [place] [address] [id number] Khris Kaba Self - patient is the insured Medical (General) History Surgical History Surgery Date(Month/Year) NONE
--- OUTSIDE RECORDS SUMMARY | 2025-02-11 19:00 | XMS_ITS | Continuity of Care Document ---
Author Organization ROMERO De Luna [facility], [place], [facility] ([facility]) Address [address] [place] [address] Care Team Providers Care Trauma Doctor Name Role Phone TRISHA PRO Primary Care Provider [phone] Assessment No assessment recorded. Plan of Treatment Reminders Order Date Submit Date Provider Last Modified By Organization Details Last Modified Time Details Appointments OFFICE VISIT 20 2024 11:00A M TRISHA PRO PA-C Not available Not available Not available Lab streptoco ccus group A Ag screen 2024 025 [facility] ([facility]), [address] [place], [address], 02/10/2025 15:35:53 Referral None recorded. Procedures None recorded. Surgeries None recorded. Imaging None recorded. Medication Orders fluticaso ne propionat e 50 mcg/actua tion nasal spray,moises pension 2024 025 [facility]/Pharmacy #[id number], [address], [address], 02/10/2025 15:40:25 cetirizin e 10 mg tablet 2024 025 [facility]/Pharmacy #[id number], [address], [address], 02/10/2025 15:40:26 Patient TargetsNo targets recorded. Patient InstructionsNo instructions recorded. Reason for Referral None Reported. Results Created Date Observation Date Name Description Value Unit Range Abnormal Flag Note LastModifiedBy Organization Detail LastModifiedTime 02/11/20 25 02/10/2025 strep tococ cus group A Ag scree n Strep negati ve Not Available [facility] ([facility]) [address] [place] [address], [address], 02/10/2025 15:27:46 Result Notes None recorded. Problems Name Problem SNOMED Code Status Onset Date Resolution Date Notes Provider Name and Address Organization Details Recorded Time Anxiety state 148880361 Active 2022 ANXIETY AND DEPRESSION ; Recorded 04/23/2022 8:59AM by Delphine Schmitz RN, Office Visit; Promoted; acuity set as *; ANXIETY AND DEPRESSION ; Recorded 04/03/2020 8:13AM by Jordyn Wallace LPN, Annotation /Addendum; Promoted; acuity set as *; ; Start Date : 04/03/2020 JORDYN mariscal [facility] 5 08:30:22 Gastroesop hageal reflux disease 932058780 Active 2022 GERD (GASTROESO PHAGEAL REFLUX DISEASE); Recorded 04/23/2022 8:59AM by Delphine Schmitz RN, Office Visit; Promoted; acuity set as *; JORDYN mariscal [facility] 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 08:[facility]47 Hyperlipid emia 75879216 Active 2022 HYPERLIPID EMIA; Recorded 04/23/2022 8:59AM by Delphine Schmitz RN, Office Visit; Promoted; acuity set as *; JORDYN WALLACE null, [facility] 5 08:30:50 Depressive disorder 72014500 Active 2022 DEPRESSION ; Recorded 04/23/2022 8:59AM by Delphine Schmitz RN, Office Visit; Promoted; acuity set as *; [facility] 5 08:30:25 Genuine stress incontinen ce 04892835 Active 2022 URINARY INCONTINEN CE, MALE, STRESS; Recorded 04/23/2022 8:59AM by Delphine Schmitz RN, Office Visit; Promoted; acuity set as *; [facility] [place] 5 08:30:44 Insomnia 169661448 Active 2022 INSOMNIA; Recorded 04/23/2022 8:59AM by Delphine Schmitz RN, Office Visit; Promoted; acuity set as *; INSOMNIA, UNCONTROLL ED; Recorded 04/03/2020 8:13AM by Jordyn Wallace LPN, Annotation /Addendum; Promoted; acuity set as *; ; Start Date : 04/03/2020 [facility] 5 08:30:55 Erectile dysfunctio n 751854275 Active 2022 ERECTILE DYSFUNCTIO N; Recorded 04/23/2022 8:59AM by Delphine Schmitz RN, Office Visit; Promoted; acuity set as *; JORDYN mariscal [facility] 5 08:30:29 Problem Notes [...] e 50 mcg/actua tion nasal spray,moises pension Fulda 2 sprays every day by intranas al [...] and Address Organization Details Last Updated DateTime 182.88 cm 22.1 kg/m2 52956.2 6 g 98 [degF] 97 % 97 % 128 /min 132/68 mm[Hg] Yuridia Pisano [facility] 15:29:40 Social History Question Answer Notes LastModified by Organizat ion Details LastModified Time Tobacco Smoking Status Former Smoker Jen mariscal [facility] 10/06/2024 15:38:29 Are You Blind Or Do You Have Difficulty Seeing? No [email or web address] Information not available 06/30/2022 What Is Your Level Of Caffeine Consumption? Occasional [email or web address] Information not available 10/06/2024 Are You Deaf Or Do You Have Serious Difficulty Hearing? No [email or web address] Information not available 06/30/2022 Which Illicit Or Recreational Drugs Have You Used? Marijuana Information not available 10/06/2024 Have You Had Direct Contact, Or Contact During Intimacy, With Monkeypox Rash, Scabs, Or Body Fluids From A Person With Monkeypox? No [email or web address] Information not available 09/10/2022 What Was The Date Of Your Most Recent Tobacco Screening? 02/10/2025 [email or web address] Information not available 02/10/2025 What Is Your Current Pack Years? 20-29packyears [email or web address] Information not available 06/09/2024 What Is Your Relationship Status? Unknown [email or web address] Information not available 06/30/2022 At What Age Did You Start Smoking Tobacco? 20 Information not available 06/09/2024 How Much Tobacco Do You Smoke? No Information not available 10/06/2024 Has Tobacco Cessation Counseling Been Provided? No [email or web address] Information not available 06/09/2024 How Many Years Have You Smoked Tobacco? 20 [email or web address] Information not available 06/09/2024 Have You Recently Traveled Abroad? No [email or web address] Information not available 09/10/2022 Do You Have Difficulty Walking Or Climbing Stairs? No Information not available 06/30/2022 Sex: Unknown Functional Status Question Answer Note LastModified by Organizat ion Details LastModified Time Do you use any illicit or recreational drugs? Yes [email or web address] Information not available 10/06/2024 Do you or have you ever used any other forms of tobacco or nicotine? No [email or web address] Information not available 06/09/2024 What is your level of alcohol consumption? None [email or web address] Information not available 06/09/2024 Are you able to walk independently without assistance or assistive devices? YESWOREST [email or web address] Information not available 06/30/2022 Do you have difficulty doing errands alone? No [email or web address] Information not available 06/30/2022 Are you able to care for yourself independently? Yes [email or web address] Information not available 06/30/2022 Do you have difficulty dressing, bathing, grooming, or toileting? No [email or web address] Information not available 06/30/2022 Do you or have you ever used any nicotine-free cigarettes, vape, or chewing tobacco? No [email or web address] Information not available 06/09/2024 Mental Status Question Answer Note LastModified by Organization D etails LastModified Time Do you have difficulty concentrating, remembering or making decisions? No [email or web address] Information no t available 06/30/2022 Family History Nothing Reported. Medical History No medical history recorded. Immunizations Vaccine Type Date Status Note Provider Nam e and Address Organization Details Recorded Time Hep B, adolescent/high risk 8 completed Not Available [facility] 02/10/2025 15:20:59 Hep A, ped/adol, 2 dose 8 completed Not Available [facility] 02/10/2025 15:20:59 Hep A, ped/adol, 2 dose 8 completed Not Available [facility] 02/10/2025 15:20:59 Hep B, unspecified formulation 8 completed Not Available [facility] 02/10/2025 15:20:59 Hep B, unspecified formulation 9 completed Not Available [facility] 02/10/2025 15:20:59 Hep A, ped/adol, 2 dose 9 completed Not Available [facility] 02/10/2025 15:20:59 Tdap completed Not Available [facility] 02/10/2025 15:20:59 Past Encounters Encounter ID Performer Location Encounter Start Date Encounter Closed Date Diagnosis/Indication Diagnosis SNOMED-CT Code Diagnosis ICD10 Code Diagnosis IMO Codes Diagnosis Note [id number] LESLIE PINEDA [facility] ([facility]) [address] [place] [address] 02/10/2025 15:20:02 02/10/2025 15:47:57 Sore throat 717173921 J02.9 68403 Viral resp iratory infection 907081140 J98.8 B97.89 8354136 May use meds like zyrtec and fluticason e nasal spray as needed for symptoms. Return to clinic with any new or worsening symptoms. Health Concerns Section Related Observation LastModified by Organization Detai ls LastModified Time None Recorded Concern Status LastModified by Organization Details LastModified Time None Recorded Payers Encounter Date Sequence Insurance Name Policy Number Policy Waters Covered Member ID Waters Member ID Guarantor Name 02/10/2025 1 [place]ANT[place] - PPO) [id number] Khris Kaba [id number] Khris Kaba 02/10/2025 2 [place] Khris Kaba [id number] Khris Kaba Notes Date Note Type Note Provider Name and Address Organization Details Recorded Time 02/10/2025 text/html ROS as noted in the HPI walk in ptPT has a sore throat for 3 days. Patient also states that he has some postnasal drip, fatigue, chills but no fever. Patient denies any known exposure to illness. BATSHEVA TODD, LESLIE [address] [place], [address], [facility], [place] 02/10/2025 15:41:00
--- OUTSIDE RECORDS SUMMARY | 2025-02-11 19:00 | XMS_ITS | Encounter Summary ---
Author Organization [facility] Address [address] [place] [address] Care Team Providers Care Hydro Station Operator Name Role Phone Patricio Rojas MD Primary Care Provider Ghada vailable Encounter Details Date Type Department Care Team (Latest Contact Info) Description 01/06/2002 Outpatient Historical [facility] [address] 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
--- OUTSIDE RECORDS SUMMARY | 2025-02-11 19:00 | XMS_ITS | Encounter Summary ---
Author Organization [facility] Address [address] [place] [address] Care Team Providers Care Java Front End Web Developer Name Role Phone Patricio Rojas MD Primary Care Provider Ghada vailable Encounter Details Date Type Department Care Team (Late st Contact Info) Description 10/18/2001 Outpatient [facility] [address] 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
--- OUTSIDE RECORDS SUMMARY | 2025-02-11 19:00 | XMS_ITS | Encounter Summary ---
Author Organization [facility] Address [address] [place] [address] Care Team Providers Care Charge Aide Name Role Phone Patricio Rojas MD Primary Care Provider Ghada vailable Encounter Details Date Type Department Care Team (Latest Contact Info) Description 05/13/2002 Outpatient Historical [facility] [address] 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
--- OUTSIDE RECORDS SUMMARY | 2025-02-11 19:00 | XMS_ITS | Encounter Summary ---
Author Organization [facility] Address [address] 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
--- OUTSIDE RECORDS SUMMARY | 2025-02-11 19:00 | XMS_ITS | Encounter Summary ---
Author Organization [facility] Address [address] 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
--- OUTSIDE RECORDS SUMMARY | 2025-02-11 19:00 | XMS_ITS | Patient Health Record ---
Author Organization [facility] Address [address] [place] [address] Care Team Providers Care Python Java Developer Name Role Phone Leighton Bhardwaj Primary Care Provider LANDON Linda Unavailable [phone] Reason For Referral No Information Medications Medication SIG (Take, Route, Frequency, Duration) Notes Start Date End Date Status Ibuprofen 800 MG 1 tab(s) po q 8 hrs prn Oral; Duration: 30 Ibuprofen 800mg Tablet 1 tab(s) po q 8 hrs prn 02/06/2012 Active Problems Problem Type SNOMED Code ICD Code Onset Dates Problem Status W/U Status Risk Notes Problem Frequency of micturition (691121878) Frequency of micturition (R35.0) Active confirmed Problem Low back pain (264669204) Low back pain (724.2) 08/14/19 10 Active confirmed [id number]- Problem Wheezing (63977859) Wheezing (786.07) 07/08/19 09 Problem resolved confirmed [id number] 11- Problem Heartburn (92193439) Heartburn (787.1) 04/16/19 12 Problem resolved confirmed [id number] 11- Problem Dysphagia (70375971) Other dysphagia (787.29) 08/14/19 10 Problem resolved confirmed [id number] 11- Problem Urinary frequency (302504441) Urinary frequency (788.41) 10/29/19 12 Problem resolved confirmed [id number] 11- Problem Ear ache (353102079) Ear ache (388.71) 06/18/19 11 Problem resolved confirmed [id number] 11- Problem Tobacco dependence (07944769) Tobacco dependence (305.1) 12/18/19 10 Problem resolved confirmed [id number] 11- Problem Tobacco abuse (4611292690) Tobacco abuse (305.1) 09/15/19 09 Problem resolved confirmed [id number] 11- Problem Insomnia (896499849) Insomnia (307.41) 08/10/19 09 Problem resolved confirmed [id number] 11- Problem Shoulder pain (76297241) Shoulder pain (719.41) 04/03/20 10 Problem resolved confirmed [id number] 11- Problem Administration of vaccine product containing only Streptococcus pneumoniae antigen (procedure) (05478322) Vaccination against pneumococcal pneumonia (V03.82) 02/06/20 12 Problem resolved confirmed [id number] 11- Problem 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) Other abnormal laboratory result on blood (790.99) 07/20/19 09 Problem resolved confirmed [id number] 11- Problem Hereditary motor and sensory neuropathy (902993600) Kucwozp-Errjf-C ooth disease (356.1) 01/09/20 11 Problem resolved confirmed [id number] 11- Problem Acute upper respiratory infection (16888358) Acute upper respiratory infection (465.8) 07/19/19 10 Problem resolved confirmed [id number] 11- Problem Muscle weakness (87554325) Muscle weakness (729.89) 09/15/19 09 Problem resolved confirmed [id number] 11- Problem Genital warts (023963490) Genital warts (078.11) 07/19/19 10 Problem resolved confirmed [id number] 11- Problem Acute otitis media (4345571) Acute otitis media (382.00) 05/30/19 12 Problem resolved confirmed [id number] 11- Problem Sore throat (281715432) Sore Throat (462) 10/12/19 10 Problem resolved confirmed [id number] 11- Problem Ankle pain (435197939) Ankle pain (719.47) 11/07/19 11 Problem resolved confirmed [id number] 11- Problem Chest pain (75539934) Chest pain (786.59) 04/30/19 12 Problem resolved confirmed [id number] 11- Problem Erectile dysfunction (852845412) Erectile dysfunction (302.72) 07/16/19 12 Problem resolved confirmed [id number] 11- Problem Acute sinusitis (45982635) Acute sinusitis (461.8) 09/09/19 09 Problem resolved confirmed [id number] 11- Problem Neck pain (34039495) Neck pain (723.1) 07/19/19 10 Problem resolved confirmed [id number] 11- Problem Vitamin D deficiency (50684635) Vitamin D deficiency (268.9) 07/20/19 09 Problem resolved confirmed [id number] 11- Problem Generalized anxiety disorder (24699536) Anxiety, generalized (300.02) 09/09/19 09 Problem resolved confirmed [id number] 11- Plan Of Treatment No Information Insurance Providers Payer Name Payer Address Payer Phone Subscriber Number Group Number Insured Name Patient Relationship to Insured Coverage Start Date Coverage End Date BCBS [place] [address] [place], [place] [id number] Khris Kaba Self - patient is the insured Medical (General) History Surgical History Surgery Date(Month/Year) NONE
== END 2025-02-11 19:47 | disposition left against medical advice (07) ==
PROVIDERS: Emergency Provider Emergency Medicine; PCP Physician Assistant
DX: Z53.21 Procedure and treatment not carried out due to patient leaving prior to being seen by health care provider (principal)

== ENCOUNTER 2025-02-12 06:35 | Emergency (ER) | payer MEDICARE, MEDICAID, SELFPAY ==
--- OUTSIDE RECORDS SUMMARY | 2025-02-12 06:43 | XMS_ITS | Encounter Summary ---
Author Organization [facility] Address [address] 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
--- OUTSIDE RECORDS SUMMARY | 2025-02-12 06:43 | XMS_ITS | Patient Health Record ---
Author Organization [facility] Address [address] [place] [address] Care Team Providers Care Veneer Joiner Name Role Phone Bhardwaj Leighton AMADOR Primary Care Provider UnavailShadia Collins Unavailable [phone] Reason For Referral No Information Medications Medication [...] Status Risk Notes Problem Frequency of micturition (182725170) Frequency of micturition (R35.0) Active confirmed Problem Low back pain (691873259) Low back pain (724.2) 08/14/19 10 Active confirmed [id number] 11- Problem Wheezing (59264763) Wheezing (786.07) 07/08/19 09 Problem resolved confirmed [id number] 11- Problem Heartburn (35077553) Heartburn (787.1) 04/16/19 12 Problem resolved confirmed [id number] 11- Problem Dysphagia (72326257) Other dysphagia (787.29) 08/14/19 10 Problem resolved confirmed [id number] 11- Problem Urinary frequency (203136403) Urinary frequency (788.41) 10/29/19 12 Problem resolved confirmed [id number] 11- Problem Generalized anxiety disorder (75229085) Anxiety, generalized (300.02) 09/09/19 09 Problem resolved confirmed [id number] 11- Problem Neck pain (31354937) Neck pain (723.1) 07/19/19 10 Problem resolved confirmed [id number] 11- Problem Vitamin D deficiency (13281738) Vitamin D deficiency (268.9) 07/20/19 09 Problem resolved confirmed [id number] 11- Problem Muscle weakness (42196661) Muscle weakness (729.89) 09/15/19 09 Problem resolved confirmed [id number] 11- Problem Shoulder pain (55753954) Shoulder pain (719.41) 04/03/20 10 Problem resolved confirmed [id number] 11- Problem Hereditary motor and sensory neuropathy (314789748) Wxjiojp-Ftlpz-J ooth disease (356.1) 01/09/20 11 Problem resolved confirmed [id number] 11- Problem Disorder of hematopoietic system (06701500) Other abnormal laboratory result on blood (790.99) 07/20/19 09 Problem resolved confirmed [id number] 11- Problem Sore throat (352270957) Sore Throat (462) 10/12/19 10 Problem resolved confirmed [id number] 11- Problem Tobacco abuse (2658850227) Tobacco abuse (305.1) 09/15/19 09 Problem resolved confirmed [id number] 11- Problem Tobacco dependence (92325795) Tobacco dependence (305.1) 12/18/19 10 Problem resolved confirmed [id number] 11- Problem Ear ache (364503892) Ear ache (388.71) 06/18/19 11 Problem resolved confirmed [id number] 11- Problem Insomnia (826700306) Insomnia (307.41) 08/10/19 09 Problem resolved confirmed [id number] 11- Problem Acute upper respiratory infection (82985746) Acute upper respiratory infection (465.8) 07/19/19 10 Problem resolved confirmed [id number] 11- Problem Acute otitis media (4300098) Acute otitis media (382.00) 05/30/19 12 Problem resolved confirmed [id number] 11- Problem Acute sinusitis (35269892) Acute sinusitis (461.8) 09/09/19 09 Problem resolved confirmed [id number] 11- Problem Ankle pain (131495868) Ankle pain (719.47) 11/07/19 11 Problem resolved confirmed [id number] 11- Problem Chest pain (96173378) Chest pain (786.59) 04/30/19 12 Problem resolved confirmed [id number] 11- Problem Erectile dysfunction (919060187) Erectile dysfunction (302.72) 07/16/19 12 Problem resolved confirmed [id number] 11- Problem Administration of vaccine product containing only Streptococcus pneumoniae antigen (procedure) (41495038) Vaccination against pneumococcal pneumonia (V03.82) 02/06/20 12 Problem resolved confirmed [id number] 11- Problem Genital warts (715609139) Genital warts (078.11) 07/19/19 10 Problem resolved confirmed [id number] 11- Plan Of Treatment No Information Insurance Providers Payer Name Payer Address Payer Phone Subscriber Number Group Number Insured Name Patient Relationship to Insured Coverage Start Date Coverage End Date [place] [address] [place] [address] [phone] [id number] Khris Kaba Self - patient is the insured Medical (General) History Surgical History Surgery Date(Month/Year) NONE
--- OUTSIDE RECORDS SUMMARY | 2025-02-12 06:43 | XMS_ITS | Encounter Summary ---
Author Organization [facility] Address [address] [place] [address] Care Team Providers Care Apparatus Engineering Technologist Name Role Phone Patricio Rojas MD Primary Care Provider Ghada vailable Encounter Details Date Type Department Care Team (Latest Contact Info) Description 07/01/2002 Outpatient Historical [facility] [address] [place] [phone] Shirley Mccauley FNP [address] 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
--- OUTSIDE RECORDS SUMMARY | 2025-02-12 06:43 | XMS_ITS | Encounter Summary ---
Author Organization [facility] Address [address] [place] [address] Care Team Providers Care French Teacher Name Role Phone Patricio Rojas MD Primary Care Provider Ghada vailable Encounter Details Date Type Department Care Team (Latest Contact Info) Description 02/11/2002 Outpatient Historical [facility] Chronic Pain [address] [place] [address] Shirley Mccauley, LESLIE [address] [facility] [address] [place] [address] Patricio Rojas MD NO ADDRESS ON FILE MYALGIA AND MYOSITIS NOS (Primary Dx) Social History Tobacco Use Types Packs/Day Years Used Date Smoking Tobacco: Never Assessed Sex and Gender Information Value Date Recorded Sex Assigned at Not on file 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
--- OUTSIDE RECORDS SUMMARY | 2025-02-12 06:43 | XMS_ITS | Encounter Summary ---
Author Organization [facility] Address [address] [place] [address] Care Team Providers Care Cloth Booker Name Role Phone Patricio Rojas MD Primary Care Provider Ghada vailable Encounter Details Date Type Department Care Team (Latest Contact Info) Description 04/23/2001 Outpatient Historical [facility] Thanh Candelaria MD [address] [place] [address] Lumbosacral spondylosis (Primary Dx); BACKACHE NOS Social History Tobacco Use Types Packs/Day Years Used Date Smoking Tobacco: Never Assessed Sex and Gender Information Value Date Recorded Sex Assigned at Not on file 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
--- OUTSIDE RECORDS SUMMARY | 2025-02-12 06:43 | XMS_ITS | Encounter Summary ---
Author Organization [facility] Address [address] [place] [address] Care Team Providers Care As400 Operator Name Role Phone Patricio Rojas MD Primary Care Provider Ghada vailable Encounter Details Date Type Department Care Team (Latest Contact Info) Description 07/01/[address] 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
--- OUTSIDE RECORDS SUMMARY | 2025-02-12 06:43 | XMS_ITS | Encounter Summary ---
Author Organization [facility] Address [address] [place] [address] Care Team Providers Care Fire Crew Worker Name Role Phone Patricio Rojas MD Primary Care Provider Gahda vailable Encounter Details Date Type Department Care Team (Latest Contact Info) Description 02/11/2002 Outpatient Historical [facility] [address] 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
--- OUTSIDE RECORDS SUMMARY | 2025-02-12 06:43 | XMS_ITS | Encounter Summary ---
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
--- OUTSIDE RECORDS SUMMARY | 2025-02-12 06:43 | XMS_ITS | Patient Health Record ---
Author Organization [employer] [facility] [employer] [facility] Address [address] [place] [address] Care Team Providers Care Dip Tanker Name Role Phone Leighton Bhardwaj Primary Care Provider LANDON Linda Unavailable [phone] Reason For Referral No Information Medications Medication SIG (Take, Route, Frequency, Duration) Notes Start Date End Date Status Ibuprofen 800 MG 1 tab(s) po q 8 hrs prn Oral; Duration: 30 Ibuprofen 800mg Tablet 1 tab(s) po q 8 hrs prn 02/06/2012 Active Problems Problem Type SNOMED Code ICD Code Onset Dates Problem Status W/U Status Risk Notes Problem Frequency of micturition (305345447) Frequency of micturition (R35.0) Active confirmed Problem Low back pain (309280402) Low back pain (724.2) 08/14/19 10 Active confirmed [id number]- Problem Wheezing (12165458) Wheezing (786.07) 07/08/19 09 Problem resolved confirmed [id number]- Problem Heartburn (57140171) Heartburn (787.1) 04/16/19 12 Problem resolved confirmed [id number]- Problem Dysphagia (45160967) Other dysphagia (787.29) 08/14/19 10 Problem resolved confirmed [id number]- Problem Urinary frequency (237404687) Urinary frequency (788.41) 10/29/19 12 Problem resolved confirmed [id number] 11- Problem Ear ache (707980423) Ear ache (388.71) 06/18/19 11 Problem resolved confirmed [id number]- Problem Tobacco dependence (50300105) Tobacco dependence (305.1) 12/18/19 10 Problem resolved confirmed [id number]- Problem Tobacco abuse (1859223918) Tobacco abuse (305.1) 09/15/19 09 Problem resolved confirmed [id number] 11- Problem Insomnia (757563703) Insomnia (307.41) 08/10/19 09 Problem resolved confirmed [id number] 11- Problem Shoulder pain (98696138) Shoulder pain (719.41) 04/03/20 10 Problem resolved confirmed [id number] 11- Problem Administration of vaccine product containing only Streptococcus pneumoniae antigen (procedure) (23201008) Vaccination against pneumococcal pneumonia (V03.82) 02/06/20 12 Problem resolved confirmed [id number]- Problem 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) Other abnormal laboratory result on blood (790.99) 07/20/19 09 Problem resolved confirmed [id number]- Problem 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) Shkgrcl-Qpcyb-B ooth disease (356.1) 01/09/20 11 Problem resolved confirmed [id number] 11- Problem Acute upper respiratory infection (73036644) Acute upper respiratory infection (465.8) 07/19/19 10 Problem resolved confirmed [id number] 11- Problem Muscle weakness (04683689) Muscle weakness (729.89) 09/15/19 09 Problem resolved confirmed [id number]- Problem Genital warts (060470429) Genital warts (078.11) 07/19/19 10 Problem resolved confirmed [id number] 11- Problem Acute otitis media (1628917) Acute otitis media (382.00) 05/30/19 12 Problem resolved confirmed [id number] 11- Problem Sore throat (860076688) Sore Throat (462) 10/12/19 10 Problem resolved confirmed [id number] 11- Problem Ankle pain (661125069) Ankle pain (719.47) 11/07/19 11 Problem resolved confirmed [id number] 11- Problem Chest pain (02528225) Chest pain (786.59) 04/30/19 12 Problem resolved confirmed [id number] 11- Problem Erectile dysfunction (533875710) Erectile dysfunction (302.72) 07/16/19 12 Problem resolved confirmed [id number] 11- Problem Acute sinusitis (81930723) Acute sinusitis (461.8) 09/09/19 09 Problem resolved confirmed [id number] 11- Problem Neck pain (25414330) Neck pain (723.1) 07/19/19 10 Problem resolved confirmed [id number] 11- Problem Vitamin D deficiency (60230294) Vitamin D deficiency (268.9) 07/20/19 09 Problem resolved confirmed [id number] 11- Problem Generalized anxiety disorder (75007073) Anxiety, generalized (300.02) 09/09/19 09 Problem resolved confirmed [id number] 11- Plan Of Treatment No Information Insurance Providers Payer Name Payer Address Payer Phone Subscriber Number Group Number Insured Name Patient Relationship to Insured Coverage Start Date Coverage End Date BCBS [place] [address] [place], [place] [id number] Khris Kaba Self - patient is the insured Medical (General) History Surgical History Surgery Date(Month/Year) NONE
--- OUTSIDE RECORDS SUMMARY | 2025-02-12 06:43 | XMS_ITS | Encounter Summary ---
Author Organization [facility] Address [address] [place] [address] Care Team Providers Care Gasoline Power Shovel Operator Name Role Phone Patricio Rojas MD Primary Care Provider Ghada vailable Encounter Details Date Type Department Care Team (Latest Contact Info) Description 05/13/2002 Outpatient Historical [facility] [address] 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
--- OUTSIDE RECORDS SUMMARY | 2025-02-12 06:43 | XMS_ITS | Encounter Summary ---
Author Organization [facility] Address [address] [place] [address] Care Team Providers Care Packaging Clerk Name Role Phone Patricio Rojas MD Primary Care Provider Ghada vailable Encounter Details Date Type Department Care Team (Latest Contact Info) Description 05/13/[address] 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
--- OUTSIDE RECORDS SUMMARY | 2025-02-12 06:43 | XMS_ITS | Encounter Summary ---
Author Organization [facility] Address [address] [place] [address] Care Team Providers Care Cuff Setter Name Role Phone Patricio Rojas MD Primary Care Provider Ghada vailable Encounter Details Date Type Department Care Team (Latest Contact Info) Description 01/06/2002 Outpatient Historical [facility] [address] 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
--- OUTSIDE RECORDS SUMMARY | 2025-02-12 06:44 | XMS_ITS | Encounter Summary ---
Author Organization [facility] Address [address] [place] [address] Care Team Providers Care Client Services Manager Name Role Phone Patricio Rojas MD Primary Care Provider Ghada vailable Encounter Details Date Type Department Care Team (Latest Contact Info) Description 02/19/2001 Outpatient Historical [facility] Thanh Candelaria MD [address] [place] [address] Lumbosacral spondylosis (Primary Dx); BACKACHE NOS; Sprain lumbar region Social History Tobacco Use Types Packs/Day Years Used Date Smoking Tobacco: Never Assessed Sex and Gender Information Value Date Recorded Sex Assigned at Not on file 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
--- OUTSIDE RECORDS SUMMARY | 2025-02-12 06:44 | XMS_ITS | Clinical Summary ---
Author Organization [facility] Address [address] [facility] Attn: Epic Prelude ADT [place] [address] Care Team Providers Care Group Rooms Coordinator Name Role Phone Patricio Rojas MD Primary [...] on file Legal Sex Male 6:23 AM FIGURE CLERK Gender Identity Not on file Sexual [...] VACCINES Completed 06/19/1998, 01/25/1998, 12/07/1997 Insurance [place]ICAID [id number] Member Subscriber Plan / Payer (Ef fective 2023-Present) Name:Khris Kaba Relation to Subscriber:Self Name:Khris Kaba Payer ID:Not on file Group ID:Not on file Type:Medicaid Address: [address] MEDICARE HMO Care Teams Group Rooms Coordinator Relationship Specialty Start Date End Date Patricio Rojas MD PCP - General 02/11/02
--- OUTSIDE RECORDS SUMMARY | 2025-02-12 06:44 | XMS_ITS | Encounter Summary ---
Author Organization [facility] Address [address] 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
--- OUTSIDE RECORDS SUMMARY | 2025-02-12 06:44 | XMS_ITS | Encounter Summary ---
Author Organization [facility] Address [address] [place] [address] Care Team Providers Care Train Brakeman Name Role Phone Patricio Rojas MD Primary Care Provider Ghada vailable Encounter Details Date Type Department Care Team (Late st Contact Info) Description 10/18/2001 Outpatient [facility] [address] 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
--- OUTSIDE RECORDS SUMMARY | 2025-02-12 06:44 | XMS_ITS | Clinical Summary ---
Author Organization [facility] Address [address] [place] [address] Care Team Providers Care Steward/Stewardess Night Name Role Phone Patricio Rojas MD Primary [...] on file Legal Sex Male 4:28 AM PRECAST WORKER Gender Identity Not on file Sexual Orientation Not on file Last Filed Vital Signs Vital Sign Reading Time Taken Comments Blood Pressure 132/83 03/05/2020 10:11 AM PRECAST WORKER Pulse 85 03/05/2020 10:11 AM PRECAST WORKER Temperature - - Respiratory Rate 18 12/22/2018 9:19 AM CDT Oxygen Saturation 98% 01/25/2019 9:31 AM CDT Inhaled Oxygen Concentration - - Weight 88 kg (194 lb) 03/05/2020 10:11 AM PRECAST WORKER Height 182.9 cm (6') 03/05/2020 10:11 AM PRECAST WORKER Body Mass Index 26.31 03/05/2020 10:11 AM PRECAST WORKER Plan of Treatment Health Maintenance Due Date Last Done Comments DTAP/TDAP/TD VACCINES (1 - Tdap) 06/16/1999 HPV VACCINES (1 - 3-dose SCD M series) 06/16/2007 INFLUENZA VACCINE (#1) 2024 HEPATITIS B VACCINES Completed 06/19/1998, 01/25/1998, 12/07/1997 Insurance [facility] MEDICAID [place] Care Teams Steward/Stewardess Night Relationship Specialty Start Date End Date Patricio Rojas MD NO ADDRESS ON FILE PCP - General 02/11/02
--- OUTSIDE RECORDS SUMMARY | 2025-02-12 06:44 | XMS_ITS | Encounter Summary ---
Author Organization [facility] Address [address] 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
--- OUTSIDE RECORDS SUMMARY | 2025-02-12 06:44 | XMS_ITS | Encounter Summary ---
Author Organization [facility] Address [address] [place] [address] Care Team Providers Care Laboratory Assistant Name Role Phone Patricio Rojas MD Primary Care Provider Ghada vailable Encounter Details Date Type Department Care Team (Late st Contact Info) Description 09/24/2001 Outpatient [facility] [address] 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
--- OUTSIDE RECORDS SUMMARY | 2025-02-12 06:44 | XMS_ITS | Encounter Summary ---
Author Organization [facility] Address [address] [place] [address] Care Team Providers Care Veterinarian Small Animal Name Role Phone Patricio Rojas MD Primary Care Provider Ghada vailable Encounter Details Date Type Department Care Team (Latest Contact Info) Description 01/12/2001 Outpatient Historical [facility] Thanh Candelaria MD [address] [place] [address] Sprain lumbar region (Primary Dx); Backache, unspecified; Lumbosacral spondylosis; Peroneal muscle atrophy Social History Tobacco Use Types Packs/Day Years Used Date Smoking Tobacco: Never Assessed Sex and Gender Information Value Date Recorded Sex Assigned at Not on file 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 Sex Male 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
--- OUTSIDE RECORDS SUMMARY | 2025-02-12 06:44 | XMS_ITS | Encounter Summary ---
Author Organization [facility] Address [address] 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
--- OUTSIDE RECORDS SUMMARY | 2025-02-12 06:44 | XMS_ITS | Encounter Summary ---
Author Organization [facility] Address [address] [place] [address] Care Team Providers Care Senior Javascript Developer Name Role Phone Patricio Rojas MD Primary Care Provider Ghada vailable Encounter Details Date Type Department Care Team (Latest Contact Info) Description 06/04/2001 Outpatient Historical [facility] Thanh Candelaria MD [address] [place] [address] OTHER BACK SYMPTOMS (Primary Dx); Lumbosacral spondylosis; BACKACHE NOS Social History Tobacco Use Types Packs/Day Years Used Date Smoking Tobacco: Never Assessed Sex and Gender Information Value Date Recorded Sex Assigned at Not on file 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
[2025-02-12 06:47] VITALS: BP 114/80; PULSE 112; RESP 16; TEMP 37.2; O2SAT 98; BMI 21.1
--- NOTE | 2025-02-12 06:54 | XRR_ITS ---
PROCEDURE INFORMATION: Exam: XR Right Ankle Exam date and time: 02/12/2025 6:55 AM Age: 44 years old Clinical indication: Pain; Ankle; Right; Additional info: Trauma TECHNIQUE: Imaging protocol: Radiologic exam of the right ankle. Views: 3 or more views. COMPARISON: [place] [id number] ORTH 04/11/2020 10:42 AM FINDINGS: Bones/joints: Normal. Soft tissues: Normal. XR/XR ankle RT min 3V* [id number] IMPRESSION: No acute findings.
--- NOTE | 2025-02-12 06:54 | W.ED.EXTPRO ---
HPI - Extremity Problem General: Chief complaint: Extremity Injury, Lower Stated complaint: RT leg inj Time Seen by Provider: 02/12/25 06:49 History of Present Illness: 44-year-old male presents emergency room with complaints of right ankle pain. He stood up and felt a pop in his right ankle laterally. No direct trauma or blow no inversion injury he was wearing his orthotic at the time. He has a history of previous cervical spinal cord injury and has significant loss of function of all of his extremities with muscle wasting and contractures. He does wear bilateral jointed orthotics on his lower extremities. He is complaining of pain over the lateral malleolus. No previous ankle fractures or surgeries. Associated symptoms: Deny chest pain, fever(s) or rash Related Data Home Medications ?Medication ?Instructions ?Recorded ?Confirmed duloxetine 60 mg capsule,delayed 60 mg PO BEDTIME 05/16/19 07/30/22 release (Cymbalta) pantoprazole 40 mg tablet,delayed 40 mg PO BEDTIME 05/16/19 07/30/22 release zolpidem 10 mg tablet 10 mg PO BEDTIME 05/16/19 07/30/22 albuterol sulfate 90 mcg/actuation 2 puff inhalation Q4H PRN 01/29/21 07/30/22 aerosol inhaler Shortness Of Breath carisoprodol 350 mg tablet 350 mg PO TID PRN Muscle Spasm 01/29/21 07/30/22 citalopram 20 mg tablet 20 mg PO BEDTIME 01/29/21 07/30/22 duloxetine 30 mg capsule,delayed 30 mg PO BEDTIME 01/29/21 07/30/22 release ibuprofen 200 mg tablet 600 mg PO Q4H PRN Pain 01/29/21 07/30/22 tamsulosin 0.4 mg capsule 0.4 mg PO BEDTIME 01/29/21 07/30/22 Previous Rx's ?Medication ?Instructions ?Recorded Articulating AFO #2 ea 04/11/20 amoxicillin 500 mg-potassium 1 tab PO BID #14 tabs 01/05/22 clavulanate 125 mg tablet (Augmentin) ondansetron 4 mg disintegrating 4 mg PO Q8H PRN nausea and 01/07/22 tablet vomiting #20 tabs AFO bilaterally with shoes to fit #1 ea 07/30/22 Allergies Allergy/AdvReac Type Severity Reaction Status Date / Time No Known Allergies Allergy Verified 02/12/25 06:53 Review of Systems Const: Denies: fever(s) or chills Card: Denies: chest pain Resp: Denies: dyspnea GI: Denies: abdominal pain : Denies: dysuria, urinary frequency or urinary urgency Musc: Reports: other (Cervicals cord injury contractures and muscle atrophy all extremities); Denies: neck pain or back pain Skin/Breast: Denies: rash PFSH ED PFSH: Medical History Atherosclerosis of coronary artery Coronary-myocardial bridge Obstructive sleep apnea Precordial chest pain Spinal cord stimulator status Depression Lumbar radiculopathy Hyperlipidemia Acquired bilateral foot drop Jguvexx-Usacn-Aafln atrophy Surgical History H/O vasectomy Hx of appendectomy H/O arthroscopic knee surgery Family History Other CAD (coronary artery disease) Cancer Stroke Denies family history of Anesthesia complication Bleeding disorder Social History Smoking and tobacco/nicotine status: current every day tobacco/nicotine user (1 pk per day ) Alcohol intake: never Substance/Drug Use: current Physical Exam Const: COMMON NORMALS: no acute distress GENERAL APPEARANCE: cooperative and comfortable ORIENTATION/CONSCIOUSNESS: Yes awake, Yes oriented to person, Yes oriented to place and Yes oriented to time HENMT: COMMON NORMALS: normocephalic, atraumatic and hearing grossly normal bilaterally HEAD & SCALP: normocephalic and atraumatic Resp: COMMON NORMALS: normal respiratory effort, No retractions, No use of accessory muscles and clear to auscultation bilaterally AUSCULTATION: clear to auscultation bilaterally Cardio: COMMON NORMALS: regular rate, regular rhythm and No murmurs present (Cardio) RATE: regular rate RHYTHM: regular rhythm Extremity: OTHER: Muscle atrophy in all extremities contractures of the upper extremities. Profound muscle wasting of the lower extremities bilaterally. Examination of the right ankle there is some redness from skin pressure from the orthotic which taken off shortly after he arrived no obvious deformity dorsalis pedis and posterior tibialis pulses are palpably present. No ecchymosis swelling no skin breakdown ulcerations. Neuro: SENSORIUM/ORIENTATION: Yes oriented to person, Yes oriented to place and Yes oriented to time Skin: COMMON NORMALS: no rashes or lesions noted GENERAL SKIN EXAM: no rashes or lesions noted Course Vital Signs: Vital signs: Vital Signs Temperature 99.0 F 02/12/25 06:47 Pulse Rate 94 02/12/25 08:00 Respiratory Rate 16 02/12/25 06:47 Blood Pressure 109/82 02/12/25 08:00 Pulse Oximetry 99 02/12/25 08:00 Oxygen Delivery Me thod Room Air 02/12/25 06:47 MDM - Extremity (Nontraumatic) Medical Decision Making Patient seen and evaluated x-ray ordered to evaluate for fracture versus sprain. No acute fracture on x-ray. On the lateral there does appear to be a little bit of irregularity at the lateral malleolus but does not appear in any of the other views. I believe he just had some articulation likely due to laxity in the joint due to his severe muscle atrophy. Will discharge patient home can use anti-inflammatories elevate and ice follow-up with podiatry for his continued discomfort Lab Data Radiology Impressions Ankle X-Ray 02/12/25 06:54 IMPRESSION: No acute findings. All radiology interpretation(s) finalized by discharge Discharge Plan Discharge Patient Disposition: Home Clinical Impression: Acute right ankle pain, Sibwcbd-Afbqs-Cxdpc atrophy Condition: Stable Prescriptions: No Action zolpidem 10 mg tablet 10 mg PO BEDTIME pantoprazole 40 mg tablet,delayed release (DR/EC) 40 mg PO BEDTIME duloxetine [Cymbalta] 60 mg capsule,delayed release(DR/EC) 60 mg PO BEDTIME Rx Instructions: takes with 30mgto =90mg (DME) Articulating AFO See Rx Instructions .ROUTE .MEDSUPPLY Qty: 2 0RF Rx Instructions: As directed (DME) AFO bilaterally with shoes to fit See Rx Instructions .Route .MEDSUPPLY Qty: 1 0RF Rx Instructions: As directed carisoprodol 350 mg tablet 350 mg PO TID PRN (Reason: Muscle Spasm) citalopram 20 mg tablet 20 mg PO BEDTIME tamsulosin 0.4 mg capsule 0.4 mg PO BEDTIME ibuprofen 200 mg Tablet 600 mg PO Q4H PRN (Reason: Pain) albuterol sulfate 90 mcg/actuation Hfa Aerosol Inhaler 2 puff INHALATION Q4H PRN (Reason: Shortness Of Breath) duloxetine 30 mg capsule,delayed release(DR/EC) 30 mg PO BEDTIME Rx Instructions: takes with 60mg to =90mg Augmentin 500-125 mg tablet 1 tab PO BID Qty: 14 0RF ondansetron 4 mg tablet,disintegrating 4 mg PO Q8H PRN (Reason: nausea and vomiting) Qty: 20 0RF Discharge Orders: Discharge ED (Routine); Ordered 02/12/25 Ordered By: Srinivasa Zepeda Referrals: Jana Zaman PA [Primary Care Provider, [facility] [employer] Mechanic] Patient Instructions: Opioid Safety, Pain Management, Patient Portal & Arun Instructions Activity Restrictions/Additional Instructions: Thank you for choosing [facility] for your healthcare needs today. It is very important that you follow up as instructed or that you return to the Emergency Department should you have concerns or if your condition changes or worsens in any way. Emergency department visits are focused on emergent conditions, in some cases you may require further evaluation on an outpatient basis. You are seen emergency room with complaint of right ankle pain. X-ray did not show any acute fractures. Follow-up with your primary care doctor as needed (Please note that included in your discharge packet is information concerning opioid safety and pain management. This information is given to all patients were discharged from the ER regardless of their discharge diagnosis or the medicines they usually take or are prescribed.) Print Language: Mohawk Coding Level of Care Code ED Cathode Ray Tube Assembler for Latoya Garland
[2025-02-12] MEDS: HYDROcodone-acetaminophen 5-325 mg Tablet 1 TAB PO (07:55)
[2025-02-12 08:00] VITALS: BP 109/82; PULSE 94; O2SAT 99
== END 2025-02-12 08:00 | disposition home or self-care (01) ==
PROVIDERS: Emergency Provider Family Medicine; PCP Physician Assistant
DX: M25.571 Pain in right ankle and joints of right foot (principal); G60.0 Hereditary motor and sensory neuropathy; F17.210 Nicotine dependence, cigarettes, uncomplicated; I25.10 Atherosclerotic heart disease of native coronary artery without angina pectoris; E78.5 Hyperlipidemia, unspecified
CPT/HCPCS: 73610; 99283; J9999

== ENCOUNTER 2025-02-15 13:13 | Inpatient (IN) | payer MEDICARE, MEDICAID, SELFPAY ==
[2025-02-15] VITALS (9 sets, daily range): BP systolic 124–136; BP diastolic 76–87; PULSE 69–87; RESP 16–20; TEMP 36.4–36.9; O2SAT 95–99; BMI 21.7
--- OUTSIDE RECORDS SUMMARY | 2025-02-15 13:22 | XMS_ITS | Continuity of Care Document ---
Author Organization ROMERO De Luna [facility] Dennis, [place], [facility] ([facility]) Address [address] [place] [address] Care Team Providers Care Wire Frame Dipper Name Role Phone TRISHA PRO Primary Care Provider Assessment No assessment recorded. Plan of Treatment Reminders Order Date Submit Date Provider Last Modified By Organization Details Last Modified Time Details Appointments OFFICE VISIT 2024 09:20A Liliana PRO PA-C Not available Not available Not available Lab CMP, serum or plasma 2024 025 Formerly [facility], [address] [facility], [address], [address], 02/14/2025 15:49:22 CBC 2024 025 Formerly [facility], [address] [facility], [facility] [place], [address], 02/14/2025 15:08:24 uric acid, serum or plasma 2024 025 Formerly [facility], [address] [facility], [facility] 1, [place], [address], 02/15/2025 09:54:02 ESR (erythroc yte sedimenta tion rate), blood 2024 025 [facility]), [address] [place], [address], 02/14/2025 16:13:36 C-reactiv e protein, quantitat myke, serum or plasma 2024 [facility] ([facility]), [address] [place], [address], 02/15/2025 09:54:03 Referral None recorded. Procedures None recorded. Surgeries None recorded. Imaging US, duplex, venous, lower extremity - [address] Rt Leg [address], [address] [place], [address], 02/14/2025 15:06:13 Medication Orders betametha sone acetate and sodium phos 6 mg/mL suspensio n for injection 2024 [email or web address] Not available 02/14/2025 14:02:40 clindamyc in HCl 300 mg capsule 2024 EMILY [id number], [address] [facility], [facility], [place], [address], 02/14/2025 13:12:19 Patient TargetsNo targets recorded. Patient InstructionsNo instructions recorded. Reason for Referral None Reported. Results Created Date Observation Date Name Description Value Unit Range Abnormal Flag Note LastModifiedBy Organization Detail LastModifiedTime 02/11/2002/10/2025 strep tococ cus group A Ag scree n Strep negati ve Not Available [facility] ([facility]) [address] [place], [address], 02/10/2025 15:27:46 02/15/20 25 02/14/2025 CBC WBC 19.6 x10 4.5-10 .5 high Not Available [facility] [address] [facility] [address], [place], [address], 02/14/2025 15:08:24 02/15/20 25 02/14/2025 CBC RBC 4.89 x10 4.30-5 .90 Not Available [facility] [address] [facility] 1, [place], [address], 02/14/2025 15:08:24 02/15/20 25 02/14/2025 CBC HGB 15.3 g/dL 13.5-1 8.0 Not Available [facility] [address] [facility] 1, [place], [address], 02/14/2025 15:08:24 02/15/20 25 02/14/2025 CBC HCT 46.3 % 35.0-6 0.0 Not Available [facility] [address] [facility] 1, [place], [address], 02/14/2025 15:08:24 02/15/20 25 02/14/2025 CBC MCV 94.7 fL 80.0-9 9.9 Not Available [facility] [address] [facility] 1, [place], [address], 02/14/2025 15:08:24 02/15/20 25 02/14/2025 CBC MCH 31.3 pg 27.0-3 2.0 Not Available [facility] [address] [facility] 1, [place], [address], 02/14/2025 15:08:24 02/15/20 25 02/14/2025 CBC MCHC 33.1 g/dL 32.0-3 6.0 Not Available [facility] [address] [facility] 1, [place], [address], 02/14/2025 15:08:24 02/15/20 25 02/14/2025 CBC RDW 12.7 % 11.5-1 4.5 Not Available [facility] [address] [facility] 1, [place], [address], 02/14/2025 15:08:24 02/15/20 25 02/14/2025 CBC plt 399.2 x10 150.0- 451.0 Not Available [facility] [address] [facility] 1, [place], [address], 02/14/2025 15:08:24 02/15/20 25 02/14/2025 CBC lymphocytes % 10.0 % 20.0-5 0.0 low Not Available [facility] [address] [facility] 1, [place], [address], 02/14/2025 15:08:24 02/15/20 25 02/14/2025 CBC granulcytes % 81.1 % 30.0-7 0.0 high Not Available [facility] [address] [facility] 1, [place], [address], 02/14/2025 15:08:24 02/15/20 25 02/14/2025 CBC monocytes % 8.1 % 2.0-16 .0 Not Available [facility] [address] [facility] 1, [place], [address], 02/14/2025 15:08:24 02/15/20 25 02/14/2025 CBC granulcytes# 15.9 x10 Not Carrol ilable [facility] [address] [facility] 1, [place], [address], 02/14/2025 15:08:24 02/15/20 25 02/14/2025 CBC lymphocytes # 2.0 x10 Not Available [facility] [address] [facility] 1, [place], [address], 02/14/2025 15:08:24 02/15/20 25 02/14/2025 CBC monocytes # 1.6 x10 Not Avai lable [facility] [address] [facility] 1, [place], [address], 02/14/2025 15:08:24 02/15/20 25 02/14/2025 CMP (MALE ) glucose 116.0 mg/dL 60.0-9 9.0 high Not Available [facility] [address] [facility], [place], [address], 02/14/2025 15:49:22 02/15/20 25 02/14/2025 CMP (MALE ) BUN (blood urea nitrogen) 21.0 mg/dL 10.0-2 6.0 Not Available [facility] [address] [facility], [place], [address], 02/14/2025 15:49:22 02/15/20 25 02/14/2025 CMP (MALE ) creatinine (serum) 2.3 mg/dL 0.4-1. 5 high Not Available [facility] [address] [facility], [place], [address], 02/14/2025 15:49:22 02/15/20 25 02/14/2025 CMP (MALE ) BUN/creatini ne ratio 9.13 ratio Not Available [facility] [address] [facility], [place], [address], 02/14/2025 15:49:22 02/15/20 25 02/14/2025 CMP (MALE ) eGFR calculated 33.0 Not Available [facility] [address] [facility], [place], [address], 02/14/2025 15:49:22 02/15/20 25 02/14/2025 CMP (MALE ) total protein 9.2 g/dL 6.0-8. 5 high Not Available [facility] [address] [facility], [place], [address], 02/14/2025 15:49:22 02/15/20 25 02/14/2025 CMP (MALE ) total bilirubin 1.2 mg/dL 0.2-1. 3 Not Available [facility] [address] [facility] 1, [place], [address], 02/14/2025 15:49:22 02/15/20 25 02/14/2025 CMP (MALE ) albumin 4.1 g/dL 3.5-5. 5 Not Available [facility] [address] [place] [address] [facility] 1, [place], [address], 02/14/2025 15:49:22 02/15/20 25 02/14/2025 CMP (MALE ) globulin 5.1 calc Not Available [facility] [address] [place] [facility], [place], [address], 02/14/2025 15:49:22 02/15/20 25 02/14/2025 CMP (MALE ) AST (SGOT) 38.0 U/L 0.0-46 .0 Not Available [facility] [address] [place] [facility], [place], [address], 02/14/2025 15:49:22 02/15/20 25 02/14/2025 CMP (MALE ) altv (SGPT) 37.0 U/L 13.0-6 9.0 normal Not Available [facility] [address] [place] [facility], [place], [address], 02/14/2025 15:49:22 02/15/20 25 02/14/2025 CMP (MALE ) A/G ratio 0.8 ratio Not Available [facility] [address] [place] [facility], [place], [address], 02/14/2025 15:49:22 02/15/20 25 02/14/2025 CMP (MALE ) ALP phos 176.0 U/L 30.0-1 40.0 abnormal Not Available [facility] [address] [place] [address] [facility] 1, [place], [address], 02/14/2025 15:49:22 02/15/20 25 02/14/2025 CMP (MALE ) calcium 9.8 mg/dL 8.4-10 .5 Not Available [facility] [address] [facility] 1, [place], [address], 02/14/2025 15:49:22 02/15/20 25 02/14/2025 CMP (MALE ) sodium 134.0 mmol/ L 136.0- 145.0 low Not Available [facility] [address] [facility] 1, [place], [address], 02/14/2025 15:49:22 02/15/20 25 02/14/2025 CMP (MALE ) potassium 3.1 mmol/ L 3.5-5. 1 low Not Available [facility] [address] [facility] 1, [place], [address], 02/14/2025 15:49:22 02/15/20 25 02/14/2025 CMP (MALE ) chloride 89.0 mmol/ L 98.0-1 10.0 abnormal Not Available [facility] [address] [facility] 1, [place], [address], 02/14/2025 15:49:22 02/15/20 25 02/14/2025 CMP (MALE ) C02 32.0 mmol/ L 22.0-3 1.0 high Not Available [facility] [address] [facility] 1, [place], [address], 02/14/2025 15:49:22 02/15/20 25 02/14/2025 CMP (MALE ) anion gap 13.0 calc Not Available [facility] [address] [facility] 1, [place], [address], 02/14/2025 15:49:22 02/15/20 25 02/14/2025 CMP (MALE ) osmolality 280.8 calc Not Available [facility] [address] [facility] 1, [place], [address], 02/14/2025 15:49:22 02/15/20 25 02/14/2025 LIPID PROFI LE (MALE ) cholesterol 207.0 mg/dL 0.0-20 0.0 high Not Available [facility] [address] [facility] 1, [place], [address], 02/14/2025 15:49:24 02/15/20 25 02/14/2025 LIPID PROFI LE (MALE ) trig 229.0 mg/dL 0.0-15 0.0 high Not Available [facility] [address] [facility] 1, [place], [address], 02/14/2025 15:49:24 02/15/20 25 02/14/2025 LIPID PROFI LE (MALE ) HDL - direct 28.0 mg/dL >40.0 low Not Available [facility] [address] [facility] 1, [place], [address], 02/14/2025 15:49:24 02/15/20 25 02/14/2025 LIPID PROFI LE (MALE ) VLDL - direct 45.8 mg/dL Not Available [facility] [address] [facility] 1, [place], [address], 02/14/2025 15:49:24 02/15/20 25 02/14/2025 LIPID PROFI LE (MALE ) LDL - direct 133.2 mg/dL 0.0-13 0.0 high Not Available [facility] [address] [facility], [place], [address], 02/14/2025 15:49:24 02/15/20 25 02/15/2025 URIC ACID uric acid 5.0 mg/dL 4.0-8. 0 normal Thera pecarltoni c targe t for gout patie nts: <6.0 mg/dL Not Available [facility] [address] [place], [address], 02/15/2025 09:54:02 02/15/2002/15/2025 C-JACKI CTIVE PROTE IN C-reactive protein 439.0 mg/L <8.0 high Verif ied by repea t elen sis. Not Available [facility] [address] [place], [address], 02/15/2025 09:54:03 02/15/20 25 02/14/2025 ESR (eryt hrocy te sedim entat ion rate) , blood SedRate [address] [facility] ([facility]) [address] [place] [address], [address], 02/14/2025 12:50:39 Result Notes None recorded. Problems Name Problem SNOMED Code Status Onset Date Resolution Date Notes Provider Name and Address Organization Details Recorded Time Anxiety state 258547579 Active 2022 ANXIETY AND DEPRESSION ; Recorded 04/23/2022 8:59AM by Delphine Schmitz RN, Office Visit; Promoted; acuity set as *; ANXIETY AND DEPRESSION ; Recorded 04/03/2020 8:13AM by Jordyn Wallace LPN, Annotation /Addendum; Promoted; acuity set as *; ; Start Date : 04/03/2020 JORDYN mariscal [facility] 5 08:30:22 Gastroesop hageal reflux disease 167899214 Active 2022 GERD (GASTROESO PHAGEAL REFLUX DISEASE); Recorded 04/23/2022 8:59AM by Delphine Schmitz RN, Office Visit; Promoted; acuity set as *; JORDYN mariscal [facility] 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 08:30:47 Hyperlipid emia 52724075 Active 2022 HYPERLIPID EMIA; Recorded 04/23/2022 8:59AM by Delphine Schmitz RN, Office Visit; Promoted; acuity set as *; [facility] 5 08:30:50 Depressive disorder 30610841 Active 2022 DEPRESSION ; Recorded 04/23/2022 8:59AM by Delphine Schmitz RN, Office Visit; Promoted; acuity set as *; [facility] 5 08:30:25 Genuine stress incontinen ce 20301982 Active 2022 URINARY INCONTINEN CE, MALE, STRESS; Recorded 04/23/2022 8:59AM by Delphine Schmitz RN, Office Visit; Promoted; acuity set as *; [facility] 5 08:30:44 Insomnia 260408697 Active 2022 INSOMNIA; Recorded 04/23/2022 8:59AM by Delphine Schmitz RN, Office Visit; Promoted; acuity set as *; INSOMNIA, UNCONTROLL ED; Recorded 04/03/2020 8:13AM by Jordyn Wallace LPN, Annotation /Addendum; Promoted; acuity set as *; ; Start Date : 04/03/2020 [facility] 5 08:30:55 Erectile dysfunctio n 585232998 Active 2022 ERECTILE DYSFUNCTIO N; Recorded 04/23/2022 8:59AM by Delphine Schmitz RN, Office Visit; Promoted; acuity set as *; JORDYN WALLACE [facility], [facility], [facility] 5 08:30:29 Problem Notes None recorded. Medical Equipment None Reported. Allergies No known drug allergies Medications Name Sig Start Date Stop Date Status Note LastModified by Organization Details LastModified Time oxcarbaze pine 150 mg tablet TAKE 1 TABLET BY MOUTH TWICE A DAY 10/06 completed Not Available Not Available Not Available clindamyc in HCl 300 mg capsule Take 1 capsule every 6 hours by oral route for 7 days. 2024 active Not Available Not Available Not Avai lable albuterol sulfate 2.5 mg/3 mL (0.083 %) solution for nebulizat ion four times daily, as needed 02/10 completed Recorded 04/23/19 23 9:25AM by Leighton Bhardwaj DO, Office Visit; Refill Quantity : 90; Applicat or; Not Available Not Available Not Available cetirizin e 10 mg tablet TAKE 1 TABLET BY MOUTH EVERYDAY AT BEDTIME active Not Available Not Available No t Available betametha sone acetate and sodium phos 6 mg/mL suspensio n for injection Take 6 mg every day by injectio n route for 1 day. 2024 active Not Available Not Available Not [...] 2024 active Not Available Not Available Not Yamila kwan ondansetr on 4 mg disintegr ating tablet TAKE 1 TABLET BY MOUTH EVERY 8 HOURS NEEDED FOR NAUSEA AND VOMITING 06/02 completed Not Available Not Available Not Available fluticaso ne propionat e 50 mcg/actua tion nasal spray,moises pension INSTILL 2 SPRAYS IN EACH NOSTRIL EVERY DAY active Not Available Not Available No t Available amoxicill in 500 mg-potass ium clavulana te [...] and Address Organization Details Last Updated DateTime 11/11/202 5 182.88 cm 22.1 kg/m2 44855.5 6 g 98 % 98 % 100 /min 20 /min 98.6 [degF] 130/70 mm[Hg] JORDYN WALLACE [facility] 12:03:59 Social History Question Answer Notes LastModified by Organizat ion Details LastModified Time Tobacco Smoking Status Former Smoker Jen Marquez [facility] 10/06/2024 15:38:29 Are You Blind Or Do You Have Difficulty Seeing? No Information not available 06/30/2022 What Is Your Level Of Caffeine Consumption? Occasional [email or web address] Information not available 10/06/2024 Are You Deaf Or Do You Have Serious Difficulty Hearing? No [email or web address] Information not available 06/30/2022 Which Illicit Or Recreational Drugs Have You Used? Marijuana [email or web address] Information not available 10/06/2024 Have You Had Direct Contact, Or Contact During Intimacy, With Monkeypox Rash, Scabs, Or Body Fluids From A Person With Monkeypox? No [email or web address] Information not available 09/10/2022 What Was The Date Of Your Most Recent Tobacco Screening? 02/10/2025 [email or web address] Information not available 02/10/2025 What Is Your Current Pack Years? [email or web address] Information not available 06/09/2024 What Is Your Relationship Status? Unknown [email or web address] Information not available 06/30/2022 At What Age Did You Start Smoking Tobacco? 20 Information not available 06/09/2024 How Much Tobacco Do You Smoke? No [email or web address] Information not available 10/06/2024 Has Tobacco Cessation Counseling Been Provided? No [email or web address] Information not available 06/09/2024 How Many Years Have You Smoked Tobacco? 20 [email or web address] Information not available 06/09/2024 Have You Recently Traveled Abroad? No [email or web address] Information not available 09/10/2022 Do You Have Difficulty Walking Or Climbing Stairs? No Information not available 06/30/2022 Sex: Unknown Functional Status Question Answer Note LastModified by Organizat ion Details LastModified Time Do you use any illicit or recreational drugs? Yes [email or web address] Information not available 10/06/2024 Do you or have you ever used any other forms of tobacco or nicotine? No Information not available 06/09/2024 What is your level of alcohol consumption? None Information not available 06/09/2024 Are you able to walk independently without assistance or assistive devices? YESWOREST [email or web address] Information not available 06/30/2022 Do you have difficulty doing errands alone? No [email or web address] Information not available 06/30/2022 Are you able to care for yourself independently? Yes [email or web address] Information not available 06/30/2022 Do you have difficulty dressing, bathing, grooming, or toileting? No [email or web address] Information not available 06/30/2022 Do you or have you ever used any nicotine-free cigarettes, vape, or chewing tobacco? No [email or web address] Information not available 06/09/2024 Mental Status Question Answer Note LastModified by Organization D etails LastModified Time Do you have difficulty concentrating, remembering or making decisions? No [email or web address] Information no t available 06/30/2022 Family History Nothing Reported. Medical History No medical history recorded. Immunizations Vaccine Type Date Status Note Provider Nam e and Address Organization Details Recorded Time Hep B, adolescent/high risk infant 8 completed Not Available [facility] 02/14/2025 14:48:39 Hep A, ped/adol, 2 dose 8 completed Not Available [facility] 02/14/2025 14:48:39 Hep A, ped/adol, 2 dose 8 completed Not Available [facility] 02/14/2025 14:48:39 Hep B, unspecified formulation 8 completed Not Available [facility] 02/14/2025 14:48:39 Hep B, unspecified formulation 9 completed Not Available [facility] 02/14/2025 14:48:39 Hep A, ped/adol, 2 dose 9 completed Not Available [facility] 02/14/2025 14:48:39 Tdap 5 completed Not Available [facility] 02/14/2025 14:48:39 Past Encounters Encounter ID Performer Location Encounter Start Date Encounter Closed Date Diagnosis/Indication Diagnosis SNOMED-CT Code Diagnosis ICD10 Code Diagnosis IMO Codes Diagnosis Note [id number] LESLIE PINEDA [facility] ([facility]) [address] [place] [phone] 02/10/2025 15:20:02 02/10/2025 15:47:57 Sore throat 795715877 J02.9 09555 Viral resp iratory infection 602751719 J98.8 B97.89 [id number] May use meds like zyrtec and fluticason e nasal spray as needed for symptoms. Return to clinic with any new or worsening symptoms. [id number] TRISHA PRO PA-C [facility] ([facility]) [address] [place] [phone] 02/14/2025 11:59:23 02/14/2025 13:15:14 Edema of right lower limb 130281319 R60.0 [id number] suspect DVT acute. need WILFRIDO venous doppler to R/o. Monoarthritis 798110690 M13.10 1790628 fx ruled out at er. Differenti al includes acute DVT, gout, autoimmune monoarthro maricruz, septic joint. Will get u/s today and lab.Beteme thasaone started for gout and will send in antibiotic s.F/u in 2 days to recheck. to ER if pain or redness worsening. [id number] TRISHA PRO PA-C [facility] ([facility]) [address] [place] [phone] 02/14/2025 14:48:08 02/14/2025 15:17:35 Health Concerns Section Related Observation LastModified by Organization Detai ls LastModified Time None Recorded Concern Status LastModified by Organization Details LastModified Time None Recorded Payers Encounter Date Sequence Insurance Name Policy Number Policy Waters Covered Member ID Waters Member ID Guarantor Name 02/14/2025 1 [place]ANT[place] - [place]PO) [id number] Khris Kaba [id number] Khris Kaba 02/14/2025 2 [place] Khris Kaba [id number] Khris Kaba Notes Date Note Type Note Provider Name and Address Organization Details Recorded Time 5 text/htm l Musculoskeletal PainReported by PatientHPIFor location, patient reportspain radiating to the foot rightandpain radiating to the ankle rightbut reportsright ankleandright foot. For quality, patient reportssharp,tingling, anddull. For severity, patient reportsworsening,interferes with sleep, andinterferes with work/school. For associated symptoms, patient reportsweak limbs. For duration, patient reportspresent <1 month. For timing, patient reportsconstantandsudden. For aggravating factors, patient reportsmovement/positioning, bending over, andtwisting. For adls affected, patient reportswalking,sweeping,mopp ing,bathing,dressing, andclimbing stairs.Pt with acute swelling of the R ankle x 2 days. Red, hot, swollen. went to ER and xray was done to r/o fx. No lab done at that time. States it is just throbbing. no hx of gout.He had a URI last week. Still not urinating or pooping normally. er folllw up 02-0725 cut on right arm needs stitch removal and on 11=9-25 for right leg redness and pain x ray showed no break, he wonders about a blood clot TRISHA PRO PA-C [address] [place], [phone], [facility], [place] 02/14/2025 13:13:25
--- OUTSIDE RECORDS SUMMARY | 2025-02-15 13:22 | XMS_ITS | Encounter Summary ---
Author Organization [facility] Address [address] [place] [address] Care Team Providers Care Code Official Name Role Phone Patricio Rojas MD Primary Care Provider Ghada vailable Encounter Details Date Type Department Care Team (Latest Contact Info) Description 02/11/2002 Outpatient Historical [facility] Chronic Pain [address] [place] [address] Shirley Mccauley, LESLIE [address] [facility] [address] [place] [address] Patricio Rojas MD NO ADDRESS ON FILE MYALGIA AND MYOSITIS NOS (Primary Dx) Social History Tobacco Use Types Packs/Day Years Used Date Smoking Tobacco: Never Assessed Sex and Gender Information Value Date Recorded Sex Assigned at Not on file Legal Sex Male 4:28 AM [employer]NA[employer] Gender Identity Not on file Sexual Orientation Not on file documented as of this encounter Plan of Treatment Not on file documented as of this encounter Visit Diagnoses Diagnosis Myalgia and myositis, unspecified- Primary Mylagia and myositis, unspecified documented in this encounter Care Teams Code Official Relationship Specialty Start Date End Date Patricio Rojas MD NO ADDRESS ON FILE PCP - General 02/11/02 documented as of this encounter
--- OUTSIDE RECORDS SUMMARY | 2025-02-15 13:22 | XMS_ITS | Encounter Summary ---
Author Organization [facility] Address [address] [place] [address] Care Team Providers Care Irrigation Pump Installer Name Role Phone Patricio Rojas MD Primary Care Provider Ghada vailable Encounter Details Date Type Department Care Team (Latest Contact Info) Description 01/06/2002 Outpatient Historical [facility] [address] 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
--- OUTSIDE RECORDS SUMMARY | 2025-02-15 13:22 | XMS_ITS | Encounter Summary ---
Author Organization [facility] Address [address] [place] [address] Care Team Providers Care Seasonal Driver Name Role Phone Patricio Rojas MD Primary Care Provider Ghada vailable Encounter Details Date Type Department Care Team (Latest Contact Info) Description 07/01/2002 Outpatient Historical [facility] Chronic Pain [address] [place] [address] Shirley Mccauley, LESLIE [address] [facility] [address] [place] [phone] MYALGIA AND MYOSITIS NOS (Primary Dx) Social History Tobacco Use Types Packs/Day Years Used Date Smoking Tobacco: Never Assessed Sex and Gender Information Value Date Recorded Sex Assigned at Not on file 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
--- OUTSIDE RECORDS SUMMARY | 2025-02-15 13:22 | XMS_ITS | Continuity of Care Document ---
Author Organization ROMERO De Luna [facility], [place], [facility] ([facility]) Address [address] [place] [address] Care Team Providers Care Stave Log Cut Off Saw Operator Name Role Phone TRISHA PRO Primary Care Provider Assessment No assessment recorded. Plan of Treatment Reminders Order Date Submit Date Provider Last Modified By Organization Details Last Modified Time Details Appointments OFFICE VISIT 2024 09:20A Liliana PRO PA-C Not available Not available Not available Lab streptoco ccus group A Ag screen 2024 025 [facility] ([facility]), [address] [place], [address], 02/10/2025 15:35:53 Referral None recorded. Procedures None recorded. Surgeries None recorded. Imaging None recorded. Medication Orders fluticaso ne propionat e 50 mcg/actua tion nasal spray,moises pension 2024 025 [facility]/Pharmacy #[id number], [address], [address], 02/10/2025 15:40:25 cetirizin e 10 mg tablet 2024 025 [facility]/Pharmacy #[id number], [address], [address], 02/10/2025 15:40:26 Patient TargetsNo targets recorded. Patient InstructionsNo instructions recorded. Reason for Referral None Reported. Results Created Date Observation Date Name Description Value Unit Range Abnormal Flag Note LastModifiedBy Organization Detail LastModifiedTime 02/11/20 25 02/10/2025 strep tococ cus group A Ag scree n Strep negati ve Not Available [facility] ([facility]) [address] [place] [address], [phone], 02/10/2025 15:27:46 Result Notes None recorded. Problems Name Problem SNOMED Code Status Onset Date Resolution Date Notes Provider Name and Address Organization Details Recorded Time Anxiety state 318890191 Active 2022 ANXIETY AND DEPRESSION ; Recorded 04/23/2022 8:59AM by Delphine Schmitz RN, Office Visit; Promoted; acuity set as *; ANXIETY AND DEPRESSION ; Recorded 04/03/2020 8:13AM by Jordyn Wallace LPN, Annotation /Addendum; Promoted; acuity set as *; ; Start Date : 04/03/[address] [facility] 5 08:30:22 Gastroesop hageal reflux disease 972146971 Active 2022 GERD (GASTROESO PHAGEAL REFLUX DISEASE); Recorded 04/23/2022 8:59AM by Delphine Schmitz RN, Office Visit; Promoted; acuity set as *; JORDYN mariscal [facility] 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 08:30:47 Hyperlipid emia 35140633 Active 2022 HYPERLIPID EMIA; Recorded 04/23/2022 8:59AM by Delphine Schmitz RN, Office Visit; Promoted; acuity set as *; JORDYN WALLACE null, [facility] 5 08:30:50 Depressive disorder 78797362 Active 2022 DEPRESSION ; Recorded 04/23/2022 8:59AM by Delphine Schmitz RN, Office Visit; Promoted; acuity set as *; [facility] 5 08:30:25 Genuine stress incontinen ce 88821784 Active 2022 URINARY INCONTINEN CE, MALE, STRESS; Recorded 04/23/2022 8:59AM by Delphine Schmitz RN, Office Visit; Promoted; acuity set as *; [facility] 5 08:30:44 Insomnia 042722924 Active 2022 INSOMNIA; Recorded 04/23/2022 8:59AM by Delphine Schmitz RN, Office Visit; Promoted; acuity set as *; INSOMNIA, UNCONTROLL ED; Recorded 04/03/2020 8:13AM by Jordyn Wallace LPN, Annotation /Addendum; Promoted; acuity set as *; ; Start Date : 04/03/2020 [facility] 5 08:30:55 Erectile dysfunctio n 731556083 Active 2022 ERECTILE DYSFUNCTIO N; Recorded 04/23/2022 8:59AM by Delphine Schmitz RN, Office Visit; Promoted; acuity set as *; JORDYN mariscal [facility] 5 08:30:29 Problem Notes [...] Last Updated DateTime 182.88 cm 22.1 kg/m2 01987.2 6 g 98 [degF] 97 % 97 % 128 /min 132/68 mm[Hg] Yuridia Pisano [facility]LReagan 15:29:40 Social History Question Answer Notes LastModified by Organizat ion Details LastModified Time Tobacco Smoking Status Former Smoker Jen mariscal [facility] 10/06/2024 15:38:29 Are You Blind Or Do You Have Difficulty Seeing? No [email or web address] Information not available 06/30/2022 What Is Your Level Of Caffeine Consumption? Occasional [email or web address] Information not available 10/06/2024 Are You Deaf Or Do You Have Serious Difficulty Hearing? No [email or web address] Information not available 06/30/2022 Which Illicit Or Recreational Drugs Have You Used? Marijuana [email or web address] Information not available 10/06/2024 Have You Had Direct Contact, Or Contact During Intimacy, With Monkeypox Rash, Scabs, Or Body Fluids From A Person With Monkeypox? No [email or web address] Information not available 09/10/2022 What Was The Date Of Your Most Recent Tobacco Screening? 02/10/2025 [email or web address] Information not available 02/10/2025 What Is Your Current Pack Years? 20-29packyears [email or web address] Information not available 06/09/2024 What Is Your Relationship Status? Unknown [email or web address] Information not available 06/30/2022 At What Age Did You Start Smoking Tobacco? 20 [email or web address] Information not available 06/09/2024 How Much Tobacco Do You Smoke? No Information not available 10/06/2024 Has Tobacco Cessation Counseling Been Provided? No [email or web address] Information not available 06/09/2024 How Many Years Have You Smoked Tobacco? 20 [email or web address] Information not available 06/09/2024 Have You Recently Traveled Abroad? No [email or web address] Information not available 09/10/2022 Do You Have Difficulty Walking Or Climbing Stairs? No [email or web address] Information not available 06/30/2022 Sex: Unknown Functional Status Question Answer Note LastModified by Organizat ion Details LastModified Time Do you use any illicit or recreational drugs? Yes [email or web address] Information not available 10/06/2024 Do you or have you ever used any other forms of tobacco or nicotine? No Information not available 06/09/2024 What is your level of alcohol consumption? None [email or web address] Information not available 06/09/2024 Are you able to walk independently without assistance or assistive devices? YESWOREST [email or web address] Information not available 06/30/2022 Do you have difficulty doing errands alone? No [email or web address] Information not available 06/30/2022 Are you able to care for yourself independently? Yes Information not available 06/30/2022 Do you have difficulty dressing, bathing, grooming, or toileting? No [email or web address] Information not available 06/30/2022 Do you or have you ever used any nicotine-free cigarettes, vape, or chewing tobacco? No [email or web address] Information not available 06/09/2024 Mental Status Question Answer Note LastModified by Organization D etails LastModified Time Do you have difficulty concentrating, remembering or making decisions? No Information no t available 06/30/2022 Family History Nothing Reported. Medical History No medical history recorded. Immunizations Vaccine Type Date Status Note Provider Nam e and Address Organization Details Recorded Time Hep B, adolescent/high risk infant 8 completed Not Available [facility] 02/14/2025 14:48:39 Hep A, ped/adol, 2 dose 8 completed Not Available [facility] 02/14/2025 14:48:39 Hep A, ped/adol, 2 dose 8 completed Not Available [facility] 02/14/2025 14:48:39 Hep B, unspecified formulation 8 completed Not Available [facility] 02/14/2025 14:48:39 Hep B, unspecified formulation 9 completed Not Available [facility] 02/14/2025 14:48:39 Hep A, ped/adol, 2 dose 9 completed Not Available [facility] 02/14/2025 14:48:39 Tdap 5 completed Not Available [facility] 02/14/2025 14:48:39 Past Encounters Encounter ID Performer Location Encounter Start Date Encounter Closed Date Diagnosis/Indication Diagnosis SNOMED-CT Code Diagnosis ICD10 Code Diagnosis IMO Codes Diagnosis Note [id number] LESLIE PINEDA [facility] ([facility]) [address] [place] [phone] 02/10/2025 15:20:02 02/10/2025 15:47:57 Sore throat 044087102 J02.9 87372 Viral resp iratory infection 811838690 J98.8 B97.89 [id number] May use meds like zyrtec and fluticason [...] REPLACEMENT/ ADVANTAGE - PPO) [id number] Khris Kaba [id number] Khris Chantale Kaba 02/10/2025 2 [place] Khris Kaba [id number] Khris Kaba Notes Date Note Type Note Provider Name and Address Organization Details Recorded Time 02/10/2025 text/html ROS as noted in the HPI walk in ptPT has a sore throat for 3 days. Patient also states that he has some postnasal drip, fatigue, chills but no fever. Patient denies any known exposure to illness. BATSHEVA TODD, [facility] [address] [place], [address], [facility] 02/10/2025 15:41:00
--- OUTSIDE RECORDS SUMMARY | 2025-02-15 13:22 | XMS_ITS | Encounter Summary ---
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
--- OUTSIDE RECORDS SUMMARY | 2025-02-15 13:22 | XMS_ITS | Encounter Summary ---
Author Organization [facility] Address [address] [place] [address] Care Team Providers Care Oracle Scm Consultant Name Role Phone Patricio Rojas MD Primary Care Provider Ghada vailable Encounter Details Date Type Department Care Team (Latest Contact Info) Description 05/13/2002 Outpatient Historical [facility] [address] 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
--- OUTSIDE RECORDS SUMMARY | 2025-02-15 13:22 | XMS_ITS | Encounter Summary ---
Author Organization [facility] Address [address] [place] [address] Care Team Providers Care Modern Dancer Name Role Phone Patricio Rojas MD Primary Care Provider Ghada vailable Encounter Details Date Type Department Care Team (Latest Contact Info) Description 02/11/[address] [facility] [address] 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
--- OUTSIDE RECORDS SUMMARY | 2025-02-15 13:22 | XMS_ITS | Encounter Summary ---
Author Organization [facility] Address [address] [place]: [place] [address] Care Team Providers Care Duty Officer Name Role Phone Patricio Rojas MD Primary [...] on file Legal Sex Male 4:28 AM DRY CLIPPER TENDER Gender Identity Not on file Sexual Orientation Not on file documented as of this encounter Plan of Treatment Not on file documented as of this encounter Visit Diagnoses Not on filedocumented in this encounter Care Teams Duty Officer Relationship Specialty Start Date End Date Patricio Rojas MD NO ADDRESS ON FILE PCP - General 02/11/02 documented as of this encounter
--- OUTSIDE RECORDS SUMMARY | 2025-02-15 13:22 | XMS_ITS | Patient Health Record ---
Author Organization [employer] [facility] Address [address] [place] [address] Care Team Providers Care Demonstrator Sales Name Role Phone Leighton Bhardwaj Primary Care Provider LANDON Linda Unavailable [phone] Reason For Referral No Information Medications Medication SIG (Take, Route, Frequency, Duration) Notes Start Date End Date Status Ibuprofen 800 MG 1 tab(s) po q 8 hrs prn Oral; Duration: 30 Ibuprofen 800mg Tablet 1 tab(s) po q 8 hrs prn 02/06/2012 Active Problems Problem Type SNOMED Code ICD Code Onset Dates Problem Status W/U Status Risk Notes Problem Frequency of micturition (735413159) Frequency of micturition (R35.0) Active confirmed Problem Low back pain (293350016) Low back pain (724.2) 08/14/19 10 Active confirmed [id number]- Problem Wheezing (46452556) Wheezing (786.07) 07/08/19 09 Problem resolved confirmed [id number]- Problem Heartburn (02047357) Heartburn (787.1) 04/16/19 12 Problem resolved confirmed [id number]- Problem Dysphagia (28296326) Other dysphagia (787.29) 08/14/19 10 Problem resolved confirmed [id number]- Problem Urinary frequency (291511674) Urinary frequency (788.41) 10/29/19 12 Problem resolved confirmed [id number] 11- Problem Ear ache (726771447) Ear ache (388.71) 06/18/19 11 Problem resolved confirmed [id number]- Problem Tobacco dependence (07674713) Tobacco dependence (305.1) 12/18/19 10 Problem resolved confirmed [id number]- Problem Tobacco abuse (7645431972) Tobacco abuse (305.1) 09/15/19 09 Problem resolved confirmed [id number]- Problem Insomnia (461933700) Insomnia (307.41) 08/10/19 09 Problem resolved confirmed [id number]- Problem Shoulder pain (05371486) Shoulder pain (719.41) 04/03/20 10 Problem resolved confirmed [id number] 11- Problem Administration of vaccine product containing only Streptococcus pneumoniae antigen (procedure) (40435346) Vaccination against pneumococcal pneumonia (V03.82) 02/06/20 12 Problem resolved confirmed [id number]- Problem 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) Other abnormal laboratory result on blood (790.99) 07/20/19 09 Problem resolved confirmed [id number]- Problem Hereditary motor and sensory neuropathy (681687281) [place]-Gypp[place]-Y ooth disease (356.1) 01/09/20 11 Problem resolved confirmed [id number] 11- Problem Acute upper respiratory infection (37991974) Acute upper respiratory infection (465.8) 07/19/19 10 Problem resolved confirmed [id number] 11- Problem Muscle weakness (84751305) Muscle weakness (729.89) 09/15/19 09 Problem resolved confirmed [id number] 11- Problem Genital warts (922815573) Genital warts (078.11) 07/19/19 10 Problem resolved confirmed [id number] 11- Problem Acute otitis media (9988447) Acute otitis media (382.00) 05/30/19 12 Problem resolved confirmed [id number] 11- Problem Sore throat (166664527) Sore Throat (462) 10/12/19 10 Problem resolved confirmed [id number] 11- Problem Ankle pain (062799159) Ankle pain (719.47) 11/07/19 11 Problem resolved confirmed [id number] 11- Problem Chest pain (65698131) Chest pain (786.59) 04/30/19 12 Problem resolved confirmed [id number] 11- Problem Erectile dysfunction (924903142) Erectile dysfunction (302.72) 07/16/19 12 Problem resolved confirmed [id number] 11- Problem Acute sinusitis (90891380) Acute sinusitis (461.8) 09/09/19 09 Problem resolved confirmed [id number] 11- Problem Neck pain (72594598) Neck pain (723.1) 07/19/19 10 Problem resolved confirmed [id number] 11- Problem Vitamin D deficiency (02991743) Vitamin D deficiency (268.9) 07/20/19 09 Problem resolved confirmed [id number] 11- Problem Generalized anxiety disorder (01628383) Anxiety, generalized (300.02) 09/09/19 09 Problem resolved confirmed [id number] 11- Plan Of Treatment No Information Insurance Providers Payer Name Payer Address Payer Phone Subscriber Number Group Number Insured Name Patient Relationship to Insured Coverage Start Date Coverage End Date BCBS [place] [address] [place], [place] [id number] Khris Kaba Self - patient is the insured Medical (General) History Surgical History Surgery Date(Month/Year) NONE
--- OUTSIDE RECORDS SUMMARY | 2025-02-15 13:22 | XMS_ITS | Encounter Summary ---
Author Organization [facility] Address [address] [place] [address] Care Team Providers Care Nurse Head Name Role Phone Patricio Rojas MD Primary Care Provider Ghada vailable Encounter Details Date Type Department Care Team (Latest Contact Info) Description 05/13/2002 Outpatient Historical [facility] Chronic Pain [address] [place] [address] Shirley Mccauley, LESLIE [address] [facility] [address] [place] [phone] LUMBAGO (Primary Dx) Social History Tobacco Use Types Packs/Day Years Used Date Smoking Tobacco: Never Assessed Sex and Gender Information Value Date Recorded Sex Assigned at Not on file 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
--- OUTSIDE RECORDS SUMMARY | 2025-02-15 13:22 | XMS_ITS | Encounter Summary ---
Author Organization [facility] Address [address] [place] [address] Care Team Providers Care Citrix Systems Administrator Name Role Phone Patricio Rojas MD Primary Care Provider Ghada vailable Encounter Details Date Type Department Care Team (Latest Contact Info) Description 07/01/2002 Outpatient Historical [facility] Pain [facility] [address] 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
--- OUTSIDE RECORDS SUMMARY | 2025-02-15 13:22 | XMS_ITS | Data Portability ---
Author Organization ROMERO Brandon De Luna [facility], J CarlosLJ CarlosJ Carlos, [facility] Address [address] [address] Care Team Providers Care Mathematics Improvement Teacher Name Role Phone TRISHA PRO Primary Care Provider Assessment No assessment recorded. Plan of Treatment Reminders Order Date Submit Date Provider Last Modified By Organization Details Last Modified Time Details Appointments OFFICE VISIT 20 2024 09:20A Liliana PRO PA-C Not available Not available Not available Lab CMP, serum or plasma 2024 025 [facility], [address], [address], 02/14/2025 15:49:22 CBC 2024 025 [facility], [address], [address], 02/14/2025 15:08:24 uric acid, serum or plasma 2024 025 [facility], [address] [facility], [facility] [place], [address], 02/15/2025 09:54:02 ESR (erythroc yte sedimenta tion rate), blood 2024 025 [facility] ([facility] [address] [place], [address], 02/14/2025 16:13:36 C-reactiv e protein, quantitat myke, serum or plasma 2024 [facility] ([facility] [address] [place], [address], 02/15/2025 09:54:03 streptoco ccus group A Ag screen 2024 [facility] ([facility]), [address] [place], [address], 02/10/2025 15:35:53 Referral None recorded. Procedures None recorded. Surgeries None recorded. Imaging US, duplex, venous, lower extremity - [address] Rt Leg [address], [address] [place], [address], 02/14/2025 15:06:13 Medication Orders betametha sone acetate and sodium phos 6 mg/mL suspensio n for injection 2024 [email or web address] Not available 02/14/2025 14:02:40 clindamyc in HCl 300 mg capsule 2024 [id number] [address] [facility], [facility] [address], [address], 02/14/2025 13:12:19 fluticaso ne propionat e 50 mcg/actua tion nasal spray,moises pension 2024 [id number], [address] [facility], [facility], [place], [address], 02/10/2025 15:40:25 cetirizin e 10 mg tablet 2024 [id number], [address] [facility] [place], [facility] [place], [address], 02/10/2025 15:40:26 Patient TargetsNo targets recorded. Patient InstructionsNo instructions recorded. Reason for Referral None Reported. Results Created Date Observation Date Name Description Value Unit Range Abnormal Flag Note LastModifiedBy Organization Detail LastModifiedTime 02/11/2002/10/2025 strep tococ cus group A Ag scree n Strep negati ve Not Available [facility] ([facility]) [address] [place], [address], 02/10/2025 15:27:46 02/15/20 25 02/14/2025 CBC WBC 19.6 x10 4.5-10 .5 high Not Available [facility] [address] [facility] 1, [place], [address], 02/14/2025 15:08:24 02/15/20 25 02/14/2025 CBC RBC 4.89 x10 4.30-5 .90 Not Available [facility] [address] [facility], [place], [address], 02/14/2025 15:08:24 02/15/20 25 02/14/2025 CBC HGB 15.3 g/dL 13.5-1 8.0 Not Available [facility] [address] [facility] 1, [place], [address], 02/14/2025 15:08:24 02/15/20 25 02/14/2025 CBC HCT 46.3 % 35.0-6 0.0 Not Available [facility] [address] [facility] 1, [place], [address], 02/14/2025 15:08:24 02/15/20 25 02/14/2025 CBC MCV 94.7 fL 80.0-9 9.9 Not Available [facility] [address] [facility] 1, [place], [address], 02/14/2025 15:08:24 02/15/2028 0202/14/2025 CBC MCH 31.3 pg 27.0-3 2.0 Not Available [facility] [address] [facility], [place], [address], 02/14/2025 15:08:24 02/15/20 25 02/14/2025 CBC MCHC 33.1 g/dL 32.0-3 6.0 Not Available [facility] [address] [facility], [place], [address], 02/14/2025 15:08:24 02/15/20 25 02/14/2025 CBC RDW 12.7 % 11.5-1 4.5 Not Available [facility] [address] [facility], [place], [address], 02/14/2025 15:08:24 02/15/20 25 02/14/2025 CBC plt 399.2 x10 150.0- 451.0 Not Available [facility] [address] [place] [address] [facility] 1, [place], [address], 02/14/2025 15:08:24 02/15/20 25 02/14/2025 CBC lymphocytes % 10.0 % 20.0-5 0.0 low Not Available [facility] [address] [place] [facility], [place], [address], 02/14/2025 15:08:24 02/15/20 25 02/14/2025 CBC granulcytes % 81.1 % 30.0-7 0.0 high Not Available [facility] [address] [place] [address] [facility] 1, [place], [address], 02/14/2025 15:08:24 02/15/20 25 02/14/2025 CBC monocytes % 8.1 % 2.0-16 .0 Not Available [facility] [address] [facility], [place], [address], 02/14/2025 15:08:24 02/15/20 25 02/14/2025 CBC granulcytes# 15.9 x10 Not Carrol ilable [facility] [address] [facility], [place], [address], 02/14/2025 15:08:24 02/15/20 25 02/14/2025 CBC lymphocytes # 2.0 x10 Not Available [facility] [address] [address], [place], [address], 02/14/2025 15:08:24 02/15/20 25 02/14/2025 CBC monocytes # 1.6 x10 Not Avai lable [facility] [address] [address], [place], [address], 02/14/2025 15:08:24 02/15/20 25 02/14/2025 CMP (MALE ) glucose 116.0 mg/dL 60.0-9 9.0 high Not Available [facility] [address] [address], [place], [address], 02/14/2025 15:49:22 02/15/20 25 02/14/2025 CMP (MALE ) BUN (blood urea nitrogen) 21.0 mg/dL 10.0-2 6.0 Not Available [facility] [address] [address], [place], [address], 02/14/2025 15:49:22 02/15/20 25 02/14/2025 CMP (MALE ) creatinine (serum) 2.3 mg/dL 0.4-1. 5 high Not Available [facility] [address] [address], [place], [address], 02/14/2025 15:49:22 02/15/20 25 02/14/2025 CMP (MALE ) BUN/creatini ne ratio 9.13 ratio Not Available [facility] [address], [place], [address], 02/14/2025 15:49:22 02/15/20 25 02/14/2025 CMP (MALE ) eGFR calculated 33.0 Not Available [facility] [address] [facility], [place], [address], 02/14/2025 15:49:22 02/15/20 25 02/14/2025 CMP (MALE ) total protein 9.2 g/dL 6.0-8. 5 high Not Available [facility] [address] [place] [address] [facility] 1, [place], [address], 02/14/2025 15:49:22 02/15/20 25 02/14/2025 CMP (MALE ) total bilirubin 1.2 mg/dL 0.2-1. 3 Not Available [facility] [address] [place] [facility], [place], [address], 02/14/2025 15:49:22 02/15/20 25 02/14/2025 CMP (MALE ) albumin 4.1 g/dL 3.5-5. 5 Not Available [facility] [address] [facility], [place], [address], 02/14/2025 15:49:22 02/15/20 25 02/14/2025 CMP (MALE ) globulin 5.1 calc Not Available [facility] [address] [facility] 1, [place], [address], 02/14/2025 15:49:22 02/15/20 25 02/14/2025 CMP (MALE ) AST (SGOT) 38.0 U/L 0.0-46 .0 Not Available [facility] [address] [facility], [place], [address], 02/14/2025 15:49:22 02/15/20 25 02/14/2025 CMP (MALE ) altv (SGPT) 37.0 U/L 13.0-6 9.0 normal Not Available [place] [facility] [address] [place] [facility], [place], [address], 02/14/2025 15:49:22 02/15/20 25 02/14/2025 CMP (MALE ) A/G ratio 0.8 ratio Not Available [facility] [address] [facility] 1, [place], [address], 02/14/2025 15:49:22 02/15/20 25 02/14/2025 CMP (MALE ) ALP phos 176.0 U/L 30.0-1 40.0 abnormal Not Available [place] [facility] [address] [facility] 1, [place], [address], 02/14/2025 15:49:22 02/15/20 25 02/14/2025 CMP (MALE ) calcium 9.8 mg/dL 8.4-10 .5 Not Available [place] [facility] [address] [facility] 1, [place], [address], 02/14/2025 15:49:22 02/15/20 25 02/14/2025 CMP (MALE ) sodium 134.0 mmol/ L 136.0- 145.0 low Not Available [place] [facility] [address] [facility] 1, [place], [address], 02/14/2025 15:49:22 02/15/20 25 02/14/2025 CMP (MALE ) potassium 3.1 mmol/ L 3.5-5. 1 low Not Available [facility] [address] [facility] 1, [place], [address], 02/14/2025 15:49:22 02/15/20 25 02/14/2025 CMP (MALE ) chloride 89.0 mmol/ L 98.0-1 10.0 abnormal Not Available [facility] [address] [facility] 1, [place], [address], 02/14/2025 15:49:22 02/15/20 25 02/14/2025 CMP (MALE ) C02 32.0 mmol/ L 22.0-3 1.0 high Not Available [facility] [address] [place] [facility], [place], [address], 02/14/2025 15:49:22 02/15/20 25 02/14/2025 CMP (MALE ) anion gap 13.0 calc Not Available [facility] [address] [place] [facility], [place], [address], 02/14/2025 15:49:22 02/15/20 25 02/14/2025 CMP (MALE ) osmolality 280.8 calc Not Available [facility] [address] [place] [facility], [place], [address], 02/14/2025 15:49:22 02/15/20 25 02/14/2025 LIPID PROFI LE (MALE ) cholesterol 207.0 mg/dL 0.0-20 0.0 high Not Available [facility] [facility] [address] [place] [facility], [place], [address], 02/14/2025 15:49:24 02/15/20 25 02/14/2025 LIPID PROFI LE (MALE ) trig 229.0 mg/dL 0.0-15 0.0 high Not Available [facility] [address] [place] [address] [facility] 1, [place], [address], 02/14/2025 15:49:24 02/15/20 25 02/14/2025 LIPID PROFI LE (MALE ) HDL - direct 28.0 mg/dL >40.0 low Not Available [facility] susan [facility] [address] [place] [facility], [place], [address], 02/14/2025 15:49:24 02/15/20 25 02/14/2025 LIPID PROFI LE (MALE ) VLDL - direct 45.8 mg/dL Not Available [facility] [address] [facility] 1, [place], [address], 02/14/2025 15:49:24 02/15/20 25 02/14/2025 LIPID PROFI LE (MALE ) LDL - direct 133.2 mg/dL 0.0-13 0.0 high Not Available [facility] [address] [facility] 1, [place], [address], 02/14/2025 15:49:24 02/15/20 25 02/15/2025 URIC ACID uric acid 5.0 mg/dL 4.0-8. 0 normal Thera peuti c targe t for gout patie nts: <6.0 mg/dL Not Available [facility] [address] [place], [address], 02/15/2025 09:54:02 02/15/20 25 02/15/2025 C-JACKI CTIVE PROTE IN C-reactive protein 439.0 mg/L <8.0 high Verif ied by repea t elen sis. Not Available [facility] [address] [place], [address], 02/15/2025 09:54:03 02/15/20 25 02/14/2025 ESR (eryt hrocy te sedim entat ion rate) , blood SedRate 14 Not Available [facility] [address] [place], [address], 02/14/2025 12:50:39 10/11/19 25 10/06/2024 XR, elbow , 3 or more view No observ ation record ed. [email or web address] [facility] [address] [place], [address], 10/11/2024 09:01:35 Result Notes None recorded. Problems Name Problem SNOMED Code Status Onset Date Resolution Date Notes Provider Name and Address Organization Details Recorded Time Anxiety state 328555565 Active 2022 ANXIETY AND DEPRESSION ; Recorded 04/23/2022 8:59AM by Delphine Schmitz RN, Office Visit; Promoted; acuity set as *; ANXIETY AND DEPRESSION ; Recorded 04/03/2020 8:13AM by Jordyn Wallace LPN, Annotation /Addendum; Promoted; acuity set as *; ; Start Date : 04/03/2020 JORDYN mariscal [facility]CJ Carlos 5 08:30:22 Gastroesop hageal reflux disease 428230330 Active 2022 GERD (GASTROESO PHAGEAL REFLUX DISEASE); Recorded 04/23/2022 8:59AM by Delphine Schmitz RN, Office Visit; Promoted; acuity set as *; JORDYN mariscal [facility]CJ Carlos 5 08:30:38 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; Recorded 04/23/2022 8:59AM by Delphine Schmitz RN, Office Visit; Promoted; acuity set as *; JORDYN mariscal [facility]CJ Carlos 5 08:30:47 Hyperlipid emia 80650138 Active 2022 HYPERLIPID EMIA; Recorded 04/23/2022 8:59AM by Delphine Schmitz RN, Office Visit; Promoted; acuity set as *; JORDYN mariscal [facility]CJ Carlos 5 08:30:50 Depressive disorder 96157807 Active 2022 DEPRESSION ; Recorded 04/23/2022 8:59AM by Delphine Schmitz RN, Office Visit; Promoted; acuity set as *; JORDYN mariscal [facility]CJ Carlos 5 08:30:25 Genuine stress incontinen ce 01312024 Active 2022 URINARY INCONTINEN CE, MALE, STRESS; Recorded 04/23/2022 8:59AM by Delphine Schmitz RN, Office Visit; Promoted; acuity set as *; JORDYN mariscal [facility], [place] 5 08:30:44 Insomnia 174793079 Active 2022 INSOMNIA; Recorded 04/23/2022 8:59AM by Delphine Schmitz RN, Office Visit; Promoted; acuity set as *; INSOMNIA, UNCONTROLL ED; Recorded 04/03/2020 8:13AM by Jordyn Wallace LPN, Annotation /Addendum; Promoted; acuity set as *; ; Start Date : [facility]03[facility] 5 08:30:55 Erectile dysfunctio n 293290758 Active 2022 ERECTILE DYSFUNCTIO N; Recorded 04/23/2022 8:59AM by Delphine Schmitz RN, Office Visit; Promoted; acuity set as *; [facility] CarlosCJ Carlos 5 08:30:29 Problem Notes None recorded. [...] daily, as needed 02/10 completed Recorded 04/23/19 9:25AM by Leighton Bhardwaj DO, Office Visit; [...] tablet at bedtime 06/02 completed Recorded 02/06/20 1:05PM by Leighton Bhardwaj, , Refill Request; Refill Quantity : 30; Tablet; [...] Updated DateTime 5 182.88 cm 21.4 kg/m2 14245.5 9 g 97.4 [degF] 78 /min 97 % 97 % 124/78 mm[Hg] Jen [facility], L[facility]CJ Carlos 5 15:31:44 Date Recorded Body height Body mass index (BMI) Body weight Body temperature Respiratory rate Oxygen saturation Oxygen saturation in Arterial blood by Pulse oximetry Heart rate Systolic And Diastolic Provider Name and Address Organization Details Last Updated DateTime 5 182.88 cm 22 kg/m2 47379.9 6 g 97.8 [degF] 18 /min 97 % 97 % 76 /min 118/82 mm[Hg] JORDYN WALLACE [facility]CJ Carlos 5 13:47:46 Date Recorded Body height Body mass index (BMI) Body weight Body temperature Oxygen saturation Oxygen saturation in Arterial blood by Pulse oximetry Heart rate Systolic And Diastolic Provider Name and Address Organization Details Last Updated DateTime 5 182.88 cm 22.1 kg/m2 85864.2 6 g 98 [degF] 97 % 97 % 128 /min 132/68 mm[Hg] Yuridia Pisano [facility] 15:29:40 Date Recorded Body height Body mass index (BMI) Body weight Oxygen saturation Oxygen saturation in Arterial blood by Pulse oximetry Heart rate Respiratory rate Body temperature Systolic And Diastolic Provider Name and Address Organization Details Last Updated DateTime 5 182.88 cm 22.1 kg/m2 97010.5 6 g 98 % 98 % 100 /min 20 /min 98.6 [degF] 130/70 mm[Hg] JORDYN WALLACE [facility] 12:03:59 Social History Question Answer Notes LastModified by Organizat ion Details LastModified Time Tobacco Smoking Status Former Smoker Jen Marquez [facility] 10/06/2024 15:38:29 Are You Blind Or Do You Have Difficulty Seeing? No [email or web address] Information not available 06/30/2022 What Is Your Level Of Caffeine Consumption? Occasional Information not available 10/06/2024 Are You Deaf Or Do You Have Serious Difficulty Hearing? No [email or web address] Information not available 06/30/2022 Which Illicit Or Recreational Drugs Have You Used? Marijuana [email or web address] Information not available 10/06/2024 Have You Had Direct Contact, Or Contact During Intimacy, With Monkeypox Rash, Scabs, Or Body Fluids From A Person With Monkeypox? No [email or web address] Information not available 09/10/2022 What Was The Date Of Your Most Recent Tobacco Screening? 02/10/2025 [email or web address] Information not available 02/10/2025 What Is Your Current Pack Years? 20-29packyears [email or web address] Information not available 06/09/2024 What Is Your Relationship Status? Unknown [email or web address] Information not available 06/30/2022 At What Age Did You Start Smoking Tobacco? 20 [email or web address] Information not available 06/09/2024 How Much Tobacco Do You Smoke? No Information not available 10/06/2024 Has Tobacco Cessation Counseling Been Provided? No [email or web address] Information not available 06/09/2024 How Many Years Have You Smoked Tobacco? 20 [email or web address] Information not available 06/09/2024 Have You Recently Traveled Abroad? No [email or web address] Information not available 09/10/2022 Do You Have Difficulty Walking Or Climbing Stairs? No [email or web address] Information not available 06/30/2022 Sex: Unknown Functional Status Question Answer Note LastModified by Organizat ion Details LastModified Time Do you use any illicit or recreational drugs? Yes Information not available 10/06/2024 Do you or have you ever used any other forms of tobacco or nicotine? No [email or web address] Information not available 06/09/2024 What is your level of alcohol consumption? None [email or web address] Information not available 06/09/2024 Are you able to walk independently without assistance or assistive devices? YESWOREST [email or web address] Information not available 06/30/2022 Do you have difficulty doing errands alone? No [email or web address] Information not available 06/30/2022 Are you able to care for yourself independently? Yes Information not available 06/30/2022 Do you have difficulty dressing, bathing, grooming, or toileting? No Information not available 06/30/2022 Do you or [...] adolescent/high risk infant 8 completed Not Available [facility] 02/14/2025 14:48:39 Hep A, ped/adol, 2 dose 8 completed Not Available [facility] 02/14/2025 14:48:39 Hep A, ped/adol, 2 dose 8 completed Not Available [facility] 02/14/2025 14:48:39 Hep B, unspecified formulation 8 completed Not Available [facility] 02/14/2025 14:48:39 Hep B, unspecified formulation 9 completed Not Available [facility] 02/14/2025 14:48:39 Hep A, ped/adol, 2 dose 9 completed Not Available [facility] 02/14/2025 14:48:39 Tdap 5 completed Not Available [facility] 02/14/2025 14:48:39 Past Encounters Encounter ID Performer Location Encounter Start Date Encounter Closed Date Diagnosis/Indication Diagnosis SNOMED-CT Code Diagnosis ICD10 Code Diagnosis IMO Codes Diagnosis Note [id number] Leighton Bhardwaj DO [facility] ([facility] [address] [place] [address] 5 06/30/2022 14:35:06 06/30/2022 15:16:59 Hearing loss 36797865 H91.93 Increased frequency of urination 495523022 R35.0 [id number] Leighton Bhardwaj DO [facility] ([facility]) [address] [place], [place] [address] 09/10/2022 11:25:15 09/10/2022 14:52:53 Gjmrysk-Rpnoo-Iugbw disease, 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 and no fx seen some calcificat ion on the tricep tendonice. rest. stretches. [id number] TRISHA PRO PA-C [facility] ([facility]) [address] [place] [address] 5 12/13/2024 13:27:05 01/06/2025 17:52:38 Pain of left shoulder joint 3566810283 6768280 M25.512 541032 good rom. encouraged stretching and strengthen ing. heat. prn tyelonol/i buprofen [id number] LESLIE PINEDA [facility] ([facility]) [address] [place], [place] [address] 02/10/2025 15:20:02 02/10/2025 15:47:57 Sore throat 283179240 J02.9 16440 Viral resp iratory infection 993798724 J98.8 B97.89 [id number] May use meds like zyrtec and fluticason e nasal spray as needed for symptoms. Return to clinic with any new or worsening symptoms. [id number] TRISHA PRO PA-C [facility] ([facility]) [address] [place] [address] 5 02/14/2025 11:59:23 02/14/2025 13:15:14 Edema of right lower limb 537751247 R60.0 [id number] suspect DVT acute. need WILFRIDO venous doppler to R/o. 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 Differenti al includes acute DVT, gout, autoimmune monoarthro maricruz, septic joint. Will get u/s today and lab.Beteme thasaone started for gout and will send in antibiotic s.F/u in 2 days to recheck. to ER if pain or redness worsening. [id number] TRISHA PRO PA-C [facility] ([facility]) [address] [place] [address] 02/14/2025 14:48:08 02/14/2025 15:17:35 Health Concerns Section Related Observation LastModified by Organization Detai ls LastModified Time None Recorded Concern Status LastModified by Organization Details LastModified Time None Recorded Advance Directives Directive None Recorded Payers Insurance Date Sequence Insurance Name Policy Number Policy Waters Covered Member ID Waters Member ID Guarantor Name 02/10/2025 1 [place] - [place]PO) [id number] Khris Kenyon Kaba [id number] Khris L Kaba 02/10/2025 2 [place] Khris L Kaba [id number] Khris L Kaba 02/10/2025 [place] [facility] [place] Khris L Kaba [id number] Khris Kenyon Kaba Notes Date Note Type Note Provider Name and Address Organization Details Recorded Time 5 text/htm l This is a 44 year [...] 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 For severity, patient reportsworsening,interferes with sleep, andinterferes with work/school. For associated symptoms, patient reportsweak limbsbut reportsno fever,no tingling, andno incontinence. For location, patient reportsleft shoulder. For duration, patient reportspresent for 1-6 months. For timing, patient reportsconstant,pain at night, andgradual. For alleviating factors, patient reportsrestandchanging position. For aggravating factors, patient reportsmovement/positioninga ndbending over. For adls affected, patient reportssweeping,mopping,bath ing, anddressing. I have been on the duloxetine a long time and find myself getting more irritable does it need to be changed. TRISHA PRO PA-C [address] [place], [place], [id number], [facility] 01/06/2025 17:32:45 5 text/htm l [facility] Patient also states that he has some postnasal drip, fatigue, chills but no fever. Patient denies any known exposure to illness. LESLIE PINEDA [address] [place], [address], [facility] 02/10/2025 15:41:00 5 text/htm l Musculoskeletal PainReported by PatientHPIFor [...] urinating or pooping normally. er folllw up 02-07 cut on right arm needs stitch removal and on 11=9-25 for right leg redness and pain x ray showed no break, he wonders about a blood clot TRISHA PRO PA-C [address] [place], [address], [facility], [place] 02/14/2025 13:13:25
--- OUTSIDE RECORDS SUMMARY | 2025-02-15 13:23 | XMS_ITS | Clinical Summary ---
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
--- OUTSIDE RECORDS SUMMARY | 2025-02-15 13:23 | XMS_ITS | Encounter Summary ---
[facility] Address [address] [place] [address] Care Team Providers Care Fish Frog Or Oyster Farmer Name Role Phone Patricio Rojas MD Primary Care Provider Ghada vailable Encounter Details Date Type Department Care Team (Latest Contact Info) Description 06/04/2001 Outpatient Historical [facility] Thanh Candelaria MD [address] [place] [address] OTHER BACK SYMPTOMS (Primary Dx); Lumbosacral spondylosis; BACKACHE NOS Social History Tobacco Use Types Packs/Day Years Used Date Smoking Tobacco: Never Assessed Sex and Gender Information Value Date Recorded Sex Assigned at Not on file Legal Sex Male 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
--- OUTSIDE RECORDS SUMMARY | 2025-02-15 13:23 | XMS_ITS | Encounter Summary ---
Author Organization [facility] Address [address] [place] [address] Care Team Providers Care Police Artist Name Role Phone Patricio Rojas MD Primary Care Provider Ghada vailable Encounter Details Date Type Department Care Team (Late st Contact Info) Description 10/18/2001 Outpatient [facility] [address] 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
--- OUTSIDE RECORDS SUMMARY | 2025-02-15 13:23 | XMS_ITS | Patient Health Record ---
Author Organization [facility] Address [address] [place] [address] Care Team Providers Care Lifeguard Name Role Phone Bhardwaj Leighton AMADOR Primary Care Provider UnavailShadia Collins Unavailable [phone] Reason For Referral No Information Medications Medication [...] Status Risk Notes Problem Frequency of micturition (105431938) Frequency of micturition (R35.0) Active confirmed Problem Low back pain (159410652) Low back pain (724.2) 08/14/19 10 Active confirmed [id number]- Problem Wheezing (36182162) Wheezing (786.07) 07/08/19 09 Problem resolved confirmed [id number]- Problem Heartburn (92104972) Heartburn (787.1) 04/16/19 12 Problem resolved confirmed [id number]- Problem Dysphagia (97020643) Other dysphagia (787.29) 08/14/19 10 Problem resolved confirmed [id number]- Problem Urinary frequency (425209589) Urinary frequency (788.41) 10/29/19 12 Problem resolved confirmed [id number] 11- Problem Generalized anxiety disorder (14699651) Anxiety, generalized (300.02) 09/09/19 09 Problem resolved confirmed [id number] 11- Problem Neck pain (26465668) Neck pain (723.1) 07/19/19 10 Problem resolved confirmed [id number] 11- Problem Vitamin D deficiency (51282778) Vitamin D deficiency (268.9) 07/20/19 09 Problem resolved confirmed [id number] 11- Problem Muscle weakness (11984323) Muscle weakness (729.89) 09/15/19 09 Problem resolved confirmed [id number] 11- Problem Shoulder pain (29502491) Shoulder pain (719.41) 04/03/20 10 Problem resolved confirmed [id number] 11- Problem 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) Ixnvhqd-Lczkq-X ooth disease (356.1) 01/09/20 11 Problem resolved confirmed [id number] 11- Problem 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) Other abnormal laboratory result on blood (790.99) 07/20/19 09 Problem resolved confirmed [id number] 11- Problem Sore throat (667915806) Sore Throat (462) 10/12/19 10 Problem resolved confirmed [id number] 11- Problem Tobacco abuse (5474171544) Tobacco abuse (305.1) 09/15/19 09 Problem resolved confirmed [id number] 11- Problem Tobacco dependence (53807183) Tobacco dependence (305.1) 12/18/19 10 Problem resolved confirmed [id number] 11- Problem Ear ache (704199987) Ear ache (388.71) 06/18/19 11 Problem resolved confirmed [id number] 11- Problem Insomnia (962630008) Insomnia (307.41) 08/10/19 09 Problem resolved confirmed [id number] 11- Problem Acute upper respiratory infection (69060425) Acute upper respiratory infection (465.8) 07/19/19 10 Problem resolved confirmed [id number] 11- Problem Acute otitis media (0830806) Acute otitis media (382.00) 05/30/19 12 Problem resolved confirmed [id number] 11- Problem Acute sinusitis (76937259) Acute sinusitis (461.8) 09/09/19 09 Problem resolved confirmed [id number] 11- Problem Ankle pain (071176176) Ankle pain (719.47) 11/07/19 11 Problem resolved confirmed [id number] 11- Problem Chest pain (25119720) Chest pain (786.59) 04/30/19 12 Problem resolved confirmed [id number] 11- Problem Erectile dysfunction (003615066) Erectile dysfunction (302.72) 07/16/19 12 Problem resolved confirmed [id number] 11- Problem Administration of vaccine product containing only Streptococcus pneumoniae antigen (procedure) (42137782) Vaccination against pneumococcal pneumonia (V03.82) 02/06/20 12 Problem resolved confirmed [id number] 11- Problem Genital warts (418636052) Genital warts (078.11) 07/19/19 10 Problem resolved confirmed [id number] 11- Plan Of Treatment No Information Insurance Providers Payer Name Payer Address Payer Phone Subscriber Number Group Number Insured Name Patient Relationship to Insured Coverage Start Date Coverage End Date [employer] [place] [address] [place] [address] [id number] Khris Kaba Self - patient is the insured Medical (General) History Surgical History Surgery Date(Month/Year) NONE
--- OUTSIDE RECORDS SUMMARY | 2025-02-15 13:23 | XMS_ITS | Encounter Summary ---
Author Organization [facility] Address [address] 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
--- OUTSIDE RECORDS SUMMARY | 2025-02-15 13:23 | XMS_ITS | Encounter Summary ---
Author Organization [facility] Address [address] [place] [address] Care Team Providers Care Administrative Law Judge Name Role Phone Patricio Rojas MD Primary Care Provider Ghada vailable Encounter Details Date Type Department Care Team (Late st Contact Info) Description 09/24/2001 Outpatient [facility] [address] 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
--- OUTSIDE RECORDS SUMMARY | 2025-02-15 13:23 | XMS_ITS | Continuity of Care Document ---
Author Organization ROMERO - Brandon De Luna [facility] Dennis, Jena, [facility] ([facility]) Address [address] [place] [address] Care Team Providers Care Location Director Name Role Phone TRISHA PRO Primary Care Provider Assessment No assessment recorded. Plan of Treatment Reminders Order Date Submit Date Provider Last Modified By Organization Details Last Modified Time Details Appointments OFFICE VISIT 2024 09:20A M TRISHA PRO PA-C Not available Not available Not available Lab None recorded . Referral None recorded . Procedures None recorded . Surgeries None recorded . Imaging None recorded . Medication Orders None recorded . Patient TargetsNo targets recorded. Patient InstructionsNo instructions recorded. Reason for Referral None Reported. Results Created Date Observation Date Name Description Value Unit Range Abnormal Flag Note LastModifiedBy Organization Detail LastModifiedTime 02/11/20 25 02/10/2025 strep tococ cus group A Ag scree n Strep negati ve Not Available [facility]) [address] [place], [address], 02/10/2025 15:27:46 02/15/20 25 02/14/2025 CBC WBC 19.6 x10 4.5-10 .5 high Not Available [facility] [address] [facility] [address], [address], 02/14/2025 15:08:24 02/15/20 25 02/14/2025 CBC RBC 4.89 x10 4.30-5 .90 Not Available [facility] [address] [facility] [address], [address], 02/14/2025 15:08:24 02/15/20 25 02/14/2025 CBC HGB 15.3 g/dL 13.5-1 8.0 Not Available [facility] [address] [facility], [place], [address], 02/14/2025 15:08:24 02/15/20 25 02/14/2025 CBC HCT 46.3 % 35.0-6 0.0 Not Available [facility] [address] [facility], [place], [address], 02/14/2025 15:08:24 02/15/20 25 02/14/2025 CBC MCV 94.7 fL 80.0-9 9.9 Not Available [facility] [address] [facility], [place], [address], 02/14/2025 15:08:24 02/15/20 25 02/14/2025 CBC MCH 31.3 pg 27.0-3 2.0 Not Available [facility] [address] [facility] 1, [place], [address], 02/14/2025 15:08:24 02/15/20 25 02/14/2025 CBC MCHC 33.1 g/dL 32.0-3 6.0 Not Available [facility] [address] [facility] 1, [place], [address], 02/14/2025 15:08:24 02/15/20 25 02/14/2025 CBC RDW 12.7 % 11.5-1 4.5 Not Available [facility] [address] [facility] 1, [place], [address], 02/14/2025 15:08:24 02/15/20 25 02/14/2025 CBC plt 399.2 x10 150.0- 451.0 Not Available [facility] [address] [facility], [place], [address], 02/14/2025 15:08:24 02/15/20 25 02/14/2025 CBC lymphocytes % 10.0 % 20.0-5 0.0 low Not Available [facility] [address] [facility] [address], [place], [address], 02/14/2025 15:08:24 02/15/20 25 02/14/2025 CBC granulcytes % 81.1 % 30.0-7 0.0 high Not Available [facility] [address] [facility] [address], [place], [address], 02/14/2025 15:08:24 02/15/20 25 02/14/2025 CBC monocytes % 8.1 % 2.0-16 .0 Not Available [facility] [address] [address], [place], [address], 02/14/2025 15:08:24 02/15/20 25 02/14/2025 CBC granulcytes# 15.9 x10 Not Carrol ilable [facility] [address] [address], [place], [address], 02/14/2025 15:08:24 02/15/20 25 02/14/2025 CBC lymphocytes # 2.0 x10 Not Available [facility] [address] [address], [place], [address], 02/14/2025 15:08:24 02/15/20 25 02/14/2025 CBC monocytes # 1.6 x10 Not Avai lable [facility] [address] [address], [place], [address], 02/14/2025 15:08:24 02/15/20 25 02/14/2025 CMP (MALE ) glucose 116.0 mg/dL 60.0-9 9.0 high Not Available [facility] [address] [facility] [facility], [place], [address], 02/14/2025 15:49:22 02/15/20 25 02/14/2025 CMP (MALE ) BUN (blood urea nitrogen) 21.0 mg/dL 10.0-2 6.0 Not Available [facility] [address] [facility], [place], [address], 02/14/2025 15:49:22 02/15/20 25 02/14/2025 CMP (MALE ) creatinine (serum) 2.3 mg/dL 0.4-1. 5 high Not Available [facility] [address] [facility], [place], [address], 02/14/2025 15:49:22 02/15/20 25 02/14/2025 CMP (MALE ) BUN/creatini ne ratio 9.13 ratio Not Available [facility] [address] [facility], [place], [address], 02/14/2025 15:49:22 02/15/20 25 02/14/2025 CMP (MALE ) eGFR calculated 33.0 Not Available [facility] [address] [facility], [place], [address], 02/14/2025 15:49:22 02/15/20 25 02/14/2025 CMP (MALE ) total protein 9.2 g/dL 6.0-8. 5 high Not Available [facility] [address] [facility], [place], [address], 02/14/2025 15:49:22 02/15/20 25 02/14/2025 CMP (MALE ) total bilirubin 1.2 mg/dL 0.2-1. 3 Not Available [facility] [address] [facility], [place], [address], 02/14/2025 15:49:22 02/15/20 25 02/14/2025 CMP (MALE ) albumin 4.1 g/dL 3.5-5. 5 Not Available [facility] [address] [facility] [address], [place], [address], 02/14/2025 15:49:22 02/15/20 25 02/14/2025 CMP (MALE ) globulin 5.1 calc Not Available [facility] [address] [facility] [address], [place], [address], 02/14/2025 15:49:22 02/15/20 25 02/14/2025 CMP (MALE ) AST (SGOT) 38.0 U/L 0.0-46 .0 Not Available [facility] [address] [address], [place], [address], 02/14/2025 15:49:22 02/15/20 25 02/14/2025 CMP (MALE ) altv (SGPT) 37.0 U/L 13.0-6 9.0 normal Not Available [facility] [address] [facility] [address], [place], [address], 02/14/2025 15:49:22 02/15/20 25 02/14/2025 CMP (MALE ) A/G ratio 0.8 ratio Not Available [facility] [address] [facility] [address], [place], [address], 02/14/2025 15:49:22 02/15/20 25 02/14/2025 CMP (MALE ) ALP phos 176.0 U/L 30.0-1 40.0 abnormal Not Available [facility] [address] [facility] [address], [place], [address], 02/14/2025 15:49:22 02/15/20 25 02/14/2025 CMP (MALE ) calcium 9.8 mg/dL 8.4-10 .5 Not Available [facility] [address] [facility] [address], [place], [address], 02/14/2025 15:49:22 02/15/20 25 02/14/2025 CMP (MALE ) sodium 134.0 mmol/ L 136.0- 145.0 low Not Available [facility] [address] [facility] [address], [place], [address], 02/14/2025 15:49:22 02/15/20 25 02/14/2025 CMP (MALE ) potassium 3.1 mmol/ L 3.5-5. 1 low Not Available [facility] [address] [facility] [address], [place], [address], 02/14/2025 15:49:22 02/15/20 25 02/14/2025 CMP (MALE ) chloride 89.0 mmol/ L 98.0-1 10.0 abnormal Not Available [facility] [address] [facility] [address], [place], [address], 02/14/2025 15:49:22 02/15/20 25 02/14/2025 CMP (MALE ) C02 32.0 mmol/ L 22.0-3 1.0 high Not Available [facility] [address] [facility] [address], [place], [address], 02/14/2025 15:49:22 02/15/20 25 02/14/2025 CMP (MALE ) anion gap 13.0 calc Not Available [facility] [address] [facility] [address], [place], [address], 02/14/2025 15:49:22 02/15/20 25 02/14/2025 CMP (MALE ) osmolality 280.8 calc Not Available [facility] [address] [facility], [place], [address], 02/14/2025 15:49:22 02/15/20 25 02/14/2025 LIPID PROFI LE (MALE ) cholesterol 207.0 mg/dL 0.0-20 0.0 high Not Available [facility] [address] [facility] [address], [place], [address], 02/14/2025 15:49:24 02/15/20 25 02/14/2025 LIPID PROFI LE (MALE ) trig 229.0 mg/dL 0.0-15 0.0 high Not Available [facility] [address] [facility] [address], [place], [address], 02/14/2025 15:49:24 02/15/20 25 02/14/2025 LIPID PROFI LE (MALE ) HDL - direct 28.0 mg/dL >40.0 low Not Available [facility] [address] [facility] [address], [place], [address], 02/14/2025 15:49:24 02/15/20 25 02/14/2025 LIPID PROFI LE (MALE ) VLDL - direct 45.8 mg/dL Not Available [facility] [address] [facility] [address], [place], [address], 02/14/2025 15:49:24 02/15/20 25 02/14/2025 LIPID PROFI LE (MALE ) LDL - direct 133.2 mg/dL 0.0-13 0.0 high Not Available [facility] [address] [facility] [address], [place], [address], 02/14/2025 15:49:24 02/15/20 25 02/15/2025 URIC ACID uric acid 5.0 mg/dL 4.0-8. 0 normal Thera peuti c targe t for gout patie nts: <6.0 mg/dL Not Available [employer] [facility] [address] [facility] [place], [address], 02/15/2025 09:54:02 02/15/20 25 02/15/2025 C-JACKI CTIVE PROTE IN C-reactive protein 439.0 mg/L <8.0 high Verif ied by leesa myrick sis. Not Available [employer] [facility] [address] [place], [address], 02/15/2025 09:54:03 02/15/20 25 02/14/2025 ESR (eryt hrocy te sedim entat ion rate) , blood SedRate 14 Not Available [facility] ([facility]) [address] [place], [address], 02/14/2025 12:50:39 Result Notes None recorded. Problems Name Problem SNOMED Code Status Onset Date Resolution Date Notes Provider Name and Address Organization Details Recorded Time Anxiety state 914709861 Active 2022 ANXIETY AND DEPRESSION ; Recorded 04/23/2022 8:59AM by Delphine Schmitz RN, Office Visit; Promoted; acuity set as *; ANXIETY AND DEPRESSION ; Recorded 04/03/2020 8:13AM by Jordyn Wallace LPN, Annotation /Addendum; Promoted; acuity set as *; ; Start Date : 04/03/2020 JORDYN mariscal [facility] 5 08:30:22 Gastroesop hageal reflux disease 632741890 Active 2022 GERD (GASTROESO PHAGEAL REFLUX DISEASE); Recorded 04/23/2022 8:59AM by Delphine Schmitz RN, Office Visit; Promoted; acuity set as *; JORDYN mariscal [facility] 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; Recorded 04/23/2022 8:59AM by Delphine Schmitz RN, Office Visit; Promoted; acuity set as *; JORDYN mariscal [facility] 5 08:30:47 Hyperlipid emia 85495964 Active 2022 HYPERLIPID EMIA; Recorded 04/23/2022 8:59AM by Delphine Schmitz RN, Office Visit; Promoted; acuity set as *; [facility] 5 08:30:50 Depressive disorder 78412284 Active 2022 DEPRESSION ; Recorded 04/23/2022 8:59AM by Delphine Schmitz RN, Office Visit; Promoted; acuity set as *; [facility] [place] 5 08:30:25 Genuine stress incontinen ce 84881247 Active 2022 URINARY INCONTINEN CE, MALE, STRESS; Recorded 04/23/2022 8:59AM by Delphine Schmitz RN, Office Visit; Promoted; acuity set as *; [facility] [place] 5 08:30:44 Insomnia 060974771 Active 2022 INSOMNIA; Recorded 04/23/2022 8:59AM by Delphine Schmitz RN, Office Visit; Promoted; acuity set as *; INSOMNIA, UNCONTROLL ED; Recorded 04/03/2020 8:13AM by Jordyn Wallace LPN, Annotation /Addendum; Promoted; acuity set as *; ; Start Date : 04/03/2020 JORDYN mariscal [facility] 5 08:30:55 Erectile dysfunctio n 355756494 Active 2022 ERECTILE DYSFUNCTIO N; Recorded 04/23/2022 8:59AM by Delphine Schmitz RN, Office Visit; Promoted; acuity set as *; JORDYN mariscal [facility] 5 08:30:29 Problem Notes [...] Last Updated DateTime 182.88 cm 22.1 kg/m2 26010.5 6 g 98 % 98 % 100 /min 20 /min 98.6 [degF] 130/70 mm[Hg] JORDYN WALLACE [facility] 12:03:59 Social History Question Answer Notes LastModified by Organizat ion Details LastModified Time Tobacco Smoking Status Former Smoker Jen mariscal [facility] 10/06/2024 15:38:29 Are You Blind Or Do You Have Difficulty Seeing? No [email or web address] Information not available 06/30/2022 What Is Your Level Of Caffeine Consumption? Occasional [email or web address] Information not available 10/06/2024 Are You Deaf Or Do You Have Serious Difficulty Hearing? No [email or web address] Information not available 06/30/2022 Which Illicit Or Recreational Drugs Have You Used? Marijuana [email or web address] Information not available 10/06/2024 Have You Had Direct Contact, Or Contact During Intimacy, With Monkeypox Rash, Scabs, Or Body Fluids From A Person With Monkeypox? No [email or web address] Information not available 09/10/2022 What Was The Date Of Your Most Recent Tobacco Screening? 02/10/2025 [email or web address] Information not available 02/10/2025 What Is Your Current Pack Years? [email or web address] Information not available 06/09/2024 What Is Your Relationship Status? Unknown [email or web address] Information not available 06/30/2022 At What Age Did You Start Smoking Tobacco? 20 [email or web address] Information not available 06/09/2024 How Much Tobacco Do You Smoke? No [email or web address] Information not available 10/06/2024 Has Tobacco Cessation Counseling Been Provided? No Information not available 06/09/2024 How Many Years Have You Smoked Tobacco? 20 [email or web address] Information not available 06/09/2024 Have You Recently Traveled Abroad? No [email or web address] Information not available 09/10/2022 Do You Have Difficulty Walking Or Climbing Stairs? No [email or web address] Information not available 06/30/2022 Sex: Unknown Functional Status Question Answer Note LastModified by Organizat ion Details LastModified Time Do you use any illicit or recreational drugs? Yes [email or web address] Information not available 10/06/2024 Do you or have you ever used any other forms of tobacco or nicotine? No [email or web address] Information not available 06/09/2024 What is your level of alcohol consumption? None [email or web address] Information not available 06/09/2024 Are you able to walk independently without assistance or assistive devices? YESWOREST [email or web address] Information not available 06/30/2022 Do you have difficulty doing errands alone? No Information not available 06/30/2022 Are you able to care for yourself independently? Yes [email or web address] Information not available 06/30/2022 Do you have difficulty dressing, bathing, grooming, or toileting? No [email or web address] Information not available 06/30/2022 Do you or have you ever used any nicotine-free cigarettes, vape, or chewing tobacco? No [email or web address] Information not available 06/09/2024 Mental Status Question Answer Note LastModified by Organization D etails LastModified Time Do you have difficulty concentrating, remembering or making decisions? No [email or web address] Information no t available 06/30/2022 Family History Nothing Reported. Medical History No medical history recorded. Immunizations Vaccine Type Date Status Note Provider Nam e and Address Organization Details Recorded Time Hep B, adolescent/high risk infant 8 completed Not Available [facility] 02/14/2025 14:48:39 Hep A, ped/adol, 2 dose 8 completed Not Available [facility] 02/14/2025 14:48:39 Hep A, ped/adol, 2 dose 8 completed Not Available [facility] 02/14/2025 14:48:39 Hep B, unspecified formulation 8 completed Not Available [facility] 02/14/2025 14:48:39 Hep B, unspecified formulation 9 completed Not Available [facility] 02/14/2025 14:48:39 Hep A, ped/adol, 2 dose 9 completed Not Available [facility] 02/14/2025 14:48:39 Tdap 5 completed Not Available [facility] 02/14/2025 14:48:39 Past Encounters Encounter ID Performer Location Encounter Start Date Encounter Closed Date Diagnosis/Indication Diagnosis SNOMED-CT Code Diagnosis ICD10 Code Diagnosis IMO Codes Diagnosis Note [id number] LESLIE PINEDA [facility] ([facility]) [address] [place] [phone] 02/10/2025 15:20:02 02/10/2025 15:47:57 Sore throat 744287117 J02.9 55763 Viral resp iratory infection 059538751 J98.8 B97.89 9563727 May use meds like zyrtec and fluticason e nasal spray as needed for symptoms. Return to clinic with any new or worsening symptoms. [id number] TRISHA PRO PA-C [facility] ([facility]) [address] [place] [address] [phone] 02/14/2025 11:59:23 02/14/2025 13:15:14 Edema of right lower limb 451002991 R60.0 95434925 suspect DVT acute. need WILFRIDO venous doppler to R/o. Monoarthritis 521150816 M13.10 1688603 fx ruled out at er. Differenti al includes acute DVT, gout, autoimmune monoarthro maricruz, septic joint. Will get u/s today and lab.Beteme thasaone started for gout and will send in antibiotic s.F/u in 2 days to recheck. to ER if pain or redness worsening. [id number] TRISHA PRO PA-C [facility] ([facility]) [address] [place] [phone] 5 02/14/2025 14:48:08 02/14/2025 15:17:35 Health Concerns Section Related Observation LastModified by Organization Detai ls LastModified Time None Recorded Concern Status LastModified by Organization Details LastModified Time None Recorded Payers Encounter Date Sequence Insurance Name Policy Number Policy Waters Covered Member ID Waters Member ID Guarantor Name 02/14/2025 1 [place]ANT[place] - [place]PO) [id number] Khris Kaba [id number] Khris Kaba 02/14/2025 2 [place] Khris Kaba [id number] Khris Kaba Notes Date Note Type Note [...] a blood clot TRISHA PRO PA-C [address] [place], [address], [place] - [facility], [place] 02/14/2025 13:13:25
--- OUTSIDE RECORDS SUMMARY | 2025-02-15 13:23 | XMS_ITS | Encounter Summary ---
Author Organization [facility] Address [address] [place] [address] Care Team Providers Care Descriptive Catalog Librarian Name Role Phone Patricio Rojas MD Primary Care Provider Ghada vailable Encounter Details Date Type Department Care Team (Latest Contact Info) Description 04/23/2001 Outpatient Historical [facility] Thanh Candelaria MD [address] [place] [address] Lumbosacral spondylosis (Primary Dx); BACKACHE NOS Social History Tobacco Use Types Packs/Day Years Used Date Smoking Tobacco: Never Assessed Sex and Gender Information Value Date Recorded Sex Assigned at Not on file 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
--- OUTSIDE RECORDS SUMMARY | 2025-02-15 13:23 | XMS_ITS | Clinical Summary ---
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 Gender Identity Not on file Sexual Orientation Not on file Last Filed Vital Signs Vital Sign Reading Time Taken Comments Blood Pressure 132/83 03/05/2020 10:11 AM RIP TAILER Pulse 85 03/05/2020 10:11 AM RIP TAILER Temperature - - Respiratory Rate 18 12/22/2018 9:19 AM CDT Oxygen Saturation 98% 01/25/2019 9:31 AM CDT Inhaled Oxygen Concentration - - Weight 88 kg (194 lb) 03/05/2020 10:11 AM RIP TAILER Height 182.9 cm (6') 03/05/2020 10:11 AM RIP TAILER Body Mass Index 26.31 03/05/2020 10:11 AM RIP TAILER Plan of Treatment Health Maintenance Due Date Last Done Comments DTAP/TDAP/TD VACCINES (1 - Tdap) 06/16/1999 HPV VACCINES (1 - 3-dose SCD M series) 06/16/2007 INFLUENZA VACCINE (#1) 2024 HEPATITIS B VACCINES Completed 06/19/1998, 01/25/1998, 12/07/1997 Insurance [employer] [facility] [place] [place] Care Teams Sock Boarder Relationship Specialty Start Date End Date Patricio Rojas MD NO ADDRESS ON FILE PCP - General 02/11/02
--- OUTSIDE RECORDS SUMMARY | 2025-02-15 13:23 | XMS_ITS | Encounter Summary ---
Author Organization [facility] Address [address] 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
--- OUTSIDE RECORDS SUMMARY | 2025-02-15 13:23 | XMS_ITS | Encounter Summary ---
Author Organization [facility] Address [address] [place] [address] Care Team Providers Care Motor Operator Name Role Phone Patricio Rojas MD Primary Care Provider Ghada vailable Encounter Details Date Type Department Care Team (Latest Contact Info) Description 02/19/2001 Outpatient Historical [facility] Thanh Candelaria MD [address] [place] [address] Lumbosacral spondylosis (Primary Dx); BACKACHE NOS; Sprain lumbar region Social History Tobacco Use Types Packs/Day Years Used Date Smoking Tobacco: Never Assessed Sex and Gender Information Value Date Recorded Sex Assigned at Not on file 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
--- OUTSIDE RECORDS SUMMARY | 2025-02-15 13:23 | XMS_ITS | Encounter Summary ---
Author Organization [facility] Address [address] [place] [address] Care Team Providers Care Learning Support Aide Name Role Phone Patricio Rojas MD Primary Care Provider Ghada vailable Encounter Details Date Type Department Care Team (Latest Contact Info) Description 01/12/2001 Outpatient Historical [facility] Thanh Candelaria MD [address] [place] [address] Sprain lumbar region (Primary Dx); Backache, unspecified; Lumbosacral spondylosis; Peroneal muscle atrophy Social History Tobacco Use Types Packs/Day Years Used Date Smoking Tobacco: Never Assessed Sex and Gender Information Value Date Recorded Sex Assigned at Not on file 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
--- OUTSIDE RECORDS SUMMARY | 2025-02-15 13:23 | XMS_ITS | Encounter Summary ---
Author Organization [facility] Address [address] [place]: [place] [address] Care Team Providers Care Academic Dean Name Role Phone Patricio Rojas MD Primary [...] on file Legal Sex Male 4:28 AM LEAF [employer] Gender Identity Not on file Sexual Orientation Not on file documented as of this encounter Plan of Treatment Not on file documented as of this encounter Visit Diagnoses Not on filedocumented in this encounter Care Teams Academic Dean Relationship Specialty Start Date End Date Patricio Rojas MD NO ADDRESS ON FILE PCP - General 02/11/02 documented as of this encounter
--- NOTE | 2025-02-15 13:25 | CT_ITS ---
WS: [id number] CT RIGHT ANKLE, NONCONTRAST HISTORY: pain swelling Technique: All CT scans at [facility] use at least one of these dose optimization techniques: automated exposure control; mA and/or kV adjustment per patient size (includes targeted exams where dose is matched to clinical indication); or iterative reconstruction. DLP: 173.46 mGy.cm COMPARISON: Radiograph 02/12/2025. No acute fractures are identified. On the lateral projection there is mild anterior subluxation of the talus with respect to the tibia. This may be due to ligamentous laxity and may improve with patient upright. Slight flattening of the talar dome. No osteochondral lesions are identified. Mild flattening of the normal arch of the foot. No widening of the interosseous distance. There is soft tissue edema surrounding the ankle but greatest laterally. Peroneus tendons in the tendon sheath are normal course and caliber by CT. CT/CT ankle RT wo con* [id number] IMPRESSION: 1. No acute fracture identified. 2. Large amount of soft tissue edema along the lateral ankle. 3. Mild pes planus deformity. 4. Seen best on the sagittal imaging is mild anterior subluxation of the talus with respect to the tibia. This may indicate ligamentous laxity. Consider MRI evaluation RIGHT ankle without contrast. This can be done on nonurgent basis.
[2025-02-15 14:15] LABS: Hematocrit 40.8 % (37-53); Hemoglobin 13.80 g/dL (11.27-16.99); Mean Corpuscular HGB Conc 33.8 g/dL (30-55); Mean Corpuscular Hemoglobin 30.6 pg (27-33); Mean Corpuscular Volume 90.5 fl (82-101); Nucleated Red Blood Cells % 0 %; Platelet Count 397 10^3/cmm (157-399); Red Blood Count 4.51 10^6/uL (3.85-5.65); White Blood Count 20.29 10^3/uL (3.29-11.43)
--- NOTE | 2025-02-15 14:17 | W.ED.EXTPRO ---
HPI - Extremity Problem General: Chief complaint: Extremity Injury, Lower Stated complaint: Dr Nik Clayton ankle Pain and swelling feverish Time Seen by Provider: 02/15/25 13:49 History of Present Illness: 44-year-old male returns to the emergency room complaints of redness and swelling over the lateral portion of his right leg. 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 He was seen On 02/12/2025 with ankle pain after the jointed articulated when he was out of his brace when he stood up x-ray at that time was negative he followed up with his primary care doctor and has since then began to develop redness erythema and swelling. He has leukocytosis and a markedly elevated CRP as well he was directed to the emergency room by his primary care provider. He reports subjective fever at home. Associated symptoms: Deny chest pain, fever(s) or rash Related Data Home Medications ?Medication ?Instructions ?Recorded ?Confirmed duloxetine 30 mg capsule,delayed 30 mg PO BEDTIME 01/29/21 02/15/25 release ibuprofen 200 mg tablet 800 mg PO Q4H PRN Pain 01/29/21 02/15/25 Held on 02/18/25. Instructions: Resume on 03/07/25. Direction of PCP cetirizine 10 mg tablet 10 mg PO DAILY 02/15/25 02/15/25 duloxetine 60 mg capsule,delayed 60 mg PO DAILY 02/15/25 02/15/25 release fluticasone propionate 50 2 spray intranasal DAILY 02/15/25 02/15/25 mcg/actuation nasal spray,suspension omeprazole 20 mg capsule,delayed 20 mg PO DAILY 02/15/25 02/15/25 release Previous Rx's ?Medication ?Instructions ?Recorded Articulating AFO #2 ea 04/11/20 AFO bilaterally with shoes to fit #1 ea 07/30/22 ceftriaxone 2 gram solution for 2,000 mg IVP DAILY 14 days #14 ea 02/18/25 injection daptomycin 500 mg intravenous 600 mg IVP Q24H 14 days #14 ea 02/18/25 solution potassium chloride 20 mEq 10 meq (1/2 x 20 mEq) PO DAILY #30 02/18/25 tablet,extended tabs release(part/cryst) (Klor-Con M) Allergies Allergy/AdvReac Type Severity Reaction Status Date / Time No Known Allergies Allergy Verified 02/19/25 12:35 Review of Systems Const: Denies: fever(s) or chills Card: Denies: chest pain Resp: Denies: dyspnea GI: Denies: abdominal pain : Denies: dysuria, urinary frequency or urinary urgency Musc: Denies: neck pain or back pain Skin/Breast: Denies: rash PFSH ED PFSH: Medical History Atherosclerosis of coronary artery Coronary-myocardial bridge Obstructive sleep apnea Precordial chest pain Spinal cord stimulator status Depression Lumbar radiculopathy Hyperlipidemia Acquired bilateral foot drop Tplfbdw-Efyoc-Mnbza atrophy Surgical History H/O vasectomy Hx of appendectomy H/O arthroscopic knee surgery Family History Other CAD (coronary artery disease) Cancer Stroke Denies family history of Anesthesia complication Bleeding disorder Social History Smoking and tobacco/nicotine status: current every day tobacco/nicotine user (1 pk per day ) Alcohol intake: never Substance/Drug Use: current Physical Exam Const: GENERAL APPEARANCE: cooperative ORIENTATION/CONSCIOUSNESS: Yes awake, Yes oriented to person, Yes oriented to place and Yes oriented to time HENMT: COMMON NORMALS: normocephalic, atraumatic and hearing grossly normal bilaterally HEAD & SCALP: normocephalic and atraumatic Resp: COMMON NORMALS: normal respiratory effort, No retractions, No use of accessory muscles and clear to auscultation bilaterally AUSCULTATION: clear to auscultation bilaterally Cardio: COMMON NORMALS: regular rate, regular rhythm and No murmurs present (Cardio) RATE: regular rate RHYTHM: regular rhythm GI: COMMON NORMALS: Soft to palpation and No hepatosplenomegaly present AUSCULTATION: Yes normoactive bowel sounds PALPATION: Yes Soft to palpation, No Tenderness to palpation present (GI), No Guarding due to palpation present (GI) and Yes No hepatosplenomegaly present Extremity: OTHER: Lateral redness erythema swelling at the level of the ankle particularly laterally and with proximal lymphangitic spread Neuro: SENSORIUM/ORIENTATION: Yes oriented to person, Yes oriented to place and Yes oriented to time Skin: COMMON NORMALS: no rashes or lesions noted GENERAL SKIN EXAM: no rashes or lesions noted Course Vital Signs: Vital signs: Vital Signs Temperature 98.4 F 02/18/25 11:56 Pulse Rate 90 02/18/25 11:56 Respiratory Rate 17 02/18/25 11:56 Blood Pressure 111/69 02/18/25 11:56 Pulse Oximetry 97 02/18/25 11:56 Oxygen Delivery Me thod Room Air 02/18/25 11:11 Oxygen Flow Rate 10 02/16/25 10:26 MDM - Extremity (Nontraumatic) Medical Decision Making Patient shows signs of cellulitis White count of 20,000 with a left shift. His potassium is 2.8. Creatinine up to 1 8. Will admit for cellulitis with hypokalemia hypermagnesemia acute kidney injury. Lactic done today was 0.9 clinically does not not meet septic shock criteria. Blood cultures done and he was initiated on antibiotics. Discussed with hospitalist will admit consult podiatry. Dr. Santana is in the department has seen the patient is planning to do a aspiration of the joint is also anticipating likely surgical washout of the ankle in the morning. Discussed findings with the patient he is agreeable to plan. Medical Records I reviewed the patient's medical records. Lab Data I reviewed the patient's lab results. 02/18/25 07:29 02/18/25 07:[address] 02/15/25 13:25 IMPRESSION: 1. No acute fracture identified. 2. Large amount of soft tissue edema along the lateral ankle. 3. Mild pes planus deformity. 4. Seen best on the sagittal imaging is mild anterior subluxation of the talus with respect to the tibia. This may indicate ligamentous laxity. Consider MRI evaluation RIGHT ankle without contrast. This can be done on nonurgent basis. Laboratory Results WBC 20.29 10^3/uL (3.29-11.43) H 02/15/25 13:57 RBC 4.51 10^6/uL (3.85-5.65) 02/15/25 13:57 Hgb 13.80 g/dL (11.27-16.99) 02/15/25 13:57 Hct 40.8 % (37-53) 02/15/25 13:57 MCV 90.5 fl (82-101) 02/15/25 13:57 MCH 30.6 pg (27-33) 02/15/25 13:57 MCHC 33.8 g/dL (30-55) 02/15/25 13:57 RDW 12.1 % (12.1-15.1) 02/15/25 13:57 Plt Count 397 10^3/cmm (157-399) 02/15/25 13:57 MPV 10.8 fL (7.4-10.4) H 02/15/25 13:57 Neut % (Auto) 84.2 % 02/15/25 13:57 Lymph % (Auto) 8.3 % 02/15/25 13:57 [place] % (Auto) 5.9 % 02/15/25 13:57 Eos % (Auto) 0.0 % 02/15/25 13:57 Baso % (Auto) 0.2 % 02/15/25 13:57 Neut # (Auto) 17.08 10^3/uL (1.8-7.7) H 02/15/25 13:57 Lymph # (Auto) 1.7 10^3/uL (0.8-4.8) 02/15/25 13:57 [place] # (Auto) 1.2 10^3/uL (0.2-0.9) H 02/15/25 13:57 Eos # (Auto) 0.0 10^3/uL (0.0-0.8) 02/15/25 13:57 Baso # (Auto) 0.0 10^3/uL (0.0-0.1) 02/15/25 13:57 Nucleated RBC % (auto) 0 % 02/15/25 13:57 Nucleated RBCs # 0.0 /100WBC 02/15/25 13:57 Sodium 131 mmol/L (136-145) L 02/15/25 13:57 Potassium 2.8 mmol/L (3.5-5.1) L* 02/15/25 13:57 Chloride 87 mmol/L (98-107) L 02/15/25 13:57 Carbon Dioxide 25 mmol/L (22-29) 02/15/25 13:57 Anion Gap 21.8 (5-19) H 02/15/25 13:57 BUN 32 mg/dL (6-20) H 02/15/25 13:57 Creatinine 1.8 mg/dL (0.7-1.2) H 02/15/25 13:57 GFR Calculation 41.2 mL/min (90-130) L 02/15/25 13:57 Glucose 102 mg/dL (65-115) 02/15/25 13:57 Calculated Osmolality 279 mOsm/kg (285-295) L 02/15/25 13:57 Lactic Acid 0.9 mmol/L (0.5-2.2) 02/15/25 13:57 Calcium 9.4 mg/dL (8.5-10.5) 02/15/25 13:57 Magnesium 2.7 mg/dL (1.7-2.3) H 02/15/25 13:57 Total Bilirubin 0.5 mg/dL (0.15-1.2) 02/15/25 13:57 AST 91 U/L (0-40) H 02/15/25 13:57 ALT 76 U/L (0-41) H 02/15/25 13:57 Alkaline Phosphatase 216 U/L (40-130) H 02/15/25 13:57 C-Reactive Protein 335.6 mg/L (0.0-4.9) H 02/15/25 13:57 Total Protein 8.0 g/dL (6.6-8.7) 02/15/25 13:57 Albumin 3.2 g/dL (3.5-5.2) L 02/15/25 13:57 Globulin 4.8 g/dL (1.3-4.6) H 02/15/25 13:57 All radiology interpretation(s) finalized by discharge Discharge Plan Discharge Patient Disposition: Admitted As Inpatient Admit Provider: Jose A Malin Clinical Impression: Cellulitis of right ankle, PARIS (acute kidney injury), Acute hypokalemia, Hypermagnesemia Condition: Stable Coding Level of Care Code ED Print Graphic Designer for Latoya Garland
[2025-02-15 14:34] LABS: Lactic Sepsis W/Reflex 0.9 mmol/L (0.5-2.2)
[2025-02-15 14:35] LABS: Alanine Aminotransferase 76 U/L (0-41); Albumin Level 3.2 g/dL (3.5-5.2); Alkaline Phosphatase 216 U/L (40-130); Aspartate Amino Transferase 91 U/L (0-40); Blood Urea Nitrogen 32 mg/dL (6-20); Calcium 9.4 mg/dL (8.5-10.5); Carbon Dioxide 25 mmol/L (22-29); Chloride 87 mmol/L (98-107); Globulin 4.8 g/dL (1.3-4.6); Glucose 102 mg/dL (65-115); Osmolality Calculated 279 mOsm/kg (285-295); Sodium 131 mmol/L (136-145); Total Protein 8.0 g/dL (6.6-8.7)
[2025-02-15 14:45] LABS: Anion Gap 21.8 (5-19); Potassium 2.8 mmol/L (3.5-5.1)
[2025-02-15 15:17] LABS: Magnesium 2.7 mg/dL (1.7-2.3)
--- NOTE | 2025-02-15 15:41 | PM.CONSULT ---
Providers/Reason For Consult Consulting Physician/Specialty*: Dr. Stoney Santana, Monserrat.P.M./podiatry Reason for Consult*: Right lower extremity cellulitis Primary Care Provider: Jana Zaman History of Present Illness History of Present Illness Khris Kaba is a 44 year old male who presents to emergency department today worsening right ankle pain. Labs were drawn at [facility] today which showed CRP in excess of 300. Extreme pain to right lower extremity according to patient. Ankle has become red hot swollen and worsening. Podiatry was consulted to evaluate and provide treatment recommendations Review of Systems General: Reports: 10 or more systems reviewed and unremarkable except in HPI and below Const: Denies: fever(s), chills, body aches or change in appetite Eyes: Denies: change in vision or blurry vision Card: Denies: chest pain, palpitations or irregular heart rhythm Resp: Denies: dyspnea GI: Denies: abdominal pain, nausea, vomiting or diarrhea Musc: Reports: joint stiffness Skin/Breast: Reports: non-healing lesions and lesions Neuro: Reports: numbness in extremities Medications/Allergies Home Medications ?Medication ?Instructions ?Recorded ?Confirmed ?Last Taken ?Type Articulating AFO #2 ea 04/11/20 07/30/22 Unknown Rx duloxetine 30 mg capsule,delayed 30 mg PO BEDTIME 01/29/21 07/30/22 02/18/21 21:00 History release ibuprofen 200 mg tablet 600 mg PO Q4H PRN Pain 01/29/21 07/30/22 Unknown History AFO bilaterally with shoes to fit #1 ea 07/30/22 07/30/22 Unknown Rx cetirizine 10 mg tablet mg 02/15/25 Unknown History clindamycin HCl 300 mg capsule mg 02/15/25 Unknown History duloxetine 60 mg capsule,delayed 60 mg PO DAILY 02/15/25 02/15/25 02/14/25 20:00 History release fluticasone propionate 50 2 spray intranasal DAILY 02/15/25 02/15/25 Unknown History mcg/actuation nasal spray,suspension omeprazole 20 mg capsule,delayed 20 mg PO DAILY 02/15/25 02/15/25 02/14/25 History release Allergies Allergy/AdvReac Type Severity Reaction Status Date / Time No Known Allergies Allergy Verified 02/12/25 06:53 PFSH Acute PFSH: Medical History (Updated 02/15/25 @ 15:51 by Stoney Santana DPM) Atherosclerosis of coronary artery Coronary-myocardial bridge Obstructive sleep apnea Precordial chest pain Spinal cord stimulator status Depression Lumbar radiculopathy Hyperlipidemia Acquired bilateral foot drop Qoohwlp-Oywcr-Fjdte atrophy Surgical History H/O vasectomy Hx of appendectomy H/O arthroscopic knee surgery Family History Other CAD (coronary artery disease) Cancer Stroke Denies family history of Anesthesia complication Bleeding disorder Social History Smoking and tobacco/nicotine status: current every day tobacco/nicotine user (1 pk per day ) Alcohol intake: never Substance/Drug Use: current Vitals/I&O/Wt Last Vital Signs Temp 97.6 F 02/15/25 13:21 Pulse 72 02/15/25 13:21 Resp 16 02/15/25 13:21 BP 126/76 02/15/25 13:21 Pulse Ox 98 02/15/25 13:21 O2 Del Method Room Air 02/15/25 13:21 Weight last 48 hrs Weight 156 lb Physical Exam Narrative: BELOW IS A FOCUSED LOWER EXTREMITY EXAM GENERAL: A&O x 3 VASCULAR: DP/PT pulses palpable 2/4 with CFT intact, <3seconds to distal digits DERMATOLOGICAL: Skin turgor and temperature is within normal limits. No interdigital maceration noted. Erythema and edema to lateral aspect of right ankle. Underlying fluctuance to lateral aspect of right ankle overlying peroneal tendons. MUSCULOSKELETAL: Tenderness palpation of lateral aspect of right ankle. No pain with range of motion of ankle joint or with palpation of medial gutter of ankle joint. Focal tenderness retromalleolar area right ankle overlying the peroneal tendons at the level of the ankle joint. NEUROLOGICAL: Neurological sensation to the affected foot and ankle is present through L4-S1 dermatomes with no hyper/hypoesthesias, negative Tinel or Valleix's sign IMAGING: CT scan right ankle fails to demonstrate cortical erosions or signs of osteomyelitis. No fracture noted. No subcutaneous emphysema. Increase soft tissue edema to right lateral ankle Data 02/15/25 13:57 02/15/25 13:57 A&P Assessment and plan 1. Abscess of skin of right ankle: 2. Cellulitis of right ankle: Plan: - Right ankle cellulitis concern for underlying abscess and possible septic joint -Labs and vitals reviewed -WBC 20.29 -ESR N/A -CRP 335 -HR 72 -RR 16 -Tmax 97.6 -Cultures pending -Abx vancomycin received in ER. Recommend broad-spectrum antibiotics -Diet: N.p.o. at midnight for procedure 02/16/2025 -Consent was obtained right ankle was tapped in the ER using anteromedial portal. This failed to produce synovial fluid or purulence. Concern for septic joint lessened but still cannot rule out joint infection -Plan for incision drainage right ankle with possible arthroscopic washout tomorrow 02/16/2025 -Pain Mgmt: Per primary team -Weight bearing: Nonweightbearing to right lower extremity -Dressings: Band-Aid placed over ankle tap site -Continue current Abx therapy until ID and Sensitivity results -Trend labs -Discharge plan: To be determined -Podiatry will continue to round on patient daily and provide recommendations PDMP PDMP Reviewed: Not Reviewed Coding Level of Care Code Acute Code for Chg Fwd Diagnoses Abscess of skin of right ankle L02.415 Cellulitis of right ankle L03.115
--- NOTE | 2025-02-15 17:55 | PM.HP ---
Providers/Chief Complaint Admitting Physician: Jose A Malin MD Primary Care Provider: Jana Zaman Chief Complaint: Dr Nik Clayton ankle Pain and swelling feverish History of Present Illness Khris Kaba is a 44 year old male with prior medical history of HLD, ABBEY, cervical spinal cord injury, falls, lumbar radiculopathy, coronary myocardial bridge, spinal cord stimulator, atherosclerosis of coronary artery, appendectomy, knee surgery, Charcot Amrita tooth atrophy, contractures, angina, acquired hallux malleus of both feet, right ankle abscess and cellulitis, muscle atrophy bilateral lower legs, and bilateral foot drop presenting with complaints of leg pain. 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 This required a visit to [facility] that required a tetanus shot and three stitches. The next day, he felt flulike symptoms including fever, chills, sore throat making eat difficult to eat/swallow, malaise, and headache. On 02/09, he began having right foot and ankle pain & swelling that became progressively worse along with diffuse erythema. He came to this ED on 02/12/25 with fever and leg pain, discharged in stable condition with anti-inflammatories and direction to follow up with Podiatry. Today he was seen at [facility] where labs revealed a CRP greater than 300. He was advised to report to the ED for a higher level of care and he presented to [facility] ED. Ankle tapped, fluid aspirated upon arrival. In the ED, BP 124/78, HR 76, RR 17, O2 99, T97.7. WBC 20.29, Hgb 13.8, PLT 397. Potassium 2.8, sodium 131, chloride 87. BUN 32, creatinine 1.8. Glucose is 102. AST 91, ALT 76, ALP 216. CRP 335.6. Albumin 3.2. Ankle CT; no acute fracture, mild pes planus deformity, large amount of soft tissue edema along the lateral ankle, mild anterior subluxation of the talus with respect to the tibia this may indicate ligamentous laxity, see full results. Review of Systems General: Reports: 10 or more systems reviewed and unremarkable except in HPI and below Const: Reports: fever(s), chills, change in appetite, malaise and change in sleep pattern; Denies: body aches Eyes: Denies: change in vision or blurry vision Card: Denies: chest pain, palpitations or irregular heart rhythm Resp: Denies: dyspnea GI: Denies: abdominal pain, nausea, vomiting or diarrhea Musc: Reports: joint stiffness Skin/Breast: Reports: non-healing lesions and lesions Neuro: Reports: numbness in extremities Medications/Allergies Home Medications ?Medication ?Instructions ?Recorded ?Confirmed ?Last Taken ?Type Articulating AFO #2 ea 04/11/20 02/15/25 Unknown Rx duloxetine 30 mg capsule,delayed 30 mg PO BEDTIME 01/29/21 02/15/25 02/14/25 20:00 History release ibuprofen 200 mg tablet 800 mg PO Q4H PRN Pain 01/29/21 02/15/25 02/15/25 11:35 History AFO bilaterally with shoes to fit #1 ea 07/30/22 02/15/25 Unknown Rx cetirizine 10 mg tablet 10 mg PO DAILY 02/15/25 02/15/25 Unknown History clindamycin HCl 300 mg capsule 300 mg PO QID 02/15/25 02/15/25 02/15/25 09:00 History duloxetine 60 mg capsule,delayed 60 mg PO DAILY 02/15/25 02/15/25 02/14/25 20:00 History release fluticasone propionate 50 2 spray intranasal DAILY 02/15/25 02/15/25 Unknown History mcg/actuation nasal spray,suspension omeprazole 20 mg capsule,delayed 20 mg PO DAILY 02/15/25 02/15/25 02/14/25 History release Allergies Allergy/AdvReac Type Severity Reaction Status Date / Time No Known Allergies Allergy Verified 02/12/25 06:53 PFSH Acute PFSH: Medical History Atherosclerosis of coronary artery Coronary-myocardial bridge Obstructive sleep apnea Precordial chest pain Spinal cord stimulator status Depression Lumbar radiculopathy Hyperlipidemia Acquired bilateral foot drop Kwweajk-Ebrgj-Zmzok atrophy Surgical History H/O vasectomy Hx of appendectomy H/O arthroscopic knee surgery Family History Other CAD (coronary artery disease) Cancer Stroke Denies family history of Anesthesia complication Bleeding disorder Social History Smoking and tobacco/nicotine status: current every day tobacco/nicotine user (1 pk per day ) Alcohol intake: never Substance/Drug Use: current Vitals/I&O/Wt Last Vital Signs Temp 97.7 F 02/15/25 17:05 Pulse 76 02/15/25 17:05 Resp 17 02/15/25 17:05 BP 124/78 02/15/25 17:05 Pulse Ox 99 02/15/25 17:05 O2 Del Method Room Air 02/15/25 17:05 Weight last 48 hrs Weight 72.575 kg Weight 70.76 kg Physical Exam Const: COMMON NORMALS: no acute distress and patient oriented x3 HENMT: COMMON NORMALS: normocephalic Eye: COMMON NORMALS: Equal, round and reactive pupils present Resp: COMMON NORMALS: normal respiratory effort GI: COMMON NORMALS: Normal to inspection, nondistended, normoactive bowel sounds present Back/Pelvis: COMMON NORMALS: no CVA tenderness Extremity: GENERAL: Yes normal exam except as noted OTHER: Numbness, pain, swelling, erythema, warmth in right lower leg. Neuro: COMMON NORMALS: patient oriented x3 Psych: COMMON NORMALS: mental status grossly normal, Normal thought process present, cooperative and normal affect Data 02/15/25 13:57 02/15/25 13:57 A&P Assessment and plan 1. Septic arthritis of right foot, due to unspecified organism: Septic joint; right lower leg No noted vital abnormality at this time, afebrile WBC 20.29, PLT [address]; no acute fracture, mild pes planus deformity, large amount of soft tissue edema along the lateral ankle, mild anterior subluxation of the talus with respect to the tibia this may indicate ligamentous laxity, see full results Vancomycin Pain management Podiatry consulted, Dr. Santana, recommendations appreciated Aspiration in ED Intervention planning for tomorrow 02/16/2025 N.p.o. after midnight 2. Cellulitis of right ankle: With warmth, redness, tenderness, and swelling Antibiotics as above Trend labs Right leg images in chart, see ED provider note 02/15/25 3. [place] (acute kidney injury): Creatinine 1.8, BUN 32 Avoid nephrotoxic agents I&O IVF 4. 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 Nicotine use: Cessation education Nicotine patch 6. Charcot Amrita Tooth muscular atrophy: Brace to left leg Muscular atrophy Fall risk precautions PT/OT before DC PDMP PDMP Reviewed: Not Reviewed Attestations Medical Necessity Statement*: Continue hospitalization for greater than two nights for podiatry intervention and IV antibiotics. Diagnoses Septic arthritis of right foot, due to unspecified organism M00.9 Septic arthritis location: foot Septic arthritis organism: due to unspecified organism Laterality: right Cellulitis of right ankle L03.115 [place] (acute kidney injury) N17.9 Acute hypokalemia E87.6 Nicotine use Z72.0 Charcot Amrita Tooth muscular atrophy G60.0
[2025-02-15 18:22] LABS: Magnesium 2.7 mg/dL (1.7-2.3)
[2025-02-15 18:23] LABS: Lactic Sepsis W/Reflex 0.9 mmol/L (0.5-2.2)
[2025-02-15] MEDS: morphine 4 mg/mL SDV 1 mL IVP ×2 (18:25→22:22)
[2025-02-15] MEDS: potassium chloride premix 100 ML 25 MEQ IV (19:18)
[2025-02-16] VITALS (20 sets, daily range): BP systolic 103–152; BP diastolic 64–98; PULSE 74–120; RESP 13–20; TEMP 36.5–37.3; O2SAT 90–100
[2025-02-16] MEDS: morphine 4 mg/mL SDV 1 mL IVP ×4 (02:39→19:45)
[2025-02-16 06:02] LABS: Hematocrit 39.0 % (37-53); Hemoglobin 13.00 g/dL (11.27-16.99); Mean Corpuscular HGB Conc 33.3 g/dL (30-55); Mean Corpuscular Hemoglobin 30.4 pg (27-33); Mean Corpuscular Volume 91.3 fl (82-101); Nucleated Red Blood Cells % 0 %; Platelet Count 399 10^3/cmm (157-399); Red Blood Count 4.27 10^6/uL (3.85-5.65); White Blood Count 16.14 10^3/uL (3.29-11.43)
[2025-02-16 06:23] LABS: Anion Gap 17.3 (5-19); Blood Urea Nitrogen 17 mg/dL (6-20); Calcium 9.1 mg/dL (8.5-10.5); Carbon Dioxide 27 mmol/L (22-29); Chloride 97 mmol/L (98-107); Glucose 114 mg/dL (65-115); Osmolality Calculated 288 mOsm/kg (285-295); Potassium 3.3 mmol/L (3.5-5.1); Sodium 138 mmol/L (136-145)
--- NOTE | 2025-02-16 08:21 | PC.OT ---
OT EVALUATION ORDERS RECEIVED. PATIENT IS SCHEDULED FOR ANKLE I&D TODAY. HOLD EVALUATION UNTIL TOMORROW.
--- NOTE | 2025-02-16 08:49 | ANES.PREANE2 ---
Pre-Anesthetic Assessment Height/Weight: Height 1.83 m Weight 72.575 kg Temp Pulse Resp BP Pulse Ox O2 Del Method 98.3 F 82 18 151/89 96 Room Air 02/16/25 08:37 02/16/25 08:37 02/16/25 08:37 02/16/25 08:37 02/16/25 08:37 02/16/25 08:37 Operation Date: 02/16/25 09:15 Proposed Procedures p Right Ankle Incision And Drainage-Possible arthroscopic washout(Right) - Stoney Santana DPM Familial anesthetic complications: None Was Beta Sanaz taken within 24 hours: N/A Was Clonidine taken within 24 hours: N/A Last intake: Intake Last Liquid Date 02/15/25 Last Liquid Time 20:00 Last Solid Date 02/15/25 Last Solid Time 19:00 Social No alcohol and No tobacco Exam alert, oriented x 3, clear to auscultation bilaterally and regular rate & rhythm CV/HEM Coronary Bridge Diagnostic Cath Status: Elective Diagnostic Findings * Circumflex has mild luminal irregularities. It gives rise to a large sized OM branch that is free of significant disease. * Left Main: luminal irregularities, ostially has 20% stenosis, KRISTAL: 3 flow. * Mid Left Anterior Descending: mild 40% stenosis, KRISTAL: 3 flow. 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 It gives rise to a medium sized diagonal artery that has diffuse disease in it. * Right Coronary Artery has no disease. * Coronary angiography shows right dominance. Conclusions 1. Non obstructive coronary artery disease. 2. Normal left ventricular systolic function. Ejection fraction of 60%. Recommendations * Aggressive risk factor modification. * Outpatient cardiology follow up in 4 weeks. Diagnostic RX Recommendation: medical therapy and/or counseling Metabolic Hyperlipidemia Neuropsych thao potts Anesthetic Plan ASA status: 4 Anesthesia: General Risk of > 500 ml blood loss (7ml/kg in children): No Medications/Allergies Home Medications ?Medication ?Instructions ?Recorded ?Confirmed ?Last Taken ?Type Articulating AFO #2 ea 04/11/20 02/15/25 Unknown Rx duloxetine 30 mg capsule,delayed 30 mg PO BEDTIME 01/29/21 02/15/25 02/14/25 20:00 History release ibuprofen 200 mg tablet 800 mg PO Q4H PRN Pain 01/29/21 02/15/25 02/15/25 11:35 History AFO bilaterally with shoes to fit #1 ea 07/30/22 02/15/25 Unknown Rx cetirizine 10 mg tablet 10 mg PO DAILY 02/15/25 02/15/25 Unknown History clindamycin HCl 300 mg capsule 300 mg PO QID 02/15/25 02/15/25 02/15/25 09:00 History duloxetine 60 mg capsule,delayed 60 mg PO DAILY 02/15/25 02/15/25 02/14/25 20:00 History release fluticasone propionate 50 2 spray intranasal DAILY 02/15/25 02/15/25 Unknown History mcg/actuation nasal spray,suspension omeprazole 20 mg capsule,delayed 20 mg PO DAILY 02/15/25 02/15/25 02/14/25 History release Allergies Allergy/AdvReac Type Severity Reaction Status Date / Time No Known Allergies Allergy Verified 02/12/25 06:53 Current Medications Generic Name Dose Route Start Last Admin Trade Name Freq PRN Reason Stop Dose Admin Cetirizine HCl 10 mg 02/16/25 05:00 02/16/25 03:21 Cetirizine 10 Mg Tablet PO Not Given On Hold: 02/16/25 08:31 DAILY FREDRICK Comment: Order held by Process Transfer Duloxetine HCl 30 mg 02/15/25 21:00 02/15/25 20:30 Duloxetine 30 Mg Capsule PO 30 mg On Hold: 02/16/25 08:31 BEDTIME FREDRICK Administration Comment: Order held by Process Transfer Duloxetine HCl 60 mg 02/16/25 05:00 02/16/25 03:21 Duloxetine 60 Mg Capsule PO Not Given On Hold: 02/16/25 08:31 DAILY FREDRICK Comment: Order held by Process Transfer Fluticasone Propionate 2 spray 02/16/25 05:00 02/16/25 06:23 Fluticasone Nasal [place] 16gm Btl INTRANASAL Not Given On Hold: 02/16/25 08:31 DAILY FREDRICK Comment: Order held by Process Transfer Sodium Chloride 1,000 mls @ 100 mls/hr 02/15/25 16:38 02/16/25 03:24 Sodium Chloride 0.9% IV Not Given On Hold: 02/16/25 08:31 .Q10H FREDRICK Comment: Order held by Process Transfer Sodium Chloride 1,000 mls @ 75 mls/hr 02/15/25 17:15 02/16/25 06:25 Sodium Chloride 0.9% IV 75 mls/hr On Hold: 02/16/25 08:31 .[id number] FREDRICK Administration Comment: Order held by Process Transfer Vancomycin HCl 1,000 mg/ 250 mls @ 250 mls/hr 02/16/25 09:00 02/16/25 07:42 Sodium Chloride IV 250 mls/hr Q24H FREDRICK Administration Protocol Sodium Chloride 1,000 mls @ 30 mls/hr 02/16/25 08:45 02/16/25 08:43 Sodium Chloride 0.9% IV 30 mls/hr .Q24H FREDRICK Administration Morphine Sulfate 4 mg 02/15/25 17:10 02/16/25 06:22 Morphine 4 Mg/Ml Sdv 1 Ml IVP 4 mg On Hold: 02/16/25 08:31 Q4H PRN Administration Comment: Order held by Process SEVERE PAIN Transfer Pantoprazole Sodium 40 mg 02/16/25 05:00 02/16/25 03:[address] 40 Mg Tablet PO Not Given On Hold: 02/16/25 08:31 DAILY FREDRICK Comment: Order held by Process Transfer [facility] Anesthesia Medical History (Updated 02/15/25 @ 18:08 by NIXON Bailey, WELFARE ADVISER) Atherosclerosis of coronary artery Coronary-myocardial bridge Obstructive sleep apnea Precordial chest pain Spinal cord stimulator status Depression Lumbar radiculopathy Hyperlipidemia Acquired bilateral foot drop Fxckpoi-Pjsmo-Kjqvq atrophy Surgical History H/O vasectomy Hx of appendectomy H/O arthroscopic knee surgery Family History Other CAD (coronary artery disease) Cancer Stroke Denies family history of Anesthesia complication Bleeding disorder Social History Smoking and tobacco/nicotine status: current every day tobacco/nicotine user (1 pk per day ) Alcohol intake: never Substance/Drug Use: current Data Anesthesia 02/16/25 05:29 02/16/25 05:29 Short CBC 02/15/25 02/16/25 Range/Units 13:57 05:29 WBC 20.29 H 16.14 H (3.29-11.43) 10^3/uL Hgb 13.80 13.00 (11.27-16.99) g/dL Hct 40.8 39.0 (37-53) % MCV 90.5 91.3 (82-101) fl Plt Count 397 399 (157-399) 10^3/cmm Neut % (Auto) 84.2 79.4 % Neut # (Auto) 17.08 H 12.81 H (1.8-7.7) 10^3/uL BMP 02/15/25 02/16/25 13:57 05:29 Sodium 131 L 138 Potassium 2.8 L* 3.3 L Chloride 87 L 97 L Carbon Dioxide 25 27 BUN 32 H 17 Creatinine 1.8 H 0.7 Glucose 102 114 Calcium 9.4 9.1 Cardiac Enzymes 02/15/25 Range/Units 17:57 Creatine Kinase 58 (39-308) U/L Liver Function 02/15/25 Range/Units 13:57 Total Bilirubin 0.5 (0.15-1.2) mg/dL AST 91 H (0-40) U/L ALT 76 H (0-41) U/L Alkaline Phosphatase 216 H (40-130) U/L Albumin 3.2 L (3.5-5.2) g/dL Coags 02/15/25 13:57 C-Reactive Protein 335.6 H Cardiac Studies: Stress Echocardiogram 04/12/19
--- NOTE | 2025-02-16 09:00 | W.PM.OPSUD ---
Surgery/Procedure H&P Update DATE OF PROCEDURE: February 16, 2025 DATE H&P PERFORMED: 02/15/25 H&P UPDATE INFORMATION: I have reviewed H&P completed within last 30 days, I have examined patient prior to procedure, No changes to prior documentation, H&P is in [facility] EMR on date indicated and Risks and benefits of the procedure reviewed PLANNED PROCEDURE: Operation Date: 02/16/25 09:15 Proposed Procedures p Right Ankle Incision And Drainage-Possible arthroscopic washout(Right) - Stoney Santana DPM
[2025-02-16] MEDS: fentaNYL 50 mcg/mL INJ 2mL IVP (09:08)
[2025-02-16] MEDS: BUPivacaine 0.5% INJ 30 mL INJECTION (09:55)
--- NOTE | 2025-02-16 10:07 | PC.CHAP ---
Pastoral Care Encounter/Spiritual Assessment Type of Contact [] Declined tape deck installer visit [] Patient/Family/Request visit [] Outpatient visit [] Follow-up visit [] Physician referral [] Code/Alert [] Routine visit [] Staff referral [] Actively dying [] Patient sleeping [] Family support [] [x] Out of room [] Palliative care [] [] Receiving care in room [] Pre-surgical visit [] Trauma [] Long length of stay [] ICU visit [] Other: Relational/Emotional Strength [] Patient feels connected with others/family/visitors/staff [] Distress [] Loneliness/isolation [] Abandonment Spirituality of Patient [] Person of [place] [] Attends Mosque of their [place] [] Believes in Prayer [] Reads Bible or Synagogue materials [] There are Spiritual issues to be addressed Photonics Engineering Technician Interventions [] Prayer [] Active listening [] Non-anxious presence [] Spiritual/emotional support [] Crisis/trauma care [] Spiritual counseling [] Bereavement support [] Provided bereavement packet [] Provided Bible/devotional materials [] Provided toy/stuffed animal, coloring book to patient or family member [] Provided Communion [] Anointing/[place] [] Salvation [] Completed spiritual assessment [] Other: Impact on Illness or Injury [] Angry [] Fearful [] Anxious [] Often cries [] Exhaustion [] Unable to work [] Unable to attend latter day [] Unable to walk/stand [] Unable to read [] Unable to drive [] Unable to eat/drink [] Unable to sleep [] Unable to be with family [] Patient intubated [] Other: Summary Time spent with patient
--- NOTE | 2025-02-16 10:12 | W.PM.BPON ---
Date of procedure: 02/16/2025 Surgeon name: Alethea NunezPRosalina Golf Starter And Ranger(s) name(s): Ariel Procedure(s) performed: I&D right ankle Description of findings: Large abscess right ankle extra-articular. Did not extend into ankle joint Estimated blood loss: 10 cc Tourniquet time: No tourniquet used Specimen(s) removed: Cultures aerobic and anaerobic Post-operative diagnosis: Right ankle abscess
--- NOTE | 2025-02-16 10:15 | PM.OP ---
Operative Report Date of procedure: February 16, 2025 Surgeon: Stoney Santana DPM Procedure: Date of procedure: 02/16/2025 Pre-op diagnosis: Right ankle abscess Post-op diagnosis: Same Post-op findings: Large abscess extra-articular overlying peroneal tendons right ankle Procedure done: Incision and drainage right ankle CPT 48862 Implants: None Specimens removed: Cultures aerobic and anaerobic Surgeon: Dr. Stonye Santana DPM Driller Operator: Ariel Estimated blood loss: 10 cc Tourniquet time: No tourniquet used Complications: None The patient presents with a severe foot infection involving right ankle, characterized by erythema, swelling, and drainage. The infection is complicated by underlying conditions, including dropfoot, which have contributed to the progression of the infection despite conservative management. Preoperative imaging and laboratory results indicate abscess formation, necessitating surgical intervention. The planned procedure is intended to address the infection, debride necrotic tissue, and, if necessary, assess the viability of surrounding structures to prevent further complications. The patient has been NPO since midnight. The history has been reviewed and the history and physical is current. The signed consent was confirmed and placed in the patient chart. Patient imaging has been reviewed and is consistent with the diagnosis. Under mild sedation, the patient was brought into the operating room and placed on the table in the supine position. Patient is receiving antibiotics around the clock on the floor, Therefore, additional antibiotic prophylaxix was not administered. IV sedation was then performed by the anesthesiateam. A pneumatic tourniquet was then placed about the right thigh but was not inflated. The operative extremity was then prepped and draped in the usual fashion. After prep, the following procedure was then performed. Attention was directed to the lateral aspect of the right ankle where a large area of fluctuance was noted overlying the peroneal tendons. A 4.5 cm incision was made using a #15 blade. Upon incising there is an extravasation of purulence from this area. Cultures aerobic and anaerobic were taken and sent to micro for ID and sensitivity. The wound was explored and was noted to extend plantar and dorsal along the peroneal tendon sheath. This did not appear to violate the peroneal tendon sheath nor did it appear to violate the ankle joint capsule. Site was irrigated with copious amounts sterile saline. No residual abscess was noted. Attention was then directed to closure. Incision was closed using 3-0 nylon in horizontal mattress fashion. Central portion of the wound was packed with quarter inch iodoform packing gauze which will be pulled at a later date. Incision was dressed with Xeroform, 4 x 4 gauze, Kerlix, Jerzy. The patient tolerated the procedure and anesthesia well and without complication. The patient was transported from the operating room to the recovery room with vital signs stable and vascular status intact to all digits of the right foot. Thepatient was instructed to remain weightbearing as tolerated to the operative extremity, to keep surgical dressing clean, dry and intact. The patient will be transferred back to the floor once anesthesia criteria is met. I will continue to round on and follow the patient in the inpatientsetting and provide recommendations to stabilize the patient for discharge.
--- NOTE | 2025-02-16 10:45 | ANE.PACU2 ---
Inpatient post-anesthesia follow up: Airway intact: Yes Vital signs: Temperature 97.8 F Pulse Rate 90 Respiratory Rate 16 Blood Pressure 112/64 Pulse Oximetry 95 Oxygen Delivery Me thod Room Air Oxygen Flow Rate 10 Fraction of Inspir ed Oxygen Hydration adequate: Yes Nausea and vomiting: No Pain level: 1 Mental status: Baseline
--- NOTE | 2025-02-16 13:19 | P.PN_ITS ---
Subjective 2 Subjective: Patient is a very pleasant 44-year-old male seen and examined at bedside on hospital rounds today. Patient is status post right ankle washout with Dr. Santana. Patient's WBC 16.14 this morning, potassium 3.3 replenishing orally. Added Rocephin to vancomycin for continued IV management. Consulting ID for correction antibiotic management. Patient's vital signs are stable postoperatively. Patient states right ankle pain, denies any new or worsening symptoms currently. Will continue inpatient management, all questions and concerns addressed with the patient and his spouse at the bedside today. Vitals/I&O/Wt Last Vital Signs Temp 97.8 F 02/16/25 11:25 Pulse 90 02/16/25 11:25 Resp 16 02/16/25 12:10 BP 112/64 02/16/25 11:25 Pulse Ox 95 02/16/25 11:25 O2 Del Method Room Air 02/16/25 11:25 O2 Flow Rate 10 02/16/25 10:26 02/15/25 02/16/25 02/16/25 22:59 06:59 14:59 Intake Total 240 / 240 1355 / 1595 1677.5 / 1677.5 Output Total 850 / 850 10 / 10 Balance 240 / 240 505 / 745 1667.5 / 1667.5 Weight last 48 hrs Weight 72.575 kg Weight 72.575 kg Weight 70.76 kg Physical Exam 2 Const: COMMON NORMALS: no acute distress and patient oriented x3 HENMT: COMMON NORMALS: normocephalic HEAD & SCALP: normocephalic Eye: COMMON NORMALS: Equal, round and reactive pupils present PUPIL: Yes Equal, round and reactive pupils present Resp: COMMON NORMALS: normal respiratory effort GI: COMMON NORMALS: Normal to inspection, nondistended, normoactive bowel sounds present : COMMON NORMALS: Yes no CVA tenderness BLADDER/KIDNEY EXAM: Yes no CVA tenderness Back/Pelvis: COMMON NORMALS: no CVA tenderness Extremity: GENERAL: Yes normal exam except as noted OTHER: Numbness, pain, swelling, erythema, warmth in right lower leg. Muscle atrophy to bilateral lower extremities. Neuro: COMMON NORMALS: patient oriented x3 Psych: COMMON NORMALS: mental status grossly normal, Normal thought process present, cooperative and normal affect THOUGHT PROCESS: Normal thought process present Skin: OTHER: Surgical dressing right ankle, incision covered, c/d/i Data 02/16/25 05:29 02/16/25 05:29 Micro: Microbiology 02/16/25 10:14 Gram Stain - Final Ankle - #1 A&P Assessment and plan 1. Septic arthritis of right foot, due to unspecified organism: Septic joint, right ankle - WBC 20.29--<16.14 - CRP 335.6 - Ankle CT; no acute fracture, mild pes planus deformity, large amount of soft tissue edema along the lateral ankle, mild anterior subluxation of the talus with respect to the tibia this may indicate ligamentous laxity, see full results - Vancomycin and Rocephin - Multimodal pain control - Podiatry consulted, Dr. Santana - S/p right ankle washout 02/16/2025 2. Cellulitis of right ankle: With warmth, redness, tenderness, and swelling Antibiotics as above Trend labs Right leg images in chart, see ED provider note 02/15/25 3. [place] (acute kidney injury): Creatinine 1.8, BUN 32 Avoid nephrotoxic agents I&O IVF 4. 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 Nicotine use: Cessation education Nicotine patch 6. Charcot Amrita Tooth muscular atrophy: Brace to left leg Muscular atrophy Fall risk precautions PT/OT before DC Plan: 02/16/2025 Continue current interventions as above. Greatly appreciate infectious disease consultation and management with -blood cultures and wound cultures pending. Patient will need to remain inpatient, continue IV antibiotic therapy, and electrolyte management. Discharge indeterminate at this point. PDMP PDMP Reviewed: Not Reviewed Attestations 2 Medical Necessity Statement*: Continue hospitalization inpatient for greater than two nights for podiatry intervention, infectious disease consultation and management, IV antibiotics, and electrolyte management. Coding Level of Care Code 36288 Diagnoses Septic arthritis of right foot, due to unspecified organism M00.9 Laterality: right Septic arthritis location: foot Septic arthritis organism: due to unspecified organism Cellulitis of right ankle L03.115 [place] (acute kidney injury) N17.9 Acute hypokalemia E87.6 Nicotine use Z72.0 Charcot Amrita Tooth muscular atrophy G60.0
--- NOTE | 2025-02-16 14:23 | PM.CONSULT ---
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 He he felt a pop in the right ankle upon attempting to stand up. No history of direct trauma. No acute fracture was identified on this day. Symptoms were thought to be related to disturbed articulation, recommended to ice and use anti-inflammatories. Returned on 02/15/2025 with swelling around the right ankle which continued to worsen since 02/12. He was evaluated by podiatry with concern for right ankle cellulitis possible septic joint. WBC count noted to be at 20,000, CRP 335. He was started on IV vancomycin in the emergency room. Synovial fluid aspiration was attempted however fluid was unable to be obtained. He was afebrile but reports subjective chills. On 02/16/2025 he underwent I&D of the right ankle. A large extra-articular abscess was noted. No direct extension noted into the ankle joint. IV Rocephin was added this morning. No known history of gout or or other crystal arthropathy. Blood culture from 02/15/2025 pending thus far. OR cultures taken today remain pending additionally. Review of chart shows patient was in the emergency room on 02/07/2025 with a laceration of the right forearm related to Trauma from [facility]. Laceration was repaired in the ER. No antibiotics at the time. Patient states he had some swelling around the forearm but this eventually resolved Review of Systems General: Reports: 10 or more systems reviewed and unremarkable except in HPI and below Const: Denies: fever(s), chills or body aches Eyes: Denies: change in vision, blurry vision or photophobia ENMT: Reports: hoarseness; Denies: throat pain, enlarged tonsils, odynophagia or nasal congestion Card: Denies: chest pain, palpitations, irregular heart rhythm, edema, swelling of feet/ankles, lightheadedness, pre-syncope, dyspnea on exertion or orthopnea Resp: Denies: dyspnea, productive cough, non-productive cough, wheezing, stridor, pain on inspiration, change in phlegm color, hemoptysis or chest congestion GI: Denies: abdominal pain, nausea, vomiting, hematemesis, coffee ground emesis, dysphagia, heartburn, diarrhea, constipation, GI cramping, change in stool character, hematochezia or melena : Denies: flank pain, dysuria, urinary frequency, urinary urgency, urinary hesitancy or hematuria Musc: Denies: neck pain, back pain, extremity pain, joint swelling, joint warmth or deformity Neuro: Denies: headache(s), numbness in extremities, weakness in extremities, sensory changes, difficulty walking, frequent falls, dizziness, vertigo, behavioral changes, Slurred speech present or seizure-like activity Psych: Denies: anxiety, depression, suicidal ideation or homicidal ideation Endo: Denies: polyuria, polydipsia, tired all the time, cold intolerance or hot flashes Louie/Lymph: Denies: easy bruising or easy bleeding Medications/Allergies Home Medications ?Medication ?Instructions ?Recorded ?Confirmed ?Last Taken ?Type Articulating AFO #2 ea 04/11/20 02/15/25 Unknown Rx duloxetine 30 mg capsule,delayed 30 mg PO BEDTIME 01/29/21 02/15/25 02/14/25 20:00 History release ibuprofen 200 mg tablet 800 mg PO Q4H PRN Pain 01/29/21 02/15/25 02/15/25 11:35 History AFO bilaterally with shoes to fit #1 ea 07/30/22 02/15/25 Unknown Rx cetirizine 10 mg tablet 10 mg PO DAILY 02/15/25 02/15/25 Unknown History clindamycin HCl 300 mg capsule 300 mg PO QID 02/15/25 02/15/25 02/15/25 09:00 History duloxetine 60 mg capsule,delayed 60 mg PO DAILY 02/15/25 02/15/25 02/14/25 20:00 History release fluticasone propionate 50 2 spray intranasal DAILY 02/15/25 02/15/25 Unknown History mcg/actuation nasal spray,suspension omeprazole 20 mg capsule,delayed 20 mg PO DAILY 1102/15/25 02/14/25 History release Allergies Allergy/AdvReac Type Severity Reaction Status Date / Time No Known Allergies Allergy Verified 02/12/25 06:53 Current Medications Generic Name Dose Route Start Last Admin Trade Name Freq PRN Reason Stop Dose Admin Cetirizine HCl 10 mg 02/16/25 05:00 02/16/25 03:21 Cetirizine 10 Mg Tablet PO Not Given DAILY FREDRICK Duloxetine HCl 30 mg 02/15/25 21:00 02/15/25 20:30 Duloxetine 30 Mg Capsule PO 30 mg BEDTIME FREDRICK Administration Duloxetine HCl 60 mg 02/16/25 05:00 02/16/25 03:21 Duloxetine 60 Mg Capsule PO Not Given DAILY FREDRICK Fluticasone Propionate 2 spray 02/16/25 05:00 02/16/25 06:23 Fluticasone Nasal [place] 16gm Btl INTRANASAL Not Given DAILY FREDRICK Sodium Chloride 1,000 mls @ 100 mls/hr 02/15/25 16:38 02/16/25 12:08 Sodium Chloride 0.9% IV 100 mls/hr .Q10H FREDRICK Administration Sodium Chloride 1,000 mls @ 75 mls/hr 02/15/25 17:15 02/16/25 12:07 Sodium Chloride 0.9% IV 75 mls/hr .[id number] FREDRICK Administration Morphine Sulfate 4 mg 02/15/25 17:10 02/16/25 12:10 Morphine 4 Mg/Ml Sdv 1 Ml IVP 4 mg Q4H PRN Administration SEVERE PAIN Pantoprazole Sodium 40 mg 02/16/25 05:00 02/16/25 03:[address] 40 Mg Tablet PO Not Given DAILY FREDRICK PFSH Acute PFSH: Medical History Atherosclerosis of coronary artery Coronary-myocardial bridge Obstructive sleep apnea Precordial chest pain Spinal cord stimulator status Depression Lumbar radiculopathy Hyperlipidemia Acquired bilateral foot drop Zoedzky-Ijvkv-Iouyf atrophy Surgical History H/O vasectomy Hx of appendectomy H/O arthroscopic knee surgery Family History Other CAD (coronary artery disease) Cancer Stroke Denies family history of Anesthesia complication Bleeding disorder Social History Smoking and tobacco/nicotine status: current every day tobacco/nicotine user (1 pk per day ) Alcohol intake: never Substance/Drug Use: current Vitals/I&O/Wt Last Vital Signs Temp 97.8 F 02/16/25 11:25 Pulse 90 02/16/25 11:25 Resp 16 02/16/25 12:10 BP 112/64 02/16/25 11:25 Pulse Ox 95 02/16/25 11:25 O2 Del Method Room Air 02/16/25 11:25 O2 Flow Rate 10 02/16/25 10:26 02/15/25 02/16/25 02/16/25 22:59 06:59 14:59 Intake Total 240 / 240 1355 / 1595 1677.5 / 1677.5 Output Total 850 / 850 10 / 10 Balance 240 / 240 505 / 745 1667.5 / 1667.5 Weight last 48 hrs Weight 72.575 kg Weight 72.575 kg Weight 70.76 kg Physical Exam Narrative: General: No acute distress, AO x3 HEENT: PERRLA, pupils bilaterally equal and reactive, pallors not present Neuro: No focal deficits, no facial deformity, AO x3, power 5/5 in all limbs Extremities: post op dressing in place over right ankle Data 02/17/25 08:31 02/17/25 08:31 Other Labs: Radiology Impressions Ankle CT 02/15/25 13:25 IMPRESSION: 1. No acute fracture identified. 2. Large amount of soft tissue edema along the lateral ankle. 3. Mild pes planus deformity. 4. Seen best on the sagittal imaging is mild anterior subluxation of the talus with respect to the tibia. This may indicate ligamentous laxity. Consider MRI evaluation RIGHT ankle without contrast. This can be done on nonurgent basis. Laboratory Results WBC 16.14 10^3/uL (3.29-11.43) H 02/16/25 05:29 RBC 4.27 10^6/uL (3.85-5.65) 02/16/25 05:29 Hgb 13.00 g/dL (11.27-16.99) 02/16/25 05:29 Hct 39.0 % (37-53) 02/16/25 05:29 MCV 91.3 fl (82-101) 02/16/25 05:29 MCH 30.4 pg (27-33) 02/16/25 05:29 MCHC 33.3 g/dL (30-55) 02/16/25 05:29 RDW 12.3 % (12.1-15.1) 02/16/25 05:29 Plt Count 399 10^3/cmm (157-399) 02/16/25 05:29 MPV 10.0 fL (7.4-10.4) 02/16/25 05:29 Neut % (Auto) 79.4 % 02/16/25 05:29 Lymph % (Auto) 11.0 % 02/16/25 05:29 [place] % (Auto) 7.8 % 02/16/25 05:29 Eos % (Auto) 0.1 % 02/16/25 05:29 Baso % (Auto) 0.2 % 02/16/25 05:29 Neut # (Auto) 12.81 10^3/uL (1.8-7.7) H 02/16/25 05:29 Lymph # (Auto) 1.8 10^3/uL (0.8-4.8) 02/16/25 05:29 [place] # (Auto) 1.3 10^3/uL (0.2-0.9) H 02/16/25 05:29 Eos # (Auto) 0.0 10^3/uL (0.0-0.8) 02/16/25 05:29 Baso # (Auto) 0.0 10^3/uL (0.0-0.1) 02/16/25 05:29 Nucleated RBC % (auto) 0 % 02/16/25 05:29 Nucleated RBCs # 0.0 /100WBC 02/16/25 05:29 Sodium 138 mmol/L (136-145) 02/16/25 05:29 Potassium 3.3 mmol/L (3.5-5.1) L 02/16/25 05:29 Chloride 97 mmol/L (98-107) L 02/16/25 05:29 Carbon Dioxide 27 mmol/L (22-29) 02/16/25 05:29 Anion Gap 17.3 (5-19) 02/16/25 05:29 BUN 17 mg/dL (6-20) 02/16/25 05:29 Creatinine 0.7 mg/dL (0.7-1.2) 02/16/25 05:29 GFR Calculation 122.5 mL/min (90-130) 02/16/25 05:29 Glucose 114 mg/dL (65-115) 02/16/25 05:29 Calculated Osmolality 288 mOsm/kg (285-295) 02/16/25 05:29 Lactic Acid 0.9 mmol/L (0.5-2.2) 02/15/25 17:57 Calcium 9.1 mg/dL (8.5-10.5) 02/16/25 05:29 Magnesium 2.7 mg/dL (1.7-2.3) H 02/15/25 17:57 Total Bilirubin 0.5 mg/dL (0.15-1.2) 02/15/25 13:57 AST 91 U/L (0-40) H 02/15/25 13:57 ALT 76 U/L (0-41) H 02/15/25 13:57 Alkaline Phosphatase 216 U/L (40-130) H 02/15/25 13:57 Creatine Kinase 58 U/L (39-308) 02/15/25 17:57 C-Reactive Protein 335.6 mg/L (0.0-4.9) H 02/15/25 13:57 Total Protein 8.0 g/dL (6.6-8.7) 02/15/25 13:57 Albumin 3.2 g/dL (3.5-5.2) L 02/15/25 13:57 Globulin 4.8 g/dL (1.3-4.6) H 02/15/25 13:57 Micro: Microbiology 02/16/25 10:14 Gram Stain - Final Ankle - #1 NAME: Khris Kaba LOC: [facility] #: [id number] AGE/SX: 44/M ROOM: [facility] RE02/15/[address]: Xin Pryor : 1980 BED: 1 DIS: FAX #: STATUS: ADM IN TLOC: Spec #: [id number] Stewart: 02/16/254 Status: RES Req #: [id number] Recd: 02/16/[address]: Stoney Santana DPM Src: Ankle SpDesc: #1 Ordered: WC and GS, Anaer Comments: Comment RIGHT Procedure Result Verified Site Gram Stain Final 02/16/25 Result NO ORGANISMS SEEN FEW WHITE BLOOD CELLS Anaerobic Culture PENDING Wound Culture PENDING NAME: Khris Kaba LOC: [facility] U #: [id number] AGE/SX: 44/M ROOM: 272 RE02/15/[address]: Xin Pryor : 1980 BED: 1 DIS: FAX #: STATUS: ADM IN TLOC: Spec #: [id number] Stewart: 02/15/25 Status: RECD Req #: [id number] Recd: 02/15/[address]: Srinivasa Zepeda DO Src: Blood SpDesc: Ordered: Bcult Procedure Result Verified Site Bcult PENDING NAME: Khris Kaba Chantale LOC: [facility] U #: [id number] AGE/SX: 44/M ROOM: 272 RE02/15/[address]: Xin Pryor : 1980 BED: 1 DIS: FAX #: STATUS: ADM IN TLOC: Spec #: [id number] Stewart: 02/15/25 Status: RECD Req #: [id number] Recd: 02/15/[address]: Srinivasa Zepeda DO Src: Blood SpDesc: Ordered: Bcult Procedure Result Verified Site Bcult PENDING A&P Assessment and plan 1. Cellulitis of right ankle: 2. Abscess of skin of right ankle: Plan: 44-year-old male with Ruzfymo-Xjjiv-Ieujk disease currently admitted to the hospital with right ankle cellulitis and abscess. No history of direct penetrating trauma over the ankle. About a [place] prior to onset of symptoms, patient had penetrating trauma over the right forearm with some swelling which eventually healed. Currently blood cultures are negative, however transient bacteremia with seeding not excluded as a possibility to explain right ankle abscess. Status post I&D with podiatry in the operating room. All findings reviewed. Deep abscess encountered below the skin and subcutaneous tissue. Abscess did not track down to joint capsule or bone. There is no underlying hardware at the ankle previously. Unable to add crystal analysis as no fluid or pus is available in the lab to run crystals. Only microbiology swabs are available to run cultures currently. Will await results of blood cx and OR cx taken today to select abx at discharge For now continue iv ceftriaxone and iv vancomycin If blood cx remains negative, will likely plan on 2 weeks of iv abx for deep abscess PDMP PDMP Reviewed: Not Reviewed Consult Attestations Medical Necessity Statement: per admitting Coding Level of Care Code Acute Code for [facility] Fwd Diagnoses Cellulitis of right ankle L03.115 Abscess of skin of right ankle L02.415
[2025-02-16 22:01] LABS: MRSA PCR OZH (swab) NOT DETECTED (Negative)
[2025-02-16 22:57] LABS: Neisseria Gonorrhea NOT DETECTED (Negative)
[2025-02-17] VITALS (10 sets, daily range): BP systolic 107–152; BP diastolic 61–82; PULSE 70–101; RESP 15–18; TEMP 36.6–38; O2SAT 95–97
[2025-02-17] MEDS: morphine 4 mg/mL SDV 1 mL IVP ×4 (05:27→20:42)
--- NOTE | 2025-02-17 07:53 | P.PN_ITS ---
Subjective 2 Subjective: Patient is a very pleasant 44-year-old male seen and examined on hospital rounds this morning. Patient sitting up in bed stating he has right ankle pain, but denies new or worsening symptoms. Spoke with infectious disease , patient will have PICC line placed today and she will place orders in for outpatient IV antibiotic therapy to continue for 2 weeks. Vital signs remained stable, patient will have repeat labs outpatient to continue to monitor kidney functions. Expect discharge within the next 24 hours if we can get everything set up through case management, greatly appreciate case management and discharge planning. Vitals/I&O/Wt Last Vital Signs Temp 98.3 F 02/17/25 04:00 Pulse 78 02/17/25 04:00 Resp 18 02/17/25 05:27 BP 107/61 02/17/25 04:00 Pulse Ox 96 02/17/25 05:27 O2 Del Method Room Air 02/17/25 04:00 O2 Flow Rate 10 02/16/25 10:26 02/16/25 02/17/25 02/17/25 22:59 06:59 14:59 Intake Total 1370 / 3047.5 1670 / 4717.5 Output Total 550 / 1860 Balance 1370 / 1737.5 1120 / 2857.5 Weight last 48 hrs Weight 72.575 kg Weight 72.575 kg Weight 72.575 kg Weight 70.76 kg Physical Exam 2 Const: COMMON NORMALS: no acute distress and patient oriented x3 HENMT: COMMON NORMALS: normocephalic HEAD & SCALP: normocephalic Eye: COMMON NORMALS: Equal, round and reactive pupils present PUPIL: Yes Equal, round and reactive pupils present Resp: COMMON NORMALS: normal respiratory effort GI: COMMON NORMALS: Normal to inspection, nondistended, normoactive bowel sounds present : COMMON NORMALS: Yes no CVA tenderness BLADDER/KIDNEY EXAM: Yes no CVA tenderness Back/Pelvis: COMMON NORMALS: no CVA tenderness Extremity: GENERAL: Yes normal exam except as noted OTHER: Numbness, pain, swelling, erythema, warmth in right lower leg. Muscle atrophy to bilateral lower extremities. Neuro: COMMON NORMALS: patient oriented x3 Psych: COMMON NORMALS: mental status grossly normal, Normal thought process present, cooperative and normal affect THOUGHT PROCESS: Normal thought process present Skin: OTHER: Surgical dressing right ankle, incision covered, c/d/i Data 02/17/25 08:31 02/17/25 08:31 Micro: Microbiology 02/16/25 10:14 Gram Stain - Final Ankle - #1 A&P Assessment and plan 1. Cellulitis of right ankle: - WBC 20.29--<16.14--<13.53 - CRP 335.6 - Ankle CT; no acute fracture, mild pes planus deformity, large amount of soft tissue edema along the lateral ankle, mild anterior subluxation of the talus with respect to the tibia this may indicate ligamentous laxity, see full results - Vancomycin and Rocephin - Multimodal pain control - Greatly appreciate podiatry consultation and management with Dr. Santana - S/p right ankle washout 02/16/2025 - Greatly appreciate infectious disease consultation and management with - Pending PICC placement 2. [place] (acute kidney injury): Resolved Creatinine 1.8, BUN 32, now Cr 0.7, BUN 10 Avoid nephrotoxic agents I&O IVF 3. Acute hypokalemia: Potassium 2.8--<3.3--<3.3 [employer] CMP 4. 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 Patient is consulted by infectious disease who states that the patient will most likely discharge on IV antibiotics Rocephin and daptomycin depending on culture results. Patient will need weekly CBC, CMP, CPK while on IV antibiotics. Patient is pending PICC line today, anticipate discharge within the next 24 hours. Greatly appreciate case management and discharge planning and coordination of IV antibiotics at home. 02/16/2025 Continue current interventions as above. Greatly appreciate infectious disease consultation and management with -blood cultures and wound cultures pending. Patient will need to remain inpatient, continue IV antibiotic therapy, and electrolyte management. Discharge indeterminate at this point. PDMP PDMP Reviewed: Not Reviewed Attestations 2 Medical Necessity Statement*: Continue hospitalization inpatient for greater than two nights for podiatry intervention, infectious disease consultation and management, IV antibiotics, and electrolyte management. Coding Level of Care Code 88131 Diagnoses Cellulitis of right ankle L03.115 [place] (acute kidney injury) N17.9 Acute hypokalemia E87.6 Nicotine use Z72.0 Charcot Amrita Tooth muscular atrophy G60.0
[2025-02-17 08:49] LABS: Hematocrit 36.3 % (37-53); Hemoglobin 11.90 g/dL (11.27-16.99); Mean Corpuscular HGB Conc 32.8 g/dL (30-55); Mean Corpuscular Hemoglobin 31.2 pg (27-33); Mean Corpuscular Volume 95.0 fl (82-101); Nucleated Red Blood Cells % 0 %; Platelet Count 344 10^3/cmm (157-399); Red Blood Count 3.82 10^6/uL (3.85-5.65); White Blood Count 13.53 10^3/uL (3.29-11.43)
--- NOTE | 2025-02-17 08:52 | P.PN_ITS ---
Subjective 2 Subjective: Patient seen at bedside this morning Vitals/I&O/Wt Last Vital Signs Temp 98 F 02/17/25 07:56 Pulse 70 02/17/25 07:56 Resp 16 02/17/25 07:56 BP 146/76 02/17/25 07:56 Pulse Ox 95 02/17/25 07:56 O2 Del Method Room Air 02/17/25 07:56 O2 Flow Rate 10 02/16/25 10:26 02/16/25 02/17/25 02/17/25 22:59 06:59 14:59 Intake Total 1370 / 3047.5 1670 / 4717.5 Output Total 550 / 1860 Balance 1370 / 1737.5 1120 / 2857.5 Weight last 48 hrs Weight 160 lb Weight 160 lb Weight 160 lb Weight 156 lb Physical Exam 2 Narrative: BELOW IS A FOCUSED LOWER EXTREMITY EXAM GENERAL: A&O x 3 VASCULAR: DP/PT pulses palpable 2/4 with CFT intact, <3seconds to distal digits DERMATOLOGICAL: Right ankle incision coapted with sutures intact packing pulled erythema and edema significantly improved today in comparison to yesterday. No active drainage no underlying fluctuance. MUSCULOSKELETAL: Tenderness palpation of lateral aspect of right ankle. No pain with range of motion of ankle joint or with palpation of medial gutter of ankle joint. Point tenderness to retromalleolar area has resolved NEUROLOGICAL: Neurological sensation to the affected foot and ankle is present through L4-S1 dermatomes with no hyper/hypoesthesias, negative Tinel or Valleix's sign IMAGING: CT scan right ankle fails to demonstrate cortical erosions or signs of osteomyelitis. No fracture noted. No subcutaneous emphysema. Increase soft tissue edema to right lateral ankle Data 02/17/25 08:31 02/16/25 05:29 Micro: Microbiology 02/16/25 10:14 Gram Stain - Final Ankle - #1 A&P Assessment and plan 1. Abscess of skin of right ankle: 2. Cellulitis of right ankle: Plan: -Right ankle abscess with cellulitis status post right ankle incision and drainage -Labs and vitals reviewed -WBC 20.29--> 13.5 -ESR N/A -CRP 335 -HR 72 -RR 16 -Tmax 97.6 -Cultures pending -Abx Vanco/Rocephin appreciate ID recommendations -Diet: Okay for diet - Day 1 status post right ankle incision and drainage. Intraoperative findings showed abscess surrounding peroneal tendons. Extra-articular. Did not violate the ankle joint capsule. - No further surgical intervention by podiatry during this admission. Right lower extremity edema and cellulitis is much improved in comparison to yesterday. -Pain Mgmt: Per primary team -Weight bearing: Weightbearing as tolerated -Dressings: Surgical dressing changed at bedside this morning. Packing removed from central incision. Redressed with Adaptic 4 x 4 gauze, ABD pad, Kerlix, Jerzy bandage. Dressing to be left clean, dry, intact until follow-up in the outpatient setting. - Antibiotics per ID recommendations -Discharge plan: Okay to discharge home from podiatry standpoint once final antibiotic recommendations have been made. Podiatry discharge instructions have been placed PDMP PDMP Reviewed: Not Reviewed Attestations 2 Medical Necessity Statement*: See hospitalist note Coding Level of Care Code Acute Code for [facility] Fwd Diagnoses Abscess of skin of right ankle L02.415 Cellulitis of right ankle L03.115
[2025-02-17 09:32] LABS: Alanine Aminotransferase 66 U/L (0-41); Albumin Level 2.8 g/dL (3.5-5.2); Alkaline Phosphatase 259 U/L (40-130); Anion Gap 16.3 (5-19); Aspartate Amino Transferase 45 U/L (0-40); Blood Urea Nitrogen 10 mg/dL (6-20); Calcium 8.7 mg/dL (8.5-10.5); Carbon Dioxide 28 mmol/L (22-29); Chloride 98 mmol/L (98-107); Globulin 4.2 g/dL (1.3-4.6); Glucose 111 mg/dL (65-115); Magnesium 2.1 mg/dL (1.7-2.3); Osmolality Calculated 288 mOsm/kg (285-295); Potassium 3.3 mmol/L (3.5-5.1); Sodium 139 mmol/L (136-145); Total Protein 7.0 g/dL (6.6-8.7)
--- NOTE | 2025-02-17 10:49 | PHA.VACGOAL ---
Vancomycin Goal - Goal Vancomycin Goal:: 10-15 mg/L Vancomycin Indication:: SSTI - Therapy Current therapy:: Other Antibiotic (CEFTIAXONE) Day of therpy:: Day []of [] . Actual body weight (kg): 72.575 kg - Data Labs: WBC 13.53 10^3/uL (3.29-11.43) H 02/17/25 08:31 RBC 3.82 10^6/uL (3.85-5.65) L 02/17/25 08:31 Hgb 11.90 g/dL (11.27-16.99) 02/17/25 08:31 Hct 36.3 % (37-53) L 02/17/25 08:31 MCV 95.0 fl (82-101) 02/17/25 08:31 MCH 31.2 pg (27-33) 02/17/25 08:31 MCHC 32.8 g/dL (30-55) 02/17/25 08:31 RDW 12.4 % (12.1-15.1) 02/17/25 08:31 Sodium 139 mmol/L (136-145) 02/17/25 08:31 Potassium 3.3 mmol/L (3.5-5.1) L 02/17/25 08:31 Chloride 98 mmol/L (98-107) 02/17/25 08:31 Carbon Dioxide 28 mmol/L (22-29) 02/17/25 08:31 Anion Gap 16.3 (5-19) 02/17/25 08:31 BUN 10 mg/dL (6-20) 02/17/25 08:31 Creatinine 0.7 mg/dL (0.7-1.2) 02/17/25 08:31 GFR Calculation 122.5 mL/min (90-130) 02/17/25 08:31 Treatment plan:: new consult Regimen:: New start vancomycin for Cellulitis. No prior vancomycin history found. 1000 mg dose given in the ER. Started on maintenance dose of 1250 mg q8h.
--- NOTE | 2025-02-17 13:37 | P.PN_ITS ---
Subjective 2 Subjective: ID progress note No new complaints Cellulitis changes are improving over the ankle Blood cx remains negative, OR cx thus far with no growth at 24 hrs Medications: Reviewed: Yes Vitals/I&O/Wt Last Vital Signs Temp 98.0 F 02/17/25 11:31 Pulse 98 02/17/25 11:31 Resp 16 02/17/25 11:31 BP 152/67 02/17/25 11:31 Pulse Ox 95 02/17/25 11:31 O2 Del Method Room Air 02/17/25 11:31 O2 Flow Rate 10 02/16/25 10:26 02/16/25 02/17/25 02/17/25 22:59 06:59 14:59 Intake Total 1370 / 3047.5 1670 / 4717.5 910 / 910 Output Total 550 / 1860 1400 / 1400 Balance 1370 / 1737.5 1120 / 2857.5 -490 / -490 Weight last 48 hrs Weight 72.575 kg Weight 72.575 kg Weight 72.575 kg Physical Exam 2 Narrative: General: No acute distress, AO x3 HEENT: PERRLA, pupils bilaterally equal and reactive, pallors not present Neuro: No focal deficits, no facial deformity, AO x3, power 5/5 in all limbs Extremities: post op dressing in place over right ankle Data 02/17/25 08:31 02/17/25 08:31 Micro: Microbiology 02/16/25 10:14 Gram Stain - Final Ankle - #1 A&P Assessment and plan 1. Cellulitis of right ankle: 2. Abscess of skin of right ankle: Plan: 44-year-old male with Biutndj-Qjjbt-Xijow disease currently admitted to the hospital with right ankle cellulitis and abscess. No history of direct penetrating trauma over the ankle. About a [place] prior to onset of symptoms, patient had penetrating trauma over the right forearm with some swelling which eventually healed. Currently blood cultures are negative, however transient bacteremia with seeding not excluded as a possibility to explain right ankle abscess. Status post I&D with podiatry in the operating room. All findings reviewed. Deep abscess encountered below the skin and subcutaneous tissue. Abscess did not track down to joint capsule or bone. There is no underlying hardware at the ankle previously. Unable to add crystal analysis as no fluid or pus is available in the lab to run crystals. Only microbiology swabs are available to run cultures currently. Will await results of blood cx and OR cx taken today to select abx at discharge For now continue iv ceftriaxone and iv vancomycin If blood cx remains negative, will likely plan on 2 weeks of iv abx for deep abscess 02/17/25 : No new complaints today, cellulitis improving. Blood cx negative, OR cx with no growth thus far at 24 hrs. Will await final cx. Anticioate discharge with 2 weeks of iv ceftriaxone 2g daily and daptomycin 8mg/kg iv every 24 hrs if OR cx remains negative. Should OR cx reveal bacterial growth, will narrow down abx therapy. Weekly CBC, CMP, CPK while on iv abx to be faxed to ID clinic. Baseline CPK added today Picc line ordered to be placed today afternoon PDMP PDMP Reviewed: Not Reviewed Attestations 2 Medical Necessity Statement*: per admitting Coding Level of Care Code Acute Code for g Fwd Diagnoses Cellulitis of right ankle L03.115 Abscess of skin of right ankle L02.415
--- NOTE | 2025-02-17 14:59 | PC.OT ---
Pt declines OT evaluation at this time; will attempt again at later time.
[2025-02-18 02:00] VITALS: BP 122/65; PULSE 68; RESP 17; TEMP 36.8; O2SAT 92
[2025-02-18 02:03] VITALS: RESP 16; O2SAT 96
[2025-02-18] MEDS: morphine 4 mg/mL SDV 1 mL IVP (02:03)
[2025-02-18] MEDS: cefTRIAXone 2,000 mg SDV 2000 MG IVP (04:17)
[2025-02-18 06:00] VITALS: BP 115/68; PULSE 81; RESP 17; TEMP 37; O2SAT 96
[2025-02-18 07:08] VITALS: BP 130/71; PULSE 77; RESP 15; TEMP 36.7; O2SAT 97
--- NOTE | 2025-02-18 07:45 | PM.PN ---
Vitals/I&O/Wt Last Vital Signs Temp 98.1 F 02/18/25 07:08 Pulse 77 02/18/25 07:08 Resp 15 02/18/25 07:08 BP 130/71 02/18/25 07:08 Pulse Ox 97 02/18/25 07:08 O2 Del Method Room Air 02/18/25 07:08 O2 Flow Rate 10 02/16/25 10:26 02/17/25 02/18/25 02/18/25 22:59 06:59 14:59 Intake Total 2370 / 3280 240 / 3520 250 / 250 Output Total 200 / 1600 800 / 2400 Balance 2170 / 1680 -560 / 1120 250 / 250 Weight last 48 hrs Weight 72.575 kg Weight 72.575 kg Data 02/17/25 08:31 02/17/25 08:31 Micro: Microbiology 02/16/25 10:14 Gram Stain - Final Ankle - #1 Anaerobic Culture - Preliminary Wound Culture - Preliminary A&P PDMP PDMP Reviewed: Not Reviewed Coding Level of Care Code Acute Code for Chg Fwd
[2025-02-18 07:50] LABS: Hematocrit 38.8 % (37-53); Hemoglobin 12.90 g/dL (11.27-16.99); Mean Corpuscular HGB Conc 33.2 g/dL (30-55); Mean Corpuscular Hemoglobin 30.5 pg (27-33); Mean Corpuscular Volume 91.7 fl (82-101); Nucleated Red Blood Cells % 0 %; Platelet Count 480 10^3/cmm (157-399); Red Blood Count 4.23 10^6/uL (3.85-5.65); White Blood Count 16.18 10^3/uL (3.29-11.43)
[2025-02-18 08:07] LABS: Alanine Aminotransferase 56 U/L (0-41); Albumin Level 3.4 g/dL (3.5-5.2); Alkaline Phosphatase 262 U/L (40-130); Anion Gap 14.4 (5-19); Aspartate Amino Transferase 26 U/L (0-40); Blood Urea Nitrogen 7 mg/dL (6-20); Calcium 9.6 mg/dL (8.5-10.5); Carbon Dioxide 34 mmol/L (22-29); Chloride 93 mmol/L (98-107); Globulin 4.2 g/dL (1.3-4.6); Glucose 105 mg/dL (65-115); Magnesium 1.9 mg/dL (1.7-2.3); Osmolality Calculated 284 mOsm/kg (285-295); Potassium 3.4 mmol/L (3.5-5.1); Sodium 138 mmol/L (136-145); Total Protein 7.6 g/dL (6.6-8.7)
--- NOTE | 2025-02-18 10:07 | P.DS_ITS ---
Discharge Providers Date of Admission: 02/15/25 16:03 Date of Discharge: February 18, 2025 Attending Provider at Admission: Jose A Malin MD Attending Provider at Discharge: Xin Pryor NP Primary Care Provider: Jana Zaman Diagnoses at Discharge Discharge Diagnosis 1. Cellulitis of right ankle: 2. [place] (acute kidney injury): 3. Acute hypokalemia: 4. Nicotine use: 5. Charcot Amrita Tooth muscular atrophy: Reason for Visit Reason for Visit: Dr Nik Clayton ankle Pain and swelling feverish Brief History: Admission: Khris Kaba is a 44 year old male with prior medical history of HLD, ABBEY, cervical spinal cord injury, falls, lumbar radiculopathy, coronary myocardial bridge, spinal cord stimulator, atherosclerosis of coronary artery, appendectomy, knee surgery, Charcot Amrita tooth atrophy, contractures, angina, acquired hallux malleus of both feet, right ankle abscess and cellulitis, muscle atrophy bilateral lower legs, and bilateral foot drop presenting with complaints of leg pain. 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 This required a visit to [facility] that required a tetanus shot and three stitches. The next day, he felt flulike symptoms including fever, chills, sore throat making eat difficult to eat/swallow, malaise, and headache. On 02/09, he began having right foot and ankle pain & swelling that became progressively worse along with diffuse erythema. He came to this ED on 02/12/25 with fever and leg pain, discharged in stable condition with anti- inflammatories and direction to follow up with Podiatry. Today he was seen at [facility] where labs revealed a CRP greater than 300. He was advised to report to the ED for a higher level of care and he presented to [facility] ED. Ankle tapped, fluid aspirated upon arrival. In the ED, BP 124/78, HR 76, RR 17, O2 99, T97.7. WBC 20.29, Hgb 13.8, PLT 397. Potassium 2.8, sodium 131, chloride 87. BUN 32, creatinine 1.8. Glucose is 102. AST 91, ALT 76, ALP 216. CRP 335.6. Albumin 3.2. Ankle CT; no acute fracture, mild pes planus deformity, large amount of soft tissue edema along the lateral ankle, mild anterior subluxation of the talus with respect to the tibia this may indicate ligamentous laxity, see full results. Hospital Course Hospital Course 1. Cellulitis of right ankle: - WBC 20.29--<16.14--<13.53--<16.18 - CRP 335.6 - Ankle CT; no acute fracture, mild pes planus deformity, large amount of soft tissue edema along the lateral ankle, mild anterior subluxation of the talus with respect to the tibia this may indicate ligamentous laxity, see full results - Vancomycin changed to daptomycin and Rocephin continues - Multimodal pain control - Greatly appreciate podiatry consultation and management with Dr. Boyer - S/p right ankle washout 02/16/2025 - Greatly appreciate infectious disease consultation and management with who states Anticioate discharge with 2 weeks of iv ceftriaxone 2g daily and daptomycin 8mg/kg iv every 24 hrs if OR cx remains negative. Should OR cx reveal bacterial growth, will narrow down abx therapy. - Pending PICC placement outpatient on Thursday02/20/25 2. [place] (acute kidney injury): Resolved Creatinine 1.8, BUN 32, now Cr 08, BUN 7 Avoid nephrotoxic agents I&O IVF 3. Acute hypokalemia: Potassium 2.8--<3.3--<3.3--<3.4 Replete [facility] Internist And Physician Leader CMP 4. Nicotine use: Cessation education Nicotine patch 5. Charcot Amrita Tooth muscular atrophy: Brace to left leg Muscular atrophy Fall risk precautions PT/OT before DC Patient was unable to have PICC line placed prior to discharge, will use peripheral IV and have outpatient PICC line placement on Thursday. Patient request discharge home. Discharge antibiotics and instructions per infectious disease Dr. Valiente. Patient will need repeat labs weekly this will be managed by infectious disease doctor. Patient will also need to follow-up with Dr. Boyer within 2 weeks of discharge. Patient will continue oral potassium supplementation, further outpatient management per PCP. Also advised patient follow-up with primary care provider within 1 to 2 days of discharge. Discharge is in stable condition in care of family, all questions and concerns addressed with the patient prior to discharge. Physical Exam Const: COMMON NORMALS: no acute distress and patient oriented x3 HENMT: COMMON NORMALS: normocephalic HEAD & SCALP: normocephalic Eye: COMMON NORMALS: Equal, round and reactive pupils present PUPIL: Yes Equal, round and reactive pupils present Resp: COMMON NORMALS: normal respiratory effort GI: COMMON NORMALS: Normal to inspection, nondistended, normoactive bowel sounds present : COMMON NORMALS: Yes no CVA tenderness BLADDER/KIDNEY EXAM: Yes no CVA tenderness Back/Pelvis: COMMON NORMALS: no CVA tenderness Extremity: GENERAL: Yes normal exam except as noted OTHER: Numbness, pain, swelling, erythema, warmth in right lower leg. Muscle atrophy to bilateral lower extremities. Neuro: COMMON NORMALS: patient oriented x3 Psych: COMMON NORMALS: mental status grossly normal, Normal thought process present, cooperative and normal affect THOUGHT PROCESS: Normal thought process present Skin: OTHER: Surgical dressing right ankle, incision covered, c/d/i Discharge Data Studies Completed and Pending Completed Studies During Hospitalization Category Date Time Status CT ankle RT wo con* [id number] Stat Cat Scan 02/15/25 13:25 Completed Pending at discharge Category Date Time Status Anaerobic Culture Routine Lab 02/16/25 10:14 Results Blood Culture Stat Lab 02/15/25 13:57 Received Complete Blood Count w/Auto AM LABS Lab 02/19/25 07:55 Ordered Comprehensive Metabolic Panel AM LABS Lab 02/19/25 07:55 Ordered Magnesium AM LABS Lab 02/19/25 07:55 Ordered Wound Culture and Gram Stain Routine Lab 02/16/25 10:14 Results Radiology Impressions Ankle CT 02/15/25 13:25 IMPRESSION: 1. No acute fracture identified. 2. Large amount of soft tissue edema along the lateral ankle. 3. Mild pes planus deformity. 4. Seen best on the sagittal imaging is mild anterior subluxation of the talus with respect to the tibia. This may indicate ligamentous laxity. Consider MRI evaluation RIGHT ankle without contrast. This can be done on nonurgent basis. Laboratory Results WBC 16.18 10^3/uL (3.29-11.43) H 02/18/25 07:29 RBC 4.23 10^6/uL (3.85-5.65) 02/18/25 07:29 Hgb 12.90 g/dL (11.27-16.99) 02/18/25 07: Hct 38.8 % (37-53) 02/18/25 07: MCV 91.7 fl (82-101) 02/18/25 07: MCH 30.5 pg (27-33) 02/18/25 07: MCHC 33.2 g/dL (30-55) 02/18/25 07: RDW 12.3 % (12.1-15.1) 02/18/25 07: Plt Count 480 10^3/cmm (157-399) H D 02/18/25 07: MPV 9.4 fL (7.4-10.4) 02/18/25 07: Neut % (Auto) 76.1 % 02/18/25 07: Lymph % (Auto) 13.0 % 02/18/25 07: Bosque % (Auto) 4.9 % 02/18/25 07: Eos % (Auto) 0.4 % 02/18/25 07: Baso % (Auto) 0.4 % 02/18/25 07: Neut # (Auto) 12.32 10^3/uL (1.8-7.7) H 02/18/25 07: Lymph # (Auto) 2.1 10^3/uL (0.8-4.8) 02/18/25 07: Bosque # (Auto) 0.8 10^3/uL (0.2-0.9) 02/18/25 07: Eos # (Auto) 0.1 10^3/uL (0.0-0.8) 02/18/25 07: Baso # (Auto) 0.1 10^3/uL (0.0-0.1) 02/18/25 07: Nucleated RBC % (auto) 0 % 02/18/25: Nucleated RBCs # 0.0 /100WBC 02/18/25 07: Sodium 138 mmol/L (136-145) 02/18/25 07: Potassium 3.4 mmol/L (3.5-5.1) L 02/18/25 07: Chloride 93 mmol/L (98-107) L 02/18/25 07: Carbon Dioxide 34 mmol/L (22-29) H 02/18/25 07:29 Anion Gap 14.4 (5-19) 02/18/25 07:29 BUN 7 mg/dL (6-20) 02/18/25 07:29 Creatinine 0.8 mg/dL (0.7-1.2) 02/18/25 07:29 GFR Calculation 105.0 mL/min (90-130) 02/18/25 07:29 Glucose 105 mg/dL (65-115) 02/18/25 07:29 Calculated Osmolality 284 mOsm/kg (285-295) L 02/18/25 07:29 Lactic Acid 0.9 mmol/L (0.5-2.2) 02/15/25 17:57 Calcium 9.6 mg/dL (8.5-10.5) 02/18/25 07:29 Magnesium 1.9 mg/dL (1.7-2.3) 02/18/25 07:29 Total Bilirubin 0.4 mg/dL (0.15-1.2) 02/18/25 07:29 AST 26 U/L (0-40) 02/18/25 07:29 ALT 56 U/L (0-41) H 02/18/25 07:29 Alkaline Phosphatase 262 U/L (40-130) H 02/18/25 07:29 Creatine Kinase 28 U/L (39-308) L 02/17/25 08:31 C-Reactive Protein 335.6 mg/L (0.0-4.9) H 02/15/25 13:57 Total Protein 7.6 g/dL (6.6-8.7) 02/18/25 07:29 Albumin 3.4 g/dL (3.5-5.2) L 02/18/25 07:29 Globulin 4.2 g/dL (1.3-4.6) 02/18/25 07:29 Nasal MRSA (PCR) Not detected (Negative) 02/16/25 19:48 Vancomycin Trough 19.2 ug/mL (10-15) H 02/17/25 14:16 C. trachomatis (PCR) Not detected (Negative) 02/16/25 10:35 N. gonorrhoeae (PCR) Not detected (Negative) 02/16/25 10:35 Vitals Last Vital Signs Temp 98.1 F 02/18/25 07:08 Pulse 77 02/18/25 07:08 Resp 15 02/18/25 07:08 BP 130/71 02/18/25 07:08 Pulse Ox 97 02/18/25 07:08 O2 Del Method Room Air 02/18/25 07:08 O2 Flow Rate 10 02/16/25 10:26 Discharge Plan Discharge Patient Disposition: Home Health Service Condition: Stable Prescriptions: New ceftriaxone 2 gram Recon Soln 2,000 mg IVP DAILY 14 Days Qty: 14 0RF daptomycin 500 mg Recon Soln 600 mg IVP Q24H 14 Days Qty: 14 0RF potassium chloride [Klor-Con M20] 20 mEq tablet,ER particles/crystals 10 meq PO DAILY Qty: 30 0RF Continued (DME) Articulating AFO See Rx Instructions .ROUTE .MEDSUPPLY Qty: 2 0RF Rx Instructions: As directed (DME) AFO bilaterally with shoes to fit See Rx Instructions .Route .MEDSUPPLY Qty: 1 0RF Rx Instructions: As directed duloxetine 30 mg capsule,delayed release(DR/EC) 30 mg PO BEDTIME Rx Instructions: takes with 60mg to =90mg cetirizine 10 mg tablet 10 mg PO DAILY omeprazole 20 mg capsule,delayed release(DR/EC) 20 mg PO DAILY fluticasone propionate 50 mcg/actuation spray,suspension 2 spray INTRANASAL DAILY duloxetine 60 mg capsule,delayed release(DR/EC) 60 mg PO DAILY Rx Instructions: take with 30mg Held ibuprofen 200 mg Tablet 800 mg PO Q4H PRN (Reason: Pain) Hold Instructions: Resume on 03/07/25. Direction of PCP Discontinued clindamycin HCl 300 mg capsule 300 mg PO QID Fertilizer Mixer OK for DC: Podiatry Discharge Order = DC NOW: Discharge Order (Routine); Ordered 02/18/25 Ordered By: Xin Pryor Referrals: Jannette Valiente MD [Hospitalist, Hospitalist] - 4-7 days Stoney Boyer DPM [Physician, Podiatry] - 1 week Jana Zaman PA [Primary Care Provider, Physicians Machine Deburrer] - 4-7 days Referral Note: You will need to call your primary care provider Thursday to make a hospital discharge follow up in 4-7 days. Patient Instructions: Cellulitis, Ceftriaxone (By injection), Daptomycin (By injection), Acute Wound Care (DC), Incision and Drainage (DC), Opioid Safety, Post Anesthesia Care, Patient Portal & Arun Instructions Activity Restrictions/Additional Instructions: PODIATRY DISCHARGE INSTRUCTIONS--DR. BOYER -Dressing changes: Leave dressing clean, dry, intact to right lower extremity. Contact podiatry clinic should dressing becomes soiled or loose -Follow up: Within 7 days of discharge from hospital -Weightbearing status: Weightbearing as tolerated operative extremity -Antibiotics: PICC line and IV antibiotic therapy per infectious disease -Please contact podiatry clinic at [phone] with any questions regarding patient's discharge Discharge Attestations Time Spent in Discharge Care*: greater than 30 min Quality Metrics Clinical Quality Measures [ No reported AMI, CVA or VTE this stay] Coding Level of Care Code 24437 Diagnoses Cellulitis of right ankle L03.115 [place] (acute kidney injury) N17.9 Acute hypokalemia E87.6 Nicotine use Z72.0 Charcot Amrita Tooth muscular atrophy G60.0
[2025-02-18] MEDS: DAPTOmycin 500 MG SDV 600 MG IVP (10:50)
[2025-02-18 11:11] VITALS: BP 111/69; PULSE 90; RESP 17; TEMP 36.9; O2SAT 97
[2025-02-18 11:56] VITALS: BP 111/69; PULSE 90; RESP 17; TEMP 36.9; O2SAT 97
--- NOTE | 2025-02-18 12:23 | PC.OT ---
OT orders received to evaluate and treat. Pt. already discharged from hospital.
== END 2025-02-18 11:58 | disposition home health service (06) | DRG 603 ==
LOC: ER 15:38 → MEDSURG 16:03
PROVIDERS: Clinical Nurse Specialist Acute Care; Podiatrist Foot & Ankle Surgery; Student in an Organized Health Care Education/Training Program; Admitting Provider Family Medicine; Emergency Provider Family Medicine; PCP Physician Assistant; Visit Provider Registered Nurse
PROC: 0J9Q0ZZ Drainage of Right Foot Subcutaneous Tissue and Fascia, Open Approach (ICD-10-PCS; principal; 2025-02-16 09:05)
DX: L03.115 Cellulitis of right lower limb (principal); N17.9 Acute kidney failure, unspecified; L02.415 Cutaneous abscess of right lower limb; F17.200 Nicotine dependence, unspecified, uncomplicated; G60.0 Hereditary motor and sensory neuropathy; E78.5 Hyperlipidemia, unspecified; G47.33 Obstructive sleep apnea (adult) (pediatric); M54.16 Radiculopathy, lumbar region; I25.10 Atherosclerotic heart disease of native coronary artery without angina pectoris; M20.32 Hallux varus (acquired), left foot; M20.31 Hallux varus (acquired), right foot; M21.372 Foot drop, left foot; M21.371 Foot drop, right foot; F32.A Depression, unspecified; E83.41 Hypermagnesemia; E87.6 Hypokalemia; Z91.81 History of falling; Z96.82 Presence of neurostimulator
CPT/HCPCS: 36415; 73700; 80048; 80053; 80202; 82550; 83605; 83735; 85025; 86140; 87040; 87070; 87075; 87077; 87205; 87491; 87591; 96365; 97161; 99285; J0696; J0878; J2250; J2270; J2704; J3010; J3373; J3480; J3490; J7030; J7050; J9999

== ENCOUNTER 2025-02-19 12:24 | Emergency (ER) | payer MEDICARE, MEDICAID, SELFPAY ==
[2025-02-19 12:29] VITALS: BP 111/64; PULSE 130; TEMP 36.8; O2SAT 99; BMI 21.7
--- OUTSIDE RECORDS SUMMARY | 2025-02-19 12:30 | XMS_ITS | Data Portability ---
Author Organization [facility] Address [address] [address] Care Team Providers Care Analog Ic Design Engineer Name Role Phone TRISHA PRO Primary Care Provider [phone] Assessment No assessment recorded. Plan of Treatment Reminders Order Date Submit Date Provider Last Modified By Organization Details Last Modified Time Details Appointments None recorded. Lab CMP, serum or plasma 2024 025 [facility]ly [facility], [address], [address], 5 15:49:22 CBC 2024 025 [facility], [address], [address], 5 15:08:24 uric acid, serum or plasma 2024 025 [facility], [address], [address], 5 09:54:02 ESR (erythrocyt e sedimentati on rate), blood 2024 025 [employer] ([facility]), [address] [place], [address], 5 16:13:36 C-reactive protein, quantitativ e, serum or plasma [id number] [employer] ([facility]), [address] [place], [address], 09:54:03 streptococc us group A Ag screen 2024 [employer] ([facility]), [address] [place], [address], 15:35:53 Referral None recorded. Procedures None recorded. Surgeries None recorded. Imaging US, duplex, venous, lower extremity - 38128 Rt Leg 2024 [facility], [address] [place], [address], 18:27:24 Medication Orders betamethaso ne acetate and sodium phos 6 mg/mL suspension for injection 2024 [email or web address] Not available 14:02:40 clindamycin HCl 300 mg capsule 2024 [facility] #[id number], [address] [facility], [facility] [address], [address], 13:12:19 fluticasone propionate 50 mcg/actuati on nasal spray,suspe nsion 2024 [id number] [address] [facility], [facility] [address], [address], 15:40:25 cetirizine 10 mg tablet 2024 [id number], [address] [facility], [facility] [address], [address], 15:40:26 Patient TargetsNo targets recorded. Patient InstructionsNo instructions recorded. Reason for Referral None Reported. Results Created Date Observation Date Name Description Value Unit Range Abnormal Flag Note LastModifiedBy Organization Detail LastModifiedTime 02/11/20 25 02/10/2025 strep tococ cus group A Ag scree n Strep negati ve Not Available [facility] ([facility]) [address] [place], [address], 02/10/2025 15:27:46 02/15/20 25 02/14/2025 CBC WBC 19.6 x10 4.5-10 .5 high Not Available [facility] [address] [facility] 1, [place], [address], 02/14/2025 15:08:24 02/15/20 25 02/14/2025 CBC RBC 4.89 x10 4.30-5 .90 Not Available [facility] [address] [facility] 1, [place], [address], 02/14/2025 15:08:24 02/15/20 25 02/14/2025 CBC HGB 15.3 g/dL 13.5-1 8.0 Not Available [facility] [address] [facility] 1, [place], [address], 02/14/2025 15:08:24 02/15/20 25 02/14/2025 CBC HCT 46.3 % 35.0-6 0.0 Not Available [facility] [address] [facility] 1, [place], [address], 02/14/2025 15:08:24 02/15/20 25 02/14/2025 CBC MCV 94.7 fL 80.0-9 9.9 Not Available [facility] [address] [facility] 1, [place], [address], 02/14/2025 15:08:24 02/15/20 25 02/14/2025 CBC MCH 31.3 pg 27.0-3 2.0 Not Available [facility] [address] [facility] 1, [place], [address], 02/14/2025 15:08:24 02/15/20 25 02/14/2025 CBC MCHC 33.1 g/dL 32.0-3 6.0 Not Available [facility] [address] [facility], [place], [address], 02/14/2025 15:08:24 02/15/20 25 02/14/2025 CBC RDW 12.7 % 11.5-1 4.5 Not Available [facility] [address] [facility], [place], [address], 02/14/2025 15:08:24 02/15/20 25 02/14/2025 CBC plt 399.2 x10 150.0- 451.0 Not Available [facility] [address] [address], [place], [address], 02/14/2025 15:08:24 02/15/20 25 02/14/2025 CBC lymphocytes % 10.0 % 20.0-5 0.0 low Not Available [facility] [address] [facility], [place], [address], 02/14/2025 15:08:24 02/15/20 25 02/14/2025 CBC granulcytes % 81.1 % 30.0-7 0.0 high Not Available [facility] [address] [facility], [place], [address], 02/14/2025 15:08:24 02/15/20 25 02/14/2025 CBC monocytes % 8.1 % 2.0-16 .0 Not Available [facility] [address] [facility], [place], [address], 02/14/2025 15:08:24 02/15/20 25 02/14/2025 CBC granulcytes# 15.9 x10 Not Carrol ilable [facility] [address] [facility], [place], [address], 02/14/2025 15:08:24 02/15/20 25 02/14/2025 CBC lymphocytes # 2.0 x10 Not Available [facility] [address] [facility], [place], [address], 02/14/2025 15:08:24 02/15/20 25 02/14/2025 CBC monocytes # 1.6 x10 Not Avai lable [facility] [address] [facility], [place], [address], 02/14/2025 15:08:24 02/15/20 25 02/14/2025 CMP (MALE ) glucose 116.0 mg/dL 60.0-9 9.0 high Not Available [facility] [address] [facility], [place], [address], 02/14/2025 15:49:22 02/15/20 25 02/14/2025 CMP (MALE ) BUN (blood urea nitrogen) 21.0 mg/dL 10.0-2 6.0 Not Available [facility] [address] [facility], [place], [address], 02/14/2025 15:49:22 02/15/20 25 02/14/2025 CMP (MALE ) creatinine (serum) 2.3 mg/dL 0.4-1. 5 high Not Available [facility] [address] [facility], [place], [address], 02/14/2025 15:49:22 02/15/20 25 02/14/2025 CMP (MALE ) BUN/creatini ne ratio 9.13 ratio Not Available [facility] [address] [facility], [place], [address], 02/14/2025 15:49:22 02/15/20 25 02/14/2025 CMP (MALE ) eGFR calculated 33.0 Not Available [facility] [address] [facility], [place], [address], 02/14/2025 15:49:22 02/15/20 25 02/14/2025 CMP (MALE ) total protein 9.2 g/dL 6.0-8. 5 high Not Available [facility] [address] [facility], [place], [address], 02/14/2025 15:49:22 02/15/20 25 02/14/2025 CMP (MALE ) total bilirubin 1.2 mg/dL 0.2-1. 3 Not Available [facility] [address] [facility], [place], [address], 02/14/2025 15:49:22 02/15/20 25 02/14/2025 CMP (MALE ) albumin 4.1 g/dL 3.5-5. 5 Not Available [facility] [address] [facility], [place], [address], 02/14/2025 15:49:22 02/15/20 25 02/14/2025 CMP (MALE ) globulin 5.[address] [facility] [address] [facility] 1, [place], [address], 02/14/2025 15:49:22 02/15/20 25 02/14/2025 CMP (MALE ) AST (SGOT) 38.0 U/L 0.0-46 .0 Not Available [facility] [address] [facility], [place], [address], 02/14/2025 15:49:22 02/15/20 25 02/14/2025 CMP (MALE ) altv (SGPT) 37.0 U/L 13.0-6 9.0 normal Not Available [facility] [address] [facility], [place], [address], 02/14/2025 15:49:22 02/15/20 25 02/14/2025 CMP (MALE ) A/G ratio 0.8 ratio Not Available [facility] [address] [facility], [place], [address], 02/14/2025 15:49:22 02/15/20 25 02/14/2025 CMP (MALE ) ALP phos 176.0 U/L 30.0-1 40.0 abnormal Not Available [facility] [address] [facility], [place], [address], 02/14/2025 15:49:22 02/15/20 25 02/14/2025 CMP (MALE ) calcium 9.8 mg/dL 8.4-10 .5 Not Available [facility] [address] [facility], [place], [address], 02/14/2025 15:49:22 02/15/20 25 02/14/2025 CMP (MALE ) sodium 134.0 mmol/ L 136.0- 145.0 low Not Available [facility] [address] [facility], [place], [address], 02/14/2025 15:49:22 02/15/20 25 02/14/2025 CMP (MALE ) potassium 3.1 mmol/ L 3.5-5. 1 low Not Available [facility] [address] [facility], [place], [address], 02/14/2025 15:49:22 02/15/20 25 02/14/2025 CMP (MALE ) chloride 89.0 mmol/ L 98.0-1 10.0 abnormal Not Available [facility] [address] [facility], [place], [address], 02/14/2025 15:49:22 02/15/20 25 02/14/2025 CMP (MALE ) C02 32.0 mmol/ L 22.0-3 1.0 high Not Available [facility] [address] [facility] 1, [place], [address], 02/14/2025 15:49:22 02/15/20 25 02/14/2025 CMP (MALE ) anion gap 13.0 calc Not Available [facility] [address] [facility] 1, [place], [address], 02/14/2025 15:49:22 02/15/20 25 02/14/2025 CMP (MALE ) osmolality 280.8 calc Not Available [facility] [address] [facility] 1, [place], [address], 02/14/2025 15:49:22 02/15/20 25 02/14/2025 LIPID PROFI LE (MALE ) cholesterol 207.0 mg/dL 0.0-20 0.0 high Not Available [facility] [address] [facility] 1, [place], [address], 02/14/2025 15:49:24 02/15/20 25 02/14/2025 LIPID PROFI LE (MALE ) trig 229.0 mg/dL 0.0-15 0.0 high Not Available [facility] [address] [facility] 1, [place], [address], 02/14/2025 15:49:24 02/15/20 25 02/14/2025 LIPID PROFI LE (MALE ) HDL - direct 28.0 mg/dL >40.0 low Not Available [facility] [address] [facility] 1, [place], [address], 02/14/2025 15:49:24 02/15/20 25 02/14/2025 LIPID PROFI LE (MALE ) VLDL - direct 45.8 mg/dL Not Available [facility] [address] [facility] 1, [place], [address], 02/14/2025 15:49:24 02/15/20 25 02/14/2025 LIPID PROFI PAMELA (MALE ) LDL - direct 133.2 mg/dL 0.0-13 0.0 high Not Available [facility] [address] [facility] 1, [place], [address], 02/14/2025 15:49:24 02/15/20 25 02/15/2025 URIC ACID uric acid 5.0 mg/dL 4.0-8. 0 normal Thera kanikai c dalila t for gout patie nts: <6.0 mg/dL Not Available [facility] [address] [place], [address], 02/15/2025 09:54:02 02/15/20 25 02/15/2025 C-JACKI CTIVE PROTE IN C-reactive protein 439.0 mg/L <8.0 high Verif ied by repea t elen sis. Not Available [facility] [address] [place], [address], 02/15/2025 09:54:03 02/15/20 25 02/14/2025 ESR (eryt hrocy te sedim entat ion rate) , blood SedRate 14 Not Available [facility] ([facility]) [address] [place], [address], 02/14/2025 12:50:39 10/11/19 25 10/06/2024 XR, elbow , 3 or more view No observ ation record ed. [email or web address] [facility] [address] [place], [address], 10/11/2024 09:01:35 02/16/20 25 02/14/2025 US, brittney x, sukhwinder s, lower extre mity No observ ation record ed. [facility] [address] [place], [address], 02/16/2025 09:06:57 Result Notes None recorded. Problems Name Problem SNOMED Code Status Onset Date Resolution Date Notes Provider Name and Address Organization Details Recorded Time Anxiety state 950005188 Active 2022 ANXIETY AND DEPRESSION ; Recorded 04/23/2022 8:59AM by Delphine Schmitz RN, Office Visit; Promoted; acuity set as *; ANXIETY AND DEPRESSION ; Recorded 04/03/2020 8:13AM by Jordyn Wallace LPN, Annotation /Addendum; Promoted; acuity set as *; ; Start Date : 04/03/2020 JORDYN mariscal [facility] 5 08:30:22 Gastroesop hageal reflux disease 602219472 Active 2022 GERD (GASTROESO PHAGEAL REFLUX DISEASE); Recorded 04/23/2022 8:59AM by Delphine Schmitz RN, Office Visit; Promoted; acuity set as *; JORDYN mariscal [facility] 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 5 08:30:47 Hyperlipid emia 22021237 Active 2022 HYPERLIPID EMIA; Recorded 04/23/2022 8:59AM by Delphine Schmitz RN, Office Visit; Promoted; acuity set as *; JORDYN mariscal [facility] 5 08:30:50 Depressive disorder 96089632 Active 2022 DEPRESSION ; Recorded 04/23/2022 8:59AM by Delphine Schmitz RN, Office Visit; Promoted; acuity set as *; JORDYN mariscal [facility] Carlos 5 08:30:25 Genuine stress incontinen ce 00089648 Active 2022 URINARY INCONTINEN CE, MALE, STRESS; Recorded 04/23/2022 8:59AM by Delphine Schmitz RN, Office Visit; Promoted; acuity set as *; JORDYN mariscal [facility] CarlosCJ Carlos 5 08:30:44 Insomnia 189059075 Active 2022 INSOMNIA; Recorded 04/23/2022 8:59AM by Delphine Schmitz RN, Office Visit; Promoted; acuity set as *; INSOMNIA, UNCONTROLL ED; Recorded 04/03/2020 8:13AM by Jordyn Wallace LPN, Annotation /Addendum; Promoted; acuity set as *; ; Start Date : 04/03/2020 JORDYN mariscal [facility] Carlos 5 08:30:55 Erectile dysfunctio n 027170189 Active 2022 ERECTILE DYSFUNCTIO N; Recorded 04/23/2022 8:59AM by Delphine Schmitz RN, Office Visit; Promoted; acuity set as *; JORDYN mariscal [facility] CarlosCJ Carlos 5 08:30:29 Problem Notes [...] Updated DateTime 5 182.88 cm 21.4 kg/m2 81129.5 9 g 97.4 [degF] 78 /min 97 % 97 % 124/78 mm[Hg] [facility] 15:31:44 Date Recorded Body height Body mass index (BMI) Body weight Body temperature Respiratory rate Oxygen saturation Oxygen saturation in Arterial blood by Pulse oximetry Heart rate Systolic And Diastolic Provider Name and Address Organization Details Last Updated DateTime 5 182.88 cm 22 kg/m2 27684.9 6 g 97.8 [degF] 18 /min 97 % 97 % 76 /min 118/82 mm[Hg] JORDYN WALLACE [facility] 13:47:46 Date Recorded Body height Body mass index (BMI) Body weight Body temperature Oxygen saturation Oxygen saturation in Arterial blood by Pulse oximetry Heart rate Systolic And Diastolic Provider Name and Address Organization Details Last Updated DateTime 182.88 cm 22.1 kg/m2 68826.2 6 g 98 [degF] 97 % 97 % 128 /min 132/68 mm[Hg] Yuridia Norris [facility] 15:29:40 Date Recorded Body height Body mass index (BMI) Body weight Oxygen saturation Oxygen saturation in Arterial blood by Pulse oximetry Heart rate Respiratory rate Body temperature Systolic And Diastolic Provider Name and Address Organization Details Last Updated DateTime 182.88 cm 22.1 kg/m2 37089.5 6 g 98 % 98 % 100 /min 20 /min 98.6 [degF] 130/70 mm[Hg] JORDYN WALLACE [facility] 12:03:59 Social History Question Answer Notes LastModified by [employer] ion Details LastModified Time Tobacco Smoking Status Former Smoker Jen Jimmy [facility] 10/06/2024 15:38:29 Are You Blind Or Do You Have Difficulty Seeing? No [email or web address] Information not available 06/30/2022 What Is Your Level Of Caffeine Consumption? Occasional [email or web address] Information not available 10/06/2024 Are You Deaf Or Do You Have Serious Difficulty Hearing? No [email or web address] Information not available 06/30/2022 Which Illicit Or Recreational Drugs Have You Used? Marijuana Information not available 10/06/2024 Have You Had Direct Contact, Or Contact During Intimacy, With Monkeypox Rash, Scabs, Or Body Fluids From A Person With Monkeypox? No [email or web address] Information not available 09/10/2022 What Was The Date Of Your Most Recent Tobacco Screening? 02/10/2025 [email or web address] Information not available 02/10/2025 What Is Your Current Pack Years? 20-29packyears [email or web address] Information not available 06/09/2024 What Is Your Relationship Status? Unknown [email or web address] Information not available 06/30/2022 At What Age Did You Start Smoking Tobacco? 20 Information not available 06/09/2024 How Much Tobacco Do You Smoke? No Information not available 10/06/2024 Has Tobacco Cessation Counseling Been Provided? No [email or web address] Information not available 06/09/2024 How Many Years Have You Smoked Tobacco? 20 [email or web address] Information not available 06/09/2024 Have You Recently Traveled Abroad? No [email or web address] Information not available 09/10/2022 Do You Have Difficulty Walking Or Climbing Stairs? No [email or web address] Information not available 06/30/2022 Sex: Unknown Functional Status Question Answer Note LastModified by Organizat ion Details LastModified Time Do you use any illicit or recreational drugs? Yes [email or web address] Information not available 10/06/2024 Do you or have you ever used any other forms of tobacco or nicotine? No [email or web address] Information not available 06/09/2024 What is your level of alcohol consumption? None [email or web address] Information not available 06/09/2024 Are you able to walk independently without assistance or assistive devices? YESWOREST [email or web address] Information not available 06/30/2022 Do you have difficulty doing errands alone? No [email or web address] Information not available 06/30/2022 Are you able to care for yourself independently? Yes [email or web address] Information not available 06/30/2022 Do you have difficulty dressing, bathing, grooming, or toileting? No [email or web address] Information not available 06/30/2022 Do you or have you ever used any nicotine-free cigarettes, vape, or chewing tobacco? No [email or web address] Information not available 06/09/2024 Mental Status Question Answer Note LastModified by Organization D etails LastModified Time Do you have difficulty concentrating, remembering or making decisions? No [email or web address] Information no t available 06/30/2022 Family History Nothing Reported. Medical History No medical history recorded. Immunizations Vaccine Type Date Status Note Provider Jimbo villanueva and Address Organization Details Recorded Time Hep B, adolescent/high risk 8 completed Not Available [facility] 02/14/2025 14:48:39 Hep A, ped/adol, 2 dose 8 completed Not Available [facility] 02/14/2025 14:48:39 Hep A, ped/adol, 2 dose 8 completed Not Available [facility] 02/14/2025 14:48:39 Hep B, unspecified formulation 8 completed Not Available [facility] 02/14/2025 14:48:39 Hep B, unspecified formulation 9 completed Not Available [facility] 02/14/2025 14:48:39 Hep A, ped/adol, 2 dose 9 completed Not Available [facility] 02/14/2025 14:48:39 Tdap 5 completed Not Available [facility] 02/14/2025 14:48:39 Past Encounters Encounter ID Performer Location Encounter Start Date Encounter Closed Date Diagnosis/Indication Diagnosis SNOMED-CT Code Diagnosis ICD10 Code Diagnosis IMO Codes Diagnosis Note [id number] Leighton Bhardwaj DO [facility] ([facility]) [address] [place] [address] 5 06/30/2022 14:35:06 06/30/2022 15:16:59 Hearing loss 55801121 H91.93 Increased frequency of urination 103260276 R35.0 [id number] Leighton Bhardwaj DO [facility] ([facility]) [address] [place] [address] 09/10/2022 11:25:15 09/10/2022 14:52:53 Hvxrmbp-Xexhx-Dofzh disease, 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 Weight loss 14390107 R63 .4 Hyperglycemia 47462950 R 73.9 [id number] Leighton Bhardwaj DO [facility] ([facility]) [address] [place] [phone] 10/21/2023 11:01:10 10/21/2023 12:10:27 Anxiety state 243835867 F41.9 Hereditary motor and sensory neuropathy 226961387 G60.0 [id number] TRISHA PRO PA-C [facility] ([facility]) [address] [place] [phone] 06/09/2024 11:47:16 06/09/2024 13:11:24 Overactive urinary bladder 741248884 N32.81 stop the tamsulosin Hereditary motor and sensory neuropathy 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 and no fx seen some calcificat ion on the tricep tendonice. rest. stretches. [id number] TRISHA PRO PA-C [facility] ([facility]) [address] [place], [place] [phone] 12/13/2024 13:27:05 01/06/2025 17:52:38 Pain of left shoulder joint 7295975547 3497911 M25.512 812129 good rom. encouraged stretching and strengthen ing. heat. prn tyelonol/i buprofen [id number] LESLIE PINEDA [facility] ([facility]) [address] [place] [phone] 02/10/2025 15:20:02 02/10/2025 15:47:57 Sore throat 309133739 J02.9 [id number] Viral resp iratory infection 886903648 J98.8 B97.89 [id number] May use meds like zyrtec and fluticason e nasal spray as needed for symptoms. Return to clinic with any new or worsening symptoms. [id number] TRISHA PRO PA-C [facility] ([facility]) [address] [place] [phone] 02/14/2025 11:59:23 02/14/2025 13:15:14 Edema of right lower limb 483238517 R60.0 [id number] suspect DVT acute. need WILFRIDO venous doppler to R/o. 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 Differenti al includes acute DVT, gout, autoimmune monoarthro maricruz, septic joint. Will get u/s today and lab.Beteme thasaone started for gout and will send in antibiotic s.F/u in 2 days to recheck. to ER if pain or redness worsening. [id number] TRISHA PRO PA-C [facility] ([facility]) [address] [place] [address] 02/14/2025 14:48:08 02/14/2025 15:17:35 Health Concerns Section Related Observation LastModified by Organization Detai ls LastModified Time None Recorded Concern Status LastModified by Organization Details LastModified Time None Recorded Advance Directives Directive None Recorded Payers Insurance Date Sequence Insurance Name Policy Number Policy Waters Covered Member ID Waters Member ID Guarantor Name 02/10/2025 1 [place] - [place]PO) [id number] Khris Kenyon Kaba [id number] Khris L Kaba 02/10/2025 2 [place] Khris L Kaba [id number] Khris Kenyon Kaba 02/10/2025 [place] [facility] [place] Khris Kenyon Kaba [id number] Khris Kenyon Kaba Notes Date Note Type [...] Leighton Saldana:He was initially seen here by Dlephine Shultz NP in December, 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 TRISHA PRO PA-C [address] [place], [address], [facility] 01/06/2025 17:32:45 5 text/htm l ROS as [facility]. Patient also states that he has some postnasal drip, fatigue, chills but no fever. Patient denies any known exposure to illness. LESLIE PINEDA [address] [place], [address], [facility] 02/10/2025 15:41:00 5 text/htm l Musculoskeletal [...] right arm needs stitch removal and on for right leg redness and pain x ray showed no break, he wonders about a blood clot TRISHA PRO PA-C [address] [place], [address], [facility], [place] 02/14/2025 13:13:25
--- OUTSIDE RECORDS SUMMARY | 2025-02-19 12:30 | XMS_ITS | Continuity of Care Document ---
Author Organization ROMERO De Luna [facility] Dennis, Jena [facility] ([facility]) Address [address] [place] [address] Care Team Providers Care Monorail Charger Operator Name Role Phone TRISHA PRO Primary Care Provider [phone] Assessment No assessment recorded. Plan of Treatment Reminders Order Date Submit Date Provider Last Modified By Organization Details Last Modified Time Details Appointments None recorded. Lab CMP, serum or plasma 2024 025 [facility], [address], [address], 15:49:22 CBC 2024 025 [facility], [address], [address], 5 15:08:24 uric acid, serum or plasma 2024 025 [facility], [address], [address], 5 09:54:02 ESR (erythrocyt e sedimentati on rate), blood 2024 025 [facility] ([facility]), [address] [place], [address], 5 16:13:36 C-reactive protein, quantitativ e, serum or plasma 2024 [facility] ([facility]), [address] [place], [address], 09:54:03 Referral None recorded. Procedures None recorded. Surgeries None recorded. Imaging US, duplex, venous, lower extremity - [address] Rt Leg 2024 [facility], [address] [place], [address], 18:27:24 Medication Orders betamethaso ne acetate and sodium phos 6 mg/mL suspension for injection 2024 [email or web address] 1 Not available 14:02:40 clindamycin HCl 300 mg capsule 2024 [id number], [address] [facility], [facility], [place], [address], 13:12:19 Patient TargetsNo targets recorded. Patient InstructionsNo instructions recorded. Reason for Referral None Reported. Results Created Date Observation Date Name Description Value Unit Range Abnormal Flag Note LastModifiedBy Organization Detail LastModifiedTime 02/11/2002/10/2025 strep tococ cus group A Ag scree n Strep negati ve Not Available [facility] ([facility]) [address] [place], [address], 02/10/2025 15:27:46 02/15/20 25 02/14/2025 CBC WBC 19.6 x10 4.5-10 .5 high Not Available [facility] [address] [facility], [place], [address], 02/14/2025 15:08:24 02/15/20 25 02/14/2025 CBC RBC 4.89 x10 4.30-5 .90 Not Available [facility] [address] [facility], [place], [address], 02/14/2025 15:08:24 02/15/20 25 02/14/2025 CBC HGB 15.3 g/dL 13.5-1 8.0 Not Available [facility] [address] [facility], [place], [address], 02/14/2025 15:08:24 02/15/20 25 02/14/2025 CBC HCT 46.3 % 35.0-6 0.0 Not Available [facility] [address] [facility], [place], [address], 02/14/2025 15:08:24 02/15/20 25 02/14/2025 CBC MCV 94.7 fL 80.0-9 9.9 Not Available [facility] [address] [facility], [place], [address], 02/14/2025 15:08:24 02/15/20 25 02/14/2025 CBC MCH 31.3 pg 27.0-3 2.0 Not Available [facility] [address] [facility], [place], [address], 02/14/2025 15:08:24 02/15/20 25 02/14/2025 CBC MCHC 33.1 g/dL 32.0-3 6.0 Not Available [facility] [address] [facility], [place], [address], 02/14/2025 15:08:24 02/15/20 25 02/14/2025 CBC RDW 12.7 % 11.5-1 4.5 Not Available [facility] [address] [facility], [place], [address], 02/14/2025 15:08:24 02/15/20 25 02/14/2025 CBC plt 399.2 x10 150.0- 451.0 Not Available [facility] [address] [facility], [place], [address], 02/14/2025 15:08:24 02/15/20 25 02/14/2025 CBC lymphocytes % 10.0 % 20.0-5 0.0 low Not Available [facility] [address] [address], [place], [address], 02/14/2025 15:08:24 02/15/20 25 02/14/2025 CBC granulcytes % 81.1 % 30.0-7 0.0 high Not Available [facility] [address] [place] [facility], [place], [address], 02/14/2025 15:08:24 02/15/20 25 02/14/2025 CBC monocytes % 8.1 % 2.0-16 .0 Not Available [facility] [address] [place] [address] [address], [place], [address], 02/14/2025 15:08:24 02/15/20 25 02/14/2025 CBC granulcytes# 15.9 x10 Not Carrol ilable [facility] [address] [place] [address] [address], [place], [address], 02/14/2025 15:08:24 02/15/20 25 02/14/2025 CBC lymphocytes # 2.0 x10 Not Available [facility] [address] [place] [address] [address], [place], [address], 02/14/2025 15:08:24 02/15/20 25 02/14/2025 CBC monocytes # 1.6 x10 Not Avai lable [facility] [address] [place] [facility] [place], [address], 02/14/2025 15:08:24 02/15/20 25 02/14/2025 CMP (MALE ) glucose 116.0 mg/dL 60.0-9 9.0 high Not Available [place] [facility] [address] [facility], [place], [address], 02/14/2025 15:49:22 02/15/20 25 02/14/2025 CMP (MALE ) BUN (blood urea nitrogen) 21.0 mg/dL 10.0-2 6.0 Not Available [facility] [address] [place] [facility], [place], [address], 02/14/2025 15:49:22 02/15/20 25 02/14/2025 CMP (MALE ) creatinine (serum) 2.3 mg/dL 0.4-1. 5 high Not Available [place] [facility] [address] [facility], [place], [address], 02/14/2025 15:49:22 02/15/20 25 02/14/2025 CMP (MALE ) BUN/creatini ne ratio 9.13 ratio Not Available [facility] [address] [place] [facility], [place], [address], 02/14/2025 15:49:22 02/15/20 25 02/14/2025 CMP (MALE ) eGFR calculated 33.0 Not Available [facility] [address] [place] [facility], [place], [address], 02/14/2025 15:49:22 02/15/20 25 02/14/2025 CMP (MALE ) total protein 9.2 g/dL 6.0-8. 5 high Not Available [facility] [address] [place] [facility], [place], [address], 02/14/2025 15:49:22 02/15/20 25 02/14/2025 CMP (MALE ) total bilirubin 1.2 mg/dL 0.2-1. 3 Not Available [facility] [address] [place] [facility], [place], [address], 02/14/2025 15:49:22 02/15/20 25 02/14/2025 CMP (MALE ) albumin 4.1 g/dL 3.5-5. 5 Not Available [facility] [address] [facility], [place], [address], 02/14/2025 15:49:22 02/15/20 25 02/14/2025 CMP (MALE ) globulin 5.1 calc Not Available [facility] [address] [facility], [place], [address], 02/14/2025 15:49:22 02/15/20 25 02/14/2025 CMP (MALE ) AST (SGOT) 38.0 U/L 0.0-46 .0 Not Available [facility] [address] [place] [address], [place], [address], 02/14/2025 15:49:22 02/15/20 25 02/14/2025 CMP (MALE ) altv (SGPT) 37.0 U/L 13.0-6 9.0 normal Not Available [facility] [address] [facility], [place], [address], 02/14/2025 15:49:22 02/15/20 25 02/14/2025 CMP (MALE ) A/G ratio 0.8 ratio Not Available [facility] [address] [facility], [place], [address], 02/14/2025 15:49:22 02/15/20 25 02/14/2025 CMP (MALE ) ALP phos 176.0 U/L 30.0-1 40.0 abnormal Not Available [facility] [address] [facility], [place], [address], 02/14/2025 15:49:22 02/15/20 25 02/14/2025 CMP (MALE ) calcium 9.8 mg/dL 8.4-10 .5 Not Available [facility] [address] [place] [address] [facility], [place], [address], 02/14/2025 15:49:22 02/15/20 25 02/14/2025 CMP (MALE ) sodium 134.0 mmol/ L 136.0- 145.0 low Not Available [facility] [address] [facility], [place], [address], 02/14/2025 15:49:22 02/15/20 25 02/14/2025 CMP (MALE ) potassium 3.1 mmol/ L 3.5-5. 1 low Not Available [facility] [address] [facility], [place], [address], 02/14/2025 15:49:22 02/15/20 25 02/14/2025 CMP (MALE ) chloride 89.0 mmol/ L 98.0-1 10.0 abnormal Not Available [facility] [address] [facility], [place], [address], 02/14/2025 15:49:22 02/15/20 25 02/14/2025 CMP (MALE ) C02 32.0 mmol/ L 22.0-3 1.0 high Not Available [facility] [address] [facility] [address], [place], [address], 02/14/2025 15:49:22 02/15/20 25 02/14/2025 CMP (MALE ) anion gap 13.0 calc Not Available [facility] [address] [facility], [place], [address], 02/14/2025 15:49:22 02/15/20 25 02/14/2025 CMP (MALE ) osmolality 280.8 calc Not Available [facility] [address] [facility], [place], [address], 02/14/2025 15:49:22 02/15/20 25 02/14/2025 LIPID PROFI LE (MALE ) cholesterol 207.0 mg/dL 0.0-20 0.0 high Not Available [facility] [address] [facility] [address], [place], [address], 02/14/2025 15:49:24 02/15/20 25 02/14/2025 LIPID PROFI LE (MALE ) trig 229.0 mg/dL 0.0-15 0.0 high Not Available [place] [facility] [address] [facility] [address], [place], [address], 02/14/2025 15:49:24 02/15/20 25 02/14/2025 LIPID PROFI LE (MALE ) HDL - direct 28.0 mg/dL >40.0 low Not Available [facility] [address] [facility], [place], [address], 02/14/2025 15:49:24 02/15/20 25 02/14/2025 LIPID PROFI LE (MALE ) VLDL - direct 45.8 mg/dL Not Available [facility] [address] [facility], [place], [address], 02/14/2025 15:49:24 02/15/20 25 02/14/2025 LIPID PROFI LE (MALE ) LDL - direct 133.2 mg/dL 0.0-13 0.0 high Not Available [place] [facility] [address] [facility] [address], [place], [address], 02/14/2025 15:49:24 02/15/20 25 02/15/2025 URIC ACID uric acid 5.0 mg/dL 4.0-8. 0 normal Thera peuti c targe t for gout patie nts: <6.0 mg/dL Not Available [facility] [address], [place], [address], 02/15/2025 09:54:02 02/15/20 25 02/15/2025 C-JACKI CTIVE PROTE IN C-reactive protein 439.0 mg/L <8.0 high Verif ied by repea t elen sis. Not Available [facility] [address] [place], [address], 02/15/2025 09:54:03 02/15/20 25 02/14/2025 ESR (eryt hrocy te sedim entat ion rate) , blood SedRate 14 Not Available [facility] ([facility]) [address] [place], [address], 02/14/2025 12:50:39 02/16/2002/14/2025 US, brittney x, sukhwinder s, [facility] mity No observ ation record ed. [facility] [address] [place], [address], 02/16/2025 09:06:57 Result Notes None recorded. Problems Name Problem SNOMED Code Status Onset Date Resolution Date Notes Provider Name and Address Organization Details Recorded Time Anxiety state 030837019 Active 2022 ANXIETY AND DEPRESSION ; Recorded 04/23/2022 8:59AM by Delphine Schmitz RN, Office Visit; Promoted; acuity set as *; ANXIETY AND DEPRESSION ; Recorded 04/03/2020 8:13AM by Jordyn Wallace LPN, Annotation /Addendum; Promoted; acuity set as *; ; Start Date : 04/03/2020 JORDYN mariscal [place] Bertha [facility] Carlos 5 08:30:22 Gastroesop hageal reflux disease 595049872 Active 2022 GERD (GASTROESO PHAGEAL REFLUX DISEASE); Recorded 04/23/2022 8:59AM by Delphine Schmitz RN, Office Visit; Promoted; acuity set as *; JORDYN mariscal [facility] Carlos 5 08:30:38 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 5 08:30:47 Hyperlipid emia 46236356 Active 2022 HYPERLIPID EMIA; Recorded 04/23/2022 8:59AM by Delphine Schmitz RN, Office Visit; Promoted; acuity set as *; [facility] 5 08:30:50 Depressive disorder 15492676 Active 2022 DEPRESSION ; Recorded 04/23/2022 8:59AM by Delphine Schmitz RN, Office Visit; Promoted; acuity set as *; [facility] 5 08:30:25 Genuine stress incontinen ce 00118913 Active 2022 URINARY INCONTINEN CE, MALE, STRESS; Recorded 04/23/2022 8:59AM by Delphine Schmitz RN, Office Visit; Promoted; acuity set as *; [facility] 5 08:30:44 Insomnia 090646655 Active 2022 INSOMNIA; Recorded 04/23/2022 8:59AM by Delphine Schmitz RN, Office Visit; Promoted; acuity set as *; INSOMNIA, UNCONTROLL ED; Recorded 04/03/2020 8:13AM by Jordyn Wallace LPN, Annotation /Addendum; Promoted; acuity set as *; ; Start Date : 04/03/2020 [facility] 5 08:30:55 Erectile dysfunctio n 655964576 Active 2022 ERECTILE DYSFUNCTIO N; Recorded 04/23/2022 8:59AM by Delphine Schmitz, HENRY, Office Visit; Promoted; acuity set as *; [facility]ORDYN [facility]HEA [facility] 5 08:30:29 Problem Notes None recorded. Medical [...] completed Recorded 02/06/20 22 1:05PM by Leighton Bhardwaj, , Refill Request; [...] Last Updated DateTime 182.88 cm 22.1 kg/m2 61216.5 6 g 98 % 98 % 100 /min 20 /min 98.6 [degF] 130/70 mm[Hg] JORDYN WALLACE [facility] 12:03:59 Social History Question Answer Notes LastModified by Organizat ion Details LastModified Time Tobacco Smoking Status Former Smoker Jen [facility] 10/06/2024 15:38:29 Are You Blind Or Do You Have Difficulty Seeing? No [email or web address] Information not available 06/30/2022 What Is Your Level Of Caffeine Consumption? Occasional [email or web address] Information not available 10/06/2024 Are You Deaf Or Do You Have Serious Difficulty Hearing? No [email or web address] Information not available 06/30/2022 Which Illicit Or Recreational Drugs Have You Used? Marijuana [email or web address] Information not available 10/06/2024 Have You Had Direct Contact, Or Contact During Intimacy, With Monkeypox Rash, Scabs, Or Body Fluids From A Person With Monkeypox? No [email or web address] Information not available 09/10/2022 What Was The Date Of Your Most Recent Tobacco Screening? 02/10/2025 [email or web address] Information not available 02/10/2025 What Is Your Current Pack Years? 20-29packyears [email or web address] Information not available 06/09/2024 What Is Your Relationship Status? Unknown Information not available 06/30/2022 At What Age Did You Start Smoking Tobacco? 20 Information not available 06/09/2024 How Much Tobacco Do You Smoke? No [email or web address] Information not available 10/06/2024 Has Tobacco Cessation Counseling Been Provided? No [email or web address] Information not available 06/09/2024 How Many Years Have You Smoked Tobacco? 20 [email or web address] Information not available 06/09/2024 Have You Recently Traveled Abroad? No [email or web address] Information not available 09/10/2022 Do You Have Difficulty Walking Or Climbing Stairs? No [email or web address] Information not available 06/30/2022 Sex: Unknown Functional Status Question Answer Note LastModified by Organizat ion Details LastModified Time Do you use any illicit or recreational drugs? Yes [email or web address] Information not available 10/06/2024 Do you or have you ever used any other forms of tobacco or nicotine? No [email or web address] Information not available 06/09/2024 What is your level of alcohol consumption? None [email or web address] Information not available 06/09/2024 Are you able to walk independently without assistance or assistive devices? YESWOREST [email or web address] Information not available 06/30/2022 Do you have difficulty doing errands alone? No [email or web address] Information not available 06/30/2022 Are you able to care for yourself independently? Yes [email or web address] Information not available 06/30/2022 Do you have difficulty dressing, bathing, grooming, or toileting? No [email or web address] Information not available 06/30/2022 Do you or have you ever used any nicotine-free cigarettes, vape, or chewing tobacco? No Information not available 06/09/2024 Mental Status Question Answer Note LastModified by Organization D etails LastModified Time Do you have difficulty concentrating, remembering or making decisions? No [email or web address] Information no t available 06/30/2022 Family History Nothing Reported. Medical History No medical history recorded. Immunizations Vaccine Type Date Status Note Provider Nam e and Address Organization Details Recorded Time Hep B, adolescent/high risk infant 8 completed Not Available [facility] 02/14/2025 14:48:39 Hep A, ped/adol, 2 dose 8 completed Not [facility] 02/14/2025 14:48:39 Hep A, ped/adol, 2 dose 8 completed Not [facility] 02/14/2025 14:48:39 Hep B, unspecified formulation 8 completed Not [facility] 02/14/2025 14:48:39 Hep B, unspecified formulation 9 completed Not [facility] 02/14/2025 14:48:39 Hep A, ped/adol, 2 dose 9 completed Not [facility] 02/14/2025 14:48:39 Tdap 5 completed Not Available [facility] 02/14/2025 14:48:39 Past Encounters Encounter ID Performer Location Encounter Start Date Encounter Closed Date Diagnosis/Indication Diagnosis SNOMED-CT Code Diagnosis ICD10 Code Diagnosis IMO Codes Diagnosis Note [id number] LESLIE PINEDA [facility] ([facility]) [address] [place] [phone] 02/10/2025 15:20:02 02/10/2025 15:47:57 Sore throat 196059572 J02.9 40963 Viral resp iratory infection 235584069 J98.8 B97.89 [id number] May use meds like zyrtec and fluticason e nasal spray as needed for symptoms. Return to clinic with any new or worsening symptoms. [id number] TRISHA PRO PA-C [facility] ([facility]) [address] [place] [phone] 02/14/2025 11:59:23 02/14/2025 13:15:14 Edema of right lower limb 623543661 R60.0 [id number] suspect DVT acute. need WILFRIDO venous doppler to R/o. Monoarthritis 413796611 M13.10 0987592 fx ruled out at er. Differenti al includes acute DVT, gout, autoimmune monoarthro maricruz, septic joint. Will get u/s today and lab.Beteme thasaone started for gout and will send in antibiotic s.F/u in 2 days to recheck. to ER if pain or redness worsening. [id number] TIRSHA PRO PA-C [facility] ([facility]) [address] [place] [phone] 02/14/2025 14:48:08 02/14/2025 15:17:35 Health Concerns Section Related Observation LastModified by Organization Detai ls LastModified Time None Recorded Concern Status LastModified by Organization Details LastModified Time None Recorded Payers Encounter Date Sequence Insurance Name Policy Number Policy Waters Covered Member ID Waters Member ID Guarantor Name 02/14/2025 1 [place] - [place]PO) [id number] Khris Kaba [id number] Khris Kaba 02/14/2025 2 [place] Khris Kaba [id number] Khris Kaba Notes Date Note Type Note [...] a blood clot TRISHA PRO PA-C [address] [place], [address], [facility] 02/14/2025 13:13:25
--- OUTSIDE RECORDS SUMMARY | 2025-02-19 12:30 | XMS_ITS | Patient Health Record ---
Author Organization [facility] Address [address] [place] [address] Care Team Providers Care Haul Truck Driver Name Role Phone Leighton Bhardwaj Primary Care Provider LANDON Linda Unavailable [phone] Reason For Referral No Information Medications Medication SIG (Take, Route, Frequency, Duration) Notes Start Date End Date Status Ibuprofen 800 MG 1 tab(s) po q 8 hrs prn Oral; Duration: 30 Ibuprofen 800mg Tablet 1 tab(s) po q 8 hrs prn 02/06/2012 Active Problems Problem Type SNOMED Code ICD Code Onset Dates Problem Status W/U Status Risk Notes Problem Frequency of micturition (706386262) Frequency of micturition (R35.0) Active confirmed Problem Low back pain (211223977) Low back pain (724.2) 08/14/19 10 Active confirmed [id number]- Problem Wheezing (86779033) Wheezing (786.07) 07/08/19 09 Problem resolved confirmed [id number]- Problem Heartburn (54294107) Heartburn (787.1) 04/16/19 12 Problem resolved confirmed [id number]- Problem Dysphagia (19490164) Other dysphagia (787.29) 08/14/19 10 Problem resolved confirmed [id number] 11- Problem Urinary frequency (218301876) Urinary frequency (788.41) 10/29/19 12 Problem resolved confirmed [id number] 11- Problem Ear ache (291541148) Ear ache (388.71) 06/18/19 11 Problem resolved confirmed [id number] 11- Problem Tobacco dependence (66764268) Tobacco dependence (305.1) 12/18/19 10 Problem resolved confirmed [id number] 11- Problem Tobacco abuse (4221922416) Tobacco abuse (305.1) 09/15/19 09 Problem resolved confirmed [id number] 11- Problem Insomnia (471015083) Insomnia (307.41) 08/10/19 09 Problem resolved confirmed [id number] 11- Problem Shoulder pain (44366074) Shoulder pain (719.41) 04/03/20 10 Problem resolved confirmed [id number] 11- Problem Administration of vaccine product containing only Streptococcus pneumoniae antigen (procedure) (53929571) Vaccination against pneumococcal pneumonia (V03.82) 02/06/20 12 Problem resolved confirmed [id number] 11- Problem 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) Other abnormal laboratory result on blood (790.99) 07/20/19 09 Problem resolved confirmed [id number]- Problem Hereditary motor and sensory neuropathy (853769387) Ezoxvme-Wqybc-N ooth disease (356.1) 01/09/20 11 Problem resolved confirmed [id number] 11- Problem Acute upper respiratory infection (68946621) Acute upper respiratory infection (465.8) 07/19/19 10 Problem resolved confirmed [id number] 11- Problem Muscle weakness (04665053) Muscle weakness (729.89) 09/15/19 09 Problem resolved confirmed [id number] 11- Problem Genital warts (842232561) Genital warts (078.11) 07/19/19 10 Problem resolved confirmed [id number] 11- Problem Acute otitis media (9806781) Acute otitis media (382.00) 05/30/19 12 Problem resolved confirmed [id number] 11- Problem Sore throat (638827483) Sore Throat (462) 10/12/19 10 Problem resolved confirmed [id number] 11- Problem Ankle pain (189509673) Ankle pain (719.47) 11/07/19 11 Problem resolved confirmed [id number] 11- Problem Chest pain (25202755) Chest pain (786.59) 04/30/19 12 Problem resolved confirmed [id number] 11- Problem Erectile dysfunction (005352564) Erectile dysfunction (302.72) 07/16/19 12 Problem resolved confirmed [id number] 11- Problem Acute sinusitis (72367089) Acute sinusitis (461.8) 09/09/19 09 Problem resolved confirmed [id number] 11- Problem Neck pain (45370399) Neck pain (723.1) 07/19/19 10 Problem resolved confirmed [id number] 11- Problem Vitamin D deficiency (37928285) Vitamin D deficiency (268.9) 07/20/19 09 Problem resolved confirmed [id number] 11- Problem Generalized anxiety disorder (87615545) Anxiety, generalized (300.02) 09/09/19 09 Problem resolved confirmed [id number] 11- Plan Of Treatment No Information Insurance Providers Payer Name Payer Address Payer Phone Subscriber Number Group Number Insured Name Patient Relationship to Insured Coverage Start Date Coverage End Date [employer] [place] [address] [place], [place] [id number] [phone] [id number] Khris Kaba Self - patient is the insured Medical (General) History Surgical History Surgery Date(Month/Year) NONE
--- OUTSIDE RECORDS SUMMARY | 2025-02-19 12:31 | XMS_ITS | Encounter Summary ---
Author Organization [facility] Address [address] [place] [address] Care Team Providers Care Dimensional Integration Engineer Name Role Phone Patricio Rojas MD Primary Care Provider Ghada vailable Encounter Details Date Type Department Care Team (Latest Contact Info) Description 05/13/2002 Outpatient Historical [facility] [address] 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
--- OUTSIDE RECORDS SUMMARY | 2025-02-19 12:31 | XMS_ITS | Encounter Summary ---
Author Organization [facility] Address [address] [place] [address] Care Team Providers Care Coal Equipment Operator Name Role Phone Patricio Rojas MD Primary Care Provider Ghada vailable Encounter Details Date Type Department Care Team (Latest Contact Info) Description 05/13/2002 Outpatient Historical [facility] Chronic Pain [address] [place] [address] Shirley Mccauley, LESLIE [address] [facility] [address] [place] [phone] LUMBAGO (Primary Dx) Social History Tobacco Use Types Packs/Day Years Used Date Smoking Tobacco: Never Assessed Sex and Gender Information Value Date Recorded Sex Assigned at Not on file 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
--- OUTSIDE RECORDS SUMMARY | 2025-02-19 12:31 | XMS_ITS | Encounter Summary ---
Author Organization [facility] Address [address] [place] [address] Care Team Providers Care Bandage Maker Name Role Phone Patricio Rojas MD Primary Care Provider Ghada vailable Encounter Details Date Type Department Care Team (Latest Contact Info) Description 07/01/2002 Outpatient Historical [facility] Chronic Pain [address] [place] [address] Shirley Mccauley, LESLIE [address] [facility] [address] [place] [phone] MYALGIA AND MYOSITIS NOS (Primary Dx) Social History Tobacco Use Types Packs/Day Years Used Date Smoking Tobacco: Never Assessed Sex and Gender Information Value Date Recorded Sex Assigned at Not on file Legal Sex Male 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
--- OUTSIDE RECORDS SUMMARY | 2025-02-19 12:31 | XMS_ITS | Encounter Summary ---
Author Organization [facility] Address [address] [place] [address] Care Team Providers Care Land Department Head Name Role Phone Patricio Rojas MD Primary Care Provider Ghada vailable Encounter Details Date Type Department Care Team (Latest Contact Info) Description 02/11/2002 Outpatient [facility] [address] 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
--- OUTSIDE RECORDS SUMMARY | 2025-02-19 12:31 | XMS_ITS | Encounter Summary ---
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
--- OUTSIDE RECORDS SUMMARY | 2025-02-19 12:32 | XMS_ITS | Encounter Summary ---
Author Organization [facility] Address [address] [place] [address] Care Team Providers Care Wellness Manager Name Role Phone Patricio Rojas MD Primary Care Provider Ghada vailable Encounter Details Date Type Department Care Team (Latest Contact Info) Description 01/06/2002 Outpatient Historical [facility] [address] 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
--- OUTSIDE RECORDS SUMMARY | 2025-02-19 12:32 | XMS_ITS | Encounter Summary ---
Author Organization [facility] Address 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
--- OUTSIDE RECORDS SUMMARY | 2025-02-19 12:32 | XMS_ITS | Encounter Summary ---
Author Organization [facility] Address [address] [place] [address] Care Team Providers Care Stave Machine Tender Name Role Phone Patricio Rojas MD Primary Care Provider Ghada vailable Encounter Details Date Type Department Care Team (Latest Contact Info) Description 02/11/2002 Outpatient Historical [facility] Chronic Pain [address] [place] [address] Shirley Mccauley, LESLIE [address] [facility] [address] [place] [address] Patricio Rojas MD NO ADDRESS ON FILE MYALGIA AND MYOSITIS NOS (Primary Dx) Social History Tobacco Use Types Packs/Day Years Used Date Smoking Tobacco: Never Assessed Sex and Gender Information Value Date Recorded Sex Assigned at Not on file 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
--- OUTSIDE RECORDS SUMMARY | 2025-02-19 12:33 | XMS_ITS | Encounter Summary ---
Author Organization [facility] Address [address] [place] [address] Care Team Providers Care Flange Machine Operator Name Role Phone Patricio Rojas MD Primary Care Provider Ghada vailable Encounter Details Date Type Department Care Team (Latest Contact Info) Description 07/01/2002 Outpatient Historical [facility] [address] 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
--- OUTSIDE RECORDS SUMMARY | 2025-02-19 12:33 | XMS_ITS | Patient Health Record ---
Author Organization [facility] Address [address] [place] [address] Care Team Providers Care Attendant Child Activity Name Role Phone Bhardwaj Leighton AMADOR Primary Care Provider UnavailShadia Collins Unavailable [phone] Reason For Referral No Information Medications Medication [...] Status Risk Notes Problem Frequency of micturition (953920511) Frequency of micturition (R35.0) Active confirmed Problem Low back pain (508693508) Low back pain (724.2) 08/14/19 10 Active confirmed [id number]- Problem Wheezing (79558219) Wheezing (786.07) 07/08/19 09 Problem resolved confirmed [id number] 11- Problem Heartburn (35658835) Heartburn (787.1) 04/16/19 12 Problem resolved confirmed [id number] 11- Problem Dysphagia (85335084) Other dysphagia (787.29) 08/14/19 10 Problem resolved confirmed [id number] 11- Problem Urinary frequency (643948484) Urinary frequency (788.41) 10/29/19 12 Problem resolved confirmed [id number] 11- Problem Generalized anxiety disorder (46071480) Anxiety, generalized (300.02) 09/09/19 09 Problem resolved confirmed [id number] 11- Problem Neck pain (35927267) Neck pain (723.1) 07/19/19 10 Problem resolved confirmed [id number] 11- Problem Vitamin D deficiency (04899898) Vitamin D deficiency (268.9) 07/20/19 09 Problem resolved confirmed [id number] 11- Problem Muscle weakness (63452766) Muscle weakness (729.89) 09/15/19 09 Problem resolved confirmed [id number] 11- Problem Shoulder pain (08677565) Shoulder pain (719.41) 04/03/20 10 Problem resolved confirmed [id number] 11- 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) Oykdage-Qljjg-A ooth disease (356.1) 01/09/20 11 Problem resolved confirmed [id number] 11- Problem 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) Other abnormal laboratory result on blood (790.99) 07/20/19 09 Problem resolved confirmed [id number] 11- Problem Sore throat (550643108) Sore Throat (462) 10/12/19 10 Problem resolved confirmed [id number] 11- Problem Tobacco abuse (3398468822) Tobacco abuse (305.1) 09/15/19 09 Problem resolved confirmed [id number] 11- Problem Tobacco dependence (35815207) Tobacco dependence (305.1) 12/18/19 10 Problem resolved confirmed [id number] 11- Problem Ear ache (113426599) Ear ache (388.71) 06/18/19 11 Problem resolved confirmed [id number] 11- Problem Insomnia (247191511) Insomnia (307.41) 08/10/19 09 Problem resolved confirmed [id number] 11- Problem Acute upper respiratory infection (48267743) Acute upper respiratory infection (465.8) 07/19/19 10 Problem resolved confirmed [id number] 11- Problem Acute otitis media (6620952) Acute otitis media (382.00) 05/30/19 12 Problem resolved confirmed [id number] 11- Problem Acute sinusitis (98967846) Acute sinusitis (461.8) 09/09/19 09 Problem resolved confirmed [id number] 11- Problem Ankle pain (894374728) Ankle pain (719.47) 11/07/19 11 Problem resolved confirmed [id number] 11- Problem Chest pain (97811681) Chest pain (786.59) 04/30/19 12 Problem resolved confirmed [id number] 11- Problem Erectile dysfunction (810618155) Erectile dysfunction (302.72) 07/16/19 12 Problem resolved confirmed [id number] 11- Problem Administration of vaccine product containing only Streptococcus pneumoniae antigen (procedure) (30902077) Vaccination against pneumococcal pneumonia (V03.82) 02/06/20 12 Problem resolved confirmed [id number] 11- Problem Genital warts (121907738) Genital warts (078.11) 07/19/19 10 Problem resolved confirmed [id number] 11- Plan Of Treatment No Information Insurance Providers Payer Name Payer Address Payer Phone Subscriber Number Group Number Insured Name Patient Relationship to Insured Coverage Start Date Coverage End Date [employer] [address] [place] [phone] [id number] Khris Kaba Self - patient is the insured Medical (General) History Surgical History Surgery Date(Month/Year) NONE
--- OUTSIDE RECORDS SUMMARY | 2025-02-19 12:34 | XMS_ITS | Encounter Summary ---
Author Organization [facility] Address 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
--- OUTSIDE RECORDS SUMMARY | 2025-02-19 12:34 | XMS_ITS | Encounter Summary ---
Author Organization [facility] Address [address] [place] [address] Care Team Providers Care Meal Packer Name Role Phone Patricio Rojas MD Primary Care Provider Ghada vailable Encounter Details Date Type Department Care Team (Latest Contact Info) Description 06/04/2001 Outpatient Historical [facility] Thanh Candelaria MD [address] [place] [address] OTHER BACK SYMPTOMS (Primary Dx); Lumbosacral spondylosis; BACKACHE NOS Social History Tobacco Use Types Packs/Day Years Used Date Smoking Tobacco: Never Assessed Sex and Gender Information Value Date Recorded Sex Assigned at Not on file 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
--- OUTSIDE RECORDS SUMMARY | 2025-02-19 12:34 | XMS_ITS | Encounter Summary ---
Author Organization [facility] Address [address] [place] [address] Care Team Providers Care Explosives Operator Name Role Phone Patricio Rojas MD Primary Care Provider Ghada vailable Encounter Details Date Type Department Care Team (Latest Contact Info) Description 04/23/2001 Outpatient Historical [facility] Thanh Candelaria MD [address] [place] [address] Lumbosacral spondylosis (Primary Dx); BACKACHE NOS Social History Tobacco Use Types Packs/Day Years Used Date Smoking Tobacco: Never Assessed Sex and Gender Information Value Date Recorded Sex Assigned at Not on file 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
--- OUTSIDE RECORDS SUMMARY | 2025-02-19 12:35 | XMS_ITS | Encounter Summary ---
Author Organization [facility] Address 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
--- OUTSIDE RECORDS SUMMARY | 2025-02-19 12:35 | XMS_ITS | Encounter Summary ---
Author Organization [facility] Address [address] [place] [address] Care Team Providers Care Store Management Trainee Name Role Phone Patricio Rojas MD Primary Care Provider Ghada vailable Encounter Details Date Type Department Care Team (Latest Contact Info) Description 02/19/2001 Outpatient Historical [facility] Thanh Candelaria MD [address] [place] [address] Lumbosacral spondylosis (Primary Dx); BACKACHE NOS; Sprain lumbar region Social History Tobacco Use Types Packs/Day Years Used Date Smoking Tobacco: Never Assessed Sex and Gender Information Value Date Recorded Sex Assigned at Not on file 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
--- OUTSIDE RECORDS SUMMARY | 2025-02-19 12:35 | XMS_ITS | Encounter Summary ---
Author Organization [email or web address] Address [address] [place] [address] Care Team Providers Care Detonator Assembler Name Role Phone Patricio Rojas MD Primary Care Provider Ghada vailable Encounter Details Date Type Department Care Team (Latest Contact Info) Description 01/12/2001 Outpatient Historical [facility] Thanh Candelaria MD [address] [place] [address] Sprain lumbar region (Primary Dx); Backache, unspecified; Lumbosacral spondylosis; Peroneal muscle atrophy Social History Tobacco Use Types Packs/Day Years Used Date Smoking Tobacco: Never Assessed Sex and Gender Information Value Date Recorded Sex Assigned at Not on file 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
--- OUTSIDE RECORDS SUMMARY | 2025-02-19 12:35 | XMS_ITS | Encounter Summary ---
Author Organization [facility] Address [address] [place] [address] Care Team Providers Care Set Up Person Name Role Phone Patricio Rojas MD Primary Care Provider Ghada vailable Encounter Details Date Type Department Care Team (Late st Contact Info) Description 09/24/2001 Outpatient [facility] [address] 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
--- OUTSIDE RECORDS SUMMARY | 2025-02-19 12:36 | XMS_ITS | Continuity of Care Document ---
Author Organization ROMERO Brandon De Luna [facility] Jena Collins, [facility] ([facility]) Address [address] [place] [address] Care Team Providers Care Hand Loom Weaver Name Role Phone TRISHA PRO Primary Care Provider [phone] Assessment No assessment recorded. Plan of Treatment Reminders Order Date Submit Date Provider Last Modified By Organization Details Last Modified Time Details Appointments None record ed. Lab None record ed. Referral None record ed. Procedures None record ed. Surgeries None record ed. Imaging None record ed. Medication Orders None record ed. Patient TargetsNo targets recorded. Patient InstructionsNo instructions recorded. Reason for Referral None Reported. Results Created Date Observation Date Name Description Value Unit Range Abnormal Flag Note LastModifiedBy Organization Detail LastModifiedTime 02/11/2002/10/2025 strep tococ cus group A Ag scree n Strep negati ve Not Available [facility] ([facility]) [address] [place], [address], 02/10/2025 15:27:46 02/15/20 25 02/14/2025 CBC WBC 19.6 x10 4.5-10 .5 high Not Available [facility] [address] [facility], [place], [address], 02/14/2025 15:08:24 02/15/20 25 02/14/2025 CBC RBC 4.89 x10 4.30-5 .90 Not Available [facility] [address] [facility], [place], [address], 02/14/2025 15:08:24 02/15/20 25 02/14/2025 CBC HGB 15.3 g/dL 13.5-1 8.0 Not Available [facility] [address] [facility] 1, [place], [address], 02/14/2025 15:08:24 02/15/20 25 02/14/2025 CBC HCT 46.3 % 35.0-6 0.0 Not Available [facility] [address] [facility] 1, [place], [address], 02/14/2025 15:08:24 02/15/20 25 02/14/2025 CBC MCV 94.7 fL 80.0-9 9.9 Not Available [facility] [address] [facility] 1, [place], [address], 02/14/2025 15:08:24 02/15/20 25 02/14/2025 CBC MCH 31.3 pg 27.0-3 2.0 Not Available [facility] [address] [facility] 1, [place], [address], 02/14/2025 15:08:24 02/15/20 25 02/14/2025 CBC MCHC 33.1 g/dL 32.0-3 6.0 Not Available [facility] [address] [facility] 1, [place], [address], 02/14/2025 15:08:24 02/15/20 25 02/14/2025 CBC RDW 12.7 % 11.5-1 4.5 Not Available [facility] [address] [facility] [facility], [place], [address], 02/14/2025 15:08:24 02/15/20 25 02/14/2025 CBC plt 399.2 x10 150.0- 451.0 Not Available [facility] [address] [facility] [facility] 1, [place], [address], 02/14/2025 15:08:24 02/15/20 25 02/14/2025 CBC lymphocytes % 10.0 % 20.0-5 0.0 low Not Available [facility] [address] [facility] [facility] 1, [place], [address], 02/14/2025 15:08:24 02/15/20 25 02/14/2025 CBC granulcytes % 81.1 % 30.0-7 0.0 high Not Available [facility] [address] [facility] 1, [place], [address], 02/14/2025 15:08:24 02/15/20 25 02/14/2025 CBC monocytes % 8.1 % 2.0-16 .0 Not Available [facility] [address] [facility], [place], [address], 02/14/2025 15:08:24 02/15/20 25 02/14/2025 CBC granulcytes# 15.9 x10 Not Carrol ilable [facility] [address] [place] [facility], [place], [address], 02/14/2025 15:08:24 02/15/20 25 02/14/2025 CBC lymphocytes # 2.0 x10 Not Available [facility] [address] [facility], [place], [address], 02/14/2025 15:08:24 02/15/20 25 02/14/2025 CBC monocytes # 1.6 x10 Not Avai lable [facility] [address] [facility], [place], [address], 02/14/2025 15:08:24 02/15/20 25 02/14/2025 CMP (MALE ) glucose 116.0 mg/dL 60.0-9 9.0 high Not Available [facility] [address] [facility], [place], [address], 02/14/2025 15:49:22 02/15/20 25 02/14/2025 CMP (MALE ) BUN (blood urea nitrogen) 21.0 mg/dL 10.0-2 6.0 Not Available [facility] [address] [facility], [place], [address], 02/14/2025 15:49:22 02/15/20 25 02/14/2025 CMP (MALE ) creatinine (serum) 2.3 mg/dL 0.4-1. 5 high Not Available [facility] [address] [facility], [place], [address], 02/14/2025 15:49:22 02/15/20 25 02/14/2025 CMP (MALE ) BUN/creatini ne ratio 9.13 ratio Not Available [facility] [address] [facility], [place], [address], 02/14/2025 15:49:22 02/15/20 25 02/14/2025 CMP (MALE ) eGFR calculated 33.0 Not Available [facility] [address] [facility], [place], [address], 02/14/2025 15:49:22 02/15/20 25 02/14/2025 CMP (MALE ) total protein 9.2 g/dL 6.0-8. 5 high Not Available [facility] [address] [facility], [place], [address], 02/14/2025 15:49:22 02/15/20 25 02/14/2025 CMP (MALE ) total bilirubin 1.2 mg/dL 0.2-1. 3 Not Available [facility] [address] [facility], [place], [address], 02/14/2025 15:49:22 02/15/20 25 02/14/2025 CMP (MALE ) albumin 4.1 g/dL 3.5-5. 5 Not Available [facility] [address] [facility], [place], [address], 02/14/2025 15:49:22 02/15/20 25 02/14/2025 CMP (MALE ) globulin 5.1 calc Not Available [facility] [address] [facility], [place], [address], 02/14/2025 15:49:22 02/15/20 25 02/14/2025 CMP (MALE ) AST (SGOT) 38.0 U/L 0.0-46 .0 Not Available [facility] [address] [address], [place], [address], 02/14/2025 15:49:22 02/15/20 25 02/14/2025 CMP (MALE ) altv (SGPT) 37.0 U/L 13.0-6 9.0 normal Not Available [facility] [address] [address], [place], [address], 02/14/2025 15:49:22 02/15/20 25 02/14/2025 CMP (MALE ) A/G ratio 0.8 ratio Not Available [facility] [address] [address], [place], [address], 02/14/2025 15:49:22 02/15/20 25 02/14/2025 CMP (MALE ) ALP phos 176.0 U/L 30.0-1 40.0 abnormal Not Available [facility] [address] [facility], [place], [address], 02/14/2025 15:49:22 02/15/20 25 02/14/2025 CMP (MALE ) calcium 9.8 mg/dL 8.4-10 .5 Not Available [facility] [address] [facility] [address], [place], [address], 02/14/2025 15:49:22 02/15/20 25 02/14/2025 CMP (MALE ) sodium 134.0 mmol/ L 136.0- 145.0 low Not Available [facility] [address] [facility] 1, [place], [address], 02/14/2025 15:49:22 02/15/20 25 02/14/2025 CMP (MALE ) potassium 3.1 mmol/ L 3.5-5. 1 low Not Available [facility] [address] [place] [address] [facility] 1, [place], [address], 02/14/2025 15:49:22 02/15/20 25 02/14/2025 CMP (MALE ) chloride 89.0 mmol/ L 98.0-1 10.0 abnormal Not Available [facility] [address] [place] [address] [facility] 1, [place], [address], 02/14/2025 15:49:22 02/15/20 25 02/14/2025 CMP (MALE ) C02 32.0 mmol/ L 22.0-3 1.0 high Not Available [facility] [address] [place] [address] [facility] 1, [place], [address], 02/14/2025 15:49:22 02/15/20 25 02/14/2025 CMP (MALE ) anion gap 13.0 calc Not Available [facility] [address] [facility] 1, [place], [address], 02/14/2025 15:49:22 02/15/20 25 02/14/2025 CMP (MALE ) osmolality 280.8 calc Not Available [facility] [address] [place] [address] [facility] 1, [place], [address], 02/14/2025 15:49:22 02/15/20 25 02/14/2025 LIPID PROFI LE (MALE ) cholesterol 207.0 mg/dL 0.0-20 0.0 high Not Available [facility] [address] [facility], [place], [address], 02/14/2025 15:49:24 02/15/20 25 02/14/2025 LIPID PROFI LE (MALE ) trig 229.0 mg/dL 0.0-15 0.0 high Not Available [facility] [address] [facility], [place], [address], 02/14/2025 15:49:24 02/15/20 25 02/14/2025 LIPID PROFI LE (MALE ) HDL - direct 28.0 mg/dL >40.0 low Not Available [facility] [address] [facility], [place], [address], 02/14/2025 15:49:24 02/15/20 25 02/14/2025 LIPID PROFI LE (MALE ) VLDL - direct 45.8 mg/dL Not Available [facility] [address] [facility], [place], [address], 02/14/2025 15:49:24 02/15/20 25 02/14/2025 LIPID PROFI LE (MALE ) LDL - direct 133.2 mg/dL 0.0-13 0.0 high Not Available [facility] [address] [facility], [place], [address], 02/14/2025 15:49:24 02/15/20 25 02/15/2025 URIC ACID uric acid 5.0 mg/dL 4.0-8. 0 normal Thera pecarltoni jennifer targe t for gout patie nts: <6.0 mg/dL Not Available [email or web address] [address] [address], [place], [address], 02/15/2025 09:54:02 02/15/20 25 02/15/2025 C-JACKI CTIVE PROTE IN C-reactive protein 439.0 mg/L <8.0 high Verif ied by repea t elen sis. Not Available [facility] [address] [place], [address], 02/15/2025 09:54:03 02/15/20 25 02/14/2025 ESR (eryt hrocy te sedim entat ion rate) , blood SedRate 14 Not Available [facility] ([facility]) [address] [place], [address], 02/14/2025 12:50:39 02/16/2002/14/2025 US, brittney x, sukhwinder s, [facility] No observ ation record ed. [facility] [address] [place], [address], 02/16/2025 09:06:57 Result Notes None recorded. Problems Name Problem SNOMED Code Status Onset Date Resolution Date Notes Provider Name and Address Organization Details Recorded Time Anxiety state 130238395 Active 2022 ANXIETY AND DEPRESSION ; Recorded 04/23/2022 8:59AM by Delphine Schmitz RN, Office Visit; Promoted; acuity set as *; ANXIETY AND DEPRESSION ; Recorded 04/03/2020 8:13AM by Jordyn Wallace LPN, Annotation /Addendum; Promoted; acuity set as *; ; Start Date : 04/03/2020 JORDYN mariscal [facility] Carlos 5 08:30:22 Gastroesop hageal reflux disease 418659549 Active 2022 GERD (GASTROESO PHAGEAL REFLUX DISEASE); Recorded 04/23/2022 8:59AM by Delphine Schmitz RN, Office Visit; Promoted; acuity set as *; JORDYN mariscal [facility] [place] 5 08:30:38 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 08:30:47 Hyperlipid emia 68906907 Active 2022 HYPERLIPID EMIA; Recorded 04/23/2022 8:59AM by Delphine Schmitz RN, Office Visit; Promoted; acuity set as *; [facility] 5 08:30:50 Depressive disorder 74307787 Active 2022 DEPRESSION ; Recorded 04/23/2022 8:59AM by Delphine Schmitz RN, Office Visit; Promoted; acuity set as *; [facility] 5 08:30:25 Genuine stress incontinen ce 45243480 Active 2022 URINARY INCONTINEN CE, MALE, STRESS; Recorded 04/23/2022 8:59AM by Delphine Schmitz RN, Office Visit; Promoted; acuity set as *; [facility] 5 08:30:44 Insomnia 349851993 Active 2022 INSOMNIA; Recorded 04/23/2022 8:59AM by Delphine Schmitz RN, Office Visit; Promoted; acuity set as *; INSOMNIA, UNCONTROLL ED; Recorded 04/03/2020 8:13AM by Jordyn Wallace LPN, Annotation /Addendum; Promoted; acuity set as *; ; Start Date : 04/03/2020 [facility] 5 08:30:55 Erectile dysfunctio n 906684454 Active 2022 ERECTILE DYSFUNCTIO N; Recorded 04/23/2022 8:59AM by Delphine Schmitz, HENRY, Office Visit; Promoted; acuity set as *; JORDYN WALLACE [facility], [facility]. 5 08:30:29 Problem Notes None recorded. Medical [...] Last Updated DateTime 182.88 cm 22.1 kg/m2 06791.5 6 g 98 % 98 % 100 /min 20 /min 98.6 [degF] 130/70 mm[Hg] JORDYN POLKKEDAR [facility] 12:03:59 Social History Question Answer Notes LastModified by Organizat ion Details LastModified Time Tobacco Smoking Status Former Smoker Jen mariscal [facility] 10/06/2024 15:38:29 Are You Blind Or Do You Have Difficulty Seeing? No [email or web address] Information not available 06/30/2022 What Is Your Level Of Caffeine Consumption? Occasional Information not available 10/06/2024 Are You Deaf Or Do You Have Serious Difficulty Hearing? No [email or web address] Information not available 06/30/2022 Which Illicit Or Recreational Drugs Have You Used? Marijuana [email or web address] Information not available 10/06/2024 Have You Had Direct Contact, Or Contact During Intimacy, With Monkeypox Rash, Scabs, Or Body Fluids From A Person With Monkeypox? No [email or web address] Information not available 09/10/2022 What Was The Date Of Your Most Recent Tobacco Screening? 02/10/2025 [email or web address] Information not available 02/10/2025 What Is Your Current Pack Years? 20-29packyears [email or web address] Information not available 06/09/2024 What Is Your Relationship Status? Unknown Information not available 06/30/2022 At What Age Did You Start Smoking Tobacco? 20 [email or web address] Information not available 06/09/2024 How Much Tobacco Do You Smoke? No Information not available 10/06/2024 Has Tobacco Cessation Counseling Been Provided? No [email or web address] Information not available 06/09/2024 How Many Years Have You Smoked Tobacco? 20 [email or web address] Information not available 06/09/2024 Have You Recently Traveled Abroad? No [email or web address] Information not available 09/10/2022 Do You Have Difficulty Walking Or Climbing Stairs? No [email or web address] Information not available 06/30/2022 Sex: Unknown Functional Status Question Answer Note LastModified by Organizat ion Details LastModified Time Do you use any illicit or recreational drugs? Yes [email or web address] Information not available 10/06/2024 Do you or have you ever used any other forms of tobacco or nicotine? No [email or web address] Information not available 06/09/2024 What is your level of alcohol consumption? None Information not available 06/09/2024 Are you able to walk independently without assistance or assistive devices? YESWOREST [email or web address] Information not available 06/30/2022 Do you have difficulty doing errands alone? No [email or web address] Information not available 06/30/2022 Are you able to care for yourself independently? Yes [email or web address] Information not available 06/30/2022 Do you have difficulty dressing, bathing, grooming, or toileting? No Information not available 06/30/2022 Do you or have you ever used any nicotine-free cigarettes, vape, or chewing tobacco? No [email or web address] Information not available 06/09/2024 Mental Status Question Answer Note LastModified by Organization D etails LastModified Time Do you have difficulty concentrating, remembering or making decisions? No [email or web address] Information no t available 06/30/2022 Family History Nothing Reported. Medical History No medical history recorded. Immunizations Vaccine Type Date Status Note Provider Nam e and Address Organization Details Recorded Time Hep B, adolescent/high risk infant 8 completed Not Available [facility] 02/14/2025 14:48:39 Hep A, ped/adol, 2 dose 8 completed Not Available [facility] 02/14/2025 14:48:39 Hep A, ped/adol, 2 dose 8 completed Not Available [facility] 02/14/2025 14:48:39 Hep B, unspecified formulation 8 completed [facility] Available [facility] 02/14/2025 14:48:39 Hep B, unspecified formulation 9 completed Not Available [facility] 02/14/2025 14:48:39 Hep A, ped/adol, 2 dose 9 completed Not Available [facility] 02/14/2025 14:48:39 Tdap 5 completed Not Available [facility] 02/14/2025 14:48:39 Past Encounters Encounter ID Performer Location Encounter Start Date Encounter Closed Date Diagnosis/Indication Diagnosis SNOMED-CT Code Diagnosis ICD10 Code Diagnosis IMO Codes Diagnosis Note [id number] LESLIE PINEDA [facility] ([facility]) [address] [place] [phone] 02/10/2025 15:20:02 02/10/2025 15:47:57 Sore throat 151912912 J02.9 61047 Viral resp iratory infection 298261910 J98.8 B97.89 [id number] May use meds like zyrtec and fluticason e nasal spray as needed for symptoms. Return to clinic with any new or worsening symptoms. [id number] TRISHA PRO PA-C [facility] ([facility]) [address] [place] [phone] 02/14/2025 11:59:23 02/14/2025 13:15:14 Edema of right lower limb 155453736 R60.0 [id number] suspect DVT acute. need [facility] venous doppler to R/o. Monoarthritis 509775737 M13.10 [id number] fx ruled out at er. Differenti al includes acute DVT, gout, autoimmune monoarthro maricruz, septic joint. Will get u/s today and lab.Beteme thasaone started for gout and will send in antibiotic s.F/u in 2 days to recheck. to ER if pain or redness worsening. [id number] TRISHA PRO PA-C [facility] ([facility]) [address] [place] [phone] 02/14/2025 14:48:08 02/14/2025 15:17:35 Health Concerns Section Related Observation LastModified by Organization Detai ls LastModified Time None Recorded Concern Status LastModified by Organization Details LastModified Time None Recorded Payers Encounter Date Sequence Insurance Name Policy Number Policy Waters Covered Member ID Waters Member ID Guarantor Name 02/14/2025 1 [place]ANT[place] - PPO) [id number] Khris Kaba [id number] Khris Kaba 02/14/2025 2 [place] Khris Kaba [id number] Khris Kaba Notes Date Note Type Note [...] a blood clot TRISHA PRO PA-C [address] [place], [address], [facility] 02/14/2025 13:13:25
--- OUTSIDE RECORDS SUMMARY | 2025-02-19 12:36 | XMS_ITS | Clinical Summary ---
Author Organization [facility] Address [address] [place] [address] Care Team Providers Care Chainstitch Felled Seam Operator Name Role Phone Patricio Rojas MD [...] on file Legal Sex Male 4:28 AM NURSES DIRECTOR Gender Identity Not on file Sexual Orientation Not on file Last Filed Vital Signs Vital Sign Reading Time Taken Comments Blood Pressure 132/83 03/05/2020 10:11 AM NURSES DIRECTOR Pulse 85 03/05/2020 10:11 AM NURSES DIRECTOR Temperature - - Respiratory Rate 18 12/22/2018 9:19 AM CDT Oxygen Saturation 98% 01/25/2019 9:31 AM CDT Inhaled Oxygen Concentration - - Weight 88 kg (194 lb) 03/05/2020 10:11 AM NURSES DIRECTOR Height 182.9 cm (6') 03/05/2020 10:11 AM NURSES DIRECTOR Body Mass Index 26.31 03/05/2020 10:11 AM NURSES DIRECTOR Plan of Treatment Health Maintenance Due Date Last Done Comments DTAP/TDAP/TD VACCINES (1 - Tdap) 06/16/1999 HPV VACCINES (1 - 3-dose SCD M series) 06/16/2007 INFLUENZA VACCINE (#1) 2024 HEPATITIS B VACCINES Completed 06/19/1998, 01/25/1998, 12/07/1997 Insurance [facility] [place]ID [place] Care Teams Chainstitch Felled Seam Operator Relationship Specialty Start Date End Date Patricio Rojas MD NO ADDRESS ON FILE PCP - General 02/11/02
--- OUTSIDE RECORDS SUMMARY | 2025-02-19 12:36 | XMS_ITS | Clinical Summary ---
Author Organization [facility] Address [address] [facility] Attn: Epic Prelude ADT [place] [address] Care Team Providers Care Machine Operator Farmworker Name Role Phone Patricio Rojas MD Primary [...] on file Legal Sex Male 6:23 AM CHAUFFEUR Gender Identity Not on file Sexual Orientation [...] VACCINES Completed 06/19/1998, 01/25/1998, 12/07/1997 Insurance [place]ID [place] Member Subscriber Plan / Payer (Ef fective 2023-Present) Name:Khris Kaba Relation to Subscriber:Self Name:Khris Kaba Payer ID:Not on file Group ID:Not on file Type:Medicaid Address: [address] MEDICARE HMO Care Teams Machine Operator Farmworker Relationship Specialty Start Date End Date Patricio Rojas MD PCP - General 02/11/02
--- OUTSIDE RECORDS SUMMARY | 2025-02-19 12:36 | XMS_ITS | Encounter Summary ---
Author Organization [facility] Address [address] [place] [address] Care Team Providers Care Hydro Mechanic Name Role Phone Patricio Rojas MD Primary Care Provider Ghada vailable Encounter Details Date Type Department Care Team (Late st Contact Info) Description 10/18/2001 Outpatient [facility] Pain [facility] [address] [place] [address] Patricio Rojas MD NO ADDRESS ON FILE DISORDERS OF SACRUM (Primary Dx) Social History Tobacco Use Types Packs/Day Years Used Date Smoking Tobacco: Never Assessed Sex and Gender Information Value Date Recorded Sex Assigned at Not on file Legal Sex Male 4:28 AM GLOBAL PRODUCT MANAGER Gender Identity Not on file Sexual Orientation Not on file documented as of this encounter Plan of Treatment Not on file documented as of this encounter Visit Diagnoses Diagnosis Disorders of sacrum- Primary documented in this encounter Care Teams Hydro Mechanic Relationship Specialty Start Date End Date Patricio Rojas MD NO ADDRESS ON FILE PCP - General 02/11/02 documented as of this encounter
--- OUTSIDE RECORDS SUMMARY | 2025-02-19 12:36 | XMS_ITS | Encounter Summary ---
Author Organization [facility] Address [address] [place]: [place] [address] Care Team Providers Care Senior Military Analyst Name Role Phone Patricio Rojas MD [...] on file Legal Sex Male 4:28 AM REFINISH TECHNICIAN Gender Identity Not on file Sexual Orientation Not on file documented as of this encounter Plan of Treatment Not on file documented as of this encounter Visit Diagnoses Not on filedocumented in this encounter Care Teams Senior Military Analyst Relationship Specialty Start Date End Date Patricio Rojas MD NO ADDRESS ON FILE PCP - General 02/11/02 documented as of this encounter
--- NOTE | 2025-02-19 13:40 | W.ED.RECABL ---
HPI - Recheck/Abnormal Lab/Rx General: Chief Complaint: Recheck/Abnormal Lab/Rx Stated Complaint: Lost IV lastnight Time Seen by Provider: 02/19/25 13:19 History of Present Illness: Patient is a 44-year-old gentleman that presented to the ED today due to failure of his saline lock he was discharged with from the hospital yesterday. His daptomycin, Rocephin were due today for his right leg cellulitis, and Charcot Amrita atrophy as outlier. These were prescribed and consulted with infectious disease. Patient is due to have PICC placement on Thursday, tomorrow. He has his antibiotics at home. He has told me exactly what each one of them are, and confirm that he has both daptomycin, and Rocephin at appropriate dose at home. He does understand aseptic technique and utilization of his current IV. He has not had a fever. He has no other concerns regarding his right ankle. Related Data Home Medications ?Medication ?Instructions ?Recorded ?Confirmed duloxetine 30 mg capsule,delayed 30 mg PO BEDTIME 01/29/21 02/15/25 release ibuprofen 200 mg tablet 800 mg PO Q4H PRN Pain 01/29/21 02/15/25 Held on 02/18/25. Instructions: Resume on 03/07/25. Direction of PCP cetirizine 10 mg tablet 10 mg PO DAILY 02/15/25 02/15/25 duloxetine 60 mg capsule,delayed 60 mg PO DAILY 02/15/25 02/15/25 release fluticasone propionate 50 2 spray intranasal DAILY 02/15/25 02/15/25 mcg/actuation nasal spray,suspension omeprazole 20 mg capsule,delayed 20 mg PO DAILY 02/15/25 02/15/25 release Previous Rx's ?Medication ?Instructions ?Recorded Articulating AFO #2 ea 04/11/20 AFO bilaterally with shoes to fit #1 ea 07/30/22 ceftriaxone 2 gram solution for 2,000 mg IVP DAILY 14 days #14 ea 02/18/25 injection daptomycin 500 mg intravenous 600 mg IVP Q24H 14 days #14 ea 02/18/25 solution potassium chloride 20 mEq 10 meq (1/2 x 20 mEq) PO DAILY #30 02/18/25 tablet,extended tabs release(part/cryst) (Klor-Con M) Allergies Allergy/AdvReac Type Severity Reaction Status Date / Time No Known Allergies Allergy Verified 02/19/25 12:35 Review of Systems General: Reports: 10 or more systems reviewed and unremarkable except in HPI and below Const: Denies: fever(s), chills or body aches Eyes: Denies: change in vision, blurry vision or photophobia ENMT: Reports: hoarseness; Denies: throat pain, enlarged tonsils, odynophagia or nasal congestion Card: Denies: chest pain, palpitations, irregular heart rhythm, edema, swelling of feet/ankles, lightheadedness, pre-syncope, dyspnea on exertion or orthopnea Resp: Denies: dyspnea, productive cough, non-productive cough, wheezing, stridor, pain on inspiration, change in phlegm color, hemoptysis or chest congestion GI: Denies: abdominal pain, nausea, vomiting, hematemesis, coffee ground emesis, dysphagia, heartburn, diarrhea, constipation, GI cramping, change in stool character, hematochezia or melena : Denies: flank pain, dysuria, urinary frequency, urinary urgency, urinary hesitancy or hematuria Musc: Denies: neck pain, back pain, extremity pain, joint swelling, joint warmth or deformity Neuro: Denies: headache(s), numbness in extremities, weakness in extremities, sensory changes, difficulty walking, frequent falls, dizziness, vertigo, behavioral changes, Slurred speech present or seizure-like activity Psych: Denies: anxiety, depression, suicidal ideation or homicidal ideation Endo: Denies: polyuria, polydipsia, tired all the time, cold intolerance or hot flashes Louie/Lymph: Denies: easy bruising or easy bleeding PFSH ED PFSH: Medical History (Updated 02/19/25 @ 13:43 by SANDY Everett) Atherosclerosis of coronary artery Coronary-myocardial bridge Obstructive sleep apnea Precordial chest pain Spinal cord stimulator status Depression Lumbar radiculopathy Hyperlipidemia Acquired bilateral foot drop Szaiwdv-Dzciv-Luwuy atrophy Surgical History H/O vasectomy Hx of appendectomy H/O arthroscopic knee surgery Family History Other CAD (coronary artery disease) Cancer Stroke Denies family history of Anesthesia complication Bleeding disorder Social History Smoking and tobacco/nicotine status: current every day tobacco/nicotine user (1 pk per day ) Alcohol intake: never Substance/Drug Use: current Physical Exam Const: COMMON NORMALS: no acute distress, average body habitus and patient oriented x3 HENMT: COMMON NORMALS: normocephalic and atraumatic HEAD & SCALP: normocephalic and atraumatic Neck/C-Spine: COMMON NORMALS: full ROM, no lymphadenopathy, supple and no meningeal signs Lymph: LYMPHATIC: no lymphadenopathy noted Chest: COMMONS NORMALS: normal inspection of the chest and normal palpation of entire chest wall Resp: COMMON NORMALS: normal respiratory effort, No retractions and No use of accessory muscles Cardio: COMMON NORMALS: regular rate and regular rhythm RATE: regular rate RHYTHM: regular rhythm GI: COMMON NORMALS: Normal to inspection, nondistended, normoactive bowel sounds present, Soft to palpation, non-tender and No hepatosplenomegaly present PALPATION: Yes Soft to palpation and Yes No hepatosplenomegaly present : COMMON NORMALS: Yes no CVA tenderness BLADDER/KIDNEY EXAM: Yes no CVA tenderness Back/Pelvis: COMMON NORMALS: no CVA tenderness Extremity: OTHER: Neuro: COMMON NORMALS: patient oriented x3 MENINGEAL SIGNS: Yes no meningeal signs Psych: COMMON NORMALS: mental status grossly normal, Normal thought process present and cooperative THOUGHT PROCESS: Normal thought process present Skin: NARRATIVE SKIN EXAM: See image above. Jerzy wrap has been applied. Course Vital Signs: Vital signs: Vital Signs Temperature 98.2 F 02/19/25 12:29 Pulse Rate 100 02/19/25 13:48 Blood Pressure 111/64 02/19/25 12:29 Pulse Oximetry 98 02/19/25 13:48 Oxygen Delivery Me thod Room Air 02/19/25 12:29 MDM - Recheck/Abnormal Lab/Rx Medical Decision Making Saline line placed by nursing. Patient reassures me he has all the medication at home. I will not add daptomycin, and Rocephin here, since patient is going home to place this in his IV line. He is having a PICC line placement tomorrow. Medical Records I reviewed the patient's medical records. Lab Data I reviewed the patient's lab results. Previous No radiology studies performed this visit Discharge Plan Discharge Patient Disposition: Home Clinical Impression: Cellulitis of right ankle, Voxeoss-Rghyi-Uhjzf atrophy Condition: Stable Prescriptions: No Action (DME) Articulating AFO See Rx Instructions .ROUTE .MEDSUPPLY Qty: 2 0RF Rx Instructions: As directed (DME) AFO bilaterally with shoes to fit See Rx Instructions .Route .MEDSUPPLY Qty: 1 0RF Rx Instructions: As directed ibuprofen 200 mg Tablet 800 mg PO Q4H PRN (Reason: Pain) duloxetine 30 mg capsule,delayed release(DR/EC) 30 mg PO BEDTIME Rx Instructions: takes with 60mg to =90mg cetirizine 10 mg tablet 10 mg PO DAILY omeprazole 20 mg capsule,delayed release(DR/EC) 20 mg PO DAILY fluticasone propionate 50 mcg/actuation spray,suspension 2 spray INTRANASAL DAILY duloxetine 60 mg capsule,delayed release(DR/EC) 60 mg PO DAILY Rx Instructions: take with 30mg ceftriaxone 2 gram Recon Soln 2,000 mg IVP DAILY 14 Days Qty: 14 0RF daptomycin 500 mg Recon Soln 600 mg IVP Q24H 14 Days Qty: 14 0RF potassium chloride [Klor-Con M20] 20 mEq tablet,ER particles/crystals 10 meq PO DAILY Qty: 30 0RF Discharge Orders: Discharge ED (Routine); Ordered 02/19/25 Ordered By: Nadeen Pereyra Referrals: Jana Zaman PA [Primary Care Provider, [facility]] Discharge Diet: Usual diet Discharge Activity: Resume usual activity Patient Instructions: Cellulitis (ED), How to Care for Your PICC (Peripherally Inserted Central Catheter) (ED) Activity Restrictions/Additional Instructions: - Usual daptomycin, and Rocephin at home as prescribed - Utilize aseptic technique as you were taught with your IV - Continue with your PICC appointment tomorrow - Return if you have more issues Thank you for choosing [facility] for your healthcare needs today. You have been screened and evaluated and felt safe for discharge. Health conditions do change or evolve sometimes and as such it is important that you follow up with your Primary Doctor to be re checked, 3-5 days is a general good time frame for follow up. You are always welcome to return to the ED for re assessment if your symptoms are worsening or you have new concerns Print Language: Nepali Coding Level of Care Code ED Material Stress Tester for Latoya Garland
[2025-02-19 13:48] VITALS: PULSE 100; O2SAT 98
== END 2025-02-19 13:49 | disposition home or self-care (01) ==
PROVIDERS: Emergency Provider Physician Assistant; PCP Physician Assistant
DX: L03.115 Cellulitis of right lower limb (principal); G60.0 Hereditary motor and sensory neuropathy; F17.210 Nicotine dependence, cigarettes, uncomplicated; E78.5 Hyperlipidemia, unspecified; I25.10 Atherosclerotic heart disease of native coronary artery without angina pectoris
CPT/HCPCS: 99283

== ENCOUNTER → 2025-02-21 09:55 | Day surgery (SDC) | payer MEDICARE, MEDICAID, SELFPAY ==
[2025-02-21 10:00] VITALS: BP 131/86; PULSE 83; RESP 18; TEMP 36.9; O2SAT 97
--- NOTE | 2025-02-21 10:45 | PICC.NOTE ---
Peripheral IV to right forearm removed. Cath intact. No redness or swelling noted.
--- NOTE | 2025-02-21 11:01 | PICC.NOTE ---
Midline placed to left basilic vein. Referred to vascular access nurse for midline placement due to need for IV antibiotics x 10 days. Risks and benefits discussed and informed consent obtained from pt. Left arm assessed with left basilic vein measuring 3.6 mm, straight, and apparent best choice for placement. Using sterile technique and MST, left basilic vein accessed x 1 stick. Mid-arm circumference measured 10 cm from left AC 25 cm. Trimmed cath 11 cm with 1 cm external length noted. Line secured with stat-lock. Insertion site covered with Biopatch and TSM. Report faxed to [facility], home infusion. Teaching completed for pt and pt spouse on how to flush midline and give antibiotic. Verbalized understanding. [facility] and written instruction provided. Follow up appointment for dressing change and lab draw scheduled at [facility] on 02/23/25 at 1200. Appointment card given. No questions voiced.
== END ==
PROVIDERS: PCP Physician Assistant; Visit Provider Student in an Organized Health Care Education/Training Program
DX: L03.115 Cellulitis of right lower limb (principal)
CPT/HCPCS: 36569; C1751

== ENCOUNTER 2025-03-06 14:34 | Oncology outpatient (recurring) (ONCR) | payer MEDICARE, MEDICAID, SELFPAY | END 2025-04-05 23:59 | disposition home or self-care (01) | LOC: ONCMED 03-10 09:18 | PROVIDERS: PCP Physician Assistant; Visit Provider Internal Medicine | DX: L03.115 Cellulitis of right lower limb (principal); L02.415 Cutaneous abscess of right lower limb; Z87.891 Personal history of nicotine dependence; Z79.899 Other long term (current) drug therapy | CPT/HCPCS: 99214 ==

== ENCOUNTER → 2025-03-20 14:37 | Outpatient (BNVA) | payer MEDICARE, MEDICAID, SELFPAY | PROVIDERS: PCP Physician Assistant; Visit Provider Podiatrist Foot & Ankle Surgery | DX: Z98.890 Other specified postprocedural states (principal); L03.115 Cellulitis of right lower limb; L02.415 Cutaneous abscess of right lower limb | CPT/HCPCS: 99024 ==